=== PATIENT | female | born 1965 | race Caucasian/White ===

== ENCOUNTER 2020-08-25 06:39 | Outpatient (NON) | payer SELFPAY ==
[2020-08-25 23:55] LABS: SARS-CoV-2 RNA PCR Negative
== END 2020-08-25 06:40 ==
DX: Z20.828 Contact with and (suspected) exposure to other viral communicable diseases (principal)
CPT/HCPCS: 87635; C9803; U0003

== ENCOUNTER 2020-08-27 11:04 | Outpatient (CLI) | payer SELFPAY ==
[2020-08-27 12:23] LABS: Basophils Percent Auto 0.4 % (0.2-1.2); Eosinophils Absolute Auto 0.1 K/mm3 (0-0.3); Eosinophils Percent Auto 2.8 % (0-4.4); Hematocrit 43.5 % (37.0-47.0); Hemoglobin 14.7 g/dL (12.0-15.0); Immature Granulocyte Absolute 0.01 K/mm3 (0.00-0.031); Immature Granulocyte Percent A 0.2 % (0-0.5); Lymphocytes Percent Auto 36.7 % (18.3-44.2); Mean Corpuscular HGB Conc 33.8 g/dl (32-36); Mean Corpuscular Hemoglobin 31.5 pg (26-34); Mean Corpuscular Volume 93.1 fl (80-100); Monocytes Absolute Auto 0.4 K/mm3 (0.1-0.6); Monocytes Percent Auto 8.6 % (2.6-8.5); Neutrophils Absolute Auto 2.4 K/mm3 (1.3-6.7); Neutrophils Percent Auto 51.3 % (45.5-73.1); Platelet Count Result 255 k/mm3 (150-375); Red Blood Count 4.67 M/mm3 (4.2-5.4); Red Cell Distribution Width 13.3 % (11.5-14.5); White Blood Count 4.6 K/mm3 (4.5-10.0)
[2020-08-27 12:35] LABS: Hemoglobin A1C 6.3 % (<5.7)
[2020-08-27 12:39] LABS: Alanine Aminotransferase 75 U/L (4-35); Albumin Level 4.3 g/dL (3.5-5.1); Alkaline Phosphatase 81 U/L (38-126); Anion Gap 8 mmol/L (8-16); Aspartate Amino Transferase 57 U/L (14-36); Bilirubin,Total 0.8 mg/dL (0.2-1.3); Blood Urea Nitrogen 11 mg/dL (7-17); Calcium 9.4 mg/dL (8.4-10.2); Carbon Dioxide 28 mmol/L (22-30); Chloride 104 mmol/L (98-107); Cholesterol 294 mg/dL (0-200); Estimated Glomerular Filt Rate > 60; Glucose 133 mg/dL (65-105); HDL Direct 36 mg/dL; Potassium 4.4 mmol/L (3.4-5.0); Sodium 140 mmol/L (137-145); Triglycerides 223 mg/dL (<150)
[2020-08-27 12:50] LABS: LDL Cholesterol Direct 214 mg/dL
== END 2020-08-27 11:05 | disposition home or self-care (01) ==
DX: E11.9 Type 2 diabetes mellitus without complications (principal); R53.81 Other malaise; E78.5 Hyperlipidemia, unspecified
CPT/HCPCS: 36415; 80053; 80061; 83036; 84443; 85025

== ENCOUNTER 2024-02-13 12:52 | Outpatient (CLI) | payer BC, SELFPAY ==
[2024-02-13 14:14] LABS: Iron 109 ug/dL (37-170)
[2024-02-13 14:23] LABS: Percent Iron Saturation 31 % (20-50)
[2024-02-13 14:34] LABS: Folic Acid 8.2 ng/mL (2.76->20)
[2024-02-17 11:53] LABS: Vitamin D 1,25 (OH)2 Total 39 pg/mL (18-72); Vitamin D2 1,25 (OH)2 <8 pg/mL; Vitamin D3 1,25 (OH)2 39 pg/mL
== END 2024-02-13 12:53 | disposition home or self-care (01) ==
LOC: ANHLAB 12:55
PROVIDERS: PCP Internal Medicine; Visit Provider Physician Assistant
DX: R53.83 Other fatigue (principal); G47.33 Obstructive sleep apnea (adult) (pediatric); D64.9 Anemia, unspecified
CPT/HCPCS: 36415; 82607; 82652; 82746; 83540; 83550

== ENCOUNTER 2024-02-25 13:21 | Outpatient (CLI) | payer BC, SELFPAY ==
--- NOTE | ~2024-02-25 | CT_ITS ---
CT Scan of the Chest without Contrast: Clinical Indication: Lung cancer screening, nicotine dependence Technique: Contiguous sections were acquired throughout the chest without intravenous contrast. Dose reduction technique was used on this scan by utilizing automated exposure control and iterative recon struction technique. The dose-length product (DLP) was 375.84 mGy-cm. Findings: There is no evidence of any significant mediastinal, hilar or axillary lymphadenopathy. The mediastin al soft tissues appear normal. There is no evidence of pleural or pericardial effusion. The lungs are clear. No pulmonary nodules or infiltrates are noted. Images through the upper abdomen reveal no abnormalities. Impression: Lung RADS 1: Negative. 12 month follow-up screening CT advised. Reviewed, dictated and finalized at location . Impression: Lung RADS 1: Negative. 12 month follow-up screening CT advised.
== END 2024-02-25 13:22 | disposition home or self-care (01) ==
PROVIDERS: PCP Internal Medicine; Visit Provider Physician Assistant
DX: Z12.2 Encounter for screening for malignant neoplasm of respiratory organs (principal); Z87.891 Personal history of nicotine dependence
CPT/HCPCS: 71271

== ENCOUNTER 2024-04-29 07:38 | Outpatient (CLI) | payer BC, SELFPAY ==
[2024-04-29 08:14] LABS: Basophils Percent Auto 0.5 % (0.2-1.2); Eosinophils Absolute Auto 0.1 K/mm3 (0-0.3); Eosinophils Percent Auto 1.7 % (0-4.4); Hematocrit 41.6 % (37.0-47.0); Hemoglobin 14.4 g/dL (12.0-15.0); Immature Granulocyte Absolute 0.01 K/mm3 (0.00-0.031); Immature Granulocyte Percent A 0.2 % (0-0.5); Lymphocytes Absolute Auto 2.02 K/mm3 (0.9-3.2); Lymphocytes Percent Auto 33.6 % (18.3-44.2); Mean Corpuscular HGB Conc 34.6 g/dl (32-36); Mean Corpuscular Hemoglobin 32.6 pg (26-34); Mean Corpuscular Volume 94.1 fl (80-100); Mean Platelet Volume 9.6 fl (7.4-10.4); Monocytes Absolute Auto 0.4 K/mm3 (0.1-0.6); Monocytes Percent Auto 7.3 % (2.6-8.5); Neutrophils Absolute Auto 3.4 K/mm3 (1.3-6.7); Neutrophils Percent Auto 56.7 % (45.5-73.1); Platelet Count Result 251 k/mm3 (150-375); Red Blood Count 4.42 M/mm3 (4.2-5.4); Red Cell Distribution Width 12.5 % (11.5-14.5)
[2024-04-29 08:30] LABS: Alanine Aminotransferase 35 U/L (6-35); Albumin Level 4.4 g/dL (3.5-5.1); Alkaline Phosphatase 86 U/L (38-126); Anion Gap 10 mmol/L (4-12); Aspartate Amino Transferase 26 U/L (14-36); Bilirubin,Total 0.6 mg/dL (0.2-1.3); Blood Urea Nitrogen 15 mg/dL (7-17); Calcium 8.9 mg/dL (8.4-10.2); Carbon Dioxide 25 mmol/L (22-30); Chloride 103 mmol/L (98-107); Cholesterol 200 mg/dL (0-200); Estimated Glomerular Filt Rate > 60; Glucose 122 mg/dL (65-110); HDL Direct 44 mg/dL; Potassium 4.1 mmol/L (3.4-5.0); Sodium 138 mmol/L (137-145); Triglycerides 186 mg/dL (<150)
[2024-04-29 08:41] LABS: LDL Cholesterol Direct 123 mg/dL
== END 2024-04-29 07:39 | disposition home or self-care (01) ==
LOC: ANHLAB 07:40
PROVIDERS: PCP Internal Medicine; Visit Provider Internal Medicine
DX: I10 Essential (primary) hypertension (principal)
CPT/HCPCS: 36415; 80053; 80061; 85025

== ENCOUNTER 2024-12-10 12:21 | Outpatient (CLI) | payer BC, SELFPAY ==
--- NOTE | ~2024-12-10 | XR_ITS ---
EXAMINATION: XR mandible min 4V DATE: 12/10/2024 13:05 INDICATION: Jaw pain. TECHNIQUE: 4 views of the mandible were obtained. COMPARISON: None. FINDINGS: Alignment is normal. No fracture. The temporomandibular joints are normal. IMPRESSION: 1. Normal mandible. Reviewed, dictated and finalized at location A. OR INTERIOR DESIGNER IMPRESSION: 1. Normal mandible.
--- OUTSIDE RECORDS SUMMARY | 2024-12-10 13:57 | XMS_ITS | CONTINUITY OF CARE DOCUMENT ---
Author Name alivia bunch Address Unknown Organization [facility] Address [id number] [place] [address] Phone [phone] Care Team Providers Care Climate Change Analyst Name Role Phone Alex Ward DO Unavailable CAMMIE LOPES MD Unavailable [phone] CAMMIE LOPES MD Unavailable PROBLEMS Condition Status Date Provider Notes Abnormal EKG active Alexandria Ibarra INSURANCE PROVIDERS Payer name Policy type / Coverage type [place] [employer] party ID [employer] [facility] [employer] [id number] TREATMENT PLAN Date Name Complete Echo
--- OUTSIDE RECORDS SUMMARY | 2024-12-10 13:57 | XMS_ITS | Data Portability ---
Author Organization [facility] Marlon Mitchell Address [address] [place] [address] Care Team Providers Care Egg Breaker Name Role Phone CAMMIE SUN Primary Care Provider Unavailabl e Assessment Encounter Date Assessment Date Assessment LastModified by Organization Details LastModified Time 12/27/2023 12/27/2023 Etiology of fatigue not clear will obtain blood work stress testing echocardiogram total CK we will stop the atorvastatin for 4 weeks just to see if that is playing a role she will let me know in 1 month when I see her back Not available 12/30/2023 15:41:04 04/24/2024 04/24/2024 we will try some cholestyramine healthy lifestyle care instructions given blood work has been ordered A1c was 5.9 follow up in 4 months [email or web address] Not available 05/04/2024 21:36:24 08/28/2024 08/28/2024 blood work has been ordered we will start GLP 1 Jeremiah Rudd she will follow up in 3 months all questions answered [email or web address] Not available 10/10/2024 14:01:39 11/27/2024 11/27/2024 healthy lifestyl e care instructions x-ray mandible refer for her jaw issue titrate her GLP 1 follow up in 4 months [email or web address] Not available 12/07/2024 17:37:28 Plan of Treatment Reminders Order Date Submit Date Provider Last Modified By Organization Details Last Modified Time Details Appointments ANY 15 2024 09:15A Patricia Sun MD Not available Not available Not available Lab CMP, serum or plasma 2023 024 SAGAR [facility], [address], [place], [address], 08/29/2024 07:16:27 lipid panel, serum 2023 024 S[facility], [address], [place], [address], 08/29/2024 07:16:25 CBC w/ auto diff 2023 024 SAGAR [facility], [address], [place], [address], 08/29/2024 07:16:28 HbA1c (hemoglob in A1c), blood 2023 024 [email or web address] In-Office Order, Internal Use Only DO Not Attach Compendium DO Not Attach Compendium, Do Not Delete/merge, [id number] 04/24/2024 14:23:48 lipid panel, serum 2023 024 SAGAR [facility], [address], [place], [address], 04/29/2024 09:44:14 CBC w/ auto diff 2023 024 [facility], [address], [place], [address], 04/29/2024 09:44:14 CMP, serum or plasma 2023 024 S[facility], [address], [place], [address], 04/29/2024 09:44:14 CK (creatine kinase), total, serum 2023 024 S[facility]AR [facility], [address], [place], [address], 12/28/2023 10:14:11 CMP, serum or plasma 2023 024 S[facility]AR [facility], [address], [place], [address], 12/28/2023 10:14:10 CBC w/ auto diff 2023 024 [facility], [address], [place], [address], 12/28/2023 10:14:13 lipid panel, serum 2023 024 [facility], [address], [place], [address], 12/28/2023 10:14:10 TSH, ultra-sen sitive, serum 2023 024 [facility], [address], [place], [address], 12/28/2023 10:14:12 T3, free, serum or plasma 2023 024 [facility], [address], [place], [address], 12/28/2023 10:14:13 T4, free, serum 2023 024 [facility], [address], [place], [address], 12/28/2023 10:14:14 Referral None recorded. Procedures lexiscan cardiolit e stress test (PROC) 2023 024 [facility], [address], [address], [place], [address], 05/27/2024 10:48:14 Surgeries None recorded. Imaging US, echocardi ogram 2023 024 [facility], [address], [address], [place], [address], 01/25/2024 15:02:06 Medication Orders Mounjaro 2.5 mg/0.5 mL subcutane ous pen injector 2023 024 [id number], [address], [place], [place], [id number], 11/27/2024 10:39:06 Cholestyr amine Light 4 gram oral powder 2023 024 [id number], [address], [place], [place], [id number], 04/24/2024 14:23:48 Patient TargetsNo targets recorded. Patient Instructions Encounter Date Encounter Id Patient Instructions Last Modified By Organization Details Last Modified Time 04/24/2024 [id number] A healthy lifestyle: care instructions [email or web address] Not available 04/24/2024 14:23:48 08/28/2024 [id number] A healthy lifestyle: care instructions [email or web address] Not available 08/28/2024 13:45:10 11/27/2024 [id number] A healthy lifestyle: care instructions Not available 11/27/2024 13:40:37 Reason for Referral None Reported. Results Created Date Observation Date Name Description Value Unit Range Abnormal Flag Note LastModifiedBy Organization Detail LastModifiedTime 12/27/1912/28/2023 LIPID PANEL cholesterol, total 163 mg/dL 100-19 9 Not Available [facility] ([facility]) [address] [facility], [place], [address], 12/28/2023 10:14:09 12/27/1912/28/2023 LIPID PANEL triglyceride s 123 mg/dL 0-149 Not Available [facility]) [address] [facility], [place], [address], 12/28/2023 10:14:09 12/27/1912/28/2023 LIPID PANEL HDL cholesterol 51 mg/dL >39 Not Available [facility] [address] [facility], [place], [address], 12/28/2023 10:14:09 12/27/19 24 12/28/2023 LIPID PANEL VLDL cholesterol david 22 mg/dL 5-40 Not Available [facility]) [address] [place], [address], 12/28/2023 10:14:09 12/27/19 24 12/28/2023 LIPID PANEL LDL chol calc ([facility]) 90 mg/dL 0-99 Not Available [facility] [address] [place], [address], 12/28/2023 10:14:09 12/27/19 24 12/28/2023 COMP. METAB OLIC PANEL (14) glucose 139 mg/dL 70-99 above high normal Not Available [facility] ([facility]) [address] [facility], [place], [address], 12/28/2023 10:14:10 12/27/19 24 12/28/2023 COMP. METAB OLIC PANEL (14) BUN 14 mg/dL 6-24 Not Available [facility] ([facility]) [address] [place], [address], 12/28/2023 10:14:10 12/27/19 24 12/28/2023 COMP. METAB OLIC PANEL (14) creatinine 0.78 mg/dL 0.57-1 .00 Not Available [facility] ([facility]) [address] [place], [address], 12/28/2023 10:14:10 12/27/19 24 12/28/2023 COMP. METAB OLIC PANEL (14) eGFR 89 mL/mi n/1.7 3 >59 Not Available [facility] ([facility]) [address] [place], [address], 12/28/2023 10:14:10 12/27/19 24 12/28/2023 COMP. METAB OLIC PANEL (14) BUN/creatini ne ratio 18 9-23 Not Available [facility]) [address], [place], [address], 12/28/2023 10:14:10 12/27/19 24 12/28/2023 COMP. METAB OLIC PANEL (14) sodium 140 mmol/ L 134-14 4 Not Available [facility] ([facility]) [address], [place], [address], 12/28/2023 10:14:10 12/27/19 24 12/28/2023 COMP. METAB OLIC PANEL (14) potassium 4.3 mmol/ L 3.5-5. 2 Not Available [facility] ([facility]) [address], [place], [address], 12/28/2023 10:14:10 12/27/19 24 12/28/2023 COMP. METAB OLIC PANEL (14) chloride 101 mmol/ L 96-106 Not Available [facility] ([facility]) [address], [place], [address], 12/28/2023 10:14:10 12/27/19 24 12/28/2023 COMP. METAB OLIC PANEL (14) carbon dioxide, total 23 mmol/ L 20-29 Not Available [facility] ([facility]) [address] [place], [address], 12/28/2023 10:14:10 12/27/19 24 12/28/2023 COMP. METAB OLIC PANEL (14) calcium 9.4 mg/dL 8.7-10 .2 Not Available [facility] ([facility]) [address] [place], [address], 12/28/2023 10:14:10 12/27/19 24 12/28/2023 COMP. METAB OLIC PANEL (14) protein, total 6.6 g/dL 6.0-8. 5 Not Available [facility] ([facility]) [address] [facility], [place], [address], 12/28/2023 10:14:10 12/27/19 24 12/28/2023 COMP. METAB OLIC PANEL (14) albumin 4.1 g/dL 3.8-4. 9 Not Available [facility] ([facility]) [address], [place], [address], 12/28/2023 10:14:10 12/27/19 24 12/28/2023 COMP. METAB OLIC PANEL (14) globulin, total 2.5 g/dL 1.5-4. 5 Not Available [facility] ([facility]) [address], [place], [address], 12/28/2023 10:14:10 12/27/19 24 12/28/2023 COMP. METAB OLIC PANEL (14) A/G ratio 1.6 1.2-2. 2 Not Available [facility] ([facility]) [address] [facility], [place], [address], 12/28/2023 10:14:10 12/27/19 24 12/28/2023 COMP. METAB OLIC PANEL (14) bilirubin, total 0.3 mg/dL 0.0-1. 2 Not Available [facility] ([facility]) [address] [facility], [place], [address], 12/28/2023 10:14:10 12/27/19 24 12/28/2023 COMP. METAB OLIC PANEL (14) alkaline phosphatase 113 IU/L 44-121 Not Available [facility]) [address] [facility], [place], [address], 12/28/2023 10:14:10 12/27/19 24 12/28/2023 COMP. METAB OLIC PANEL (14) AST (SGOT) 20 IU/L 0-40 Not Available [facility] ([facility]) [address] [facility], [place], [address], 12/28/2023 10:14:10 12/27/19 24 12/28/2023 COMP. METAB OLIC PANEL (14) ALT (SGPT) 23 IU/L 0-32 Not Available [facility] ([facility]) [address] [facility], [place], [address], 12/28/2023 10:14:10 12/27/19 24 12/28/2023 CK creatine kinase,total 79 U/L 32-182 Not Available [facility]) [address] [facility], [place], [address], 12/28/2023 10:14:11 12/27/19 24 12/28/2023 TSH TSH 1.480 uIU/m L 0.450- 4.500 Not Available [facility] ([facility]) [address] [facility], [place], [address], 12/28/2023 10:14:12 12/27/19 24 12/28/2023 CBC WITH DIFFE RENTI AL/PL ATELE T WBC 5.5 x10e3 /uL 3.4-10 .8 Not Available [facility] ([facility]) [address] [place], [address], 12/28/2023 10:14:13 12/27/19 24 12/28/2023 CBC WITH DIFFE RENTI AL/PL ATELE T RBC 4.22 x10e6 /uL 3.77-5 .28 Not Available [facility] ([facility]) [address] [facility], [place], [address], 12/28/2023 10:14:13 12/27/19 24 12/28/2023 CBC WITH DIFFE RENTI AL/PL ATELE T hemoglobin 13.4 g/dL 11.1-1 5.9 Not Available [facility] ([facility]) [address] [place], [address], 12/28/2023 10:14:13 12/27/19 24 12/28/2023 CBC WITH DIFFE RENTI AL/PL ATELE T hematocrit 38.7 % 34.0-4 6.6 Not Available [facility] ([facility]) [address] [facility], [place], [address], 12/28/2023 10:14:13 12/27/19 24 12/28/2023 CBC WITH DIFFE RENTI AL/PL ATELE T MCV 92 fL 79-97 Not Available [facility] ([facility]) [address] [facility], [place], [address], 12/28/2023 10:14:13 12/27/19 24 12/28/2023 CBC WITH DIFFE RENTI AL/PL ATELE T MCH 31.8 pg 26.6-3 3.0 Not Available [facility] ([facility]) [address] [facility], [place], [address], 12/28/2023 10:14:13 12/27/19 24 12/28/2023 CBC WITH DIFFE RENTI AL/PL ATELE T MCHC 34.6 g/dL 31.5-3 5.7 Not Available [facility] ([facility]) [address] [place], [address], 12/28/2023 10:14:13 12/27/19 24 12/28/2023 CBC WITH DIFFE RENTI AL/PL ATELE T RDW 12.9 % 11.7-1 5.4 Not Available [facility] ([facility]) [address] [place], [address], 12/28/2023 10:14:13 12/27/19 24 12/28/2023 CBC WITH DIFFE RENTI AL/PL ATELE T platelets 290 x10e3 /uL 150-45 0 Not Available [facility] ([facility]) [address] [facility], [place], [address], 12/28/2023 10:14:13 12/27/19 24 12/28/2023 CBC WITH DIFFE RENTI AL/PL ATELE T neutrophils 61 % notest ab. Not Available [facility] ([facility]) [address] [facility], [place], [address], 12/28/2023 10:14:13 12/27/19 24 12/28/2023 CBC WITH DIFFE RENTI AL/PL ATELE T lymphs 31 % notest ab. Not Available [facility] ([facility]) [address] [facility], [place], [address], 12/28/2023 10:14:13 12/27/19 24 12/28/2023 CBC WITH DIFFE RENTI AL/PL ATELE T monocytes 6 % notest ab. Not Available [facility] ([facility]) [address] [facility], [place], [address], 12/28/2023 10:14:13 12/27/19 24 12/28/2023 CBC WITH DIFFE RENTI AL/PL ATELE T eos 1 % notest ab. Not Available [facility] ([facility]) [address] [facility], [place], [address], 12/28/2023 10:14:13 12/27/19 24 12/28/2023 CBC WITH DIFFE RENTI AL/PL ATELE T basos 1 % notest ab. Not Available [facility] ([facility]) [address] [facility], [place], [address], 12/28/2023 10:14:13 12/27/19 24 12/28/2023 CBC WITH DIFFE RENTI AL/PL ATELE T neutrophils (absolute) 3.4 x10e3 /uL 1.4-7. 0 Not Available [facility] ([facility]) [address] [facility], [place], [address], 12/28/2023 10:14:13 12/27/19 24 12/28/2023 CBC WITH DIFFE RENTI AL/PL ATELE T lymphs (absolute) 1.7 x10e3 /uL 0.7-3. 1 Not Available [facility] ([facility]) [address] [facility], [place], [address], 12/28/2023 10:14:13 12/27/19 24 12/28/2023 CBC WITH DIFFE RENTI AL/PL ATELE T monocytes(ab solute) 0.3 x10e3 /uL 0.1-0. 9 Not Available [facility] ([facility]) [address] [facility], [place], [address], 12/28/2023 10:14:13 12/27/19 24 12/28/2023 CBC WITH DIFFE RENTI AL/PL ATELE T eos (absolute) 0.1 x10e3 /uL 0.0-0. 4 Not Available [facility] ([facility]) [address] [facility], [place], [address], 12/28/2023 10:14:13 12/27/19 24 12/28/2023 CBC WITH DIFFE RENTI AL/PL ATELE T baso (absolute) 0.0 x10e3 /uL 0.0-0. 2 Not Available [facility] ([facility]) [address] [facility], [place], [address], 12/28/2023 10:14:13 12/27/19 24 12/28/2023 CBC WITH DIFFE RENTI AL/PL ATELE T immature granulocytes 0 % notest ab. Not Available [facility] ([facility]) [address] [facility], [place], [address], 12/28/2023 10:14:13 12/27/19 24 12/28/2023 CBC WITH DIFFE RENTI AL/PL ATELE T immature grans (abs) 0.0 x10e3 /uL 0.0-0. 1 Not Available [facility] ([facility]) [address] [facility], [place], [address], 12/28/2023 10:14:13 12/27/19 24 12/28/2023 TRIIO DOTHY KEREN E (T3), FREE triiodothyro nine (T3), free 2.6 pg/mL 2.0-4. 4 Not Available [facility] ([facility]) [address] [facility], [place], [address], 12/28/2023 10:14:13 12/27/19 24 12/28/2023 T4,FR EE(DI RECT) T4,free(dire ct) 1.00 NG/dL 0.82-1 .77 Not Available [facility] ([facility]) [address] [facility], [place], [address], 12/28/2023 10:14:14 04/24/20 24 04/24/2024 HbA1c (hemo globi n A1c), blood HbA1c 5.9 Not Available In-Office Order Internal Use Only DO Not Attach Compendium DO Not Attach Compendium, Do Not Delete/merge, [id number] 04/23/2024 14:11:04 06/20/20 24 06/20/2024 COLOG UARD cologuard result reportable NEGATI VE negati ve normal NEGAT AISHWARYA TEST RESUL T. A negat aishwarya Colog uard resul t indic ates a low likel ihood that a color ectal cance r (CRC) or advan francoise adeno ma (cathie omato us polyp s with more advan francoise pre-m align ant featu res) is prese nt. The chanc e that a perso n with a negat aishwarya Colog uard test has a color ectal cance r is less than 1 in 1500 (nega tive predi ctive value >99.9 %) or has an advan francoise adeno ma is less than 5.3% (nega tive predi ctive value 94.7% ). These data are based on a prosp ectiv e cross -sect ional study of 10,00 0 indiv idual s at [facility] risk for color ectal cance r who were scree xander with both Colog uard and colon oscop y. (Sonny Martines et al, N Engl J Med 2014; 370(1 4):12 86-12 97) The manolo l value (refe rence range ) for this assay is negat aishwarya. COLOG UARD RE-SC REENI NG RECOM MENDA TION: Perio dic color ectal cance r scree palomo is an impor tant part of preve ntive healt hcare for asymp tomat ic indiv idual s at [facility] for color ectal cance r. Follo wing a negat aishwarya Colog uard resul t, the Ameri can Cance r Socie ty and U.S. Multi -Soci ety Task Force scree palomo guide lines recom mend a Colog uard re-sc reeni ng inter simi of 3 years . Refer ences : Ameri can Cance r Socie ty Guide line for Color ectal Cance r Scree palomo: https ://zoie w.can cer.o rg/ca ncer/ colon -rect al-ca ncer/ detec tion- diagn osis- stagi ng/ac s-rec ommen datio ns.ht ml.; Kevin HEART, Faustino WOODS, Vielka AWAD, Color ectal Cance r Scree palomo: Recom menda tions for Physi cians and Patie nts from the U.S. Multi -Soci ety Task Force on Color ectal Cance r Scree palomo , Saeed alvarez y 2017; 112:1 016-1 030. TEST DESCR IPTIO N: [place] site algor ithmi c isamar sis of stool DNA-b iomar kers with hemog lobin immun oassa y. Quant itati ve value s of indiv idual bioma rkers are not repor table and are not assoc iated with indiv idual bioma rker resul t refer ence range s. Colog uard is inten ded for color ectal cance r scree palomo of adult s of eithe r sex, 45 years or older , who are at [facility] for color ectal cance r (CRC) . Colog uard has been appro lesley for use by the U.S. FDA. The perfo rmanc e of Colog uard was estab lishe d in a cross secti onal study of [facility] adult s aged 50-84 . Colog uard perfo rmanc e in patie nts ages 45 to 49 years was estim ated by sub-g roup isamar sis of near- age group s. Colon oscop ies perfo rmed for a posit aishwarya resul t may find as the most clini merissa signi fican t lesio n: color ectal cance r [4.0% ], advan francoise adeno ma (incl uding sessi le sophia patrice polyp s great er than or equal to 1cm diame ter) [20%] or non- advan francoise adeno ma [31%] ; or no color ectal neopl nabeel [45%] . These estim ates are deriv ed from a prosp ectiv e cross -sect ional scree palomo study of 0 indiv idual s at [facility] risk for color ectal cance r who were scree xander with both Colog uard and colon oscop y. (Sonny Martines et al, N Engl J Med 2014; 370(1 4):12 86-12 97.) Colog uard may produ ce a false negat aishwarya or false posit aishwarya resul t (no color ectal cance r or preca ncero us polyp prese nt at colon oscop y follo w up). A negat aishwarya Colog uard test resul t does not guara ntee the absen ce of CRC or advan francoise adeno ma (pre- cance r). The curre nt Colog uard scree palomo inter simi is every 3 years . (Amer ican Cance r Socie ty and U.S. Multi -Soci ety Task Force ). Colog uard perfo rmanc e data in a 0 patie nt pivot al study using colon oscop y as the refer ence metho d can be acces sed at the follo wing locat ion: www.e xactl abs.c om/re luis eduardo . Addit ional descr iptio n of the Colog uard test proce ss, warni ngs and preca ution s can be found at www.c georgia cruzd.c om. Not Available [facility] (Cologuard Orders Only) [address], [place], [address], 06/25/2024 14:54:41 08/28/20 24 08/29/2024 LIPID PANEL cholesterol, total 163 mg/dL 100-19 9 Not Available [facility] ([facility]) [address] [place], [address], 08/29/2024 07:16:25 08/28/20 24 08/29/2024 LIPID PANEL triglyceride s 156 mg/dL 0-149 above high normal Not Available [facility] ([facility]) [address] [place], [address], 08/29/2024 07:16:25 08/28/20 24 08/29/2024 LIPID PANEL HDL cholesterol 49 mg/dL >39 Not Available [facility]) [address] [place], [address], 08/29/2024 07:16:25 08/28/20 24 08/29/2024 LIPID PANEL VLDL cholesterol david 27 mg/dL 5-40 Not Available [facility] ([facility]) [address] [place], [address], 08/29/2024 07:16:25 08/28/20 24 08/29/2024 LIPID PANEL LDL chol calc ([facility]) 87 mg/dL 0-99 Not Available [facility] ([facility]) [address] [place], [address], 08/29/2024 07:16:25 08/28/20 24 08/29/2024 COMP. METAB OLIC PANEL (14) glucose 121 mg/dL 70-99 above high normal Not Available [facility] ([facility]) [address] [place], [address], 08/29/2024 07:16:26 08/28/20 24 08/29/2024 COMP. METAB OLIC PANEL (14) BUN 12 mg/dL 6-24 Not Available [facility] ([facility]) [address] [place], [address], 08/29/2024 07:16:26 08/28/20 24 08/29/2024 COMP. METAB OLIC PANEL (14) creatinine 0.86 mg/dL 0.57-1 .00 Not Available [facility] ([facility]) [address] [place], [address], 08/29/2024 07:16:26 08/28/20 24 08/29/2024 COMP. METAB OLIC PANEL (14) eGFR 78 mL/mi n/1.7 3 >59 Not Available [facility] ([facility]) [address] [place], [address], 08/29/2024 07:16:26 08/28/20 24 08/29/2024 COMP. METAB OLIC PANEL (14) BUN/creatini ne ratio 14 9-23 Not Available [facility] ([facility]) [address] [place], [address], 08/29/2024 07:16:26 08/28/20 24 08/29/2024 COMP. METAB OLIC PANEL (14) sodium 137 mmol/ L 134-14 4 Not Available [facility] ([facility]) [address] [place], [address], 08/29/2024 07:16:26 08/28/20 24 08/29/2024 COMP. METAB OLIC PANEL (14) potassium 4.7 mmol/ L 3.5-5. 2 Not Available [facility] ([facility]) [address] [place], [address], 08/29/2024 07:16:26 08/28/20 24 08/29/2024 COMP. METAB OLIC PANEL (14) chloride 102 mmol/ L 96-106 Not Available [facility] ([facility]) [address] [place], [address], 08/29/2024 07:16:26 08/28/20 24 08/29/2024 COMP. METAB OLIC PANEL (14) carbon dioxide, total 24 mmol/ L 20-29 Not Available [facility] ([facility]) [address] [facility], [place], [address], 08/29/2024 07:16:26 08/28/20 24 08/29/2024 COMP. METAB OLIC PANEL (14) calcium 9.6 mg/dL 8.7-10 .2 Not Available [facility] ([facility]) [address] [facility], [place], [address], 08/29/2024 07:16:26 08/28/20 24 08/29/2024 COMP. METAB OLIC PANEL (14) protein, total 7.1 g/dL 6.0-8. 5 Not Available [facility] ([facility]) [address] [facility], [place], [address], 08/29/2024 07:16:26 08/28/20 24 08/29/2024 COMP. METAB OLIC PANEL (14) albumin 4.4 g/dL 3.8-4. 9 Not Available [facility] ([facility]) [address] [facility], [place], [address], 08/29/2024 07:16:26 08/28/20 24 08/29/2024 COMP. METAB OLIC PANEL (14) globulin, total 2.7 g/dL 1.5-4. 5 Not Available [facility] ([facility]) [address] [facility], [place], [address], 08/29/2024 07:16:26 08/28/20 24 08/29/2024 COMP. METAB OLIC PANEL (14) bilirubin, total 0.4 mg/dL 0.0-1. 2 Not Available [facility] ([facility]) [address] [facility], [place], [address], 08/29/2024 07:16:26 11/14/08/29/2024 COMP. METAB OLIC PANEL (14) alkaline phosphatase 124 IU/L 44-121 above high normal Not Available [facility] ([facility]) [address] [facility], [place], [address], 08/29/2024 07:16:26 08/28/20 24 08/29/2024 COMP. METAB OLIC PANEL (14) AST (SGOT) 23 IU/L 0-40 Not Available [facility] ([facility]) [address] [facility], [place], [address], 08/29/2024 07:16:26 08/28/2008/29/2024 COMP. METAB OLIC PANEL (14) ALT (SGPT) 31 IU/L 0-32 Not Available [facility] ([facility]) [address] [facility], [place], [address], 08/29/2024 07:16:26 08/28/20 24 08/29/2024 CBC WITH DIFFE RENTI AL/PL ATELE T WBC 6.8 x10e3 /uL 3.4-10 .8 Not Available [facility] ([facility]) [address] [place], [address], 08/29/2024 07:16:28 08/28/20 24 08/29/2024 CBC WITH DIFFE RENTI AL/PL ATELE T RBC 4.65 x10e6 /uL 3.77-5 .28 Not Available [facility] ([facility]) [address] [place], [address], 08/29/2024 07:16:28 08/28/20 24 08/29/2024 CBC WITH DIFFE RENTI AL/PL ATELE T hemoglobin 14.9 g/dL 11.1-1 5.9 Not Available [facility] ([facility]) [address] [place], [address], 08/29/2024 07:16:28 08/28/20 24 08/29/2024 CBC WITH DIFFE RENTI AL/PL ATELE T hematocrit 44.5 % 34.0-4 6.6 Not Available [facility] ([facility]) [address] [facility], [place], [address], 08/29/2024 07:16:28 08/28/20 24 08/29/2024 CBC WITH DIFFE RENTI AL/PL ATELE T MCV 96 fL 79-97 Not Available [facility] ([facility]) [address] [facility], [place], [address], 08/29/2024 07:16:28 08/28/20 24 08/29/2024 CBC WITH DIFFE RENTI AL/PL ATELE T MCH 32.0 pg 26.6-3 3.0 Not Available [facility] ([facility]) [address] [facility], [place], [address], 08/29/2024 07:16:28 08/28/20 24 08/29/2024 CBC WITH DIFFE RENTI AL/PL ATELE T MCHC 33.5 g/dL 31.5-3 5.7 Not Available [facility] ([facility]) [address] [place], [address], 08/29/2024 07:16:28 08/28/20 24 08/29/2024 CBC WITH DIFFE RENTI AL/PL ATELE T RDW 12.5 % 11.7-1 5.4 Not Available [facility] ([facility]) [address] [place], [address], 08/29/2024 07:16:28 08/28/20 24 08/29/2024 CBC WITH DIFFE RENTI AL/PL ATELE T platelets 267 x10e3 /uL 150-45 0 Not Available [facility] ([facility]) [address] [place], [address], 08/29/2024 07:16:28 08/28/20 24 08/29/2024 CBC WITH DIFFE RENTI AL/PL ATELE T neutrophils 60 % notest ab. Not Available [facility] ([facility]) [address] [facility], [place], [address], 08/29/2024 07:16:28 08/28/20 24 08/29/2024 CBC WITH DIFFE RENTI AL/PL ATELE T lymphs 30 % notest ab. Not Available [facility] ([facility]) [address] [facility], [place], [address], 08/29/2024 07:16:28 08/28/20 24 08/29/2024 CBC WITH DIFFE RENTI AL/PL ATELE T monocytes 8 % notest ab. Not Available [facility] ([facility]) [address] [facility], [place], [address], 08/29/2024 07:16:28 08/28/20 24 08/29/2024 CBC WITH DIFFE RENTI AL/PL ATELE T eos 2 % notest ab. Not Available [facility] ([facility]) [address] [facility], [place], [address], 08/29/2024 07:16:28 08/28/20 24 08/29/2024 CBC WITH DIFFE RENTI AL/PL ATELE T basos 0 % notest ab. Not Available [facility] ([facility]) [address] [facility], [place], [address], 08/29/2024 07:16:28 08/28/20 24 08/29/2024 CBC WITH DIFFE RENTI AL/PL ATELE T neutrophils (absolute) 4.1 x10e3 /uL 1.4-7. 0 Not Available [facility] ([facility]) [address] [facility], [place], [address], 08/29/2024 07:16:28 08/28/20 24 08/29/2024 CBC WITH DIFFE RENTI AL/PL ATELE T lymphs (absolute) 2.1 x10e3 /uL 0.7-3. 1 Not Available [facility] ([facility]) [address] [facility], [place], [address], 08/29/2024 07:16:28 08/28/20 24 08/29/2024 CBC WITH DIFFE RENTI AL/PL ATELE T monocytes(ab solute) 0.5 x10e3 /uL 0.1-0. 9 Not Available [facility] ([facility]) [address] [facility], [place], [address], 08/29/2024 07:16:28 08/28/20 24 08/29/2024 CBC WITH DIFFE RENTI AL/PL ATELE T eos (absolute) 0.1 x10e3 /uL 0.0-0. 4 Not Available [facility] ([facility]) [address] [facility], [place], [address], 08/29/2024 07:16:28 08/28/20 24 08/29/2024 CBC WITH DIFFE RENTI AL/PL ATELE T baso (absolute) 0.0 x10e3 /uL 0.0-0. 2 Not Available [facility] ([facility]) [address] [facility], [place], [address], 08/29/2024 07:16:28 08/28/20 24 08/29/2024 CBC WITH DIFFE RENTI AL/PL ATELE T immature granulocytes 0 % notest ab. Not Available [facility] ([facility]) [address] [place], [address], 08/29/2024 07:16:28 08/28/20 24 08/29/2024 CBC WITH DIFFE RENTI AL/PL ATELE T immature grans (abs) 0.0 x10e3 /uL 0.0-0. 1 Not Available [facility] ([facility]) [address] [facility], [place], [address], 08/29/2024 07:16:28 09/16/20 24 09/17/2024 HEMOG LOBIN A1C hemoglobin A1C 6.3 % 4.8-5. 6 above high normal Predi abete s: 5.7 - 6.4 Diabe lucita: >6.4 Glyce phillip contr ol for adult s with diabe lucita: <7.0 Not Available [facility] ([facility]) [address], [place], [address], 09/17/2024 08:29:52 12/27/19 24 12/27/2023 elect rocar diogr am No observ ation record ed. Not Available 2023 21:36:57 01/25/20 24 01/25/2024 , echo ardio gram No observ ation record ed. [facility] [address], [place], [address], 01/25/2024 17:23:34 02/25/20 24 02/25/2024 CT, chest , w/o contr ast No observ ation record ed. [facility] [address], [place], [address], 02/26/2024 15:30:45 Result Notes None recorded. Problems Name Problem SNOMED Code Status Onset Date Resolution Date Notes Provider Name and Address Organization Details Recorded Time Fatigue 19492391 Active 2023 Cammie Sun MD Attn: Austin ontiveros,[address] [facility], [place], [address], [place] - [facility] 4 15:39:10 Essential hypertension 07645015 Active 2023 Cammie Sun MD Attn: Austin ontiveros,[address] [facility], [place], [address], [place] - [facility] 4 15:39:11 Type 2 diabetes mellitus 67236535 Active 2023 Reg Carlson [place] null, [place] [facility] 4 10:41:40 Morbid obesity 327360063 Active 2023 Reg Carl[place], [place] [facility] 4 10:41:41 Diarrhea 28016042 Active 2023 Reg Carlson MA null, [place] - [facility] 10:41:42 Hyperlipidemia 09874047 Active 2023 Cammie Sun MD Attn: Austin ontiveros,[address], [place], [address], [facility] - [facility] 14:01:58 Problem Notes None recorded. Procedures Surgical History Date Name Laterality Status Provider Name and Address Organization Details Recorded Time LEEP completed Stephanie Swanson on, [facility] - [facility] 12/27/2023 11:41:24 Imaging Results Imaging Date Name Status LastModified by Organization Details LastModified Time 12/27/2023 electrocardiogram completed [id number] Informa tion not available 12/30/2023 21:36:57 01/25/2024 US, echocardiogram completed [facility] [address], [place], [address], 01/25/2024 17:23:34 02/25/2024 CT, chest, w/o contrast completed [facility] [address], [place], [address], 02/26/2024 15:30:45 Procedure Notes None recorded. Medical Equipment None Reported. Allergies No known drug allergies Medications Name Sig Start Date Stop Date Status Note LastModified by Organization Details LastModified Time amoxicillin 500 mg capsule TAKE 1 CAPSULE BY MOUTH EVERY 6 HOURS 12/26 completed Not Available Not Available Not Available atorvastati n 20 mg tablet TAKE 1 TABLET BY MOUTH DAILY active Not Available Not Available No t Available atorvastati n 10 mg tablet active Not Available Not Available Not Available citalopram 10 mg tablet Take 1 tablet every day by oral route. 11/27 completed Not Available Not Available Not Available hydrocodone 5 mg-acetamin ophen 325 mg tablet TAKE 1 TABLET BY MOUTH EVERY 4 HOURS NEEDED FOR PAIN 12/26 completed Not Available Not Available Not Available prednisone 20 mg tablet TAKE 2 TABLETS BY MOUTH EVERY DAY FOR 5 DAYS 12/26 completed Not Available Not Available Not Available penicillin V potassium 500 mg tablet TAKE 1 TABLET BY MOUTH EVERY 6 HOURS UNTIL GONE 12/26 completed Not Available Not Available Not Available citalopram 20 mg tablet TAKE 1 TABLET BY MOUTH DAILY active Not Available Not Available No t Available doxycycline monohydrate 100 mg capsule TAKE 1 CAPSULE BY MOUTH TWICE DAILY WITH FOOD FOR 7 DAYS 12/26 completed Not Available Not Available Not Available cephalexin 500 mg capsule TAKE 1 CAPSULE BY MOUTH THREE TIMES DAILY FOR 7 DAYS 08/28 completed Not Available Not Available Not Available nystatin 100,000 unit/gram topical cream APPLY TOPICALLY TO THE AFFECTED AREA TWICE DAILY active Not Available Not Available No t Available albuterol sulfate HFA 90 mcg/actuati on aerosol inhaler INHALE 2 PUFFS BY MOUTH EVERY 4 HOURS NEEDED active Not Available Not Available No t Available metformin ER 500 mg tablet,exte nded release 24 hr TAKE 2 TABLETS BY MOUTH EVERY DAY AT BEDTIME 2024 active Not Available Not Available Not Avai lable doxycycline hyclate 100 mg tablet TAKE 1 TABLET BY MOUTH TWICE DAILY FOR 7 DAYS 12/26 completed Not Available Not Available Not Available metoprolol tartrate 25 mg tablet TAKE 1 TABLET BY MOUTH TWICE DAILY active Not Available Not Available No t Available Cholestyram ine Light 4 gram oral powder MIX 1 SCOOP IN LIQUID AND TAKE BY MOUTH EVERY DAY active Not Available Not Available No t Available Ozempic 0.25 mg or 0.5 mg (2 mg/1.5 mL) subcutaneou s pen injector inject 0.25mg weekly for 4wks the go to 0.5mg weekly for 4wk 11/27 completed Not Available Not Available Not Available Ozempic 1 mg/dose (4 mg/3 mL) subcutaneou s pen injector INJECT 1 MG UNDER THE SKIN ONCE A WEEK 12/26 completed Not Available Not Available Not Available Ozempic 2 mg/dose (8 mg/3 mL) subcutaneou s pen injector Inject 2 mg every week by subcutane ous route. 11/27 completed Not Available Not Available Not Available Mounjaro 7.5 mg/0.5 mL subcutaneou s pen injector ADMINISTE R 7.5 MG UNDER THE SKIN 1 TIME WEEKLY FOR 4 WEEKS active Not Available Not Available No t Available Mounjaro 5 mg/0.5 mL subcutaneou s pen injector ADMINISTE R 5 MG UNDER THE SKIN 1 TIME A WEEK FOR 4 WEEKS active Not Available Not Available No t Available Mounjaro 2.5 mg/0.5 mL subcutaneou s pen injector INJECT 2.5 MG UNDER THE SKIN ONE DAY A WEEK FOR 4 WEEKS 11/27 completed Not Available Not Available Not Available Ozempic 0.25 mg or 0.5 mg (2 mg/3 mL) subcutaneou s pen injector 11/27 completed Not Available Not Available Not Available Vitals Date Recorded Body height Body mass index (BMI) Body weight Oxygen saturation Oxygen saturation in Arterial blood by Pulse oximetry Heart rate Systolic blood pressure Diastolic blood pressure Provider Name and Address Organization Details Last Updated DateTime 4 167.64 cm 42.3 kg/m2 553762. 2 g 95 % 95 % 63 /min 136 mm[Hg] 64 mm[Hg] Stephanie Mills MA [facility] 4 11:46:30 Date Recorded Body height Body mass index (BMI) Body weight Heart rate Oxygen saturation Oxygen saturation in Arterial blood by Pulse oximetry Systolic blood pressure Diastolic blood pressure Provider Name and Address Organization Details Last Updated DateTime 4 167.64 cm 41.9 kg/m2 889794. 5 g 61 /min 98 % 98 % 120 mm[Hg] 70 mm[Hg] July Soni MA [facility] 4 09:53:29 Date Recorded Body height Body mass index (BMI) Body weight Heart rate Oxygen saturation Oxygen saturation in Arterial blood by Pulse oximetry Body temperature Systolic blood pressure Diastolic blood pressure Provider Name and Address Organization Details Last Updated DateTime 4 167.64 cm 41.2 kg/m2 471438. 05 g 70 /min 98 % 98 % 97.6 [degF] 132 mm[Hg] 86 mm[Hg] Patricia Ontiveros MA [facility] 4 10:12:19 Date Recorded Body height Body mass index (BMI) Body weight Heart rate Oxygen saturation Oxygen saturation in Arterial blood by Pulse oximetry Systolic blood pressure Diastolic blood pressure Provider Name and Address Organization Details Last Updated DateTime 5 167.64 cm 41.8 kg/m2 112229. 71 g 68 /min 99 % 99 % 118 mm[Hg] 68 mm[Hg] Tracy Khalil MA [place] - [facility] 10:37:26 Social History Question Answer Notes LastModified by Organizat ion Details LastModified Time Tobacco Smoking Status Former Smoker Stephanie Mills MA [place], [place] - [facility] 12/27/2023 11:39:57 Do You Have An Advance Directive? No Information not available 12/27/2023 What Is Your Level Of Alcohol Consumption? Occasional Information not available 12/27/2023 Are You Blind Or Do You Have Difficulty Seeing? No Information not available 12/27/2023 What Is Your Level Of Caffeine Consumption? Occasional Information not available 12/27/2023 In The 14 Days Before Symptom Onset, Have You Had Close Contact With A Laboratory-confir med COVID-19 While That Case Was Ill? No Information not available 11/27/2024 In The 14 Days Before Symptom Onset, Have You Had Close Contact With A Person Who Is Under Investigation For COVID-19 While That Person Was Ill? No Information not available 11/27/2024 Have You Been To An Area Known To Be High Risk For COVID-19? No Information not available 11/27/2024 Are You Deaf Or Do You Have Serious Difficulty Hearing? No Information not available 12/27/2023 What Type Of Diet Are You Following? REGULAR Information not available 12/27/2023 Are There Any Guns Present In Your Home? No Information not available 12/27/2023 What Was The Date Of Your Most Recent Tobacco Screening? 11/27/2024 Information not available 11/27/2024 What Is Your Current Pack Years? 20-29packyears Information not available 12/27/2023 What Is Your Relationship Status? Information not available 12/27/2023 Do You Use Your Seat Belt Or Car Seat Routinely? Yes Information not available 12/27/2023 Do You Have Smoke And Carbon Monoxide Detectors In Your Home? Yes Information not available 12/27/2023 How Much Tobacco Do You Smoke? 3+ PPD Information not available 12/27/2023 Do You Feel Stressed (tense, Restless, Nervous, Or Anxious, Or Unable To Sleep At Night)? [id number] Information not available 12/27/2023 Do You Use Any Illicit Or Recreational Drugs? No Information not available 12/27/2023 Do You Use Sunscreen Routinely? No Information not available 12/27/2023 Has Tobacco Cessation Counseling Been Provided? No Information not available 12/27/2023 How Many Years Have You Smoked Tobacco? 15 Information not available 12/27/2023 Do You Or Have You Ever Used Any Other Forms Of Tobacco Or Nicotine? No Information not available 12/27/2023 Sex: Female Functional Status Question Answer Note LastModified by Organization D etails LastModified Time Are you able to care for yourself? Yes Information n ot available 12/27/2023 What is your exercise level? None Information not available 12/27/2023 Mental Status None recorded. Family History Relationship Description Onset Age of this Age Resolved Age Notes LastModified by Organization Details LastModified Time Father No current problems or disability bandersonma Not available 11:39:03 Mother No current problems or disability bandersonma Not available 11:39:03 Medical History Condition Response Coronary Artery Disease N Other N High Blood Pressure N Atrial Fibrillation N Kidney or Bladder Problems Y Thyroid Problems N GI Problems N Depression N COPD N Blood Clots N Skin Problems N Anemia N Heart Attack (ND) N Anxiety Disorder N Diabetes Y Muscle, Joint, or Bone Problems N Seizures/Epilepsy N Acid Reflux (GERD) N Cancer N Stroke N Asthma N Allergies N High Cholesterol Y Hepatitis N Liver Disease N Headaches N Heart Failure N Osteoporosis N Gynecological HistoryNo gynecological history recorded. Obstetrics History GPAL:G 0 P 0 0 0 0 Immunizations Vaccine Type Date Status Note Provider Nam e and Address Organization Details Recorded Time COVID-19, mRNA, LNP-S, PF, 100 mcg/0.5mL dose or 50 mcg/0.25mL dose 10/19/2021 completed Stephanie Mills [place] null, [place] [facility] 04/23/2024 14:08:44 COVID-19 vaccine, vector-nr, [id number], PF, 0.5 mL 01/17/2021 completed Stephanie Mills [place] null, [place] - [facility] 04/23/2024 14:08:44 COVID-19, mRNA, LNP-S, bivalent, PF, 30 mcg/0.3 mL dose 11/16/2022 completed Stephanie Mills MA null, [facility] 04/23/2024 14:08:44 Influenza, split virus, quadrivalent, PF 08/17/2022 completed Stephanie Mills MA null, [facility] 04/23/2024 14:08:44 Past Encounters Encounter ID Performer Location Encounter Start Date Encounter Closed Date Diagnosis/Indication Diagnosis SNOMED-CT Code Diagnosis ICD10 Code Diagnosis Note [id number] Cammie Sun MD [facility] [address] [place] [address] 12/27/2023 11:13:08 12/27/2023 12:37:12 Fatigue 68263544 R53.83 Essential hypertension 72113375 I10 Muscle pain 55025789 M79 .10 Dizziness 140951254 R42 Electrocar diogram abnormal 461851165 R94.31 Obstructiv e sleep apnea syndrome 15416835 G47.33 Obesity 980332456 E66.9 Hyperlipidemia 28501130 E78.5 Type 2 sonny betes mellitus 38806235 E11.9 [id number] Cammie Sun MD [facility] [address] [place] [address] 04/24/2024 09:37:14 04/24/2024 10:54:29 Type 2 diabetes mellitus 21928146 E11.9 Morbid obesity 758152236 E66.01 Diarrhea 91111428 R19.7 Essential hypertension 16526972 I10 [id number] Cammie Sun MD [facility] [place] [address] [place] [address] 08/28/2024 09:54:50 08/28/2024 10:48:56 Obesity 218352944 E66.9 Essential hypertension 40867266 I10 Type 2 sonny betes mellitus 90738768 E11.9 Fatigue 39781363 R53.83 Hyperlipidemia 77666110 E78.5 [id number] Cammie Sun MD [facility] [place] [address] [place] [address] 11/27/2024 10:08:03 11/27/2024 11:40:05 Body mass index 40+ - severely obese 716540137 Z68.41 Morbid obesity 650530571 E66.01 Type 2 sonny betes mellitus 94627551 E11.9 Essential hypertension 16604896 I10 Hyperlipidemia 85103074 E78.5 Health Concerns Section Related Observation LastModified by Organization Detai ls LastModified Time None Recorded Concern Status LastModified by Organization Details LastModified Time None Recorded Advance Directives Directive N: Payers Encounter Date Sequence Insurance Name Policy Number Policy Barriga Covered Member ID Barriga Member ID Guarantor Name 12/27/2023 1 [place] [id number] Daniella Messinarath [id number] Daniella Givens 04/24/2024 1 [place] [id number] Daniella Messinarath [id number] Daniella Messinarath 08/28/2024 1 [place] [id number] Daniella Messinarath [id number] Daniella Messinarath 11/27/2024 1 [place] [id number] Daniella Messinarath [id number] Daniella Givens Notes Date Note Type Note Provider Name and Address Organization Details Recorded Time 12/27/2023 text/html Fatigue just bot hers her quite a bit does not seem to get any rest at all and she is using her CPAP at times will have some muscle pain or dizziness better when we went down on the metoprolol obesity trouble losing weight hypertension no headache or dizziness dyslipidemia taking the atorvastatin and try to watch her diet Cammie Sun MD Attn: Accounting,[address] [facility], [place], [address], [facility] 12/30/2023 15:42:02 04/24/2024 text/html Fatigue just bot hers her quite a bit does not seem to get any rest at all and she is using her CPAP at times will have some muscle pain or dizziness better when we went down on the metoprolol obesity trouble losing weight hypertension no headache or dizziness dyslipidemia taking the atorvastatin and try to watch her diet. She did see pulmonary he will need LD CT chest and she has some diarrhea Cammie Sun MD Attn: Accounting,[address] [facility] [facility], [place], [address], [facility] 05/04/2024 21:36:49 08/28/2024 text/html follow up of her medical problems. Hypertension her blood pressure a little bit up on the diastolic side she does take some caffeine and good exercise a little bit more and watch her salt. Rhinitis has been fairly stable diabetes we did talk about possibly GLP 1 agent there is no contraindication and she would like to explore that. Her anxiety has been doing fine. Still has some fatigue despite use of CPAP. Hyperlipidemia taking her medication trying to follow low-fat diet the best that she can. No side effects from any meds Cammie Sun MD Attn: Accounting,[address] [facility], [place], [address], [facility] 10/10/2024 14:02:23 11/27/2024 text/html hypertension blo od pressure looks good still some intermittent fatigue she was seen the sleep doctor they are optimizing her treatment some troubles with the right TMJ joint causes her some pain hard to completely close her jaw at times dyslipidemia could do better with diet Cammie Sun MD Attn: Accounting,[address] [facility], [place], [address], [facility] 12/07/2024 17:37:53 OBGyn Episode No OBEpisode recorded.
--- OUTSIDE RECORDS SUMMARY | 2024-12-10 13:57 | XMS_ITS | Data Portability ---
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 Increase Ozempic to 2 mg blood work has been ordered for biochemical management of disease processes of medications follow-up with me in 4 months [email or web address] Not available 04/19/2023 21:45:31 09/10/2023 09/10/2023 EKG shows a normal sinus rhythm with no acute changes orthostatics are noted Decrease metoprolol to 12.5 b.i.d. blood work she has full range of motion of her lumbar spine and her cervical spine with no spinous process tenderness I will see her back in a week Accu-Chek in the office today 156 Not available 09/10/2023 23:00:49 10/23/2023 10/23/2023 Chest x-ray prednisone doxycycline call if not improved [email or web address] Not available 10/23/2023 22:30:35 Plan of Treatment Reminders Order Date Submit Date Provider Last Modified By Organization Details Last Modified Time Details Appointments None recorded. Lab TSH, serum or plasma 2022 023 SAGAR Not available 11:57:19 T3, free, serum or plasma 2022 023 SAGAR Not available 11:44:33 CBC w/ auto diff 2022 023 SAGAR Not available 11:07:44 CMP, serum or plasma 2022 023 SAGAR Not available 3 11:30:25 T4, free, serum 2022 023 SAGAR Not available 3 11:44:35 magnesium, serum or plasma 2022 023 SAGAR Not available 3 11:30:31 HbA1c (hemoglobin A1c), blood 2022 023 [email or web address] Not available 3 10:31:16 lipid panel, serum 2022 023 SAGAR Not available 3 11:30:33 HbA1c (hemoglobin A1c), blood 2022 023 cyahl Not available 3 17:32:07 T3, free, serum or plasma 2022 023 SAGAR Not available 3 13:14:10 T4, free, serum 2022 023 SAGAR Not available 3 13:14:12 TSH, serum or plasma 2022 023 SAGAR Not available 3 13:44:33 CBC w/ auto diff 2022 023 SAGAR Not available 3 13:00:28 lipid panel, serum 2022 023 SAGAR Not available 3 13:04:18 CMP, serum or plasma 2022 023 SAGAR Not available 3 13:04:[address] referral 2022 023 SAGAR [facility], [address] [place] [address], [address], 3 11:54:33 Procedures None recorded. Surgeries None recorded. Imaging XR, chest 2023 024 cyahl Not available 4 13:35:21 electrocard iogram 2022 023 [email or web address] [id number] , [address], [place], [address], 3 18:28:19 Medication Orders doxycycline hyclate 100 mg tablet [address] [id number], [address], [place], [place], [id number], 4 13:11:46 prednisone 20 mg tablet [address] [id number], [address], [place], [place], [id number], 4 13:11:46 albuterol sulfate HFA 90 mcg/actuati on aerosol inhaler 2023 024 [email or web address] [id number], [address], [place], [place], [id number], 4 13:11:46 Ozempic 2 mg/dose (8 mg/3 mL) subcutaneou s pen injector 2022 023 [email or web address] [id number], [address], [place], [place], [id number], 4 10:18:02 Patient TargetsNo targets recorded. Patient InstructionsNo instructions recorded. 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 Referral for S kin lesion Referring Physician: Cammie Sun, Internal Medicine, Encounter Date: 04/19/2023 Results Created Date Observation Date Name Description Value Unit Range Abnormal Flag Note LastModifiedBy Organization Detail LastModifiedTime 04/19/20 23 04/19/2023 CBC/C OMPLE TE BLD COUNT W/DIF F white blood cells 5.7 x10'3 /uL 4.2-10 .8 Not Available [facility] (Lab) [address] [facility] [place], [address], 04/19/2023 13:00:28 04/19/20 23 04/19/2023 CBC/C OMPLE TE BLD COUNT W/DIF F red blood cells 4.40 x10'6 /uL 3.80-5 .20 Not Available [facility] (Lab) [address] [place], [address], 04/19/2023 13:00:28 04/19/20 23 04/19/2023 CBC/C OMPLE TE BLD COUNT W/DIF F hemoglobin 13.9 g/dL 12.0-1 5.6 Not Available [facility] (Lab) [address] [place], [address], 04/19/2023 13:00:28 04/19/20 23 04/19/2023 CBC/C OMPLE TE BLD COUNT W/DIF F hematocrit 42.9 % 35.7-4 5.7 Not Available [facility] (Lab) [address] [place], [address], 04/19/2023 13:00:28 04/19/20 23 04/19/2023 CBC/C OMPLE TE BLD COUNT W/DIF F mean red cell volume 97.5 fL 82.0-9 9.0 Not Available [facility] (Lab) [address] [place], [address], 04/19/2023 13:00:28 04/19/20 23 04/19/2023 CBC/C OMPLE TE BLD COUNT W/DIF F mean red cell hemoglobin 31.6 pg 27.0-3 3.0 Not Available [facility] (Lab) [address] [place], [address], 04/19/2023 13:00:28 04/19/20 23 04/19/2023 CBC/C OMPLE TE BLD COUNT W/DIF F mean RBC HGB concentratio n 32.4 g/dL 31.0-3 6.0 Not Available [facility] (Lab) [address] [place], [address], 04/19/2023 13:00:28 04/19/2004/19/2023 CBC/C OMPLE TE BLD COUNT W/DIF F red cell distribution width 12.5 % 11.8-1 5.5 Not Available [facility] (Lab) [address] [place], [address], 04/19/2023 13:00:28 04/19/20 23 04/19/2023 CBC/C OMPLE TE BLD COUNT W/DIF F platelets 263 x10'3 /uL 150-40 0 Not Available [facility] (Lab) [address] [place], [address], 04/19/2023 13:00:28 04/19/20 23 04/19/2023 CBC/C OMPLE TE BLD COUNT W/DIF F mean platelet volume 10.2 fL 9.0-12 .4 Not Available [facility] (Lab) [address] [place], [address], 04/19/2023 13:00:28 04/19/20 23 04/19/2023 CBC/C OMPLE TE BLD COUNT W/DIF F neutrophils 55.4 % 39.0-7 2.0 Not Available [facility] (Lab) [address] [place], [address], 04/19/2023 13:00:28 04/19/20 23 04/19/2023 CBC/C OMPLE TE BLD COUNT W/DIF F lymphocytes 35.0 % 16.0-4 7.0 Not Available [facility] (Lab) [address] [place], [address], 04/19/2023 13:00:28 04/19/20 23 04/19/2023 CBC/C OMPLE TE BLD COUNT W/DIF F monocytes 7.2 % 5.0-12 .0 Not Available [facility] (Lab) [address] [place], [address], 04/19/2023 13:00:28 04/19/20 23 04/19/2023 CBC/C OMPLE TE BLD COUNT W/DIF F eosinophils 1.6 % 1.0-7. 0 Not Available [facility] (Lab) [address] [place], [address], 04/19/2023 13:00:28 04/19/20 23 04/19/2023 CBC/C OMPLE TE BLD COUNT W/DIF F basophils 0.4 % 0.0-2. 0 Not Available [facility] (Lab) [address] [place], [address], 04/19/2023 13:00:28 04/19/20 23 04/19/2023 CBC/C OMPLE TE BLD COUNT W/DIF F immature granulocytes 0.4 % 0.00-0 .50 Not Available [facility] (Lab) [address] [place], [address], 04/19/2023 13:00:28 04/19/20 23 04/19/2023 CBC/C OMPLE TE BLD COUNT W/DIF F neutrophils, absolute count 3.15 x10'3 /uL 1.5-8. 0 Not Available [facility] (Lab) [address] [place], [address], 04/19/2023 13:00:28 04/19/20 23 04/19/2023 CBC/C OMPLE TE BLD COUNT W/DIF F lymphocytes, absolute count 1.99 x10'3 /uL 1.07-3 .43 Not Available [facility] (Lab) [address] [place], [address], 04/19/2023 13:00:28 04/19/20 23 04/19/2023 CBC/C OMPLE TE BLD COUNT W/DIF F monocytes, absolute count 0.41 x10'3 /uL 0.29-0 .99 Not Available [facility] (Lab) [address] [place], [address], 04/19/2023 13:00:28 04/19/20 23 04/19/2023 CBC/C OMPLE TE BLD COUNT W/DIF F eosinophils, absolute count 0.09 x10'3 /uL 0.02-0 .53 Not Available [facility] (Lab) [address] [place], [address], 04/19/2023 13:00:28 04/19/20 23 04/19/2023 CBC/C OMPLE TE BLD COUNT W/DIF F basophils, absolute count 0.02 x10'3 /uL 0.01-0 .08 Not Available [facility] (Lab) [address] [place], [address], 04/19/2023 13:00:28 04/19/20 23 04/19/2023 CBC/C OMPLE TE BLD COUNT W/DIF F immature granulocytes ,absolute 0.02 x10'3 /uL 0.00-0 .05 Not Available [facility] (Lab) [address] [place], [address], 04/19/2023 13:00:28 04/19/20 23 04/19/2023 CBC/C OMPLE TE BLD COUNT W/DIF F nucleated red blood cells 0.0 % -0 Not Available [facility] (Lab) [address] [place], [address], 04/19/2023 13:00:28 04/19/2004/19/2023 CBC/C OMPLE TE BLD COUNT W/DIF F NRBC# 0.00 x10'3 /uL Not Available [facility] (Lab) [address] [place], [address], 04/19/2023 13:00:28 04/19/20 23 04/19/2023 LIPID PANEL cholesterol 177 mg/dL 140-19 9 NIH JUANA NSUS RECOM MENDA TION FOR LUZ MARINA STERO L: ADULT CHILD LOW RISK: <200 <170 BORDE RLINE : <200- 239 ----- HIGH RISK: >240 >200 Not Available [facility] (Lab) [address] [place], [address], 04/19/2023 13:04:18 04/19/20 23 04/19/2023 LIPID PANEL triglyceride s 94 mg/dL 0-150 NIH JUANA NSUS REPOR T RECOM MENDA TION FOR TRIGL YCERI PIERO: ADULT CHILD LOW RISK: <150 ----- BODER LINE: 150-1 99 ----- HIGH RISK: >200 ----- Not Available [facility] (Lab) [address] [place], [address], 04/19/2023 13:04:18 04/19/20 23 04/19/2023 LIPID PANEL HDL cholesterol 62 mg/dL 40- Not Available [facility] (Lab) [address] [place], [address], 04/19/2023 13:04:18 04/19/20 23 04/19/2023 LIPID PANEL LDL cholesterol, calculated 96 mg/dL 0-130 NIH JUANA NSUS REPOR T RECOM MENDA TIONS FOR LDL: ADULT CHILD LOW RISK <130 <110 (OPTI MAL LDL) <100 ----- BORDE RLINE : 130-1 59 ----- HIGH RISK: >160 >130 A TRIGL YCERI DE RESUL T >400 INVAL IDATE S THE CALCU LATIO N FOR LDL FRACT IONAT ION - THE LDL RESUL T WILL NOT BE REPOR LIS. Not Available [facility] (Lab) [address] [place], [address], 04/19/2023 13:04:18 04/19/20 23 04/19/2023 COMPR EHENS AISHWARYA METAB OLIC PANEL sodium 139 mmol/ L 137-14 5 Not Available [facility] (Lab) [address] [place], [address], 04/19/2023 13:04:21 04/19/20 23 04/19/2023 COMPR EHENS AISHWARYA METAB OLIC PANEL potassium 4.2 mmol/ L 3.5-5. 1 Not Available [facility] (Lab) [address] [place], [address], 04/19/2023 13:04:21 04/19/20 23 04/19/2023 COMPR EHENS AISHWARYA METAB OLIC PANEL chloride 102 mmol/ L 98-107 Not Available [facility] (Lab) [address] [place], [address], 04/19/2023 13:04:21 04/19/20 23 04/19/2023 COMPR EHENS AISHWARYA METAB OLIC PANEL carbon dioxide 26 mmol/ L 22-30 Not Available [facility] (Lab) [address] [place], [address], 04/19/2023 13:04:21 04/19/20 23 04/19/2023 COMPR EHENS AISHWARYA METAB OLIC PANEL anion gap 15.2 mmol/ L 14-22 Not Available [facility] (Lab) [address] [place], [address], 04/19/2023 13:04:21 04/19/20 23 04/19/2023 COMPR EHENS AISHWARYA METAB OLIC PANEL glucose 104 mg/dL 70-99 high Not Available [facility] (Lab) [address] [place], [address], 04/19/2023 13:04:21 04/19/20 23 04/19/2023 COMPR EHENS AISHWARYA METAB OLIC PANEL BUN 15 mg/dL 8-19 Not Available [facility] (Lab) [address] [place], [address], 04/19/2023 13:04:21 04/19/20 23 04/19/2023 COMPR EHENS AISHWARYA METAB OLIC PANEL creatinine 0.69 mg/dL 0.66-1 .25 Not Available [facility] (Lab) [address] [place], [address], 04/19/2023 13:04:21 04/19/20 23 04/19/2023 COMPR EHENS AISHWARYA METAB OLIC PANEL GFR >60 Refer ence Range : [place] ge GFR Healt hy Adult : >60 mL/mi n/1.7 3 m2 Chron ic Kidne y Disea se: 15-60 mL/mi n/1.7 3 m2 Kidne y Failu re: <15/m L/min /1.73 m2 www.n iddk. nih.g ov The MDRD study equat ion has not been valid ated in child april <18 years of age; pregn ant women ; the elder ly >85 years of age; or in some racia l or ethni c subgr oups, such as [facility] nics. Outsi de the valid ated dinh eters , estim ated GFR is less accur ate, requi ring clini david judgm ent on a case- by-ca se basis . Clini david inter preta tion for other races and ages must be made by the clini murray. The MDRD study equat ion has not been valid ated for the evalu ation of serum creat inine relat ed to nutri ana l statu s or medic ation usage . For perso ns <18 years of age, a pedia tric GFR calcu lator is avail able on the F websi te: https ://zoie w.kid pako.o rg/pr ofess ional s/kdo qi/gf r_cal culat or Not Available [facility] (Lab) [address] [place], [address], 04/19/2023 13:04:21 04/19/20 23 04/19/2023 COMPR EHENS AISHWARYA METAB OLIC PANEL alkaline phosphatase 85 U/L 38-126 Not Available [facility] (Lab) [address] [place], [address], 04/19/2023 13:04:21 04/19/20 23 04/19/2023 COMPR EHENS AISHWARYA METAB OLIC PANEL alanine aminotransfe rase 39 U/L 0-35 high Not Available [facility] (Lab) [address] [place], [address], 04/19/2023 13:04:21 04/19/20 23 04/19/2023 COMPR EHENS AISHWARYA METAB OLIC PANEL aspartate aminotransfe rase 31 U/L 15-37 Not Available [facility] (Lab) [address] [place], [address], 04/19/2023 13:04:21 04/19/20 23 04/19/2023 COMPR EHENS AISHWARYA METAB OLIC PANEL bilirubin, total 0.40 mg/dL 0.20-1 .30 Not Available [facility] (Lab) [address] [place], [address], 04/19/2023 13:04:21 04/19/20 23 04/19/2023 COMPR EHENS AISHWARYA METAB OLIC PANEL calcium 9.0 mg/dL 8.4-10 .2 Not Available [facility] (Lab) [address] [place], [address], 04/19/2023 13:04:21 04/19/20 23 04/19/2023 COMPR EHENS AISHWARYA METAB OLIC PANEL total protein 7.2 g/dL 6.3-8. 2 Not Available [facility] (Lab) [address] [place], [address], 04/19/2023 13:04:21 04/19/20 23 04/19/2023 COMPR EHENS AISHWARYA METAB OLIC PANEL albumin 4.2 g/dL 3.4-5. 0 Not Available [facility] (Lab) [address] [place], [address], 04/19/2023 13:04:21 04/19/20 23 04/19/2023 COMPR EHENS AISHWARYA METAB OLIC PANEL globulin 3.0 g/dL 2.6-4. 2 Not Available [facility] (Lab) [address] [place], [address], 04/19/2023 13:04:21 04/19/20 23 04/19/2023 COMPR EHENS AISHWRAYA METAB OLIC PANEL A/G ratio 1.4 ratio 1.0-2. 0 Not Available [facility] (Lab) [address] [place], [address], 04/19/2023 13:04:21 04/19/20 23 04/19/2023 T3 FREE free T3 2.9 pg/mL 2.77-5 .27 Not Available [facility] (Lab) [address] [place], [address], 04/19/2023 13:14:10 04/19/20 23 04/19/2023 T4 FREE free T4 0.88 NG/dL 0.78-2 .19 Not Available [facility] (Lab) [address] [place], [address], 04/19/2023 13:14:12 04/19/20 23 04/19/2023 TSH thyroid-stim ulating hormone 1.410 uIU/m L 0.465- 4.680 Not Available [facility] (Lab) [address] [place], [address], 04/19/2023 13:44:33 04/19/20 23 04/19/2023 HEMOG LOBIN A1C HA1C 5.6 % 4.0-6. 0 Diabe lucita Scree palomo Crite neela: <5.7% Consi stent with absen ce of diabe lucita 5.7-6 .4% Consi stent with incre ased risk for diabe lucita (pred iabet es) >OR=6 .5% Consi stent with diabe lucita REFER ENCE: Diabe lucita Care 2015, 39( ppl.1 ):s13 -s22 Not Available [facility] (Lab) [address] [place], [address], 04/19/2023 17:51:17 09/11/20 23 09/11/2023 CBC/C OMPLE TE BLD COUNT W/DIF F white blood cells 4.7 x10'3 /uL 4.2-10 .8 Not Available [facility] (Lab) [address] [place], [address], 09/11/2023 11:07:44 09/11/20 23 09/11/2023 CBC/C OMPLE TE BLD COUNT W/DIF F red blood cells 4.15 x10'6 /uL 3.80-5 .20 Not Available [facility] (Lab) [address] [place], [address], 09/11/2023 11:07:44 09/11/20 23 09/11/2023 CBC/C OMPLE TE BLD COUNT W/DIF F hemoglobin 13.6 g/dL 12.0-1 5.6 Not Available [facility] (Lab) [address] [place], [address], 09/11/2023 11:07:44 09/11/20 23 09/11/2023 CBC/C OMPLE TE BLD COUNT W/DIF F hematocrit 41.9 % 35.7-4 5.7 Not Available [facility] (Lab) [address] [place], [address], 09/11/2023 11:07:44 09/11/20 23 09/11/2023 CBC/C OMPLE TE BLD COUNT W/DIF F mean red cell volume 101.0 fL 82.0-9 9.0 high Not Available [facility] (Lab) [address] [place], [address], 09/11/2023 11:07:44 09/11/20 23 09/11/2023 CBC/C OMPLE TE BLD COUNT W/DIF F mean red cell hemoglobin 32.8 pg 27.0-3 3.0 Not Available [facility] (Lab) [address] [place], [address], 09/11/2023 11:07:44 09/11/20 23 09/11/2023 CBC/C OMPLE TE BLD COUNT W/DIF F mean RBC HGB concentratio n 32.5 g/dL 31.0-3 6.0 Not Available [facility] (Lab) [address] [place], [address], 09/11/2023 11:07:44 09/11/20 23 09/11/2023 CBC/C OMPLE TE BLD COUNT W/DIF F red cell distribution width 12.8 % 11.8-1 5.5 Not Available [facility] (Lab) [address] [place], [address], 09/11/2023 11:07:44 09/11/20 23 09/11/2023 CBC/C OMPLE TE BLD COUNT W/DIF F platelets 237 x10'3 /uL 150-40 0 Not Available [facility] (Lab) [address] [place], [address], 09/11/2023 11:07:44 09/11/20 23 09/11/2023 CBC/C OMPLE TE BLD COUNT W/DIF F mean platelet volume 10.4 fL 9.0-12 .4 Not Available [facility] (Lab) [address] [place], [address], 09/11/2023 11:07:44 09/11/20 23 09/11/2023 CBC/C OMPLE TE BLD COUNT W/DIF F neutrophils 58.3 % 39.0-7 2.0 Not Available [facility] (Lab) [address] [place], [address], 09/11/2023 11:07:44 09/11/20 23 09/11/2023 CBC/C OMPLE TE BLD COUNT W/DIF F lymphocytes 32.3 % 16.0-4 7.0 Not Available [facility] (Lab) [address] [place], [address], 09/11/2023 11:07:44 09/11/20 23 09/11/2023 CBC/C OMPLE TE BLD COUNT W/DIF F monocytes 7.1 % 5.0-12 .0 Not Available [facility] (Lab) [address] [place], [address], 09/11/2023 11:07:44 09/11/20 23 09/11/2023 CBC/C OMPLE TE BLD COUNT W/DIF F eosinophils 1.7 % 1.0-7. 0 Not Available [facility] (Lab) [address] [place], [address], 09/11/2023 11:07:44 09/11/20 23 09/11/2023 CBC/C OMPLE TE BLD COUNT W/DIF F basophils 0.4 % 0.0-2. 0 Not Available [facility] (Lab) [address] [place], [address], 09/11/2023 11:07:44 09/11/20 23 09/11/2023 CBC/C OMPLE TE BLD COUNT W/DIF F immature granulocytes 0.2 % 0.00-0 .50 Not Available [facility] (Lab) [address] [place], [address], 09/11/2023 11:07:44 09/11/20 23 09/11/2023 CBC/C OMPLE TE BLD COUNT W/DIF F neutrophils, absolute count 2.72 x10'3 /uL 1.5-8. 0 Not Available [facility] (Lab) [address] [place], [address], 09/11/2023 11:07:44 09/11/20 23 09/11/2023 CBC/C OMPLE TE BLD COUNT W/DIF F lymphocytes, absolute count 1.51 x10'3 /uL 1.07-3 .43 Not Available [facility] (Lab) [address] [place], [address], 09/11/2023 11:07:44 09/11/20 23 09/11/2023 CBC/C OMPLE TE BLD COUNT W/DIF F monocytes, absolute count 0.33 x10'3 /uL 0.29-0 .99 Not Available [facility] (Lab) [address] [place], [address], 09/11/2023 11:07:44 09/11/20 23 09/11/2023 CBC/C OMPLE TE BLD COUNT W/DIF F eosinophils, absolute count 0.08 x10'3 /uL 0.02-0 .53 Not Available [facility] (Lab) [address] [place], [address], 09/11/2023 11:07:44 09/11/20 23 09/11/2023 CBC/C OMPLE TE BLD COUNT W/DIF F basophils, absolute count 0.02 x10'3 /uL 0.01-0 .08 Not Available [facility] (Lab) [address] [place], [address], 09/11/2023 11:07:44 09/11/20 23 09/11/2023 CBC/C OMPLE TE BLD COUNT W/DIF F immature granulocytes ,absolute 0.01 x10'3 /uL 0.00-0 .05 Not Available [facility] (Lab) [address] [place], [address], 09/11/2023 11:07:44 09/11/20 23 09/11/2023 CBC/C OMPLE TE BLD COUNT W/DIF F nucleated red blood cells 0.0 % -0 Not Available [facility] (Lab) [address] [place], [address], 09/11/2023 11:07:44 09/11/20 23 09/11/2023 CBC/C OMPLE TE BLD COUNT W/DIF F NRBC# 0.00 x10'3 /uL Not Available [facility] (Lab) [address] [place], [address], 09/11/2023 11:07:44 09/11/20 23 09/11/2023 COMPR EHENS AISHWARYA METAB OLIC PANEL sodium 139 mmol/ L 137-14 5 Not Available [facility] (Lab) [address] [place], [address], 09/11/2023 11:30:25 09/11/20 23 09/11/2023 COMPR EHENS AISHWARYA METAB OLIC PANEL potassium 4.6 mmol/ L 3.5-5. 1 Not Available [facility] (Lab) [address] [place], [address], 09/11/2023 11:30:25 09/11/20 23 09/11/2023 COMPR EHENS AISHWARYA METAB OLIC PANEL chloride 105 mmol/ L 98-107 Not Available [facility] (Lab) [address] [place], [address], 09/11/2023 11:30:25 09/11/20 23 09/11/2023 COMPR EHENS AISHWARYA METAB OLIC PANEL carbon dioxide 29 mmol/ L 22-30 Not Available [facility] (Lab) [address] [place], [address], 09/11/2023 11:30:25 09/11/20 23 09/11/2023 COMPR EHENS AISHWARYA METAB OLIC PANEL anion gap 9.6 mmol/ L 14-22 low Not Available [facility] (Lab) [address] [place], [address], 09/11/2023 11:30:25 09/11/20 23 09/11/2023 COMPR EHENS AISHWARYA METAB OLIC PANEL glucose 165 mg/dL 70-99 high Not Available [facility] (Lab) [address] [place], [address], 09/11/2023 11:30:25 09/11/20 23 09/11/2023 COMPR EHENS AISHWARYA METAB OLIC PANEL BUN 18 mg/dL 8-19 Not Available [facility] (Lab) [address] [place], [address], 09/11/2023 11:30:25 09/11/20 23 09/11/2023 COMPR EHENS AISHWARYA METAB OLIC PANEL creatinine 0.74 mg/dL 0.66-1 .25 Not Available [facility] (Lab) [address] [place], [address], 09/11/2023 11:30:25 09/11/20 23 09/11/2023 COMPR EHENS AISHWARYA METAB OLIC PANEL GFR >60 Refer ence Range : [place] ge GFR Healt hy Adult : >60 mL/mi n/1.7 3 m2 Chron ic Kidne y Disea se: 15-60 mL/mi n/1.7 3 m2 Kidne y Failu re: <15/m L/min /1.73 m2 [email or web address] The MDRD study equat ion has not been valid ated in child april <18 years of age; pregn ant women ; the elder ly >85 years of age; or in some racia l or ethni c subgr oups, such as Hispa nics. Outsi de the valid ated dinh eters , estim ated GFR is less accur ate, requi ring clini david judgm ent on a case- by-ca se basis . Clini david inter preta tion for other races and ages must be made by the clini murray. The MDRD study equat ion has not been valid ated for the evalu ation of serum creat inine relat ed to nutri ana l statu s or medic ation usage . For perso ns <18 years of age, a pedia tric GFR calcu lator is avail able on the [facility] websi te: [email or web address] [email or web address] or Not Available [facility] (Lab) [address] [place], [address], 09/11/2023 11:30:25 09/11/2009/11/2023 COMPR EHENS AISHWARYA METAB OLIC PANEL alkaline phosphatase 82 U/L 38-126 Not Available [facility] (Lab) [address] [place], [address], 09/11/2023 11:30:25 09/11/20 23 09/11/2023 COMPR EHENS AISHWARYA METAB OLIC PANEL alanine aminotransfe rase 52 U/L 0-35 high Not Available [facility] (Lab) [address] [place], [address], 09/11/2023 11:30:25 09/11/20 23 09/11/2023 COMPR EHENS AISHWARYA METAB OLIC PANEL aspartate aminotransfe rase 34 U/L 15-37 Not Available [facility] (Lab) [address] [place], [address], 09/11/2023 11:30:25 09/11/20 23 09/11/2023 COMPR EHENS AISHWARYA METAB OLIC PANEL bilirubin, total 0.60 mg/dL 0.20-1 .30 Not Available [facility] (Lab) [address] [place], [address], 09/11/2023 11:30:25 09/11/20 23 09/11/2023 COMPR EHENS AISHWARYA METAB OLIC PANEL calcium 9.5 mg/dL 8.4-10 .2 Not Available [facility] (Lab) [address] [place], [address], 09/11/2023 11:30:25 09/11/20 23 09/11/2023 COMPR EHENS AISHWARYA METAB OLIC PANEL total protein 7.0 g/dL 6.3-8. 2 Not Available [facility] (Lab) [address] [facility] [place], [address], 09/11/2023 11:30:25 09/11/20 23 09/11/2023 COMPR EHENS AISHWARYA METAB OLIC PANEL albumin 3.9 g/dL 3.4-5. 0 Not Available [facility] (Lab) [address] [place], [address], 09/11/2023 11:30:25 09/11/20 23 09/11/2023 COMPR EHENS AISHWARYA METAB OLIC PANEL globulin 3.1 g/dL 2.6-4. 2 Not Available [facility] (Lab) [address] [place], [address], 09/11/2023 11:30:25 09/11/20 23 09/11/2023 COMPR EHENS AISHWARYA METAB OLIC PANEL A/G ratio 1.3 ratio 1.0-2. 0 Not Available [facility] (Lab) [address] [place], [address], 09/11/2023 11:30:25 09/11/20 23 09/11/2023 MAGNE SIUM magnesium 2.1 mg/dL 1.6-2. 3 Not Available [facility] (Lab) [address] [place], [address], 09/11/2023 11:30:30 09/11/20 23 09/11/2023 LIPID PANEL cholesterol 201 mg/dL 140-19 9 high NIH JUANA NSUS RECOM MENDA TION FOR LUZ MARINA STERO L: ADULT CHILD LOW RISK: <200 <170 BORDE RLINE : <200- 239 ----- HIGH RISK: >240 >200 Not Available [facility] (Lab) [address] [place], [address], 09/11/2023 11:30:33 09/11/20 23 09/11/2023 LIPID PANEL triglyceride s 127 mg/dL 0-150 NIH JUANA NSUS REPOR T RECOM MENDA TION FOR TRIGL YCERI PIERO: ADULT CHILD LOW RISK: <150 ----- BODER LINE: 150-1 99 ----- HIGH RISK: >200 ----- Not Available [facility] (Lab) [address] [place], [address], 09/11/2023 11:30:33 09/11/20 23 09/11/2023 LIPID PANEL HDL cholesterol 57 mg/dL 40- Not Available [facility] (Lab) [address] [place], [address], 09/11/2023 11:30:33 09/11/20 23 09/11/2023 LIPID PANEL LDL cholesterol, calculated 119 mg/dL 0-130 NIH JUANA NSUS REPOR T RECOM MENDA TIONS FOR LDL: ADULT CHILD LOW RISK <130 <110 (OPTI MAL LDL) <100 ----- BORDE RLINE : 130-1 59 ----- HIGH RISK: >160 >130 A TRIGL YCERI DE RESUL T >400 INVAL IDATE S THE CALCU LATIO N FOR LDL FRACT IONAT ION - THE LDL RESUL T WILL NOT BE REPOR LIS. Not Available [facility] (Lab) [address] [place], [address], 09/11/2023 11:30:33 09/11/20 23 09/11/2023 T3 FREE free T3 3.3 pg/mL 2.77-5 .27 Not Available [facility] (Lab) [address] [place], [address], 09/11/2023 11:44:33 09/11/20 23 09/11/2023 T4 FREE free T4 0.93 NG/dL 0.78-2 .19 Not Available [facility] (Lab) [address] [place], [address], 09/11/2023 11:44:35 09/11/20 23 09/11/2023 TSH thyroid-stim ulating hormone 2.610 uIU/m L 0.465- 4.680 Not Available [facility] (Lab) [address] [place], [address], 09/11/2023 11:57:19 09/11/20 23 09/11/2023 HEMOG LOBIN A1C HA1C 6.2 % 4.0-6. 0 high Diabe lucita Scree palomo Crite neela: <5.7% Consi stent with absen ce of diabe lucita 5.7-6 .4% Consi stent with incre ased risk for diabe lucita (pred iabet es) >OR=6 .5% Consi stent with diabe lucita REFER ENCE: Diabe lucita Care 2016, 39(Hunter ppl.1 ):s13 -s22 Not Available [facility] (Lab) [address] [place], [address], 09/11/2023 16:48:11 09/10/20 23 elect rocar diogr am No observ ation record ed. [facility] [address] [facility], [facility] [address], [place], [address], 09/10/2023 18:13:55 09/10/20 23 09/10/2023 elect rocar diogr am No observ ation record ed. [facility] Internal Med [address] [facility], [facility] [address], [place], [address], 09/10/2023 18:19:15 10/23/19 24 XR, chest [facility] [address] [place] [address] Patien t Name: HERMELINDO SANCHEZ Access ion #: [id number] Sex: F : 1964 5 Dictat ed By: Karen Rayo Attend ing Physic ko: ALIA SUN Orderi Physic ko: ALIA SUN Exam Date: 2023 09:51 AM Exam Name: XR CHEST 2V Admitt ing Diagno sis(es ): CHEST RADIOG RAPH Indica tion:b ronchi tis Techni que: Fronta l and latera l view of the chest was obtain ed Compar gloria: none FINDIN GS: Lines and Tubes: None Lungs: Clear Pleura : No effusi on. No pneumo thorax . Cardio medias tinal contou rs: Unrema rkable Bones: Unrema rkable IMPRES BANDAR: 1. No eviden ce of acute diseas e. Electr onical ly Signed by: Karen Rayo at 2023 10:11: 09 AM Page 1 [facility] [address] [place] [address], [address], 11/08/2023 13:35:21 Result Notes None recorded. Problems Name Problem SNOMED Code Status Onset Date Resolution Date Notes Provider Name and Address Organization Details Recorded Time Intolerant of heat and cold 451893330 Active 2021 Not Available [facility] 4 05:28:48 Headache 81752721 Active 2020 Not Available [facility] 4 05:28:48 Type 2 diabetes mellitus without complicati on 748037600 Active 2021 Not Available [facility] 4 05:28:48 Bronchitis 56096074 Active Not Available [facility] 4 05:28:48 Sleep disorder 43351917 Active 2021 Not Available [facility] 4 05:28:48 Type 2 diabetes mellitus 48943374 Active 2020 Not Available [facility] 4 05:28:48 Uncontroll ed type 2 diabetes mellitus 197108970 Active 2021 Not Available [facility] 4 05:28:48 Hyperlipid emia 15128427 Active 2021 Not Available [facility] 4 05:28:48 Essential hypertensi on 57122883 Active 2020 Not Available [facility] 4 05:28:48 Obstructiv e sleep apnea syndrome 88438234 Active 2021 Not Available [facility] 4 05:28:48 Hyperglyce ayden 21650818 Completed 202004/18/2021 Not Available [facility] 3 10:48:26 Fatigue 02907690 Active 2022 Not Available [facility] 4 05:28:48 Skin lesion 70440839 Active 2022 Not Available [facility] 4 05:28:48 Bradycardi a 02746594 Active 2022 Not Available [facility] 4 05:28:48 Dizziness 307006853 Active 2022 Not Available [facility] 4 05:28:48 Notes:Medical History: Depre ssion Obesity with very severe OSAHS, AHi = 78, 01/06/22 Hypertension Hyperlipidemia T2DM Vit D deficiency Problem Notes None recorded. Procedures Surgical History Date Name Laterality Status Provider Name and Address Organization Details Recorded Time Knee Surgery completed Not Available [facility] 12/13/2022 10:43:12 Cholecystectomy completed Not Available [facility] 12/13/2022 10:43:12 Imaging Results Imaging Date Name Status LastModified by Organization Details LastModified Time 09/10/2023 electrocardiogram completed [facility] Internal Med [facility] [address] [facility] [address], [place], [address], 09/10/2023 18:13:55 09/10/2023 electrocardiogram completed [facility] Internal Med [address], [place], [address], 09/10/2023 18:19:15 10/23/2023 XR, chest completed [facility] (Imaging) [address], [place], [address], 11/08/2023 13:35:21 Procedure Notes None recorded. Medical Equipment None Reported. Allergies Allergen ID Allergen Name Allergen Category Reaction Reaction Severity Criticality Documentation Date Start Date Code Code System Note Provider Name and Address Organization Details Recorded Time 32846 acetamino phen / hydrocodo ne medicatio n vomiting Not available Not available 12/13/2022 24554 2 RxNorm Not Available [facility] 3 10:53:00 Medications Name Sig Start Date Stop Date Status Note LastModified by Organization Details LastModified Time Singulair 10 mg tablet Take 1 tablet every day by oral route. 03/21 completed Not Available Not Available Not Available amoxicillin 500 mg capsule TAKE 1 CAPSULE BY MOUTH EVERY 6 HOURS 09/10 completed Not Available Not Available Not Available metformin 500 mg tablet Take 1 tablet twice a day by oral route. 04/12 completed Not Available Not Available Not Available prednisone 10 mg tablet TAPER FROM 20 MG EVERY 3 DAYS BY 5 MG UNTIL OFF X 12 DAYS 03/22 completed Not Available Not Available Not Available atorvastati n 20 mg tablet TAKE 1 TABLET BY MOUTH EVERY DAY 10/23 completed Not Available Not Available Not Available atorvastati n 10 mg tablet TAKE 1 TABLET BY MOUTH EVERY DAY active Not Available Not Available No t Available azithromyci n 250 mg tablet Take 1 dose pk by oral route as directed. 08/17 completed Not Available Not Available Not Available prednisone 20 mg tablet TAKE 2 TABLETS BY MOUTH EVERY DAY FOR 5 DAYS active Not Available Not Available No t Available penicillin V potassium 500 mg tablet TAKE 1 TABLET BY MOUTH EVERY 6 HOURS UNTIL ALL TAKEN 10/23 completed Not Available Not Available Not Available Flonase 50 mcg/actuati on nasal spray,suspe nsion Inhale 2 sprays every day by intranasa l route in the evening. active Not Available Not Available No t Available amoxicillin 500 mg tablet TAKE 1 TABLET BY MOUTH THREE TIMES A DAY FOR 10 DAYS 03/22 completed Not Available Not Available Not Available Tessalon Perles 100 mg capsule Take 1 capsule 3 times a day by oral route as needed for 10 days. 03/21 completed Not Available Not Available Not Available citalopram 20 mg tablet TAKE 1 TABLET BY MOUTH EVERY DAY active Not Available Not Available No t Available doxycycline monohydrate 100 mg capsule TAKE 1 CAPSULE BY MOUTH TWICE DAILY WITH FOOD FOR 7 DAYS 09/10 completed Not Available Not Available Not Available Levaquin 500 mg tablet Take 1 tablet every day by oral route for 10 days. 03/21 completed Not Available Not Available Not Available albuterol sulfate HFA 90 mcg/actuati on aerosol inhaler INHALE 2 PUFFS BY MOUTH EVERY 4 HOURS NEEDED active Not Available Not Available No t Available metformin ER 500 mg tablet,exte nded release 24 hr TAKE 2 TABLETS BY MOUTH AT BEDTIME active Not Available Not Available No t Available doxycycline hyclate 100 mg tablet TAKE 1 TABLET BY MOUTH TWICE DAILY FOR 7 DAYS active Not Available Not Available No t Available Microlet Lancet active Not Available Not Available Not Available amoxicillin 875 mg-potassiu m clavulanate 125 mg tablet TAKE 1 TABLET BY MOUTH EVERY 12 HOURS FOR 7 DAYS 03/22 completed Not Available Not Available Not Available hydroxyzine pamoate 25 mg capsule Take 1 capsule every day by oral route at bedtime. 04/14 completed Not Available Not Available Not Available cyclobenzap rine 5 mg tablet Take 1 tablet 3 times a day by oral route as needed. 03/15 completed Not Available Not Available Not Available metoprolol tartrate 25 mg tablet TAKE 1/2 TABLET BY MOUTH TWICE DAILY active Not Available Not Available No t Available Vitamin D 04/12 completed Not Available Not Available Not Available One A Day 04/12 completed Not Available Not Available Not Available Contour Next Test Strips Take 1 strip twice a day by miscell. route. active Not Available Not Available No t Available Vitamin B12 04/12 completed Not Available Not Available Not Available Ozempic 0.25 mg or 0.5 mg (2 mg/1.5 mL) subcutaneou s pen injector 10/23 completed Not Available Not Available Not Available Ozempic 1 mg/dose (4 mg/3 mL) subcutaneou s pen injector INJECT 1 MG UNDER THE SKIN ONCE A WEEK active Not Available Not Available No t Available Ozempic 2 mg/dose (8 mg/3 mL) subcutaneou s pen injector INJECT 2 MG UNDER THE SKIN EVERY WEEK 10/23 completed Not Available Not Available Not Available Vitals Date Recorded Body height Body mass index (BMI) Body weight Body temperature Heart rate Oxygen saturation Oxygen saturation in Arterial blood by Pulse oximetry Systolic blood pressure Diastolic blood pressure Provider Name and Address Organization Details Last Updated DateTime 3 167.64 cm 36 kg/m2 682263. 1 g 97.1 [degF] 70 /min 99 % 99 % 108 mm[Hg] 64 mm[Hg] Juliann Saravia [facility] [employer] [facility] 3 09:29:56 Date Recorded Body height Body mass index (BMI) Body weight Body temperature Heart rate Systolic blood pressure Diastolic blood pressure Provider Name and Address Organization Details Last Updated DateTime 3 167.64 cm 37.4 kg/m2 251911. 43 g 97.8 [degF] 63 /min 132 mm[Hg] 82 mm[Hg] DALJIT Marie [facility] [employer] [facility] 3 09:53:56 Date Recorded Body height Body temperature Provider N elvin and Address Organization Details Last Updated DateTime 09/10/2023 167.64 cm 96.6 [degF] Danii Nunez MA [facility] [employer] [facility] 09/10/2023 10:01:23 Date Recorded Body mass index (BMI) Body weight Systolic blood pressure Diastolic blood pressure Provider Name and Address Organization Details Last Updated DateTime 09/10/2023 40.2 kg/m2 631153.5 g 110 mm[Hg] 70 mm[Hg] Martina Serra [facility] [employer] [facility] 09/10/2023 10:26:35 Date Recorded Body height Body mass index (BMI) Body weight Body temperature Heart rate Heart rate Heart rate Systolic blood pressure Diastolic blood pressure Systolic blood pressure Diastolic blood pressure Systolic blood pressure Diastolic blood pressure Provider Name and Address Organization Details Last Updated DateTime 3 167.64 cm 40.2 kg/m2 472255. 22 g 97.8 [degF] 74 /min 58 /min 74 /min 126 mm[Hg] 74 mm[Hg] 122 mm[Hg] 82 mm[Hg] 126 mm[Hg] 78 mm[Hg] Ondina Frarell MA [facility] [employer] [facility] 3 18:12:55 Date Recorded Body height Heart rate Systolic blood pressure Diastolic blood pressure Provider Name and Address Organization Details Last Updated DateTime 10/01/2023 167.64 cm 54 /min 128 mm[Hg] 74 mm[Hg] Sandra Herman CMA [facility] [employer] [facility] 10/01/2023 10:07:21 Date Recorded Body height Body mass index (BMI) Body weight Body temperature Heart rate Systolic blood pressure Diastolic blood pressure Provider Name and Address Organization Details Last Updated DateTime 167.64 cm 40.7 kg/m2 900970. 28 g 98.9 [degF] 86 /min 128 mm[Hg] 84 mm[Hg] Evangelina dhillon RN [facility] [employer] [facility] 4 10:18:53 Social History Question Answer Notes LastModified by Organization Details LastModified Time Tobacco Smoking Status Former Smoker quit 2007 DALJIT Mccullough, [facility] [employer] [facility] 04/19/2023 09:49:25 Do You Have An Advance Directive? No [id number] Information not available 12/13/2022 What Is Your Level Of Alcohol Consumption? Occasional [id number] Information not available 12/13/2022 Do You Wear A Helmet When Biking? No Information not available 04/19/2023 What Is Your Level Of Caffeine Consumption? Heavy [email or web address] Information not available 12/27/2022 How Much Tobacco Do You Chew? None [id number] Information not available 12/13/2022 In The 14 Days Before Symptom Onset, Have You Had Close Contact With A Laboratory-confi rmed COVID-19 While That Case Was Ill? No Information not available 04/19/2023 In The 14 Days Before Symptom Onset, Have You Had Close Contact With A Person Who Is Under Investigation For COVID-19 While That Person Was Ill? No Information not available 04/19/2023 What Type Of Diet Are You Following? SPECIFIC Weight Watchers Diet [id number] Information not available 12/13/2022 Which Illicit Or Recreational Drugs Have You Used? None Information not available 04/19/2023 Do You Or Have You Ever Used E-cigarettes Or Vape? Never Used Electronic Cigarettes Information not available 04/19/2023 What Is The Highest Grade Or Level Of School You Have Completed Or The Highest Degree You Have Received? [id number] Information not available 04/19/2023 What Is Your Occupation? Self Employed Information not available 04/19/2023 Have There Been Any Changes To Your Family Or Social Situation? No Information not available 04/19/2023 What Is The Fluoride Status Of Your Home? Unknown Information not available 04/19/2023 When Did You Quit Smoking? 11-15yearssinmayjulieta roblero Information not available 04/19/2023 Are There Any Guns Present In Your Home? Yes Information not available 04/19/2023 Do You Use Insect Repellent Routinely? No Information not available 04/19/2023 Where [facility] You Live? [facility] Information not available 04/19/2023 Do You Have A Medical Power Of [employer] Work[employer]? No Information not available 04/19/2023 What Was The Date Of Your Most Recent Tobacco Screening? 10/23/2023 [email or web address] Information not available 10/23/2023 What Is Your Current Pack Years? [email or web address] Information not available 04/19/2023 Have You Ever Been Counseled For Unhealthy Alcohol Use? No Information not available 04/19/2023 Do You Have Any Pets? Yes Information not available 04/19/2023 What Is Your Relationship Status? [id number] Information not available 12/13/2022 Do You Use Your Seat Belt Or Car Seat Routinely? Yes Information not available 04/19/2023 Do You Have Smoke And Carbon Monoxide Detectors In Your Home? Yes Information not available 04/19/2023 At What Age Did You Start Smoking Tobacco? 13 Information not available 04/19/2023 Are You Passively Exposed To Smoke? No Information not available 04/19/2023 Do You Or Have You Ever Used Smokeless Tobacco? Never Used Smokeless Tobacco [id number].[id number] [id number] Information not available 12/13/2022 Are There Any Smokers In Your House? No Information not available 04/19/2023 How Much Tobacco Do You Smoke? 2 PPD MIGRATION.0301 [id number] Information not available 12/13/2022 What Types Of Sporting Activities Do You Participate In? None Information not available 04/19/2023 Do You Feel Stressed (tense, Restless, Nervous, Or Anxious, Or Unable To Sleep At Night)? [id number] Information not available 04/19/2023 Do You Use Any Illicit Or Recreational Drugs? No Information not available 04/19/2023 Do You Use Sunscreen Routinely? Yes Information not available 04/19/2023 Has Tobacco Cessation Counseling Been Provided? No Information not available 04/19/2023 How Many Years Have You Smoked Tobacco? 29 Information not available 04/19/2023 Have You Recently Traveled Abroad? No Information not available 04/19/2023 Do You Have Any Dietary Restrictions? No Information not available 04/19/2023 Do You Or Have You Ever Used Any Other Forms Of Tobacco Or Nicotine? No Information not available 04/19/2023 Sex: Female Functional Status Question Answer Note LastModified by [employer] ion Details LastModified Time What is your exercise level? Occasional [id number] Information not available 12/13/2022 Mental Status None recorded. Family History Relationship Description Onset Age of this Age Resolved Age Notes LastModified by Organization Details LastModified Time Mother Myocardial infarction 52 [id number] Not available 12/13/2022 10:43:14 Mother Hyperlipidem ia cyahl Not available 2022 09:49:23 Medical History Condition Response NERVE DISEASE N BLINDNESS N RHEUMATIC FEVER N KIDNEY STONES N BLADDER PROBLEMS N MRSA N OTHER # 1 N POLIO N LUNG DISEASE/DISORDER N HISTORY OF DRUG ABUSE N RADIATION / CHEMOTHERAPY N COPD N Other # 2 N BLOOD DISEASES N EAR OR HEARING PROBLEMS N MUMPS N SHINGLES N BOWEL PROBLEMS N DEPRESSION (INCLUDING POST ) N STROKE/TIA N ULCERS N BENIGN PROSTATIC HYPERPLASIA N MEASLES Y HYPOTENSION N MYOCARDIAL INFARCTION N OBESITY N GERD/NAUSEA N ANEURYSM N URINARY/BLADDER/KIDNEY PROBLEMS N CORONARY ARTERY DISEASE (CAD) N ADDICTION CONCERNS N Impotence N ENDOMETRIOSIS N USE OF BLOOD THINNERS N SKIN PROBLEMS N GASTROINTESTINAL DISORDER N PERIPHERAL VASCULAR DISEASE N MUSCLE,JOINT OR BONE PROBLEMS N GASTROINTESTINAL BLEEDING N BLOOD CLOTS N ASTHMA N CATARACTS N ERECTILE DYSFUNCTION N VARICOSITIES N GI PROBLEMS N Low Testosterone N INFERTILITY N AIDS/HIV N CHEMOTHERAPY / RADIATION N LIVER DISEASE N MALE HYPOGONADISM N HYPERTENSION Y Deficiency N TOURETTE'S N ANXIETY DISORDER N BLOOD TRANSFUSION N ANEMIA/BLOOD DISORDER N CHRONIC EAR INFECTIONS N BRONCHITIS Y TUBERCULOSIS N GLAUCOMA N FOOT PROBLEM N DIVERTICULITIS N SLEEP APNEA N CHICKENPOX Y INFECTIOUS DISEASE N PROSTATE N HEART ARRHYTHMIA N INSOMNIA N HIGH CHOLESTEROL / HYPERLIPIDEMIA N EYE PROBLEMS N HYPERTHYROIDISM N EDEMA N CHRONIC PAIN SYNDROME N HYPOTHYROIDISM N CONSTIPATION N CAROTID BLOCKAGE N BACK / NECK PROBLEMS N HAVE YOU BEEN HOSPITALIZED OR SEEN IN [facility] ER IN THE PAST YEAR ? N ATHEROSCLEROSIS N BREAST PROBLEMS N DIALYSIS N ECZEMA N OSTEOPOROSIS N ARTHRITIS N APPENDICITIS N DIABETES, TYPE N BAD TEETH N ENT N HEARTBURN / REFLUX N AUTISM SPECTRUM DISORDER (ASD) N HEPATITIS / LIVER DISEASE N GOUT N SLEEP DISORDER N ALZHEIMER'S DISEASE N Brain Problems N DEMENTIA N HERPES N SEIZURES/EPILEPSY N HEADACHES/MIGRAINES N VASCULAR DISEASE N PACEMAKER N Blood Disorder N DIZZINESS N HEART DISEASE/HEART PROBLEMS N KIDNEY DISEASE N MULTIPLE SCLEROSIS N CANCER: SPECIFY N CARDIAC ARRHYTHMIA N ATRIAL FIBRILLATION N Gall Stones N PULMONARY EMBOLISM N AUTOIMMUNE DISEASE N Gynecological HistoryNo gynecological history recorded. Obstetrics History GPAL:G 0 P 0 0 0 0 Immunizations Vaccine Type Date Status Note Provider Nam e and Address Organization Details Recorded Time COVID-19, mRNA, LNP-S, PF, 100 mcg/0.5mL dose or 50 mcg/0.25mL dose 10/19/2021 completed Not Available [facility] 4 05:28:48 COVID-19 vaccine, vector-nr, rS-Ad26, PF, 0.5 mL 01/17/2021 completed Not Available [facility] 4 05:28:48 Influenza, split virus, quadrivalent, PF 08/17/2022 completed Not Available [facility] 4 05:28:48 Past Encounters Encounter ID Performer Location Encounter Start Date Encounter Closed Date Diagnosis/Indication Diagnosis SNOMED-CT Code Diagnosis ICD10 Code Diagnosis Note [id number] [facility] Internal Med [address] [place] [address] 03/22/2021 00:00:00 04/10/2021 12:14:30 [id number] [facility] Internal Med Tushar baird [address] [place] [address] 04/12/2021 00:00:00 04/18/2021 21:52:44 [id number] [facility] [place] [address] [place] [address] y , [place] [address] 08/04/2021 00:00:00 08/15/2021 21:08:47 [id number] [facility] [place] [address] [place] [address] y , [place] [address] 12/01/2021 00:00:00 12/06/2021 23:10:03 [id number] [facility] [place] [address] [place] [address] y , [place] [address] 12/29/2021 00:00:00 01/15/2022 22:46:57 [id number] [facility] [place] [address] [place] [address] y , [place] [address] 03/02/2022 00:00:00 03/25/2022 17:43:03 [id number] [facility] [place] [address] [place] [address] y , [place] [address] 2022 00:00:00 2022 17:07:42 [id number] [facility] [place] [address] [place] [address] y , [place] [address] 04/12/2022 00:00:00 04/12/2022 16:25:35 [id number] [facility] [place] [address] [place] [address] 04/14/2022 00:00:00 04/14/2022 14:38:11 [id number] [facility] [place] [address] [place] [address] y , [place] [address] 04/27/2022 00:00:00 04/29/2022 20:40:17 [id number] [facility] [place] [address] [place] [address] [place] [address] 06/01/2022 00:00:00 06/25/2022 22:32:18 [id number] [facility] Internal [facility] [place] [address] [place] [address] y , [place] [address] 08/17/2022 00:00:00 08/19/2022 14:42:47 [id number] [facility] [place] [address] [place] [address] 11/15/2022 00:00:00 11/15/2022 14:20:26 [id number] Cammie Sun MD [facility] Internal [facility] [address] [place] [address] y , [place] [address] 12/14/2022 10:44:35 12/14/2022 12:02:08 Type 2 diabetes mellitus 58487353 E11.9 Essential hypertension 68591674 I10 Hyperlipidemia 16753096 E78.5 [id number] Korin Ring, [facility] [place] [address] [place] [address] 12/27/2022 13:52:44 12/28/2022 08:52:18 Obstructive sleep apnea syndrome 78872265 G47.33 Home study 01/06/22 with AHI 78 and low saturation 67%Titrati on completed 02/03/22 with best pressure achieved at 9 cm H2oNo PLMSMachin e set up 10/04/22He r pressure was not changed per my order at last OVOrder for APAP 8-12 todayOrder for Nasal wisp todayDownl oad on PAP 9 cm H2O with AHI slightly improved at 7.2OSA is well correctedE ncouraged 100% compliance with all sleepFollo w with PCM for labsAdvise d good sleep habits and patterns:- Set a goal for at least 7 to 8 hours of sleep time per day.-Use the bed mainly for sleep and to go to bed only when tired. If unable to fall asleep after 30 minutes, patient should get out of bed but should not engage in any activity that requires sustained mental alertness. -Maintain a regular bedtime and wake-up time even on weekends or days off of work.-Avoi d excessive naps during the daytime. If a nap is necessary, limit it to no more than 30 minutes.-M inimize environmen joanne noise, bright lights, and extremes in bedroom temperatur e.-Avoid alcohol, caffeinate d beverages, and nicotine products for at least 6 hours prior to bedtime.-A void strenuous exercise and large meals for at least 4 hours prior to bedtime.Do wnload in 1 month [id number] Korin Ring, TIMBER SETTER-[facility] [place] [address] [place] [address] 01/24/2023 09:22:27 01/24/2023 10:24:59 Obstructive sleep apnea syndrome 75026222 G47.33 Home study 01/06/22 with AHI 78 and low saturation 67%Titrati on completed 02/03/22 with best pressure achieved at 9 cm H2oNo PLMSMachin e set up 10/04/22Or deniz for APAP 8-12 at last OVDownload with AHI 8.896% use greater than 4 hours in the last 30 days.Encou raged 100% compliance with all sleepFollo w with PCM for labsAdvise d good sleep habits and patterns:- Set a goal for at least 7 to 8 hours of sleep time per day.-Use the bed mainly for sleep and to go to bed only when tired. If unable to fall asleep after 30 minutes, patient should get out of bed but should not engage in any activity that requires sustained mental alertness. -Maintain a regular bedtime and wake-up time even on weekends or days off of work.-Avoi d excessive naps during the daytime. If a nap is necessary, limit it to no more than 30 minutes.-M inimize environmen joanne noise, bright lights, and extremes in bedroom temperatur e.-Avoid alcohol, caffeinate d beverages, and nicotine products for at least 6 hours prior to bedtime.-A void strenuous exercise and large meals for at least 4 hours prior to bedtime.As download reports central apneas, will change to set pressure of [id number] l also decrease humidityCh anges made in REsMedDown load in 4-6 weeks, PRN for concerns Body mass index 30+ - obesity [id number] Z68.36 Discussed weight management .Healthy well balanced meals.Incr ease exercise, ideally 30 minutes most days of the week. Fatigue 31916235 R53.83 GIAN is uncorrecte d, reassess after pressure changes [id number] Korin Ring, TIMBER SETTER-BC [facility] [place] [address] [place] [address] 03/07/2023 09:21:45 03/07/2023 09:53:22 Obstructive sleep apnea syndrome 55531570 G47.33 Home study 01/06/22 with AHI 78 and low saturation 67%Titrati on completed 02/03/22 with best pressure achieved at 9 cm H2oNo PLMSMachin e set up 10/04/22Do wnload today with 93% use greater than 4 hours in the last 30 days.She is on CPAP 10 cm H2OHer AHI is improved at 6.5Encoura ged 100% compliance with all sleepFollo w with PCM for labsAdvise d good sleep habits and patterns:- Set a goal for at least 7 to 8 hours of sleep time per day.-Use the bed mainly for sleep and to go to bed only when tired. If unable to fall asleep after 30 minutes, patient should get out of bed but should not engage in any activity that requires sustained mental alertness. -Maintain a regular bedtime and wake-up time even on weekends or days off of work.-Avoi d excessive naps during the daytime. If a nap is necessary, limit it to no more than 30 minutes.-M inimize environmen joanne noise, bright lights, and extremes in bedroom temperatur e.-Avoid alcohol, caffeinate d beverages, and nicotine products for at least 6 hours prior to bedtime.-A void strenuous exercise and large meals for at least 4 hours prior to bedtime.As download reports central apneas, will change to set pressure to [id number] nload in 4-6 weeks, PRN for concerns Fatigue 24109840 R53.83 ImprovedOS A is uncorrecte d, reassess after pressure changes Body mass index 30+ - obesity 872793041 Z68.36 Discussed weight management .Healthy well balanced meals.Incr ease exercise, ideally 30 minutes most days of the week. [id number] Cammie Sun MD [facility] Internal Med [place] [address] [place] [address] 04/19/2023 09:48:22 04/19/2023 10:39:41 Type 2 diabetes mellitus 03130558 E11.9 Essential hypertension 58496611 I10 Hyperlipidemia 02598693 E78.5 Skin lesion 38168947 L98 .9 [id number] Korin Ring, TIMBER SETTER-[facility] [place]olo gy [place] [address] [place] [address] 09/10/2023 09:58:34 09/10/2023 11:00:21 Obstructive sleep apnea syndrome 34783776 G47.33 Home study 01/06/22 with AHI 78 and low saturation 67%Titrati on completed 02/03/22 with best pressure achieved at 9 cm H2oNo PLMSMachin e set up 10/04/22Do wnload today with 93% use greater than 4 hours in the last 30 days.She is on CPAP 12 cm H2OHer AHI is improved at 5.5She has good use and clinical benefitEnc ouraged 100% compliance with all sleepFollo w with PCM for labsAdvise d good sleep habits and patterns:- Set a goal for at least 7 to 8 hours of sleep time per day.-Use the bed mainly for sleep and to go to bed only when tired. If unable to fall asleep after 30 minutes, patient should get out of bed but should not engage in any activity that requires sustained mental alertness. -Maintain a regular bedtime and wake-up time even on weekends or days off of work.-Avoi d excessive naps during the daytime. If a nap is necessary, limit it to no more than 30 minutes.-M inimize environmen joanne noise, bright lights, and extremes in bedroom temperatur e.-Avoid alcohol, caffeinate d beverages, and nicotine products for at least 6 hours prior to bedtime.-A void strenuous exercise and large meals for at least 4 hours prior to bedtime.Di scussed supply cleaning and reordering She should follow up in 6-12 months Fatigue 93550461 R53.83 Persistent AHI is good, I do not think that GIAN is the primary cause of her fatigue Body mass index 30+ - obesity 810418093 Z68.36 Discussed weight management .Healthy well balanced meals.Incr ease exercise, ideally 30 minutes most days of the week. Bradycardia 51241583 R00 .1 54 regular today in office - she has not taken her metoprolol this morning.Ad vised FU with [facility] [id number] Cammie Sun MD [facility] Internal Med [facility] [address] [facility], [facility] [address] [place] [address] 09/10/2023 16:03:23 09/10/2023 18:23:56 Dizziness 411177855 R42 Fatigue 44428117 R53.83 Hyperlipidemia 24018720 E78.5 [id number] Cammie Sun MD [facility] Internal Med [facility] [address] [facility] [place] [address] 10/23/2023 10:00:40 10/23/2023 10:44:13 [facility] [id number] J40 Health Concerns Section Related Observation LastModified by Organization Detai ls LastModified Time None Recorded Concern Status LastModified by Organization Details LastModified Time None Recorded Advance Directives Directive N: Payers Encounter Date Sequence Insurance Name Policy Number Policy Barriga Covered Member ID Barriga Member ID Guarantor Name 03/07/2023 1 [place] [id number] Daniella Givens [id number] Daniella Givens 04/19/2023 1 [place] [id number] Daniella Givens [id number] Daniella Givens 09/10/2023 1 [place] [id number] Daniella Givens [id number] Daniella Givens 09/10/2023 1 [place] [id number] Daniella Givens [id number] Daniella Givens 10/23/2023 1 [place] [id number] Daniella E Chon [id number] Daniella E Chon Notes Date Note Type Note Provider Name and Address Organization Details Recorded Time 03/07/2023 text/html Ms Chon edwards nts today to follow up on GIAN and PAP pressure changesContinues to have some daily fatigue, but she does think this is improved from previous pressuresMorning headaches and nocturia are improvedXerostomia and restless sleep are unchangedShe does wear it with all sleep, including napsShe did try nasal wisp bur has gone back to full face maskNo other changes in symptomsContinues to work on weight lossShe has had some personal stressors lately (credit card fraud) that have caused more difficulty with fatigue and sleep TAMMY Johnson [address], [address] [employer], [place], [address], [employer] [facility] 03/07/2023 09:55:31 04/19/2023 text/html hypertension no headache dizziness. Diabetes no polyphagia polydipsia no problems with the Ozempic. Hyperlipidemia Try to follow low-fat diet skin lesion that she wants to have looked at underneath her right eye Cammie Sun MD [address], [place], [address], [employer] [facility] 04/19/2023 21:45:55 09/10/2023 text/html Dizzy on standin g for about a week slight headache occiput some increased appetite she did have 1 fall with no injury Cammie Sun MD [address], [place], [address], [employer] [facility] 09/10/2023 23:01:24 09/10/2023 text/html Ms Chon edwards nts today to follow up on GIAN and PAP pressure changesContinues to have some daily fatigueShe naps daily.Morning headaches and nocturia are improvedXerostomia and restless sleep are unchangedHas nt been putting PAP back on when she wakes around 0400 to use the restroom, also has not been using this with all napsNo other changes in symptomsContinues to work on weight loss TAMMY Johnson [address], [facility] [address], [place], [address], [employer] [facility] 09/10/2023 12:34:33 10/23/2023 text/html Cough congestion wheezing week or 2 Cammie Sun MD [address], [facility] [address], [place], [address], [employer] [facility] 10/23/2023 22:30:51 OBGyn Episode No OBEpisode recorded.
== END 2024-12-10 12:22 | disposition home or self-care (01) ==
PROVIDERS: PCP Internal Medicine; Visit Provider Internal Medicine
DX: R68.84 Jaw pain (principal)
CPT/HCPCS: 70110

== ENCOUNTER 2024-12-17 11:55 | Outpatient (CLI) | payer BC, SELFPAY ==
--- NOTE | ~2024-12-17 | MM_ITS ---
EXAMINATION: MM screening [place] [facility] [place] HISTORY: Screening mammogram TECHNIQUE: Craniocaudal and mediolateral oblique 3-D tomosynthesis images were obtained and synthetic 2-D images were generated. CAD analysis was submitted and interpreted. COMPARISON: No prior mammogram is available for comparison at this institution. BREAST PARENCHYMAL COMPOSITION:Not Dense. There are scattered areas of fibroglandular density. FINDINGS: No suspicious mass, calcification, or architectural distortion are identified in either shruthi ast to suggest malignancy. There has been no suspicious interval change. IMPRESSION: No mammographic evidence of malignancy. Recommend routine screening mammography in one year. BI-RADS Category 1: Negative Reviewed, dictated and finalized at location . [facility]
--- OUTSIDE RECORDS SUMMARY | 2024-12-17 13:29 | XMS_ITS | CONTINUITY OF CARE DOCUMENT ---
Author Name alivia bunch Address Unknown Organization [facility] Address [address] [address] [place] [address] Phone [phone] Care Team Providers Care Assistant Professor Of Radiology Name Role Phone Alex Ward DO Unavailable CAMMIE LOPES MD Unavailable CAMMIE LOPES MD Unavailable PROBLEMS Condition Status Date Provider Notes Abnormal EKG active Alexandria Ibarra INSURANCE PROVIDERS Payer name Policy type / Coverage type [employer] party ID [facility] Blue Shield [id number] TREATMENT PLAN Date Name Complete Echo
--- OUTSIDE RECORDS SUMMARY | 2024-12-17 13:29 | XMS_ITS | Data Portability ---
Author Organization [place] - [facility] yoonew, Main Office Address [address] [place] [address] Care Team Providers Care Machine Compositor Name Role Phone CAMMIE SUN Primary Care Provider Assessment Encounter Date Assessment Date Assessment LastModified by Organization Details LastModified Time 04/19/2023 04/19/2023 Dermatology. Increase Ozempic to 2 mg blood work has been ordered for biochemical management of disease processes of medications follow-up with me in 4 months [email or web address] Not available 04/19/2023 21:45:31 09/10/2023 09/10/2023 EKG shows a normal sinus rhythm with no acute changes orthostatics are noted Decrease metoprolol to 12.5 b.i.d. blood work she has full range of motion of her lumbar spine and her cervical spine with no spinous process tenderness I will see her back in a week Accu-Chek in the office today 156 [email or web address] Not available 09/10/2023 23:00:49 10/23/2023 10/23/2023 Chest x-ray prednisone doxycycline call if not improved [email or web address] Not available 10/23/2023 22:30:35 Plan of Treatment [...] 2022 023 [facility], [address] [place] [address], [address], 3 11:54:33 Procedures None recorded. Surgeries None recorded. Imaging XR, chest 2023 024 [email or web address] Not available 4 13:35:21 electrocard iogram 2022 023 [email or web address] [id number] , [address], [place], [address], 3 18:28:19 Medication Orders doxycycline hyclate 100 mg tablet [address] [id number], [address], [place], [place], [id number], 4 13:11:46 prednisone 20 mg tablet [address] [id number], [address], [place], [place], [id number], 4 13:11:46 albuterol sulfate HFA 90 mcg/actuati on aerosol inhaler 2023 024 [id number] [id number], [address], [place], [place], [id number], 4 13:11:46 Ozempic 2 mg/dose (8 mg/3 mL) subcutaneou s pen injector 2022 023 [email or web address] [facility] #[id number], [address], [place], [place], [id number], 4 10:18:02 Patient TargetsNo targets recorded. Patient InstructionsNo instructions recorded. Reason for Referral Manager General Referral for S kin lesion Referring Physician: Cammie Sun, Internal Medicine, Encounter Date: 04/19/2023 Results Created Date Observation Date Name Description Value Unit Range Abnormal Flag Note LastModifiedBy Organization Detail LastModifiedTime 04/19/20 23 04/19/2023 CBC/C OMPLE TE BLD COUNT W/DIF F white blood cells 5.7 x10'3 /uL 4.2-10 .8 Not Available [facility] (Lab) [address] [place], [address], 04/19/2023 13:00:28 04/19/20 23 04/19/2023 CBC/C OMPLE TE BLD COUNT W/DIF F red blood cells 4.40 x10'6 /uL 3.80-5 .20 Not Available [facility] (Lab) [address] [place], [address], 04/19/2023 13:00:28 04/19/20 23 04/19/2023 CBC/C OMPLE TE BLD COUNT W/DIF F hemoglobin 13.9 g/dL 12.0-1 5.6 Not Available [facility] (Lab) [address] [place], [address], 04/19/2023 13:00:28 04/19/20 23 04/19/2023 CBC/C OMPLE TE BLD COUNT W/DIF F hematocrit 42.9 % 35.7-4 5.7 Not Available [facility] (Lab) [address] [place], [address], 04/19/2023 13:00:28 04/19/20 23 04/19/2023 CBC/C OMPLE TE BLD COUNT W/DIF F mean red cell volume 97.5 fL 82.0-9 9.0 Not Available [facility] (Lab) [address] [place], [address], 04/19/2023 13:00:28 04/19/20 23 04/19/2023 CBC/C OMPLE TE BLD COUNT W/DIF F mean red cell hemoglobin 31.6 pg 27.0-3 3.0 Not Available [facility] (Lab) [address] [place], [address], 04/19/2023 13:00:28 04/19/20 23 04/19/2023 CBC/C OMPLE TE BLD COUNT W/DIF F mean RBC HGB concentratio n 32.4 g/dL 31.0-3 6.0 Not Available [facility] (Lab) [address] [place], [address], 04/19/2023 13:00:28 04/19/2004/19/2023 CBC/C OMPLE TE BLD COUNT W/DIF F red cell distribution width 12.5 % 11.8-1 5.5 Not Available [facility] (Lab) [address] [place], [address], 04/19/2023 13:00:28 04/19/20 23 04/19/2023 CBC/C OMPLE TE BLD COUNT W/DIF F platelets 263 x10'3 /uL 150-40 0 Not Available [facility] (Lab) [address] [place], [address], 04/19/2023 13:00:28 04/19/20 23 04/19/2023 CBC/C OMPLE TE BLD COUNT W/DIF F mean platelet volume 10.2 fL 9.0-12 .4 Not Available [facility] (Lab) [address] [place], [address], 04/19/2023 13:00:28 04/19/20 23 04/19/2023 CBC/C OMPLE TE BLD COUNT W/DIF F neutrophils 55.4 % 39.0-7 2.0 Not Available [facility] (Lab) [address] [place], [address], 04/19/2023 13:00:28 04/19/20 23 04/19/2023 CBC/C OMPLE TE BLD COUNT W/DIF F lymphocytes 35.0 % 16.0-4 7.0 Not Available [facility] (Lab) [address] [place], [address], 04/19/2023 13:00:28 04/19/20 23 04/19/2023 CBC/C OMPLE TE BLD COUNT W/DIF F monocytes 7.2 % 5.0-12 .0 Not Available [facility] (Lab) [address] [place], [address], 04/19/2023 13:00:28 04/19/20 23 04/19/2023 CBC/C OMPLE TE BLD COUNT W/DIF F eosinophils 1.6 % 1.0-7. 0 Not Available [facility] (Lab) [address] [place], [address], 04/19/2023 13:00:28 04/19/20 23 04/19/2023 CBC/C OMPLE TE BLD COUNT W/DIF F basophils 0.4 % 0.0-2. 0 Not Available [facility] (Lab) [address] [place], [address], 04/19/2023 13:00:28 04/19/20 23 04/19/2023 CBC/C OMPLE TE BLD COUNT W/DIF F immature granulocytes 0.4 % 0.00-0 .50 Not Available [facility] (Lab) [address] [place], [address], 04/19/2023 13:00:28 04/19/20 23 04/19/2023 CBC/C OMPLE TE BLD COUNT W/DIF F neutrophils, absolute count 3.15 x10'3 /uL 1.5-8. 0 Not Available [facility] (Lab) [address] [place], [address], 04/19/2023 13:00:28 04/19/20 23 04/19/2023 CBC/C OMPLE TE BLD COUNT W/DIF F lymphocytes, absolute count 1.99 x10'3 /uL 1.07-3 .43 Not Available [facility] (Lab) [address] [place], [address], 04/19/2023 13:00:28 04/19/20 23 04/19/2023 CBC/C OMPLE TE BLD COUNT W/DIF F monocytes, absolute count 0.41 x10'3 /uL 0.29-0 .99 Not Available [facility] (Lab) [address] [place], [address], 04/19/2023 13:00:28 04/19/20 23 04/19/2023 CBC/C OMPLE TE BLD COUNT W/DIF F eosinophils, absolute count 0.09 x10'3 /uL 0.02-0 .53 Not Available [facility] (Lab) [address] [place], [address], 04/19/2023 13:00:28 04/19/20 23 04/19/2023 CBC/C OMPLE TE BLD COUNT W/DIF F basophils, absolute count 0.02 x10'3 /uL 0.01-0 .08 Not Available [facility] (Lab) [address] [place], [address], 04/19/2023 13:00:28 04/19/20 23 04/19/2023 CBC/C OMPLE TE BLD COUNT W/DIF F immature granulocytes ,absolute 0.02 x10'3 /uL 0.00-0 .05 Not Available [facility] (Lab) [address] [place], [address], 04/19/2023 13:00:28 04/19/20 23 04/19/2023 CBC/C OMPLE TE BLD COUNT W/DIF F nucleated red blood cells 0.0 % -0 Not Available [facility] (Lab) [address] [place], [address], 04/19/2023 13:00:28 04/19/2004/19/2023 CBC/C OMPLE TE BLD COUNT W/DIF F NRBC# 0.00 x10'3 /uL Not Available [facility] (Lab) [address] [place], [address], 04/19/2023 13:00:28 04/19/20 23 04/19/2023 LIPID PANEL cholesterol 177 mg/dL 140-19 9 NIH JUANA NSUS RECOM MENDA TION FOR LUZ MARINA STERO L: ADULT CHILD LOW RISK: <200 <170 BORDE RLINE : <200- 239 ----- HIGH RISK: >240 >200 Not Available [facility] (Lab) [address] [place], [address], 04/19/2023 13:04:18 04/19/20 23 04/19/2023 LIPID PANEL triglyceride s 94 mg/dL 0-150 NIH JUANA NSUS REPOR T RECOM MENDA TION FOR TRIGL YCERI PIERO: ADULT CHILD LOW RISK: <150 ----- BODER LINE: 150-1 99 ----- HIGH RISK: >200 ----- Not Available [facility] (Lab) [address] [place], [address], 04/19/2023 13:04:18 04/19/20 23 04/19/2023 LIPID PANEL HDL cholesterol 62 mg/dL 40- Not Available [facility] (Lab) [address] [place], [address], 04/19/2023 13:04:18 04/19/20 23 04/19/2023 LIPID PANEL [...] WILL NOT BE REPOR LIS. Not Available [facility] (Lab) [address] [place], [address], 04/19/2023 13:04:18 04/19/20 23 04/19/2023 COMPR EHENS AISHWARYA METAB OLIC PANEL sodium 139 mmol/ L 137-14 5 Not Available [facility] (Lab) [address] [place], [address], 04/19/2023 13:04:21 04/19/20 23 04/19/2023 COMPR EHENS AISHWARYA METAB OLIC PANEL potassium 4.2 mmol/ L 3.5-5. 1 Not Available [facility] (Lab) [address] [place], [address], 04/19/2023 13:04:21 04/19/20 23 04/19/2023 COMPR EHENS AISHWARYA METAB OLIC PANEL chloride 102 mmol/ L 98-107 Not Available [facility] (Lab) [address] [place], [address], 04/19/2023 13:04:21 04/19/20 23 04/19/2023 COMPR EHENS AISHWARYA METAB OLIC PANEL carbon dioxide 26 mmol/ L 22-30 Not Available [facility] (Lab) [address] [place], [address], 04/19/2023 13:04:21 04/19/20 23 04/19/2023 COMPR EHENS AISHWARYA METAB OLIC PANEL anion gap 15.2 mmol/ L 14-22 Not Available [facility] (Lab) [address] [place], [address], 04/19/2023 13:04:21 04/19/20 23 04/19/2023 COMPR EHENS AISHWARYA METAB OLIC PANEL glucose 104 mg/dL 70-99 high Not Available [facility] (Lab) [address] [place], [address], 04/19/2023 13:04:21 04/19/20 23 04/19/2023 COMPR EHENS AISHWARYA METAB OLIC PANEL BUN 15 mg/dL 8-19 Not Available [facility] (Lab) [address] [place], [address], 04/19/2023 13:04:21 04/19/20 23 04/19/2023 COMPR EHENS AISHWARYA METAB OLIC PANEL creatinine 0.69 mg/dL 0.66-1 .25 Not Available [facility] (Lab) [address] [place], [address], 04/19/2023 13:04:21 04/19/20 23 04/19/2023 COMPR EHENS AISHWARYA METAB OLIC PANEL GFR >60 Refer ence Range : [place] ge GFR Healt hy Adult : >60 [...] or ethni c subgr oups, such as [facility] nics. Outsi de the valid ated dinh [...] s/kdo qi/gf r_cal culat or Not Available [facility] (Lab) [address] [place], [address], 04/19/2023 13:04:21 04/19/20 23 04/19/2023 COMPR EHENS AISHWARYA METAB OLIC PANEL alkaline phosphatase 85 U/L 38-126 Not Available [facility] (Lab) [address] [place], [address], 04/19/2023 13:04:21 04/19/20 23 04/19/2023 COMPR EHENS AISHWARYA METAB OLIC PANEL alanine aminotransfe rase 39 U/L 0-35 high Not Available [facility] (Lab) [address] [place], [address], 04/19/2023 13:04:21 04/19/20 23 04/19/2023 COMPR EHENS AISHWARYA METAB OLIC PANEL aspartate aminotransfe rase 31 U/L 15-37 Not Available [facility] (Lab) [address] [place], [address], 04/19/2023 13:04:21 04/19/20 23 04/19/2023 COMPR EHENS AISHWARYA METAB OLIC PANEL bilirubin, total 0.40 mg/dL 0.20-1 .30 Not Available [facility] (Lab) [address] [place], [address], 04/19/2023 13:04:21 04/19/20 23 04/19/2023 COMPR EHENS AISHWARYA METAB OLIC PANEL calcium 9.0 mg/dL 8.4-10 .2 Not Available [facility] (Lab) [address] [place], [address], 04/19/2023 13:04:21 04/19/20 23 04/19/2023 COMPR EHENS AISHWARYA METAB OLIC PANEL total protein 7.2 g/dL 6.3-8. 2 Not Available [facility] (Lab) [address] [place], [address], 04/19/2023 13:04:21 04/19/20 23 04/19/2023 COMPR EHENS AISHWARYA METAB OLIC PANEL albumin 4.2 g/dL 3.4-5. 0 Not Available [facility] (Lab) [address] [place], [address], 04/19/2023 13:04:21 04/19/20 23 04/19/2023 COMPR EHENS AISHWARYA METAB OLIC PANEL globulin 3.0 g/dL 2.6-4. 2 Not Available [facility] (Lab) [address] [place], [address], 04/19/2023 13:04:21 04/19/20 23 04/19/2023 COMPR EHENS AISHWARYA METAB OLIC PANEL A/G ratio 1.4 ratio 1.0-2. 0 Not Available [facility] (Lab) [address] [place], [address], 04/19/2023 13:04:21 04/19/20 23 04/19/2023 T3 FREE free T3 2.9 pg/mL 2.77-5 .27 Not Available [facility] (Lab) [address] [place], [address], 04/19/2023 13:14:10 04/19/20 23 04/19/2023 T4 FREE free T4 0.88 NG/dL 0.78-2 .19 Not Available [facility] (Lab) [address] [place], [address], 04/19/2023 13:14:12 04/19/20 23 04/19/2023 TSH thyroid-stim ulating hormone 1.410 uIU/m L 0.465- 4.680 Not Available [facility] (Lab) [address] [place], [address], 04/19/2023 13:44:33 04/19/20 23 04/19/2023 HEMOG LOBIN A1C HA1C 5.6 % 4.0-6. 0 Diabe lucita Scree palomo Crite neela: <5.7% Consi stent with absen ce of diabe lucita 5.7-6 .4% Consi stent with incre ased risk for diabe lucita (pred iabet es) >OR=6 .5% Consi stent with diabe lucita REFER ENCE: Diabe lucita Care 2015, 39( ppl.1 ):s13 -s22 Not Available [facility] (Lab) [address] [place], [address], 04/19/2023 17:51:17 09/11/20 23 09/11/2023 CBC/C OMPLE TE BLD COUNT W/DIF F white blood cells 4.7 x10'3 /uL 4.2-10 .8 Not Available [facility] (Lab) [address] [place], [address], 09/11/2023 11:07:44 09/11/20 23 09/11/2023 CBC/C OMPLE TE BLD COUNT W/DIF F red blood cells 4.15 x10'6 /uL 3.80-5 .20 Not Available [facility] (Lab) [address] [place], [address], 09/11/2023 11:07:44 09/11/20 23 09/11/2023 CBC/C OMPLE TE BLD COUNT W/DIF F hemoglobin 13.6 g/dL 12.0-1 5.6 Not Available [facility] (Lab) [address] [place], [address], 09/11/2023 11:07:44 09/11/20 23 09/11/2023 CBC/C OMPLE TE BLD COUNT W/DIF F hematocrit 41.9 % 35.7-4 5.7 Not Available [facility] (Lab) [address] [place], [address], 09/11/2023 11:07:44 09/11/20 23 09/11/2023 CBC/C OMPLE TE BLD COUNT W/DIF F mean red cell volume 101.0 fL 82.0-9 9.0 high Not Available [facility] (Lab) [address] [place], [address], 09/11/2023 11:07:44 09/11/20 23 09/11/2023 CBC/C OMPLE TE BLD COUNT W/DIF F mean red cell hemoglobin 32.8 pg 27.0-3 3.0 Not Available [facility] (Lab) [address] [place], [address], 09/11/2023 11:07:44 09/11/20 23 09/11/2023 CBC/C OMPLE TE BLD COUNT W/DIF F mean RBC HGB concentratio n 32.5 g/dL 31.0-3 6.0 Not Available [facility] (Lab) [address] [place], [address], 09/11/2023 11:07:44 09/11/20 23 09/11/2023 CBC/C OMPLE TE BLD COUNT W/DIF F red cell distribution width 12.8 % 11.8-1 5.5 Not Available [facility] (Lab) [address] [place], [address], 09/11/2023 11:07:44 09/11/20 23 09/11/2023 CBC/C OMPLE TE BLD COUNT W/DIF F platelets 237 x10'3 /uL 150-40 0 Not Available [facility] (Lab) [address] [place], [address], 09/11/2023 11:07:44 09/11/20 23 09/11/2023 CBC/C OMPLE TE BLD COUNT W/DIF F mean platelet volume 10.4 fL 9.0-12 .4 Not Available [facility] (Lab) [address] [place], [address], 09/11/2023 11:07:44 09/11/20 23 09/11/2023 CBC/C OMPLE TE BLD COUNT W/DIF F neutrophils 58.3 % 39.0-7 2.0 Not Available [facility] (Lab) [address] [place], [address], 09/11/2023 11:07:44 09/11/20 23 09/11/2023 CBC/C OMPLE TE BLD COUNT W/DIF F lymphocytes 32.3 % 16.0-4 7.0 Not Available [facility] (Lab) [address] [place], [address], 09/11/2023 11:07:44 09/11/20 23 09/11/2023 CBC/C OMPLE TE BLD COUNT W/DIF F monocytes 7.1 % 5.0-12 .0 Not Available [facility] (Lab) [address] [place], [address], 09/11/2023 11:07:44 09/11/20 23 09/11/2023 CBC/C OMPLE TE BLD COUNT W/DIF F eosinophils 1.7 % 1.0-7. 0 Not Available [facility] (Lab) [address] [place], [address], 09/11/2023 11:07:44 09/11/20 23 09/11/2023 CBC/C OMPLE TE BLD COUNT W/DIF F basophils 0.4 % 0.0-2. 0 Not Available [facility] (Lab) [address] [place], [address], 09/11/2023 11:07:44 09/11/20 23 09/11/2023 CBC/C OMPLE TE BLD COUNT W/DIF F immature granulocytes 0.2 % 0.00-0 .50 Not Available [facility] (Lab) [address] [place], [address], 09/11/2023 11:07:44 09/11/20 23 09/11/2023 CBC/C OMPLE TE BLD COUNT W/DIF F neutrophils, absolute count 2.72 x10'3 /uL 1.5-8. 0 Not Available [facility] (Lab) [address] [place], [address], 09/11/2023 11:07:44 09/11/20 23 09/11/2023 CBC/C OMPLE TE BLD COUNT W/DIF F lymphocytes, absolute count 1.51 x10'3 /uL 1.07-3 .43 Not Available [facility] (Lab) [address] [place], [address], 09/11/2023 11:07:44 09/11/20 23 09/11/2023 CBC/C OMPLE TE BLD COUNT W/DIF F monocytes, absolute count 0.33 x10'3 /uL 0.29-0 .99 Not Available [facility] (Lab) [address] [place], [address], 09/11/2023 11:07:44 09/11/20 23 09/11/2023 CBC/C OMPLE TE BLD COUNT W/DIF F eosinophils, absolute count 0.08 x10'3 /uL 0.02-0 .53 Not Available [facility] (Lab) [address] [place], [address], 09/11/2023 11:07:44 09/11/20 23 09/11/2023 CBC/C OMPLE TE BLD COUNT W/DIF F basophils, absolute count 0.02 x10'3 /uL 0.01-0 .08 Not Available [facility] (Lab) [address] [place], [address], 09/11/2023 11:07:44 09/11/20 23 09/11/2023 CBC/C OMPLE TE BLD COUNT W/DIF F immature granulocytes ,absolute 0.01 x10'3 /uL 0.00-0 .05 Not Available [facility] (Lab) [address] [place], [address], 09/11/2023 11:07:44 09/11/20 23 09/11/2023 CBC/C OMPLE TE BLD COUNT W/DIF F nucleated red blood cells 0.0 % -0 Not Available [facility] (Lab) [address] [place], [address], 09/11/2023 11:07:44 09/11/20 23 09/11/2023 CBC/C OMPLE TE BLD COUNT W/DIF F NRBC# 0.00 x10'3 /uL Not Available [facility] (Lab) [address] [place], [address], 09/11/2023 11:07:44 09/11/20 23 09/11/2023 COMPR EHENS AISHWARYA METAB OLIC PANEL sodium 139 mmol/ L 137-14 5 Not Available [facility] (Lab) [address] [place], [address], 09/11/2023 11:30:25 09/11/20 23 09/11/2023 COMPR EHENS AISHWARYA METAB OLIC PANEL potassium 4.6 mmol/ L 3.5-5. 1 Not Available [facility] (Lab) [address] [place], [address], 09/11/2023 11:30:25 09/11/20 23 09/11/2023 COMPR EHENS AISHWARYA METAB OLIC PANEL chloride 105 mmol/ L 98-107 Not Available [facility] (Lab) [address] [place], [address], 09/11/2023 11:30:25 09/11/20 23 09/11/2023 COMPR EHENS AISHWARYA METAB OLIC PANEL carbon dioxide 29 mmol/ L 22-30 Not Available [facility] (Lab) [address] [place], [address], 09/11/2023 11:30:25 09/11/20 23 09/11/2023 COMPR EHENS AISHWARYA METAB OLIC PANEL anion gap 9.6 mmol/ L 14-22 low Not Available [facility] (Lab) [address] [place], [address], 09/11/2023 11:30:25 09/11/20 23 09/11/2023 COMPR EHENS AISHWARYA METAB OLIC PANEL glucose 165 mg/dL 70-99 high Not Available [facility] (Lab) [address] [place], [address], 09/11/2023 11:30:25 09/11/20 23 09/11/2023 COMPR EHENS AISHWARYA METAB OLIC PANEL BUN 18 mg/dL 8-19 Not Available [facility] (Lab) [address] [place], [address], 09/11/2023 11:30:25 09/11/20 23 09/11/2023 COMPR EHENS AISHWARYA METAB OLIC PANEL creatinine 0.74 mg/dL 0.66-1 .25 Not Available [facility] (Lab) [address] [place], [address], 09/11/2023 11:30:25 09/11/20 23 09/11/2023 COMPR EHENS AISHWARYA METAB OLIC PANEL GFR >60 Refer ence Range : [place] ge GFR Healt hy Adult : >60 [...] calcu lator is avail able on the [facility] websi te: [email or web address] :[email or web address] [email or web address] catesal s/kdo qi/gf r_cal culat or Not Available [facility] (Lab) [address] [place], [address], 09/11/2023 11:30:25 09/11/2009/11/2023 COMPR EHENS AISHWARYA METAB OLIC PANEL alkaline phosphatase 82 U/L 38-126 Not Available [facility] (Lab) [address] [place], [address], 09/11/2023 11:30:25 09/11/20 23 09/11/2023 COMPR EHENS AISHWARYA METAB OLIC PANEL alanine aminotransfe rase 52 U/L 0-35 high Not Available [facility] (Lab) [address] [place], [address], 09/11/2023 11:30:25 09/11/20 23 09/11/2023 COMPR EHENS AISHWARYA METAB OLIC PANEL aspartate aminotransfe rase 34 U/L 15-37 Not Available [facility] (Lab) [address] [place], [address], 09/11/2023 11:30:25 09/11/20 23 09/11/2023 COMPR EHENS AISHWARYA METAB OLIC PANEL bilirubin, total 0.60 mg/dL 0.20-1 .30 Not Available [facility] (Lab) [address] [place], [address], 09/11/2023 11:30:25 09/11/20 23 09/11/2023 COMPR EHENS AISHWARYA METAB OLIC PANEL calcium 9.5 mg/dL 8.4-10 .2 Not Available [facility] (Lab) [address] [place], [address], 09/11/2023 11:30:25 09/11/20 23 09/11/2023 COMPR EHENS AISHWARYA METAB OLIC PANEL total protein 7.0 g/dL 6.3-8. 2 Not Available [facility] (Lab) [address] [place], [address], 09/11/2023 11:30:25 09/11/20 23 09/11/2023 COMPR EHENS AISHWARYA METAB OLIC PANEL albumin 3.9 g/dL 3.4-5. 0 Not Available [facility] (Lab) [address] [place], [address], 09/11/2023 11:30:25 09/11/20 23 09/11/2023 COMPR EHENS AISHWARYA METAB OLIC PANEL globulin 3.1 g/dL 2.6-4. 2 Not Available [facility] (Lab) [address] [place], [address], 09/11/2023 11:30:25 09/11/20 23 09/11/2023 COMPR EHENS AISHWARYA METAB OLIC PANEL A/G ratio 1.3 ratio 1.0-2. 0 Not Available [facility] (Lab) [address] [place], [address], 09/11/2023 11:30:25 09/11/20 23 09/11/2023 MAGNE SIUM magnesium 2.1 mg/dL 1.6-2. 3 Not Available [facility] (Lab) [address] [place], [address], 09/11/2023 11:30:30 09/11/20 23 09/11/2023 LIPID PANEL cholesterol 201 mg/dL 140-19 9 high NIH JUANA NSUS RECOM MENDA TION FOR LUZ MARINA STERO L: ADULT CHILD LOW RISK: <200 <170 BORDE RLINE : <200- 239 ----- HIGH RISK: >240 >200 Not Available [facility] (Lab) [address] [place], [address], 09/11/2023 11:30:33 09/11/20 23 09/11/2023 LIPID PANEL triglyceride s 127 mg/dL 0-150 NIH JUANA NSUS REPOR T RECOM MENDA TION FOR TRIGL YCERI PIERO: ADULT CHILD LOW RISK: <150 ----- BODER LINE: 150-1 99 ----- HIGH RISK: >200 ----- Not Available [facility] (Lab) [address] [place], [address], 09/11/2023 11:30:33 09/11/20 23 09/11/2023 LIPID PANEL HDL cholesterol 57 mg/dL 40- Not Available [facility] (Lab) [address] [place], [address], 09/11/2023 11:30:33 09/11/20 23 09/11/2023 LIPID PANEL [...] WILL NOT BE REPOR LIS. Not Available [facility] (Lab) [address] [place], [address], 09/11/2023 11:30:33 09/11/20 23 09/11/2023 T3 FREE free T3 3.3 pg/mL 2.77-5 .27 Not Available [facility] (Lab) [address] [place], [address], 09/11/2023 11:44:33 09/11/20 23 09/11/2023 T4 FREE free T4 0.93 NG/dL 0.78-2 .19 Not Available [facility] (Lab) [address] [place], [address], 09/11/2023 11:44:35 09/11/20 23 09/11/2023 TSH thyroid-stim ulating hormone 2.610 uIU/m L 0.465- 4.680 Not Available [facility] (Lab) [address] [place], [address], 09/11/2023 11:57:19 09/11/20 23 09/11/2023 HEMOG LOBIN A1C HA1C 6.2 % 4.0-6. 0 high Diabe lucita Scree palomo Crite neela: <5.7% Consi stent with absen ce of diabe lucita 5.7-6 .4% Consi stent with incre ased risk for diabe lucita (pred iabet es) >OR=6 .5% Consi stent with diabe lucita REFER ENCE: Diabe lucita Care 2016, 39(Hunter ppl.1 ):s13 -s22 Not Available [facility] (Lab) [address] [place], [address], 09/11/2023 16:48:11 09/10/20 23 elect rocar diogr am No observ ation record ed. [facility] [address] [facility], [facility] [address], [place], [address], 09/10/2023 18:13:55 09/10/20 23 09/10/2023 elect rocar diogr am No observ ation record ed. [facility] Luis [address] [facility], [facility] [address], [place], [address], 09/10/2023 18:19:15 10/23/19 24 XR, chest [facility] [address] [place] [address] [phone] Patien t Name: HERMELINDO SANCHEZ Access ion #: [id number] Sex: F : 1964 5 Dictat [...] at 2023 10:11: 09 AM Page 1 [facility] ([facility]) [address] [place] [address], [address], 11/08/2023 13:35:21 Result Notes None recorded. Problems Name Problem SNOMED Code Status Onset Date Resolution Date Notes Provider Name and Address Organization Details Recorded Time Intolerant of heat and cold 651120896 Active 2021 Not Available [facility] 4 05:28:48 Headache 44748738 Active 2020 Not Available [facility] 4 05:28:48 Type 2 diabetes mellitus without complicati on 636055596 Active 2021 Not Available [facility] 4 05:28:48 Bronchitis 05041269 Active Not Available [facility] 4 05:28:48 Sleep disorder 77460277 Active 2021 Not Available [facility] 4 05:28:48 Type 2 diabetes mellitus 40768443 Active 2020 Not Available [facility] 4 05:28:48 Uncontroll ed type 2 diabetes mellitus 862244470 Active 2021 Not Available [facility] 4 05:28:48 Hyperlipid emia 76344499 Active 2021 Not Available [facility] 4 05:28:48 Essential hypertensi on 92875683 Active 2020 Not Available [facility] 4 05:28:48 Obstructiv e sleep apnea syndrome 21637341 Active 2021 Not Available [facility] 4 05:28:48 Hyperglyce ayden 96934163 Completed 202004/18/2021 Not Available [facility] 3 10:48:26 Fatigue 59215200 Active 2022 Not Available [facility] 4 05:28:48 Skin lesion 07051130 Active 2022 Not Available [facility] 4 05:28:48 Bradycardi a 05024160 Active 2022 Not Available [facility] 4 05:28:48 Dizziness 924756117 Active 2022 Not Available [facility] 4 05:28:48 Notes:Medical History: Depre ssion Obesity [...] Organization Details LastModified Time 09/10/2023 electrocardiogram completed [facility] Internal Med [facility] [address] [facility] [address], [place], [address], 09/10/2023 18:13:55 09/10/2023 electrocardiogram completed [facility] Internal Med [address], [place], [address], 09/10/2023 18:19:15 10/23/2023 XR, chest completed [facility] (Imaging) [address], [place], [address], 11/08/2023 13:35:21 Procedure Notes None recorded. Medical Equipment None Reported. Allergies Allergen ID Allergen Name Allergen Category Reaction Reaction Severity Criticality Documentation Date Start Date Code Code System Note Provider Name and Address Organization Details Recorded Time 84436 acetamino phen / hydrocodo ne medicatio n vomiting Not available Not available 12/13/2022 63304 2 RxNorm Not Available [facility] 3 10:53:00 Medications Name Sig Start Date [...] Updated DateTime 3 167.64 cm 36 kg/m2 155491. 1 g 97.1 [degF] 70 /min 99 % 99 % 108 mm[Hg] 64 mm[Hg] Juliann Saravia [facility] 3 09:29:56 Date Recorded Body height Body mass index (BMI) Body weight Body temperature Heart rate Systolic blood pressure Diastolic blood pressure Provider Name and Address Organization Details Last Updated DateTime 3 167.64 cm 37.4 kg/m2 241696. 43 g 97.8 [degF] 63 /min 132 mm[Hg] 82 mm[Hg] DALJIT Marie [facility] 3 09:53:56 Date Recorded Body height Body temperature Provider N elvin and Address Organization Details Last Updated DateTime 09/10/2023 167.64 cm 96.6 [degF] Danii Nunez MA [facility] [employer] 09/10/2023 10:01:23 Date Recorded Body mass index (BMI) Body weight Systolic blood pressure Diastolic blood pressure Provider Name and Address Organization Details Last Updated DateTime 09/10/2023 40.2 kg/m2 555701.5 g 110 mm[Hg] 70 mm[Hg] Martina Serra [facility] [employer] 09/10/2023 10:26:35 Date Recorded Body height Body mass index (BMI) Body weight Body temperature Heart rate Heart rate Heart rate Systolic blood pressure Diastolic blood pressure Systolic blood pressure Diastolic blood pressure Systolic blood pressure Diastolic blood pressure Provider Name and Address Organization Details Last Updated DateTime 3 167.64 cm 40.2 kg/m2 905407. 22 g 97.8 [degF] 74 /min 58 /min 74 /min 126 mm[Hg] 74 mm[Hg] 122 mm[Hg] 82 mm[Hg] 126 mm[Hg] 78 mm[Hg] Ondina Farrell MA [facility] tri[employer]iece [facility] 3 18:12:55 Date Recorded Body height Heart rate Systolic blood pressure Diastolic blood pressure Provider Name and Address Organization Details Last Updated DateTime 10/01/2023 167.64 cm 54 /min 128 mm[Hg] 74 mm[Hg] Sandra Herman CMA [facility] 10/01/2023 10:07:21 Date Recorded Body height Body mass index (BMI) Body weight Body temperature Heart rate Systolic blood pressure Diastolic blood pressure Provider Name and Address Organization Details Last Updated DateTime 167.64 cm 40.7 kg/m2 389535. 28 g 98.9 [degF] 86 /min 128 mm[Hg] 84 mm[Hg] Evangelina dhillon RN [facility] [employer] [facility] 4 10:18:53 Social History Question Answer Notes LastModified by Organization Details LastModified Time Tobacco Smoking Status Former Smoker quit 2007 DALJIT Mccullough, [facility] 04/19/2023 09:49:25 Do You Have An Advance Directive? No [id number] Information not available 12/13/2022 What Is Your Level Of Alcohol Consumption? Occasional MIGRATION.[id number] [id number] Information not available 12/13/2022 Do You Wear A Helmet When Biking? No Information not available 04/19/2023 What Is Your Level Of Caffeine Consumption? Heavy [email or web address] Information not available 12/27/2022 How Much Tobacco Do You Chew? None MIGRATION.[id number] [id number] Information not available 12/13/2022 In The 14 [...] You Following? SPECIFIC Weight Watchers Diet MIGRATION.0301 [id number] Information not available 12/13/2022 Which Illicit Or Recreational Drugs Have You Used? None Information not available 04/19/2023 Do You Or Have You Ever Used E-cigarettes Or Vape? Never Used Electronic Cigarettes Information not available 04/19/2023 What Is The Highest Grade Or Level Of School You Have Completed Or The Highest Degree You Have Received? [id number] Information not available 04/19/2023 What Is Your [...] not available 04/19/2023 Where Do You Live? [facility] Information not available 04/19/2023 Do You Have A Medical Power Of Menagerie Caretaker? No Information not available 04/19/2023 What Was The Date Of Your Most Recent Tobacco Screening? 10/23/2023 [email or web address] Information not available 10/23/2023 What Is Your Current Pack Years? [email or web address] Information not available 04/19/2023 Have You Ever Been Counseled For Unhealthy Alcohol Use? No Information not available 04/19/2023 Do You Have Any Pets? Yes Information not available 04/19/2023 What Is Your Relationship Status? MIGRATION.0301 [id number] Information not available 12/13/2022 Do You Use [...] Smokeless Tobacco? Never Used Smokeless Tobacco MIGRATION.0301 [id number] Information not available 12/13/2022 Are There Any Smokers In Your House? No Information not available 04/19/2023 How Much Tobacco Do You Smoke? 2 PPD MIGRATION.0301 [id number] Information not available 12/13/2022 What Types Of Sporting Activities Do You Participate In? None Information not available 04/19/2023 Do You Feel Stressed (tense, Restless, Nervous, Or Anxious, Or Unable To Sleep At Night)? [id number] Information not available 04/19/2023 Do You Use [...] Functional Status Question Answer Note LastModified by [employer] ion Details LastModified Time What is your exercise level? Occasional [id number] Information not available 12/13/2022 Mental Status None recorded. Family History Relationship Description Onset Age of this Age Resolved Age Notes LastModified by Organization Details LastModified Time Mother Myocardial infarction 52 [id number] Not available 12/13/2022 10:43:14 Mother Hyperlipidem ia [...] HEARING PROBLEMS N MUMPS N SHINGLES N DEPRESSION (INCLUDING POST ) N BOWEL PROBLEMS N STROKE/TIA N ULCERS N BENIGN PROSTATIC [...] INSOMNIA N HIGH CHOLESTEROL / HYPERLIPIDEMIA N HYPERTHYROIDISM N EYE PROBLEMS N EDEMA N CHRONIC PAIN SYNDROME N HYPOTHYROIDISM N CONSTIPATION N CAROTID BLOCKAGE N BACK / NECK PROBLEMS N HAVE YOU BEEN HOSPITALIZED OR SEEN IN [facility] IN THE PAST YEAR ? N ATHEROSCLEROSIS N BREAST PROBLEMS N DIALYSIS N ECZEMA N OSTEOPOROSIS N ARTHRITIS N APPENDICITIS N DIABETES, TYPE N BAD TEETH N ENT N HEARTBURN / REFLUX N AUTISM SPECTRUM DISORDER (ASD) N HEPATITIS / LIVER DISEASE N GOUT N SLEEP DISORDER N ALZHEIMER'S DISEASE N Brain Problems N HERPES N DEMENTIA N SEIZURES/EPILEPSY N HEADACHES/MIGRAINES N VASCULAR DISEASE N PACEMAKER N Blood Disorder N DIZZINESS N KIDNEY DISEASE N HEART DISEASE/HEART PROBLEMS N MULTIPLE SCLEROSIS N CARDIAC ARRHYTHMIA N CANCER: SPECIFY N Gall Stones N ATRIAL FIBRILLATION N PULMONARY EMBOLISM N AUTOIMMUNE DISEASE N Gynecological HistoryNo gynecological history recorded. Obstetrics History GPAL:G 0 P 0 0 0 0 Immunizations Vaccine Type Date Status Note Provider Nam e and Address Organization Details Recorded Time COVID-19, mRNA, LNP-S, PF, 100 mcg/0.5mL dose or 50 mcg/0.25mL dose 10/19/2021 completed Not Available [facility] 4 05:28:48 COVID-19 vaccine, vector-nr, rS-Ad26, PF, 0.5 mL 01/17/2021 completed Not Available [facility] 4 05:28:48 Influenza, split virus, quadrivalent, PF 08/17/2022 completed Not Available [facility] 4 05:28:48 Past Encounters Encounter ID Performer Location Encounter Start Date Encounter Closed Date Diagnosis/Indication Diagnosis SNOMED-CT Code Diagnosis ICD10 Code Diagnosis Note [id number] [facility] Internal Med Tushar baird [address] [place] [address] 03/22/2021 00:00:00 04/10/2021 12:14:30 [id number] [facility] Internal Med Tushar baird [address] [place] [address] 04/12/2021 00:00:00 04/18/2021 21:52:44 [id number] [facility] [place] [address] [place] [address] y , [place] [address] 08/04/2021 00:00:00 08/15/2021 21:08:47 [id number] [facility] [place] [address] [place] [address] y , [place] [address] 12/01/2021 00:00:00 12/06/2021 23:10:03 [id number] [facility] [place] [address] [place] [address] y , [place] [address] 12/29/2021 00:00:00 01/15/2022 22:46:57 [id number] [facility] [place] [address] [place] [address] y , [place] [address] 03/02/2022 00:00:00 03/25/2022 17:43:03 [id number] [facility] [place] [address] [place] [address] y , [place] [address] 2022 00:00:00 2022 17:07:42 [id number] [facility] [place] [address] [place] [address] y , [place] [address] 04/12/2022 00:00:00 04/12/2022 16:25:35 [id number] [facility] [place] [address] [place] [address] 04/14/2022 00:00:00 04/14/2022 14:38:11 [id number] [facility] [place] [address] [place] [address] y , [place] [address] 04/27/2022 00:00:00 04/29/2022 20:40:17 [id number] [facility] [place] [address] [place] [address] [place] [address] 06/01/2022 00:00:00 06/25/2022 22:32:18 [id number] [facility] Internal [facility] [place] [address] [place] [address] y , [place] [address] 08/17/2022 00:00:00 08/19/2022 14:42:47 [id number] [facility] [place] [address] [place] [address] 11/15/2022 00:00:00 11/15/2022 14:20:26 [id number] Cammie Sun MD [facility] Internal [facility] [address] [place] [address] y , [place] [address] 12/14/2022 10:44:35 12/14/2022 12:02:08 Type 2 diabetes mellitus 94867648 E11.9 Essential hypertension 70065530 I10 Hyperlipidemia 82490640 E78.5 [id number] Korin Ring, [facility] Pul[facility] [place] [address] [place] [address] 12/27/2022 13:52:44 12/28/2022 08:52:18 Obstructive sleep apnea syndrome 32319540 G47.33 Home study 01/06/22 with AHI 79 [...] prior to bedtime.Do wnload in 1 month [id number] Korin Ring, [employer] [place] [address] [place] [address] 01/24/2023 09:22:27 01/24/2023 10:24:59 Obstructive sleep apnea syndrome 98326291 G47.33 Home study 01/06/22 with AHI 79 [...] apneas, will change to set pressure of [id number] l also decrease humidityCh anges made in REsMedDown load in 4-6 weeks, PRN for concerns Body mass index 30+ - obesity 531291648 Z68.36 Discussed weight management .Healthy well balanced meals.Incr ease exercise, ideally 30 minutes most days of the week. Fatigue 85062491 R53.83 GIAN is uncorrecte d, reassess after pressure changes [id number] Korin Ring, [employer] [facility] [place] [address] [place] [address] 03/07/2023 09:21:45 03/07/2023 09:53:22 Obstructive sleep apnea syndrome 84222271 G47.33 Home study 01/06/22 with AHI 79 [...] apneas, will change to set pressure to [id number] nload in 4-6 weeks, PRN for concerns Fatigue 33265035 R53.83 ImprovedOS A is uncorrecte d, reassess after pressure changes Body mass index 30+ - obesity 084778489 Z68.36 Discussed weight management .Healthy well balanced meals.Incr ease exercise, ideally 30 minutes most days of the week. [id number] Cammie Sun MD [facility] Internal Med Tushar baird [address] [place] [address] 04/19/2023 09:48:22 04/19/2023 10:39:41 Type 2 diabetes mellitus 56196580 E11.9 Essential hypertension 67957563 I10 Hyperlipidemia 73537429 E78.5 Skin lesion 62232038 L98 .9 [id number] Korin Ring, [employer] [facility] Pulmonolo gy [address] [place] [address] [place] [address] 09/10/2023 09:58:34 09/10/2023 11:00:21 Obstructive sleep apnea syndrome 28771240 G47.33 Home study 01/06/22 with AHI 79 [...] should follow up in 6-12 months Fatigue 73223806 R53.83 Persistent AHI is good, I do not think that GIAN is the primary cause of her fatigue Body mass index 30+ - obesity 744450714 Z68.36 Discussed weight management .Healthy well balanced meals.Incr ease exercise, ideally 30 minutes most days of the week. Bradycardia 43167717 R00 .1 54 regular today in office - she has not taken her metoprolol this morning.Ad vised FU with [facility] [id number] Cammie Sun MD [facility] Internal Med [facility] 15 [address] [facility], [facility] 15 [place] [address] 09/10/2023 16:03:23 09/10/2023 18:23:56 Dizziness 097634372 R42 Fatigue 35110204 R53.83 Hyperlipidemia 16520963 E78.5 [id number] Cammie Sun MD [facility] Internal Med [facility] [address] [facility] [place] [address] 10/23/2023 10:00:40 10/23/2023 10:44:13 [facility] 83932545 J40 Health Concerns Section Related Observation LastModified by Organization Detai ls LastModified Time None Recorded Concern Status LastModified by Organization Details LastModified Time None Recorded Advance Directives Directive N: Payers Encounter Date Sequence Insurance Name Policy Number Policy Barriga Covered Member ID Barriga Member ID Guarantor Name 03/07/2023 1 [place] [id number] Daniella Givens [id number] Daniella Givens 04/19/2023 1 [place] [id number] Daniella Givens [id number] Daniella Givens 09/10/2023 1 [place] [id number] Daniella Givens [id number] Daniella Givens 09/10/2023 1 [place] [id number] Daniella Givens [id number] Daniella Givens 10/23/2023 1 [place] [id number] Daniella E Chon [id number] Daniella E Chon Notes Date Note [...] sleep TAMMY Johnson [address], [place], [address], [facility] yoonew 03/07/2023 09:55:31 04/19/2023 text/html hypertension no headache dizziness. Diabetes no polyphagia polydipsia no problems with the Ozempic. Hyperlipidemia Try to follow low-fat diet skin lesion that she wants to have looked at underneath her right eye Cammie Sun MD [address], [place], [address], [facility] 04/19/2023 21:45:55 09/10/2023 text/html Dizzy on standin g for about a week slight headache occiput some increased appetite she did have 1 fall with no injury Cammie Sun MD [address], [place], [address], [employer] [facility] [employer] 09/10/2023 23:01:24 09/10/2023 text/html Ms Chon edwards [...] work on weight loss TAMMY Johnson [address], [facility] [address], [place], [address], [employer] [facility] 09/10/2023 12:34:33 10/23/2023 text/html Cough congestion wheezing week or 2 Cammie Sun MD [address], [facility] [address], [place], [address], [employer] [facility] 10/23/2023 22:30:51 OBGyn Episode No OBEpisode recorded.
--- OUTSIDE RECORDS SUMMARY | 2024-12-17 13:29 | XMS_ITS | Data Portability ---
Author Organization [facility] Marlon Mitchell Address [address] [facility] [place] [place] [address] Care Team Providers Care It Project Manager Name Role Phone CAMMIE SUN Primary Care [...] was 5.9 follow up in 4 months [email or web address] Not available 05/04/2024 21:36:24 08/28/2024 08/28/2024 blood work has been ordered we will start GLP 1 Jeremiah Rudd she will follow up in 3 months all questions answered [email or web address] Not available 10/10/2024 14:01:39 11/27/2024 11/27/2024 healthy lifestyl e care instructions x-ray mandible refer for her jaw issue titrate her GLP 1 follow up in 4 months [email or web address] Not available 12/07/2024 17:37:28 Plan of Treatment Reminders Order Date Submit Date Provider Last Modified By Organization Details Last Modified Time Details Appointments ANY 15 2024 09:15A Patricia Sun MD Not available Not available Not available Lab CMP, serum or plasma 2023 024 S[facility], [address], [place], [address], 08/29/2024 07:16:27 lipid panel, serum 2023 024 SAGAR [facility], [address], [place], [address], 08/29/2024 07:16:25 CBC w/ auto diff 2023 024 SAGAR Chaudhary, [address], [place], [address], 08/29/2024 07:16:28 HbA1c (hemoglob in A1c), blood 2023 024 In-Office Order, Internal Use Only DO Not Attach Compendium DO Not Attach Compendium, Do Not Delete/merge, [id number] 04/24/2024 14:23:48 lipid panel, serum 2023 024 SAGAR Chaudh[facility], [address], [place], [address], 04/29/2024 09:44:14 CBC w/ auto diff 2023 024 SAGAR Chaudh[facility], [address], [place], [address], 04/29/2024 09:44:14 CMP, serum or plasma 2023 024 SAGAR [facility]aud[facility], [address], [place], [address], 04/29/2024 09:44:14 CK (creatine kinase), total, serum 2023 024 SAGAR Chaudhary, [address], [place], [address], 12/28/2023 10:14:11 CMP, serum or plasma 2023 024 SAGAR Chaudhary, [address], [place], [address], 12/28/2023 10:14:10 CBC w/ auto diff 2023 024 [facility], [address], [place], [address], 12/28/2023 10:14:13 lipid panel, serum 2023 024 [facility], [address], [place], [address], 12/28/2023 10:14:10 TSH, ultra-sen sitive, serum 2023 024 [facility], [address], [place], [address], 12/28/2023 10:14:12 T3, free, serum or plasma 2023 024 [facility], [address], [place], [address], 12/28/2023 10:14:13 T4, free, serum 2023 024 [facility], [address], [place], [address], 12/28/2023 10:14:14 Referral None recorded. Procedures lexiscan cardiolit e stress test (PROC) 2023 024 [facility], [address], [address], [place], [address], 05/27/2024 10:48:14 Surgeries None recorded. Imaging US, echocardi ogram 2023 024 [facility], [address], [address], [place], [address], 01/25/2024 15:02:06 Medication Orders Mounjaro 2.5 mg/0.5 mL subcutane ous pen injector 2023 [facility]24 [id number], [address], [place], [place], [id number], 11/27/2024 10:39:06 Cholestyr amine Light 4 gram oral powder 2023 024 [email or web address] [id number], [address], [place], [place], [id number], 04/24/2024 14:23:48 Patient TargetsNo targets recorded. Patient Instructions Encounter Date Encounter Id Patient Instructions Last Modified By Organization Details Last Modified Time 04/24/2024 [id number] A healthy lifestyle: care instructions [email or web address] Not available 04/24/2024 14:23:48 08/28/2024 [id number] A healthy lifestyle: care instructions [email or web address] Not available 08/28/2024 13:45:10 11/27/2024 [id number] A healthy lifestyle: care instructions [email or web address] Not available 11/27/2024 13:40:37 Reason for Referral None Reported. Results Created Date Observation Date Name Description Value Unit Range Abnormal Flag Note LastModifiedBy Organization Detail LastModifiedTime 12/27/1912/28/2023 LIPID PANEL cholesterol, total 163 mg/dL 100-19 9 Not Available [facility] ([facility]) [address] [facility], [place], [address], 12/28/2023 10:14:09 12/27/1912/28/2023 LIPID PANEL triglyceride s 123 mg/dL 0-149 Not Available [facility] ([facility]) [address] [facility], [place], [address], 12/28/2023 10:14:09 12/27/1912/28/2023 LIPID PANEL HDL cholesterol 51 mg/dL >39 Not Available [facility] ([facility]) [address] [facility], [place], [address], 12/28/2023 10:14:09 12/27/19 24 12/28/2023 LIPID PANEL VLDL cholesterol david 22 mg/dL 5-40 Not Available [facility] ([facility]) [address] [place], [address], 12/28/2023 10:14:09 12/27/19 24 12/28/2023 LIPID PANEL LDL chol calc ([facility]) 90 mg/dL 0-99 Not Available [facility] ([facility]) [address] [place], [address], 12/28/2023 10:14:09 12/27/19 24 12/28/2023 COMP. METAB OLIC PANEL (14) glucose 139 mg/dL 70-99 above high normal Not Available [facility] ([facility]) [address] [facility], [place], [address], 12/28/2023 10:14:10 12/27/19 24 12/28/2023 COMP. METAB OLIC PANEL (14) BUN 14 mg/dL 6-24 Not Available [facility] ([facility]) [address] [place], [address], 12/28/2023 10:14:10 12/27/19 24 12/28/2023 COMP. METAB OLIC PANEL (14) creatinine 0.78 mg/dL 0.57-1 .00 Not Available [facility] ([facility]) [address] [place], [address], 12/28/2023 10:14:10 12/27/19 24 12/28/2023 COMP. METAB OLIC PANEL (14) eGFR 89 mL/mi n/1.7 3 >59 Not Available [facility] ([facility]) [address] [place], [address], 12/28/2023 10:14:10 12/27/19 24 12/28/2023 COMP. METAB OLIC PANEL (14) BUN/creatini ne ratio 18 9-23 Not Available [facility] ([facility]) [address], [place], [id number], 12/28/2023 10:14:10 12/27/19 24 12/28/2023 COMP. METAB OLIC PANEL (14) sodium 140 mmol/ L 134-14 4 Not Available [facility] ([facility]) [address], [place], [address], 12/28/2023 10:14:10 12/27/19 24 12/28/2023 COMP. METAB OLIC PANEL (14) potassium 4.3 mmol/ L 3.5-5. 2 Not Available [facility] ([facility]) [address], [place], [id number], 12/28/2023 10:14:10 12/27/19 24 12/28/2023 COMP. METAB OLIC PANEL (14) chloride 101 mmol/ L 96-106 Not Available [facility] ([facility]) [address], [place], [address], 12/28/2023 10:14:10 12/27/19 24 12/28/2023 COMP. METAB OLIC PANEL (14) carbon dioxide, total 23 mmol/ L 20-29 Not Available [facility] ([facility]) [address] [facility], [address], 12/28/2023 10:14:10 12/27/19 24 12/28/2023 COMP. METAB OLIC PANEL (14) calcium 9.4 mg/dL 8.7-10 .2 Not Available [facility] ([facility]) [address] [facility], [address], 12/28/2023 10:14:10 12/27/19 24 12/28/2023 COMP. METAB OLIC PANEL (14) protein, total 6.6 g/dL 6.0-8. 5 Not Available [facility] ([facility]) [address] [facility], [place], [address], 12/28/2023 10:14:10 12/27/19 24 12/28/2023 COMP. METAB OLIC PANEL (14) albumin 4.1 g/dL 3.8-4. 9 Not Available [facility] ([facility]) [address], [place], [address], 12/28/2023 10:14:10 12/27/19 24 12/28/2023 COMP. METAB OLIC PANEL (14) globulin, total 2.5 g/dL 1.5-4. 5 Not Available [facility] ([facility]) [address], [place], [address], 12/28/2023 10:14:10 12/27/19 24 12/28/2023 COMP. METAB OLIC PANEL (14) A/G ratio 1.6 1.2-2. 2 Not Available [facility] ([facility]) [address] [facility], [place], [address], 12/28/2023 10:14:10 12/27/19 24 12/28/2023 COMP. METAB OLIC PANEL (14) bilirubin, total 0.3 mg/dL 0.0-1. 2 Not Available [facility] ([facility]) [address] [facility], [place], [address], 12/28/2023 10:14:10 12/27/19 24 12/28/2023 COMP. METAB OLIC PANEL (14) alkaline phosphatase 113 IU/L 44-121 Not Available [facility] ([facility]) [address] [facility], [place], [address], 12/28/2023 10:14:10 12/27/19 24 12/28/2023 COMP. METAB OLIC PANEL (14) AST (SGOT) 20 IU/L 0-40 Not Available [facility] ([facility]) [address] [facility], [place], [address], 12/28/2023 10:14:10 12/27/19 24 12/28/2023 COMP. METAB OLIC PANEL (14) ALT (SGPT) 23 IU/L 0-32 Not Available [facility] ([facility]) [address] [facility], [place], [address], 12/28/2023 10:14:10 12/27/19 24 12/28/2023 CK creatine kinase,total 79 U/L 32-182 Not Available [facility] ([facility]) [address] [facility], [place], [address], 12/28/2023 10:14:11 12/27/19 24 12/28/2023 TSH TSH 1.480 uIU/m L 0.450- 4.500 Not Available [facility] ([facility]) [address] [facility], [place], [address], 12/28/2023 10:14:12 12/27/19 24 12/28/2023 CBC WITH DIFFE RENTI AL/PL ATELE T WBC 5.5 x10e3 /uL 3.4-10 .8 Not Available [facility] ([facility]) [address] [place], [address], 12/28/2023 10:14:13 12/27/19 24 12/28/2023 CBC WITH DIFFE RENTI AL/PL ATELE T RBC 4.22 x10e6 /uL 3.77-5 .28 Not Available [facility] ([facility]) [address] [facility], [place], [address], 12/28/2023 10:14:13 12/27/19 24 12/28/2023 CBC WITH DIFFE RENTI AL/PL ATELE T hemoglobin 13.4 g/dL 11.1-1 5.9 Not Available [facility] ([facility]) [address] [place], [address], 12/28/2023 10:14:13 12/27/19 24 12/28/2023 CBC WITH DIFFE RENTI AL/PL ATELE T hematocrit 38.7 % 34.0-4 6.6 Not Available [facility] ([facility]) [address] [facility], [place], [address], 12/28/2023 10:14:13 12/27/19 24 12/28/2023 CBC WITH DIFFE RENTI AL/PL ATELE T MCV 92 fL 79-97 Not Available [facility] ([facility]) [address] [facility], [place], [address], 12/28/2023 10:14:13 12/27/19 24 12/28/2023 CBC WITH DIFFE RENTI AL/PL ATELE T MCH 31.8 pg 26.6-3 3.0 Not Available [facility] ([facility]) [address] [facility], [place], [address], 12/28/2023 10:14:13 12/27/19 24 12/28/2023 CBC WITH DIFFE RENTI AL/PL ATELE T MCHC 34.6 g/dL 31.5-3 5.7 Not Available [facility] ([facility]) [address] [place], [address], 12/28/2023 10:14:13 12/27/19 24 12/28/2023 CBC WITH DIFFE RENTI AL/PL ATELE T RDW 12.9 % 11.7-1 5.4 Not Available [facility] ([facility]) [address] [place], [address], 12/28/2023 10:14:13 12/27/19 24 12/28/2023 CBC WITH DIFFE RENTI AL/PL ATELE T platelets 290 x10e3 /uL 150-45 0 Not Available [facility] ([facility]) [address] [facility], [place], [address], 12/28/2023 10:14:13 12/27/19 24 12/28/2023 CBC WITH DIFFE RENTI AL/PL ATELE T neutrophils 61 % notest ab. Not Available [facility] ([facility]) [address] [facility], [place], [address], 12/28/2023 10:14:13 12/27/19 24 12/28/2023 CBC WITH DIFFE RENTI AL/PL ATELE T lymphs 31 % notest ab. Not Available [facility] ([facility]) [address] [facility], [place], [address], 12/28/2023 10:14:13 12/27/19 24 12/28/2023 CBC WITH DIFFE RENTI AL/PL ATELE T monocytes 6 % notest ab. Not Available [facility] ([facility]) [address] [facility], [place], [address], 12/28/2023 10:14:13 12/27/19 24 12/28/2023 CBC WITH DIFFE RENTI AL/PL ATELE T eos 1 % notest ab. Not Available [facility] ([facility]) [address] [facility], [place], [address], 12/28/2023 10:14:13 12/27/19 24 12/28/2023 CBC WITH DIFFE RENTI AL/PL ATELE T basos 1 % notest ab. Not Available [facility] ([facility]) [address] [facility], [place], [address], 12/28/2023 10:14:13 12/27/19 24 12/28/2023 CBC WITH DIFFE RENTI AL/PL ATELE T neutrophils (absolute) 3.4 x10e3 /uL 1.4-7. 0 Not Available [facility] ([facility]) [address] [facility], [place], [address], 12/28/2023 10:14:13 12/27/19 24 12/28/2023 CBC WITH DIFFE RENTI AL/PL ATELE T lymphs (absolute) 1.7 x10e3 /uL 0.7-3. 1 Not Available [facility] ([facility]) [address] [facility], [place], [address], 12/28/2023 10:14:13 12/27/19 24 12/28/2023 CBC WITH DIFFE RENTI AL/PL ATELE T monocytes(ab solute) 0.3 x10e3 /uL 0.1-0. 9 Not Available [facility] ([facility]) [address] [facility], [place], [address], 12/28/2023 10:14:13 12/27/19 24 12/28/2023 CBC WITH DIFFE RENTI AL/PL ATELE T eos (absolute) 0.1 x10e3 /uL 0.0-0. 4 Not Available [facility] ([facility]) [address] [facility], [place], [address], 12/28/2023 10:14:13 12/27/19 24 12/28/2023 CBC WITH DIFFE RENTI AL/PL ATELE T baso (absolute) 0.0 x10e3 /uL 0.0-0. 2 Not Available [facility] ([facility]) [address] [facility], [place], [address], 12/28/2023 10:14:13 12/27/19 24 12/28/2023 CBC WITH DIFFE RENTI AL/PL ATELE T immature granulocytes 0 % notest ab. Not Available [facility] ([facility]) [address] [facility], [place], [address], 12/28/2023 10:14:13 12/27/19 24 12/28/2023 CBC WITH DIFFE RENTI AL/PL ATELE T immature grans (abs) 0.0 x10e3 /uL 0.0-0. 1 Not Available [facility] ([facility]) [address] [facility], [place], [address], 12/28/2023 10:14:13 12/27/19 24 12/28/2023 TRIIO DOTHY KEREN E (T3), FREE triiodothyro nine (T3), free 2.6 pg/mL 2.0-4. 4 Not Available [facility] ([facility]) [address] [facility], [place], [address], 12/28/2023 10:14:13 12/27/19 24 12/28/2023 T4,FR EE(DI RECT) T4,free(dire ct) 1.00 NG/dL 0.82-1 .77 Not Available [facility] ([facility]) [address] [facility], [place], [address], 12/28/2023 10:14:14 04/24/20 24 04/24/2024 HbA1c (hemo globi n A1c), blood HbA1c 5.9 Not Available In-Office Order Internal Use Only DO Not Attach Compendium DO Not Attach Compendium, Do Not Delete/merge, [id number] 04/23/2024 14:11:04 06/20/20 24 06/20/2024 COLOG UARD [...] of 10,00 0 indiv idual s at [place] [facility] risk for color ectal cance r [...] asymp tomat ic indiv idual s at [facility] for color ectal cance r. Follo wing [...] 112:1 016-1 030. TEST DESCR IPTIO N: [place] site algor ithmi c isamar sis of [...] years or older , who are at [facility] for color ectal cance r (CRC) . Colog uard has been appro lesley for use by the [place] FDA. The perfo rmanc e of Colog uard was estab lishe d in a cross secti onal study of [facility] adult s aged 50-84 . Colog uard [...] study of 0 indiv idual s at [facility] risk for color ectal cance r who [...] at www.c [place] cruzd.c om. Not Available [facility] (Cologuard Orders Only) [address], [place], [address], 06/25/2024 14:54:41 08/28/20 24 08/29/2024 LIPID PANEL cholesterol, total 163 mg/dL 100-19 9 Not Available [facility] ([facility]) [address] [place], [address], 08/29/2024 07:16:25 08/28/20 24 08/29/2024 LIPID PANEL triglyceride s 156 mg/dL 0-149 above high normal Not Available [facility] ([facility]) [address] [place], [address], 08/29/2024 07:16:25 08/28/20 24 08/29/2024 LIPID PANEL HDL cholesterol 49 mg/dL >39 Not Available [facility] ([facility]) [address] [place], [address], 08/29/2024 07:16:25 08/28/20 24 08/29/2024 LIPID PANEL VLDL cholesterol david 27 mg/dL 5-40 Not Available [facility] ([facility]) [address] [place], [address], 08/29/2024 07:16:25 08/28/20 24 08/29/2024 LIPID PANEL LDL chol calc ([facility]) 87 mg/dL 0-99 Not Available [facility] ([facility]) [address] [place], [address], 08/29/2024 07:16:25 08/28/20 24 08/29/2024 COMP. METAB OLIC PANEL (14) glucose 121 mg/dL 70-99 above high normal Not Available [facility] ([facility]) [address] [place], [address], 08/29/2024 07:16:26 08/28/20 24 08/29/2024 COMP. METAB OLIC PANEL (14) BUN 12 mg/dL 6-24 Not Available [facility] ([facility]) [address] [facility] [place], [address], 08/29/2024 07:16:26 08/28/20 24 08/29/2024 COMP. METAB OLIC PANEL (14) creatinine 0.86 mg/dL 0.57-1 .00 Not Available [facility] ([facility]) [address] [facility], [address], 08/29/2024 07:16:26 08/28/20 24 08/29/2024 COMP. METAB OLIC PANEL (14) eGFR 78 mL/mi n/1.7 3 >59 Not Available [facility] ([facility]) [address] [place], [address], 08/29/2024 07:16:26 08/28/20 24 08/29/2024 COMP. METAB OLIC PANEL (14) BUN/creatini ne ratio 14 9-23 Not Available [facility] ([facility]) [address] [place], [address], 08/29/2024 07:16:26 08/28/20 24 08/29/2024 COMP. METAB OLIC PANEL (14) sodium 137 mmol/ L 134-14 4 Not Available [facility] ([facility]) [address] [place], [address], 08/29/2024 07:16:26 08/28/20 24 08/29/2024 COMP. METAB OLIC PANEL (14) potassium 4.7 mmol/ L 3.5-5. 2 Not Available [facility] ([facility]) [address] [place], [address], 08/29/2024 07:16:26 08/28/20 24 08/29/2024 COMP. METAB OLIC PANEL (14) chloride 102 mmol/ L 96-106 Not Available [facility] ([facility]) [address] [place], [address], 08/29/2024 07:16:26 08/28/20 24 08/29/2024 COMP. METAB OLIC PANEL (14) carbon dioxide, total 24 mmol/ L 20-29 Not Available [facility] ([facility]) [address] [facility], [place], [address], 08/29/2024 07:16:26 08/28/20 24 08/29/2024 COMP. METAB OLIC PANEL (14) calcium 9.6 mg/dL 8.7-10 .2 Not Available [facility] ([facility]) [address] [facility], [place], [address], 08/29/2024 07:16:26 08/28/20 24 08/29/2024 COMP. METAB OLIC PANEL (14) protein, total 7.1 g/dL 6.0-8. 5 Not Available [facility] ([facility]) [address] [facility], [place], [address], 08/29/2024 07:16:26 08/28/20 24 08/29/2024 COMP. METAB OLIC PANEL (14) albumin 4.4 g/dL 3.8-4. 9 Not Available [facility] ([facility]) [address] [facility], [place], [address], 08/29/2024 07:16:26 08/28/20 24 08/29/2024 COMP. METAB OLIC PANEL (14) globulin, total 2.7 g/dL 1.5-4. 5 Not Available [facility] ([facility]) [address] [facility], [place], [address], 08/29/2024 07:16:26 08/28/20 24 08/29/2024 COMP. METAB OLIC PANEL (14) bilirubin, total 0.4 mg/dL 0.0-1. 2 Not Available [facility] ([facility]) [address] [facility], [place], [address], 08/29/2024 07:16:26 11/14/08/29/2024 COMP. METAB OLIC PANEL (14) alkaline phosphatase 124 IU/L 44-121 above high normal Not Available [facility] ([facility]) [address] [facility], [place], [address], 08/29/2024 07:16:26 08/28/20 24 08/29/2024 COMP. METAB OLIC PANEL (14) AST (SGOT) 23 IU/L 0-40 Not Available [facility] ([facility]) [address] [facility], [place], [address], 08/29/2024 07:16:26 08/28/2008/29/2024 COMP. METAB OLIC PANEL (14) ALT (SGPT) 31 IU/L 0-32 Not Available [facility] ([facility]) [address] [facility], [place], [address], 08/29/2024 07:16:26 08/28/20 24 08/29/2024 CBC WITH DIFFE RENTI AL/PL ATELE T WBC 6.8 x10e3 /uL 3.4-10 .8 Not Available [facility] ([facility]) [address] [place], [address], 08/29/2024 07:16:28 08/28/20 24 08/29/2024 CBC WITH DIFFE RENTI AL/PL ATELE T RBC 4.65 x10e6 /uL 3.77-5 .28 Not Available [facility] ([facility]) [address] [place], [address], 08/29/2024 07:16:28 08/28/20 24 08/29/2024 CBC WITH DIFFE RENTI AL/PL ATELE T hemoglobin 14.9 g/dL 11.1-1 5.9 Not Available [facility] ([facility]) [address] [place], [address], 08/29/2024 07:16:28 08/28/20 24 08/29/2024 CBC WITH DIFFE RENTI AL/PL ATELE T hematocrit 44.5 % 34.0-4 6.6 Not Available [facility] ([facility]) [address] [facility], [place], [address], 08/29/2024 07:16:28 08/28/20 24 08/29/2024 CBC WITH DIFFE RENTI AL/PL ATELE T MCV 96 fL 79-97 Not Available [facility] ([facility]) [address] [facility], [place], [address], 08/29/2024 07:16:28 08/28/20 24 08/29/2024 CBC WITH DIFFE RENTI AL/PL ATELE T MCH 32.0 pg 26.6-3 3.0 Not Available [facility] ([facility]) [address] [facility], [place], [address], 08/29/2024 07:16:28 08/28/20 24 08/29/2024 CBC WITH DIFFE RENTI AL/PL ATELE T MCHC 33.5 g/dL 31.5-3 5.7 Not Available [facility] ([facility]) [address] [place], [address], 08/29/2024 07:16:28 08/28/20 24 08/29/2024 CBC WITH DIFFE RENTI AL/PL ATELE T RDW 12.5 % 11.7-1 5.4 Not Available [facility] ([facility]) [address] [place], [address], 08/29/2024 07:16:28 08/28/20 24 08/29/2024 CBC WITH DIFFE RENTI AL/PL ATELE T platelets 267 x10e3 /uL 150-45 0 Not Available [facility] ([facility]) [address] [place], [address], 08/29/2024 07:16:28 08/28/20 24 08/29/2024 CBC WITH DIFFE RENTI AL/PL ATELE T neutrophils 60 % notest ab. Not Available [facility] ([facility]) [address] [facility], [place], [address], 08/29/2024 07:16:28 08/28/20 24 08/29/2024 CBC WITH DIFFE RENTI AL/PL ATELE T lymphs 30 % notest ab. Not Available [facility] ([facility]) [address] [facility], [place], [address], 08/29/2024 07:16:28 08/28/20 24 08/29/2024 CBC WITH DIFFE RENTI AL/PL ATELE T monocytes 8 % notest ab. Not Available [facility] ([facility]) [address] [facility], [place], [address], 08/29/2024 07:16:28 08/28/20 24 08/29/2024 CBC WITH DIFFE RENTI AL/PL ATELE T eos 2 % notest ab. Not Available [facility] ([facility]) [address] [facility], [place], [address], 08/29/2024 07:16:28 08/28/20 24 08/29/2024 CBC WITH DIFFE RENTI AL/PL ATELE T basos 0 % notest ab. Not Available [facility] ([facility]) [address] [facility], [place], [address], 08/29/2024 07:16:28 08/28/20 24 08/29/2024 CBC WITH DIFFE RENTI AL/PL ATELE T neutrophils (absolute) 4.1 x10e3 /uL 1.4-7. 0 Not Available [facility] ([facility]) [address] [facility], [place], [address], 08/29/2024 07:16:28 08/28/20 24 08/29/2024 CBC WITH DIFFE RENTI AL/PL ATELE T lymphs (absolute) 2.1 x10e3 /uL 0.7-3. 1 Not Available [facility] ([facility]) [address] [facility], [place], [address], 08/29/2024 07:16:28 08/28/20 24 08/29/2024 CBC WITH DIFFE RENTI AL/PL ATELE T monocytes(ab solute) 0.5 x10e3 /uL 0.1-0. 9 Not Available [facility] ([facility]) [address] [facility], [place], [address], 08/29/2024 07:16:28 08/28/20 24 08/29/2024 CBC WITH DIFFE RENTI AL/PL ATELE T eos (absolute) 0.1 x10e3 /uL 0.0-0. 4 Not Available [facility] ([facility]) [address] [facility], [place], [address], 08/29/2024 07:16:28 08/28/20 24 08/29/2024 CBC WITH DIFFE RENTI AL/PL ATELE T baso (absolute) 0.0 x10e3 /uL 0.0-0. 2 Not Available [facility] ([facility]) [address], [place], [address], 08/29/2024 07:16:28 08/28/20 24 08/29/2024 CBC WITH DIFFE RENTI AL/PL ATELE T immature granulocytes 0 % notest ab. Not Available [facility] ([facility]) [address] [place], [address], 08/29/2024 07:16:28 08/28/20 24 08/29/2024 CBC WITH DIFFE RENTI AL/PL ATELE T immature grans (abs) 0.0 x10e3 /uL 0.0-0. 1 Not Available [facility] ([facility]) [address] [facility], [place], [address], 08/29/2024 07:16:28 09/16/20 24 09/17/2024 HEMOG LOBIN A1C hemoglobin A1C 6.3 % 4.8-5. 6 above high normal Predi abete s: 5.7 - 6.4 Diabe lucita: >6.4 Glyce phillip contr ol for adult s with diabe lucita: <7.0 Not Available [facility] ([facility]) [address], [place], [address], 09/17/2024 08:29:52 12/27/19 24 12/27/2023 elect deborah diogr am No observ ation record ed. [email or web address] Not Available 2023 21:36:57 01/25/20 24 01/25/2024 , echo ardio gram No observ ation record ed. [facility] [address], [place], [address], 01/25/2024 17:23:34 02/25/20 24 02/25/2024 CT, chest , w/o contr ast No observ ation record ed. [address], [address], 02/26/2024 15:30:45 12/10/19 25 12/10/2024 XR, panfilo ble No observ ation record ed. [address], [address], 12/12/2024 12:20:11 12/10/19 25 12/10/2024 XR, panfilo ble No observ ation record ed. [address], [address], 12/12/2024 12:20:12 12/18/19 25 12/17/2024 MAMMO , scree palomo, digit al, bilat eral No observ ation record ed. [facility] [address] [place], [address], 12/17/2024 13:43:05 Result Notes None recorded. Problems Name Problem SNOMED Code Status Onset Date Resolution Date Notes Provider Name and Address Organization Details Recorded Time Fatigue 03737065 Active 2023 Cammie Sun MD Attn: Austin ontiveros,[address], [place], [address], [place] - [facility] 4 15:39:10 Essential hypertension 82093843 Active 2023 Cammie Sun MD Attn: Austin ontiveros,[address], [place], [address], [place] [facility] 4 15:39:11 Type 2 diabetes mellitus 20068634 Active 2023 Reg Carlson [place] null, [place] [facility] 4 10:41:40 Morbid obesity 191521618 Active 2023 Reg Carl[place], [place] [facility] 4 10:41:41 Diarrhea 47559159 Active 2023 Reg Carlson [place], [place] [facility] 4 10:41:42 Hyperlipidemia 21630390 Active 2023 Cammie Sun MD Attn: Austin ontiveros,[address] [facility], [place], [address], [place] [facility] 4 14:01:58 Problem Notes None recorded. Procedures Surgical History Date Name Laterality Status Provider Name and Address Organization Details Recorded Time LEEP completed Stephanie Swanson on, [place] - [facility] 12/27/2023 11:41:24 Imaging Results Imaging Date Name Status LastModified by Organization Details LastModified Time 12/27/2023 electrocardiogram completed [email or web address] Informa tion not available 12/30/2023 21:36:57 01/25/2024 US, echocardiogram completed [facility] [address], [place], [address], 01/25/2024 17:23:34 02/25/2024 CT, chest, w/o contrast completed [facility] [address], [place], [address], 02/26/2024 15:30:45 12/10/2024 XR, mandible completed [place] [id number], [place], [address], 12/12/2024 12:20:11 12/10/2024 XR, mandible completed [facility] [address], [place], [address], 12/12/2024 12:20:12 12/17/2024 MAMMO, screening, digital, bilateral active [facility] [address] [place], [address], 12/17/2024 13:43:05 Procedure Notes None recorded. Medical Equipment None [...] Updated DateTime 4 167.64 cm 42.3 kg/m2 144646. 2 g 95 % 95 % 63 /min 136 mm[Hg] 64 mm[Hg] Stephanie Mills MA [facility] 4 11:46:30 Date Recorded Body height Body mass index (BMI) Body weight Heart rate Oxygen saturation Oxygen saturation in Arterial blood by Pulse oximetry Systolic blood pressure Diastolic blood pressure Provider Name and Address Organization Details Last Updated DateTime 4 167.64 cm 41.9 kg/m2 421915. 5 g 61 /min 98 % 98 % 120 mm[Hg] 70 mm[Hg] July Soni MA [facility] 4 09:53:29 Date Recorded Body height Body mass index (BMI) Body weight Heart rate Oxygen saturation Oxygen saturation in Arterial blood by Pulse oximetry Body temperature Systolic blood pressure Diastolic blood pressure Provider Name and Address Organization Details Last Updated DateTime 4 167.64 cm 41.2 kg/m2 815008. 05 g 70 /min 98 % 98 % 97.6 [degF] 132 mm[Hg] 86 mm[Hg] Patricia Ontiveros MA [facility] 4 10:12:19 Date Recorded Body height Body mass index (BMI) Body weight Heart rate Oxygen saturation Oxygen saturation in Arterial blood by Pulse oximetry Systolic blood pressure Diastolic blood pressure Provider Name and Address Organization Details Last Updated DateTime 5 167.64 cm 41.8 kg/m2 563963. 71 g 68 /min 99 % 99 % 118 mm[Hg] 68 mm[Hg] Tracy Khalil MA [facility] 5 10:37:26 Social History Question Answer Notes LastModified by Organizat ion Details LastModified Time Tobacco Smoking Status Former Smoker Stephanie Mills MA null, [facility] 12/27/2023 11:39:57 Do You Have An Advance [...] Anxious, Or Unable To Sleep At Night)? [id number] Information not available 12/27/2023 Do You Use [...] Skin Problems N Anemia N Heart Attack ([place]) N Anxiety Disorder N Diabetes Y Muscle, [...] dose or 50 mcg/0.25mL dose 10/19/2021 completed MANDY Morse, [place] - [facility] 04/23/2024 14:08:44 COVID-19 vaccine, vector-nr, rS-Ad26, PF, 0.5 mL 01/17/2021 [place] MANDY [place] [facility] 04/23/2024 14:08:44 COVID-19, mRNA, LNP-S, bivalent, PF, 30 mcg/0.3 mL dose 11/16/2022 completed MANDY [place], [place] [facility] 04/23/2024 14:08:44 Influenza, split virus, quadrivalent, PF 08/17/2022 M[place]Y [place], [place] [facility] 04/23/2024 14:08:44 Past Encounters Encounter ID Performer Location Encounter Start Date Encounter Closed Date Diagnosis/Indication Diagnosis SNOMED-CT Code Diagnosis ICD10 Code Diagnosis Note [id number] Cammie Sun MD [facility] [address] [place] [address] 12/27/2023 11:13:08 12/27/2023 12:37:12 Fatigue 05858394 R53.83 Essential hypertension 13750438 I10 Muscle pain 65328171 M79 .10 Dizziness 398983057 R42 Electrocar diogram abnormal 134632020 R94.31 Obstructiv e sleep apnea syndrome 87850110 G47.33 Obesity 561783386 E66.9 Hyperlipidemia 17925965 E78.5 Type 2 sonny betes mellitus 83731623 E11.9 [id number] Cammie Sun MD [facility] [place] [address] [place] [address] 04/24/2024 09:37:14 04/24/2024 10:54:29 Type 2 diabetes mellitus 39827309 E11.9 Morbid obesity 160466730 E66.01 Diarrhea 79719940 R19.7 Essential hypertension 56405544 I10 [id number] Cammie Sun MD [facility] [place] [address] [place] [address] 08/28/2024 09:54:50 08/28/2024 10:48:56 Obesity 653327650 E66.9 Essential hypertension 15081197 I10 Type 2 sonny betes mellitus 19851523 E11.9 Fatigue 07315493 R53.83 Hyperlipidemia 51435852 E78.5 [id number] Cammie Sun MD [facility] [place] [address] [place] [address] 11/27/2024 10:08:03 11/27/2024 11:40:05 Body mass index 40+ - severely obese 007062929 Z68.41 Morbid obesity 838181839 E66.01 Type 2 sonny betes mellitus 05733416 E11.9 Essential hypertension 61551391 I10 Hyperlipidemia 29517147 E78.5 Health Concerns Section Related Observation LastModified by Organization Detai ls LastModified Time None Recorded Concern Status LastModified by Organization Details LastModified Time None Recorded Advance Directives Directive N: Payers Encounter Date Sequence Insurance Name Policy Number Policy Barriga Covered Member ID Barriga Member ID Guarantor Name 12/27/2023 1 [place] [id number] Daniella Givens [id number] Daniella Messinarath 04/24/2024 1 [place] [id number] Daniella Messinarath [id number] Daniella Messinarath 08/28/2024 1 [place] [id number] Daniella Messinarath [id number] Daniella Messinarath 11/27/2024 1 [place] [id number] Daniella Messinarath [id number] Daniella Messinarath Notes Date Note Type Note Provider Name [...] diet Cammie Sun MD Attn: [employer],[address] [place], [address], [facility] 12/30/2023 15:42:02 04/24/2024 text/html Fatigue just bot [...] some diarrhea Cammie Sun MD Attn: [address] [place], [address], [facility] 05/04/2024 21:36:49 08/28/2024 text/html follow up [...] meds Cammie Sun MD Attn: [employer],[address] [facility], [place], [address], [facility] 10/10/2024 14:02:23 11/27/2024 text/html hypertension blo od pressure looks good still some intermittent fatigue she was seen the sleep doctor they are optimizing her treatment some troubles with the right TMJ joint causes her some pain hard to completely close her jaw at times dyslipidemia could do better with diet Cammie Sun MD Attn: [employer],[address] [facility], [place], [address], [facility] 12/07/2024 17:37:53 OBGyn Episode No OBEpisode recorded.
== END 2024-12-17 11:56 | disposition home or self-care (01) ==
PROVIDERS: PCP Internal Medicine; Visit Provider Internal Medicine
DX: Z12.31 Encounter for screening mammogram for malignant neoplasm of breast (principal)
CPT/HCPCS: 77063; 77067

== ENCOUNTER 2025-02-04 09:56 | Outpatient (CLI) | payer BC, SELFPAY ==
--- NOTE | ~2025-02-04 | XR_ITS ---
Cervical Spine: AP, lateral, oblique, open-mouth views Clinical History: Pain Findings: There is straightening of the normal cervical lordosis. The vertebral bodies and posterior elements appear intact. The intervertebral disc spaces are well maintained. Pre-vertebral soft tiss ues are unremarkable. Impression: Straightening of the normal cervical lordosis, otherwise unremarkable exam. Reviewed, dictated and finalized at location . Impression: Straightening of the normal cervical lordosis, otherwise unremarkable exam.
--- OUTSIDE RECORDS SUMMARY | 2025-02-04 11:16 | XMS_ITS | Data Portability ---
Author Organization [facility] SIOMARAMarlon Cedillo Address [address] [place] [address] Care Team Providers Care Datawarehouse Developer Name Role Phone CAMMIE SUN Primary Care [...] 1 month when I see her back [email or web address] Not available 12/30/2023 15:41:04 04/24/2024 04/24/2024 we will try some cholestyramine healthy lifestyle care instructions given blood work has been ordered A1c was 5.9 follow up in 4 months [email or web address] Not available 05/04/2024 21:36:24 08/28/2024 08/28/2024 blood work has been ordered we will start GLP 1 Jeremiah Rudd she will follow up in 3 months all questions answered [email or web address] Not available 10/10/2024 14:01:39 11/27/2024 11/27/2024 healthy lifestyl e care instructions x-ray mandible refer for her jaw issue titrate her GLP 1 follow up in 4 months [email or web address] Not available 12/07/2024 17:37:28 01/29/2025 01/29/2025 History consiste nt with cervical radiculopathy a Medrol Dosepak cyclobenzaprine 10 mg b.i.d. p.r.n. for neck spasm she was told to take the 1st 1 at night at home just to see if it makes her really drowsy and if it does then do not take it during the day she will let me know in about a week how she is doing we will consider if she is not any better to get an x-ray of her neck and some physical therapy started [email or web address] Not available 01/31/2025 20:34:56 Plan of Treatment Reminders Order Date Submit Date Provider Last Modified By Organization Details Last Modified Time Details Appointments ANY 15 2024 09:15A Patricia Sun MD Not available Not available Not available Lab CMP, serum or plasma 2023 024 [facility], [address], [place], [address], 08/29/2024 07:16:27 lipid panel, serum 2023 024 [facility], [address], [place], [address], 08/29/2024 07:16:25 CBC w/ auto diff 2023 024 [facility], [address], [place], [address], 08/29/2024 07:16:28 HbA1c (hemoglob in A1c), blood 2023 024 [email or web address] In-Office Order, Internal Use Only DO Not Attach Compendium DO Not Attach Compendium, Do Not Delete/merge, [id number] 04/24/2024 14:23:48 lipid panel, serum 2023 024 [facility], [address], [place], [address], 04/29/2024 09:44:14 CBC w/ auto diff 2023 024 [facility], [address], [place], [address], 04/29/2024 09:44:14 [facility], serum or plasma [facility] [address], [place], [address], 04/29/2024 09:44:14 CK (creatine kinase), total, serum 2023 024 [facility], [address], [place], [address], 12/28/2023 10:14:11 CMP, serum or plasma 2023 024 [facility], [address], [place], [address], 12/28/2023 10:14:10 CBC w/ auto diff 2023 024 [facility], [address], [place], [address], 12/28/2023 10:14:13 lipid panel, serum 2023 024 [facility], [address], [place], [address], 12/28/2023 10:14:10 TSH, ultra-sen sitive, serum 2023 024 [facility], [address], [place], [address], 12/28/2023 10:14:12 T3, free, serum or plasma 2023 024 [facility], [address], [place], [address], 12/28/2023 10:14:13 T4, free, serum 2023 024 [facility], [address], [place], [address], 12/28/2023 10:14:14 Referral None recorded. Procedures lexiscan cardiolit e stress test (PROC) 2023 024 [email or web address] [facility], [address], [address], [place], [address], 05/27/2024 10:48:14 Surgeries None recorded. Imaging US, echocardi ogram 2023 024 SAGAR [facility], [address], [address], [place], [address], 01/25/2024 15:02:06 Medication Orders cyclobenz aprine 10 mg tablet 2024 025 [place] [address] [facility] #[id number], [address], [place], [place], [id number], 01/30/2025 11:30:33 Medrol ([place]) 4 mg tablets in a dose pack 2024 025 [place] [address] [facility] #[id number], [address], [place], [place], [id number], 01/30/2025 11:30:33 Mounjaro 2.5 mg/0.5 mL subcutane ous pen injector 2023 024 [email or web address] [facility] #[id number], [address], [place], [place], [id number], 11/27/2024 10:39:06 Cholestyr amine Light 4 gram oral powder 2023 024 [place] [address] [facility] #[id number], [address], [place], [place], [id number], 04/24/2024 14:23:48 Patient TargetsNo targets recorded. Patient Instructions Encounter Date Encounter Id Patient Instructions Last Modified By Organization Details Last Modified Time 04/24/2024 [id number] A healthy lifestyle: care instructions Not available 04/24/2024 14:23:48 08/28/2024 [id number] A healthy lifestyle: care instructions [email or web address] Not available 08/28/2024 13:45:10 11/27/2024 [id number] A healthy lifestyle: care instructions [email or web address] Not available 11/27/2024 13:40:37 01/29/2025 [id number] A healthy lifestyle: care instructions [email or web address] Not available 01/29/2025 17:42:03 Reason for Referral None Reported. Results Created Date Observation Date Name Description Value Unit Range Abnormal Flag Note LastModifiedBy Organization Detail LastModifiedTime 12/27/19 24 12/28/2023 LIPID PANEL cholesterol, total 163 mg/dL 100-19 9 Not Available [facility] ([facility]) [address] [place], [address], 12/28/2023 10:14:09 12/27/19 24 12/28/2023 LIPID PANEL triglyceride s 123 mg/dL 0-149 Not Available [facility] ([facility]) [address] [place], [address], 12/28/2023 10:14:09 12/27/19 24 12/28/2023 LIPID PANEL HDL cholesterol 51 mg/dL >39 Not Available [facility] ([facility]) [address] [place], [address], 12/28/2023 10:14:09 12/27/19 24 12/28/2023 LIPID PANEL VLDL cholesterol david 22 mg/dL 5-40 Not Available [facility] ([facility]) [address] [place], [address], 12/28/2023 10:14:09 12/27/19 24 12/28/2023 LIPID PANEL LDL chol calc ([facility]) 90 mg/dL 0-99 Not Available [facility] ([facility]) [address] [place], [address], 12/28/2023 10:14:09 12/27/19 24 12/28/2023 COMP. METAB OLIC PANEL (14) glucose 139 mg/dL 70-99 above high normal Not Available [facility] ([facility]) [address], [place], [address], 12/28/2023 10:14:10 12/27/19 24 12/28/2023 COMP. METAB OLIC PANEL (14) BUN 14 mg/dL 6-24 Not Available [facility] ([facility]) [address], [place], [address], 12/28/2023 10:14:10 12/27/19 24 12/28/2023 COMP. METAB OLIC PANEL (14) creatinine 0.78 mg/dL 0.57-1 .00 Not Available [facility] ([facility]) [address] [place], [address], 12/28/2023 10:14:10 12/27/19 24 12/28/2023 COMP. METAB OLIC PANEL (14) eGFR 89 mL/mi n/1.7 3 >59 Not Available [facility] ([facility]) [address] [place], [address], 12/28/2023 10:14:10 12/27/19 24 12/28/2023 COMP. METAB OLIC PANEL (14) BUN/creatini ne ratio 18 9-23 Not Available [facility] ([facility]) [address] [facility] [place], [address], 12/28/2023 10:14:10 12/27/19 24 12/28/2023 COMP. METAB OLIC PANEL (14) sodium 140 mmol/ L 134-14 4 Not Available [facility] ([facility]) [address] [facility] [place], [address], 12/28/2023 10:14:10 12/27/19 24 12/28/2023 COMP. METAB OLIC PANEL (14) potassium 4.3 mmol/ L 3.5-5. 2 Not Available [facility] ([facility]) [address] [place], [address], 12/28/2023 10:14:10 12/27/19 24 12/28/2023 COMP. METAB OLIC PANEL (14) chloride 101 mmol/ L 96-106 Not Available [facility] ([facility]) [address] [facility], [place], [address], 12/28/2023 10:14:10 12/27/19 24 12/28/2023 COMP. METAB OLIC PANEL (14) carbon dioxide, total 23 mmol/ L 20-29 Not Available [facility] ([facility]) [address] [facility], [place], [address], 12/28/2023 10:14:10 12/27/19 24 12/28/2023 COMP. METAB OLIC PANEL (14) calcium 9.4 mg/dL 8.7-10 .2 Not Available [facility] ([facility]) [address] [facility], [place], [address], 12/28/2023 10:14:10 12/27/19 24 12/28/2023 COMP. METAB OLIC PANEL (14) protein, total 6.6 g/dL 6.0-8. 5 Not Available [facility] ([facility]) [address] [facility], [place], [address], 12/28/2023 10:14:10 12/27/19 24 12/28/2023 COMP. METAB OLIC PANEL (14) albumin 4.1 g/dL 3.8-4. 9 Not Available [facility] ([facility]) [address] [facility], [place], [address], 12/28/2023 10:14:10 12/27/19 24 12/28/2023 COMP. METAB OLIC PANEL (14) globulin, total 2.5 g/dL 1.5-4. 5 Not Available [facility] ([facility]) [address] [facility], [place], [address], 12/28/2023 10:14:10 12/27/19 24 12/28/2023 COMP. METAB OLIC PANEL (14) A/G ratio 1.6 1.2-2. 2 Not Available [facility] ([facility]) [address] [place], [address], 12/28/2023 10:14:10 12/27/19 24 12/28/2023 COMP. METAB OLIC PANEL (14) bilirubin, total 0.3 mg/dL 0.0-1. 2 Not Available [facility] ([facility]) [address] [place], [address], 12/28/2023 10:14:10 12/27/19 24 12/28/2023 COMP. METAB OLIC PANEL (14) alkaline phosphatase 113 IU/L 44-121 Not Available [facility] ([facility]) [address] [place], [address], 12/28/2023 10:14:10 12/27/19 24 12/28/2023 COMP. METAB OLIC PANEL (14) AST (SGOT) 20 IU/L 0-40 Not Available [facility] ([facility]) [address] [place], [address], 12/28/2023 10:14:10 12/27/19 24 12/28/2023 COMP. METAB OLIC PANEL (14) ALT (SGPT) 23 IU/L 0-32 Not Available [facility] ([facility]) [address] [place], [address], 12/28/2023 10:14:10 12/27/19 24 12/28/2023 CK creatine kinase,total 79 U/L 32-182 Not Available [facility] ([facility]) [address] [place], [address], 12/28/2023 10:14:11 12/27/19 24 12/28/2023 TSH TSH 1.480 uIU/m L 0.450- 4.500 Not Available [facility] ([facility]) [address] [facility], [place], [address], 12/28/2023 10:14:12 12/27/19 24 12/28/2023 CBC WITH DIFFE RENTI AL/PL ATELE T WBC 5.5 x10e3 /uL 3.4-10 .8 Not Available [facility] ([facility]) [address] [facility], [place], [address], 12/28/2023 10:14:13 12/27/19 24 12/28/2023 CBC WITH DIFFE RENTI AL/PL ATELE T RBC 4.22 x10e6 /uL 3.77-5 .28 Not Available [facility] ([facility]) [address] [facility], [place], [address], 12/28/2023 10:14:13 12/27/19 24 12/28/2023 CBC WITH DIFFE RENTI AL/PL ATELE T hemoglobin 13.4 g/dL 11.1-1 5.9 Not Available [facility] ([facility]) [address] [facility], [place], [address], 12/28/2023 10:14:13 12/27/19 24 12/28/2023 CBC WITH DIFFE RENTI AL/PL ATELE T hematocrit 38.7 % 34.0-4 6.6 Not Available [facility] ([facility]) [address] [facility], [place], [address], 12/28/2023 10:14:13 12/27/19 24 12/28/2023 CBC WITH DIFFE RENTI AL/PL ATELE T MCV 92 fL 79-97 Not Available [facility] ([facility]) [address] [facility], [place], [address], 12/28/2023 10:14:13 12/27/19 24 12/28/2023 CBC WITH DIFFE RENTI AL/PL ATELE T MCH 31.8 pg 26.6-3 3.0 Not Available [facility] ([facility]) [address] [facility], [place], [address], 12/28/2023 10:14:13 12/27/19 24 12/28/2023 CBC WITH DIFFE RENTI AL/PL ATELE T MCHC 34.6 g/dL 31.5-3 5.7 Not Available [facility] ([facility]) [address] [facility], [place], [address], 12/28/2023 10:14:13 12/27/19 24 12/28/2023 CBC WITH DIFFE RENTI AL/PL ATELE T RDW 12.9 % 11.7-1 5.4 Not Available [facility] ([facility]) [address] [facility], [place], [address], 12/28/2023 10:14:13 12/27/19 24 12/28/2023 CBC WITH DIFFE RENTI AL/PL ATELE T platelets 290 x10e3 /uL 150-45 0 Not Available [facility] ([facility]) [address] [facility], [place], [address], 12/28/2023 10:14:13 12/27/19 24 12/28/2023 CBC WITH DIFFE RENTI AL/PL ATELE T neutrophils 61 % notest ab. Not Available [facility] ([facility]) [address] [place], [address], 12/28/2023 10:14:13 12/27/19 24 12/28/2023 CBC WITH DIFFE RENTI AL/PL ATELE T lymphs 31 % notest ab. Not Available [facility] ([facility]) [address] [place], [address], 12/28/2023 10:14:13 12/27/19 24 12/28/2023 CBC WITH DIFFE RENTI AL/PL ATELE T monocytes 6 % notest ab. Not Available [facility] ([facility]) [address] [place], [address], 12/28/2023 10:14:13 12/27/19 24 12/28/2023 CBC WITH DIFFE RENTI AL/PL ATELE T eos 1 % notest ab. Not Available [facility] ([facility]) [address] [facility], [place], [address], 12/28/2023 10:14:13 12/27/19 24 12/28/2023 CBC WITH DIFFE RENTI AL/PL ATELE T basos 1 % notest ab. Not Available [facility] ([facility]) [address] [facility], [place], [address], 12/28/2023 10:14:13 12/27/19 24 12/28/2023 CBC WITH DIFFE RENTI AL/PL ATELE T neutrophils (absolute) 3.4 x10e3 /uL 1.4-7. 0 Not Available [facility] ([facility]) [address] [facility], [place], [address], 12/28/2023 10:14:13 12/27/19 24 12/28/2023 CBC WITH DIFFE RENTI AL/PL ATELE T lymphs (absolute) 1.7 x10e3 /uL 0.7-3. 1 Not Available [facility] ([facility]) [address] [facility], [place], [address], 12/28/2023 10:14:13 12/27/19 24 12/28/2023 CBC WITH DIFFE RENTI AL/PL ATELE T monocytes(ab solute) 0.3 x10e3 /uL 0.1-0. 9 Not Available [facility] ([facility]) [address] [facility], [place], [address], 12/28/2023 10:14:13 12/27/19 24 12/28/2023 CBC WITH DIFFE RENTI AL/PL ATELE T eos (absolute) 0.1 x10e3 /uL 0.0-0. 4 Not Available [facility] ([facility]) [address] [facility], [place], [address], 12/28/2023 10:14:13 12/27/19 24 12/28/2023 CBC WITH DIFFE RENTI AL/PL ATELE T baso (absolute) 0.0 x10e3 /uL 0.0-0. 2 Not Available [facility] ([facility]) [address] [place], [address], 12/28/2023 10:14:13 12/27/19 24 12/28/2023 CBC WITH DIFFE RENTI AL/PL ATELE T immature granulocytes 0 % notest ab. Not Available [facility] ([facility]) [address] [facility], [place], [address], 12/28/2023 10:14:13 12/27/19 24 12/28/2023 CBC WITH DIFFE RENTI AL/PL ATELE T immature grans (abs) 0.0 x10e3 /uL 0.0-0. 1 Not Available [facility] ([facility]) [address] [place], [address], 12/28/2023 10:14:13 12/27/19 24 12/28/2023 TRIIO DOTHY KEREN E (T3), FREE triiodothyro nine (T3), free 2.6 pg/mL 2.0-4. 4 Not Available [facility] ([facility]) [address] [place], [address], 12/28/2023 10:14:13 12/27/19 24 12/28/2023 T4,FR EE(DI RECT) T4,free(dire ct) 1.00 NG/dL 0.82-1 .77 Not Available [facility] ([facility]) [address] [place], [address], 12/28/2023 10:14:14 04/24/20 24 04/24/2024 HbA1c (hemo globi n A1c), blood HbA1c 5.9 Not Available In-Office Order Internal Use Only DO Not Attach Compendium DO Not Attach Compendium, Do Not Delete/merge, [id number] 04/23/2024 14:11:04 06/20/20 24 06/20/2024 COLOG UARD cologuard result reportable NEGATI VE negati ve normal NEGAT AISHWARYA TEST RESUL T. A negat aishwarya Colog uard resul t indic ates a low likel ihood that a color ectal cance r (CRC) or advan francoise adeno ma (cathie omato us polyp s with more advan francoise pre-m align ant featu res) is prese nt. The [facility] e that a perso n with a negat aishwarya Colog uard test has a color ectal cance r is less than 1 in 1500 (nega tive predi ctive value >99.9 %) or has an advan francoise adeno ma is less than 5.3% (nega tive predi ctive value 94.7% ). These data are based on a prosp ectiv e cross -sect ional study of 0 indiv idual s at [facility] [facility] risk for color ectal cance r who were scree xander with both Colog uard and colon oscop y. (Sonny Craig. et al, N Engl J Med 2014; 370(1 4):12 86-12 97) The manolo l value (refe rence range ) for this assay is negat aishwarya. COLOG UARD RE-SC REEJR NG RECOM MENDA TION: Perio dic color ectal cance r scree palomo is an impor tant part of preve ntive healt hcare for asymp tomat ic indiv idual s at [place] [facility] risk for color ectal cance r. [facility] [...] ommen datio ns.ht ml.; Kevin HEART, Faustino douglas CR, Vielka CordovaK, Color ectal Cance r Scree palomo: Recom menda tions for Physi cians and Patie nts from the [place]. Multi -Soci ety Task Force on Color ectal Cance r Scree palomo , Saeed luna rolog y 2017; 112:1 016-1 030. TEST DESCR IPTIO N: [place] site algor ithmi c isamar sis of [...] years or older , who are at [facility] for color ectal cance r (CRC) . Colog uard has been appro lesley for use by the [place] FDA. The perfo rmanc e of Colog uard was estab lishe d in a cross secti onal study of [facility] adult s aged 50-84 . Colog uard perfo rmanc e in patie nts ages 45 to 49 years was estim ated by sub-g roup isamar sis of near- age group s. Colon oscop ies perfo rmed for a posit aishwarya resul t may find as the most clini merissa signi kendy reynoso n: color ectal cance r [4.0% ], advan francoise adeno ma (incl uding sessi le sophia patrice polyp s great er than or equal to 1cm diame ter) [20%] or non- advan francoise adeno ma [31%] ; or no color ectal neopl nabeel [45%] . These estim ates are deriv ed from a prosp ectiv e cross -sect ional scree palomo study of 10,00 0 indiv idual s at avera ge risk for color ectal cance r [...] uard perfo rmanc e data in a 10,00 0 patie nt pivot al study using colon oscop y as the refer ence metho d can be acces sed at the [facility] locat ion: www.e xactl abs.c om/re sulmanuel . Addit ional descr iptio n of the Colog uard test proce ss, warni ngs and preca ution s can be found at www.c ologu moe.c om. Not Available [facility] (Cologuard Orders Only) [address], [place], [address], 06/25/2024 14:54:41 08/28/20 24 08/29/2024 LIPID PANEL cholesterol, total 163 mg/dL 100-19 9 Not Available [facility] ([facility]) [address] [facility], [place], [address], 08/29/2024 07:16:25 08/28/20 24 08/29/2024 LIPID PANEL triglyceride s 156 mg/dL 0-149 above high normal Not Available [facility] ([facility]) [address] [facility], [place], [address], 08/29/2024 07:16:25 08/28/20 24 08/29/2024 LIPID PANEL HDL cholesterol 49 mg/dL >39 Not Available [facility] ([facility]) [address] [facility] [place], [address], 08/29/2024 07:16:25 08/28/20 24 08/29/2024 LIPID PANEL VLDL cholesterol david 27 mg/dL 5-40 Not Available [facility] ([facility]) [address] [place], [address], 08/29/2024 07:16:25 08/28/20 24 08/29/2024 LIPID PANEL LDL chol calc ([facility]) 87 mg/dL 0-99 Not Available [facility] ([facility]) [address] [place], [address], 08/29/2024 07:16:25 08/28/20 24 08/29/2024 COMP. METAB OLIC PANEL (14) glucose 121 mg/dL 70-99 above high normal Not Available [facility] ([facility]) [address] [place], [address], 08/29/2024 07:16:26 08/28/20 24 08/29/2024 COMP. METAB OLIC PANEL (14) BUN 12 mg/dL 6-24 Not Available [facility] ([facility]) [address] [place], [address], 08/29/2024 07:16:26 08/28/20 24 08/29/2024 COMP. METAB OLIC PANEL (14) creatinine 0.86 mg/dL 0.57-1 .00 Not Available [facility] ([facility]) [address] [place], [address], 08/29/2024 07:16:26 08/28/20 24 08/29/2024 COMP. METAB OLIC PANEL (14) eGFR 78 mL/mi n/1.7 3 >59 Not Available [facility] ([facility]) [address] [place], [address], 08/29/2024 07:16:26 08/28/20 24 08/29/2024 COMP. METAB OLIC PANEL (14) BUN/creatini ne ratio 14 9-23 Not Available [facility] ([facility]) [address] [place], [address], 08/29/2024 07:16:26 08/28/20 24 08/29/2024 COMP. METAB OLIC PANEL (14) sodium 137 mmol/ L 134-14 4 Not Available [facility] ([facility]) [address] [facility] [place], [address], 08/29/2024 07:16:26 08/28/20 24 08/29/2024 COMP. METAB OLIC PANEL (14) potassium 4.7 mmol/ L 3.5-5. 2 Not Available [facility] ([facility]) [address] [place], [address], 08/29/2024 07:16:26 08/28/20 24 08/29/2024 COMP. METAB OLIC PANEL (14) chloride 102 mmol/ L 96-106 Not Available [facility] ([facility]) [address] [place], [address], 08/29/2024 07:16:26 08/28/20 24 08/29/2024 COMP. METAB OLIC PANEL (14) carbon dioxide, total 24 mmol/ L 20-29 Not Available [facility] ([facility]) [address] [place], [address], 08/29/2024 07:16:26 08/28/20 24 08/29/2024 COMP. METAB OLIC PANEL (14) calcium 9.6 mg/dL 8.7-10 .2 Not Available [facility] ([facility]) [address] [place], [address], 08/29/2024 07:16:26 08/28/20 24 08/29/2024 COMP. METAB OLIC PANEL (14) protein, total 7.1 g/dL 6.0-8. 5 Not Available [facility] ([facility]) [address] [facility] [place], [address], 08/29/2024 07:16:26 08/28/20 24 08/29/2024 COMP. METAB OLIC PANEL (14) albumin 4.4 g/dL 3.8-4. 9 Not Available [facility] ([facility]) [address] [facility] [place], [address], 08/29/2024 07:16:26 08/28/20 24 08/29/2024 COMP. METAB OLIC PANEL (14) globulin, total 2.7 g/dL 1.5-4. 5 Not Available [facility] ([facility]) [address] [facility] [place], [address], 08/29/2024 07:16:26 08/28/20 24 08/29/2024 COMP. METAB OLIC PANEL (14) bilirubin, total 0.4 mg/dL 0.0-1. 2 Not Available [facility] ([facility]) [address] [facility] [place], [address], 08/29/2024 07:16:26 08/28/20 24 08/29/2024 COMP. METAB OLIC PANEL (14) alkaline phosphatase 124 IU/L 44-121 above high normal Not Available [facility] ([facility]) [address] [facility] [place], [address], 08/29/2024 07:16:26 08/28/20 24 08/29/2024 COMP. METAB OLIC PANEL (14) AST (SGOT) 23 IU/L 0-40 Not Available [facility] ([facility]) [address] [facility] [place], [address], 08/29/2024 07:16:26 08/28/20 24 08/29/2024 COMP. METAB OLIC PANEL (14) ALT (SGPT) 31 IU/L 0-32 Not Available [facility] ([facility]) [address] [facility], [place], [address], 08/29/2024 07:16:26 08/28/20 24 08/29/2024 CBC WITH DIFFE RENTI AL/PL ATELE T WBC 6.8 x10e3 /uL 3.4-10 .8 Not Available [facility] ([facility]) [address] [facility], [place], [address], 08/29/2024 07:16:28 08/28/20 24 08/29/2024 CBC WITH DIFFE RENTI AL/PL ATELE T RBC 4.65 x10e6 /uL 3.77-5 .28 Not Available [facility] ([facility]) [address] [facility], [place], [address], 08/29/2024 07:16:28 08/28/20 24 08/29/2024 CBC WITH DIFFE RENTI AL/PL ATELE T hemoglobin 14.9 g/dL 11.1-1 5.9 Not Available [facility] ([facility]) [address] [facility], [place], [address], 08/29/2024 07:16:28 08/28/20 24 08/29/2024 CBC WITH DIFFE RENTI AL/PL ATELE T hematocrit 44.5 % 34.0-4 6.6 Not Available [facility] ([facility]) [address] [facility], [place], [address], 08/29/2024 07:16:28 08/28/20 24 08/29/2024 CBC WITH DIFFE RENTI AL/PL ATELE T MCV 96 fL 79-97 Not Available [facility] ([facility]) [address] [place], [address], 08/29/2024 07:16:28 08/28/20 24 08/29/2024 CBC WITH DIFFE RENTI AL/PL ATELE T MCH 32.0 pg 26.6-3 3.0 Not Available [facility] ([facility]) [address] [facility], [place], [address], 08/29/2024 07:16:28 08/28/20 24 08/29/2024 CBC WITH DIFFE RENTI AL/PL ATELE T MCHC 33.5 g/dL 31.5-3 5.7 Not Available [facility] ([facility]) [address] [facility], [place], [address], 08/29/2024 07:16:28 08/28/20 24 08/29/2024 CBC WITH DIFFE RENTI AL/PL ATELE T RDW 12.5 % 11.7-1 5.4 Not Available [facility] ([facility]) [address] [facility], [place], [address], 08/29/2024 07:16:28 08/28/20 24 08/29/2024 CBC WITH DIFFE RENTI AL/PL ATELE T platelets 267 x10e3 /uL 150-45 0 Not Available [facility] ([facility]) [address] [facility], [place], [address], 08/29/2024 07:16:28 08/28/20 24 08/29/2024 CBC WITH DIFFE RENTI AL/PL ATELE T neutrophils 60 % notest ab. Not Available [facility] ([facility]) [address] [place], [address], 08/29/2024 07:16:28 08/28/20 24 08/29/2024 CBC WITH DIFFE RENTI AL/PL ATELE T lymphs 30 % notest ab. Not Available [facility] ([facility]) [address] [place], [address], 08/29/2024 07:16:28 08/28/20 24 08/29/2024 CBC WITH DIFFE RENTI AL/PL ATELE T monocytes 8 % notest ab. Not Available [facility] ([facility]) [address] [facility] [place], [address], 08/29/2024 07:16:28 08/28/20 24 08/29/2024 CBC WITH DIFFE RENTI AL/PL ATELE T eos 2 % notest ab. Not Available [facility] ([facility]) [address] [facility], [place], [address], 08/29/2024 07:16:28 08/28/20 24 08/29/2024 CBC WITH DIFFE RENTI AL/PL ATELE T basos 0 % notest ab. Not Available [facility] ([facility]) [address] [facility], [place], [address], 08/29/2024 07:16:28 08/28/20 24 08/29/2024 CBC WITH DIFFE RENTI AL/PL ATELE T neutrophils (absolute) 4.1 x10e3 /uL 1.4-7. 0 Not Available [facility] ([facility]) [address] [facility], [place], [address], 08/29/2024 07:16:28 08/28/20 24 08/29/2024 CBC WITH DIFFE RENTI AL/PL ATELE T lymphs (absolute) 2.1 x10e3 /uL 0.7-3. 1 Not Available [facility] ([facility]) [address] [facility], [place], [address], 08/29/2024 07:16:28 08/28/20 24 08/29/2024 CBC WITH DIFFE RENTI AL/PL ATELE T monocytes(ab solute) 0.5 x10e3 /uL 0.1-0. 9 Not Available [facility] ([facility]) [address] [facility], [place], [address], 08/29/2024 07:16:28 08/28/20 24 08/29/2024 CBC WITH DIFFE RENTI AL/PL ATELE T eos (absolute) 0.1 x10e3 /uL 0.0-0. 4 Not Available [facility] ([facility]) [address] [facility], [place], [address], 08/29/2024 07:16:28 08/28/20 24 08/29/2024 CBC WITH DIFFE RENTI AL/PL ATELE T baso (absolute) 0.0 x10e3 /uL 0.0-0. 2 Not Available [facility] ([facility]) [address] [facility], [place], [address], 08/29/2024 07:16:28 08/28/20 24 08/29/2024 CBC WITH DIFFE RENTI AL/PL ATELE T immature granulocytes 0 % notest ab. Not Available [facility] ([facility]) [address] [facility], [place], [address], 08/29/2024 07:16:28 08/28/20 24 08/29/2024 CBC WITH DIFFE RENTI AL/PL ATELE T immature grans (abs) 0.0 x10e3 /uL 0.0-0. 1 Not Available [facility] ([facility]) [address] [facility], [place], [address], 08/29/2024 07:16:28 09/16/20 24 09/17/2024 HEMOG LOBIN A1C hemoglobin A1C 6.3 % 4.8-5. 6 above high normal Predi abete s: 5.7 - 6.4 Diabe lucita: >6.4 Glyce phillip contr ol for adult s with diabe lucita: <7.0 Not Available [facility] ([facility]) [address] [facility], [place], [address], 09/17/2024 08:29:52 12/27/19 24 12/27/2023 elect deborah ferrogr am No observ ation record ed. [email or web address] Not Available 2023 21:36:57 01/25/20 24 01/25/2024 , echo ardio gram No observ ation record ed. [facility] [address], [place], [address], 01/25/2024 17:23:34 02/25/20 24 02/25/2024 CT, chest , w/o contr ast No observ ation record ed. [address] [facility], [place], [address], 02/26/2024 15:30:45 12/10/19 25 12/10/2024 XR, panfilo ble No observ ation record ed. [address], [place], [address], 12/12/2024 12:20:11 12/10/19 25 12/10/2024 XR, panfilo ble No observ ation record ed. [address] [address], [place], [address], 12/12/2024 12:20:12 12/18/19 25 12/17/2024 MAMMO , scree palomo, digit al, bilat eral No observ ation record ed. [facility] [address] [facility], [place], [address], 12/22/2024 17:48:06 01/06/20 25 01/03/2025 CT, coron sheron calci um score No observ ation record ed. [facility] [address], [place], [address], 01/07/2025 10:22:03 02/05/20 25 02/04/2025 XR, neck No observ ation record ed. [address] [place] [address], [address], 02/04/2025 11:43:04 Result Notes None recorded. Problems Name Problem SNOMED Code Status Onset Date Resolution Date Notes Provider Name and Address Organization Details Recorded Time Fatigue 46128372 Active 2023 Cammie Sun MD Attn: Austin ontiveros,[address] [facility], [place], [address], [place] - [facility] 4 15:39:10 Essential hypertension 03463311 Active 2023 Cammie Sun MD Attn: Austin ontiveros,[address] [facility], [place], [address], [place] [facility] 4 15:39:11 Type 2 diabetes mellitus 84166429 Active 2023 Reg Carlson [place] null, [place] [facility] 4 10:41:40 Morbid obesity 772057716 Active 2023 Reg Carl[place], [place] [facility] 4 10:41:41 Diarrhea 49491428 Active 2023 Reg Carl[place] [facility] 4 10:41:42 Hyperlipidemia 86259452 Active 2023 Cammie Sun MD Attn: [place] ontiveros,[address] [facility], [place], [address], [place] - [facility] 4 14:01:58 Problem Notes None recorded. Procedures Surgical History Date Name Laterality Status Provider Name and Address Organization Details Recorded Time LEEP completed Stephanie man [place] - [facility] 12/27/2023 11:41:24 Imaging Results Imaging Date Name Status LastModified by Organization Details LastModified Time 12/27/2023 electrocardiogram completed [email or web address] Informa tion not available 12/30/2023 21:36:57 01/25/2024 US, echocardiogram completed [facility] [address], [place], [address], 01/25/2024 17:23:34 02/25/2024 CT, chest, w/o contrast completed [address], [address], 02/26/2024 15:30:45 12/10/2024 XR, mandible completed [address], [address], 12/12/2024 12:20:11 12/10/2024 XR, mandible completed [facility] [address], [place], [address], 12/12/2024 12:20:12 12/17/2024 MAMMO, screening, digital, bilateral completed [facility] [address] [facility], [place], [address], 12/22/2024 17:48:06 01/03/2025 CT, coronary calcium score completed [facility] [address], [place], [address], 01/07/2025 10:22:03 02/04/2025 XR, neck active [facility] [address] [facility] [address], [place], [address], 02/04/2025 11:43:04 Procedure Notes None recorded. Medical Equipment None Reported. Allergies No known drug allergies Medications Name Sig Start Date Stop Date Status Note LastModified by Organization Details LastModified Time cyclobenzap rine 10 mg tablet TAKE 1 TABLET BY MOUTH TWICE DAILY FOR 10 DAYS active Not Available Not Available No t Available amoxicillin 500 mg capsule TAKE 1 CAPSULE BY MOUTH EVERY 6 HOURS 12/26 completed Not Available Not Available Not Available atorvastati n 20 mg tablet TAKE 1 TABLET BY MOUTH DAILY 2024 active Not Available Not Available Not Avai lable atorvastati n 10 mg tablet active Not [...] Not Available Not Available No t Available methylpredn isolone 4 mg tablets in a dose pack FOLLOW PACKAGE DIRECTION S active Not Available Not Available No t [...] TAKE 1 TABLET BY MOUTH TWICE DAILY 2024 active Not Available Not Available Not Avai lable Cholestyram ine Light 4 gram oral powder [...] Updated DateTime 4 167.64 cm 42.3 kg/m2 252222. 2 g 95 % 95 % 63 /min 136 mm[Hg] 64 mm[Hg] Stephanie Mills MA [facility] 4 11:46:30 Date Recorded Body height Body mass index (BMI) Body weight Heart rate Oxygen saturation Oxygen saturation in Arterial blood by Pulse oximetry Systolic blood pressure Diastolic blood pressure Provider Name and Address Organization Details Last Updated DateTime 4 167.64 cm 41.9 kg/m2 778395. 5 g 61 /min 98 % 98 % 120 mm[Hg] 70 mm[Hg] July Soni MA [facility] 4 09:53:29 Date Recorded Body height Body mass index (BMI) Body weight Heart rate Oxygen saturation Oxygen saturation in Arterial blood by Pulse oximetry Body temperature Systolic blood pressure Diastolic blood pressure Provider Name and Address Organization Details Last Updated DateTime 4 167.64 cm 41.2 kg/m2 961015. 05 g 70 /min 98 % 98 % 97.6 [degF] 132 mm[Hg] 86 mm[Hg] Patricia Ontiveros MA [facility] 4 10:12:19 Date Recorded Body height Body mass index (BMI) Body weight Heart rate Oxygen saturation Oxygen saturation in Arterial blood by Pulse oximetry Systolic blood pressure Diastolic blood pressure Provider Name and Address Organization Details Last Updated DateTime 5 167.64 cm 41.8 kg/m2 656570. 71 g 68 /min 99 % 99 % 118 mm[Hg] 68 mm[Hg] Tracy MANDY Khalil [facility] 5 10:37:26 Date Recorded Body height Body mass index (BMI) Body weight Heart rate Oxygen saturation Oxygen saturation in Arterial blood by Pulse oximetry Systolic blood pressure Diastolic blood pressure Provider Name and Address Organization Details Last Updated DateTime 167.64 cm 41.6 kg/m2 262994. 11 g 85 /min 96 % 96 % 120 mm[Hg] 68 mm[Hg] July Soni MA [place] - [facility] 5 16:23:53 Social History Question Answer Notes LastModified by Organizat ion Details LastModified Time Tobacco Smoking Status Former Smoker Stephanie Mills MA [facility] 12/27/2023 11:39:57 Do You Have An Advance [...] Date Of Your Most Recent Tobacco Screening? 01/29/2025 [email or web address] Information not available 01/29/2025 What Is Your Current Pack Years? 20-29packyears [...] Anxious, Or Unable To Sleep At Night)? [id number] Information not available 12/27/2023 Do You Use [...] Skin Problems N Anemia N Heart Attack ([place]) N Anxiety Disorder N Diabetes Y Muscle, [...] 50 mcg/0.25mL dose 10/19/2021 completed MANDY Morse, [place] - [facility] 04/23/2024 14:08:44 COVID-19 vaccine, vector-nr, rS-Ad26, PF, 0.5 mL 01/17/2021 completed MANDY Morse, [place] - [place] 04/23/2024 14:08:44 COVID-19, mRNA, LNP-S, bivalent, PF, 30 mcg/0.3 mL dose 11/16/2022 completed MANDY Morse, [place] - [place] 04/23/2024 14:08:44 Influenza, split virus, quadrivalent, PF 08/17/2022 MANDY Sam, [place] - [facility] 04/23/2024 14:08:44 Past Encounters Encounter ID Performer Location Encounter Start Date Encounter Closed Date Diagnosis/Indication Diagnosis SNOMED-CT Code Diagnosis ICD10 Code Diagnosis Note [id number] Cammie Sun MD [facility] (Adult Med) [address] [place] [address] 12/27/2023 11:13:08 12/27/2023 12:37:12 Fatigue 06180475 R53.83 Essential hypertension 62626553 I10 Muscle pain 03523698 M79 .10 Dizziness 586610732 R42 Electrocar diogram abnormal 897421539 R94.31 Obstructiv e sleep apnea syndrome 06641067 G47.33 Obesity 120310570 E66.9 Hyperlipidemia 64914488 E78.5 Type 2 sonny betes mellitus 83012548 E11.9 [id number] Cammie Sun MD [facility] [address] [place] [address] 04/24/2024 09:37:14 04/24/2024 10:54:29 Type 2 diabetes mellitus 87264469 E11.9 Morbid obesity 235423033 E66.01 Diarrhea 74520150 R19.7 Essential hypertension 53074332 I10 [id number] Cammie Sun MD [facility] [employer] [facility] [place] [address] [place] [address] 08/28/2024 09:54:50 08/28/2024 10:48:56 Obesity 182576371 E66.9 Essential hypertension 50122710 I10 Type 2 sonny betes mellitus 63050586 E11.9 Fatigue 93129674 R53.83 Hyperlipidemia 26209882 E78.5 [id number] Cammie Sun MD [facility] [employer] [facility] [place] [address] [place] [address] 11/27/2024 10:08:03 11/27/2024 11:40:05 Body mass index 40+ - severely obese 079102578 Z68.41 Morbid obesity 082409603 E66.01 Type 2 sonny betes mellitus 05524760 E11.9 Essential hypertension 26916462 I10 Hyperlipidemia 67077638 E78.5 [id number] Cammie Sun MD [facility] [employer] [facility] [place] [address] [place] [address] 01/29/2025 16:12:18 01/29/2025 16:47:06 Body mass index 40+ - severely obese 635348122 Z68.41 Obesity 229992164 E66.9 Cervical radiculopathy 73418285 M54.12 Health Concerns Section Related Observation LastModified by Organization Detai ls LastModified Time None Recorded Concern Status LastModified by Organization Details LastModified Time None Recorded Advance Directives Directive N: Payers Encounter Date Sequence Insurance Name Policy Number Policy Barriga Covered Member ID Barriga Member ID Guarantor Name 12/27/2023 1 [place] [id number] Daniella Givens [id number] Daniella Givens 04/24/2024 1 [place] [id number] Daniella Givens [id number] Daniella Givens 08/28/2024 1 [place] [id number] Daniella Givens [id number] Daniella Givens 11/27/2024 1 [place] [id number] Daniella Givens [id number] Daniella Givens 01/29/2025 1 [facility] [id number] Daniella Givens [id number] Daniella Givens Notes Date Note Type [...] diet Cammie Sun MD Attn: Accounting,[address] [facility], [place], [address], [facility] 12/30/2023 15:42:02 04/24/2024 text/html Fatigue just bot [...] has some diarrhea Cammie Sun MD Attn: Accounting, [address] [facility], [place], [address], [facility] 05/04/2024 21:36:49 08/28/2024 text/html follow [...] meds Cammie Sun MD Attn: Accounting,[address] [facility], [place], [address], [facility] - [facility] 10/10/2024 14:02:23 11/27/2024 text/html hypertension blo od pressure looks good still some intermittent fatigue she was seen the sleep doctor they are optimizing her treatment some troubles with the right TMJ joint causes her some pain hard to completely close her jaw at times dyslipidemia could do better with diet Cammie Sun MD Attn: Accounting,[address] [facility], [place], [address], [facility] 12/07/2024 17:37:53 01/29/2025 text/html Few weeks now pa in in her neck going down her left arm and inside of her forearm the base of her thumb is numb from time to time there has not been any bowel or bladder incontinence she is not unstable on her feet no no trauma Cammie Sun MD Attn: Accounting,[address] [facility], [place], [address], [facility] 01/31/2025 20:35:51 OBGyn Episode No OBEpisode recorded.
== END 2025-02-04 09:57 | disposition home or self-care (01) ==
PROVIDERS: PCP Internal Medicine; Visit Provider Internal Medicine
DX: M43.8X2 Other specified deforming dorsopathies, cervical region (principal)
CPT/HCPCS: 72050

== ENCOUNTER 2025-02-20 19:54 | Emergency (ER) | payer BC, SELFPAY ==
--- NOTE | ~2025-02-20 | XR_ITS ---
XR ankle LT min 3V Ordering provider: Jose Velasquez MD History: . ankle injury . Comparison: None. FINDINGS: BONES: No definite acute fracture or dislocation. Possible lucency in the lateral malleolus is not ex cluded although less likely. JOINT SPACES: The ankle mortise is normal. SOFT TISSUES: Soft tissue swelling over the lateral malleolus. Calcaneal spur. IMPRESSION: No definite acute osseous abnormality left ankle. Possible lucency in the lateral malleolus cannot be excluded. Follow-up in 10 days is advised. Reviewed, dictated and finalized at location A. IMPRESSION: No definite acute osseous abnormality left ankle. Possible lucency in the later al malleolus cannot be excluded. Follow-up in 10 days is advised.
--- OUTSIDE RECORDS SUMMARY | 2025-02-20 19:56 | XMS_ITS | Data Portability ---
Author Organization [place] - [facility] [employer], Main Office Address [address] [place] [address] Care Team Providers Care Employee Relations Advisor Name Role Phone CAMMIE SUN Primary Care Provider [phone] Assessment Encounter Date Assessment Date Assessment LastModified by Organization Details LastModified Time 04/19/2023 04/19/2023 Dermatology. Increase Ozempic to 2 mg blood work has been ordered for biochemical management of disease processes of medications follow-up with me in 4 months [email or web address] Not available 04/19/2023 21:45:31 09/10/2023 09/10/2023 EKG [...] x-ray prednisone doxycycline call if not improved [email or web address] Not available 10/23/2023 22:30:35 Plan of Treatment [...] 2022 023 [facility], [address] [place] [address], [address], 3 11:54:33 Procedures None recorded. Surgeries None recorded. Imaging XR, chest 2023 024 [email or web address] Not available 4 13:35:21 electrocard iogram 2022 023 [email or web address] [id number] , [address], [place], [address], 3 18:28:19 Medication Orders doxycycline hyclate 100 mg tablet [address] [id number], [address], [place], [place], [id number], 4 13:11:46 prednisone 20 mg tablet [address] [facility][id number], [address], [place], [place], [id number], 4 13:11:46 albuterol sulfate HFA 90 mcg/actuati on aerosol inhaler 2023 024 [facility][id number], [address], [place], [place], [id number], 4 13:11:46 Ozempic 2 mg/dose (8 mg/3 mL) subcutaneou s pen injector 2022 023 [email or web address] [facility][id number], [address], [place], [place], [id number], 4 10:18:02 Patient TargetsNo targets recorded. Patient InstructionsNo instructions recorded. Reason for Referral Psychiatric Technician Assistant Referral for S kin lesion Referring Physician: Cammie Sun, Internal Medicine, Encounter Date: 04/19/2023 Results Created Date Observation Date Name Description Value Unit Range Abnormal Flag Note LastModifiedBy Organization Detail LastModifiedTime 04/19/20 23 04/19/2023 CBC/C OMPLE TE BLD COUNT W/DIF F white blood cells 5.7 x10'3 /uL 4.2-10 .8 Not Available [facility] (Lab) [address] [facility] [place], [address], 04/19/2023 13:00:28 04/19/20 23 04/19/2023 CBC/C OMPLE TE BLD COUNT W/DIF F red blood cells 4.40 x10'6 /uL 3.80-5 .20 Not Available [facility] (Lab) [address] [place], [address], 04/19/2023 13:00:28 04/19/20 23 04/19/2023 CBC/C OMPLE TE BLD COUNT W/DIF F hemoglobin 13.9 g/dL 12.0-1 5.6 Not Available [facility] (Lab) [address] [place], [address], 04/19/2023 13:00:28 04/19/20 23 04/19/2023 CBC/C OMPLE TE BLD COUNT W/DIF F hematocrit 42.9 % 35.7-4 5.7 Not Available [facility] (Lab) [address] [place], [address], 04/19/2023 13:00:28 04/19/20 23 04/19/2023 CBC/C OMPLE TE BLD COUNT W/DIF F mean red cell volume 97.5 fL 82.0-9 9.0 Not Available [facility] (Lab) [address] [place], [address], 04/19/2023 13:00:28 04/19/20 23 04/19/2023 CBC/C OMPLE TE BLD COUNT W/DIF F mean red cell hemoglobin 31.6 pg 27.0-3 3.0 Not Available [facility] (Lab) [address] [place], [address], 04/19/2023 13:00:28 04/19/20 23 04/19/2023 CBC/C OMPLE TE BLD COUNT W/DIF F mean RBC HGB concentratio n 32.4 g/dL 31.0-3 6.0 Not Available [facility] (Lab) [address] [place], [address], 04/19/2023 13:00:28 04/19/2004/19/2023 CBC/C OMPLE TE BLD COUNT W/DIF F red cell distribution width 12.5 % 11.8-1 5.5 Not Available [facility] (Lab) [address] [place], [address], 04/19/2023 13:00:28 04/19/20 23 04/19/2023 CBC/C OMPLE TE BLD COUNT W/DIF F platelets 263 x10'3 /uL 150-40 0 Not Available [facility] (Lab) [address] [place], [address], 04/19/2023 13:00:28 04/19/20 23 04/19/2023 CBC/C OMPLE TE BLD COUNT W/DIF F mean platelet volume 10.2 fL 9.0-12 .4 Not Available [facility] (Lab) [address] [place], [address], 04/19/2023 13:00:28 04/19/20 23 04/19/2023 CBC/C OMPLE TE BLD COUNT W/DIF F neutrophils 55.4 % 39.0-7 2.0 Not Available [facility] (Lab) [address] [place], [address], 04/19/2023 13:00:28 04/19/20 23 04/19/2023 CBC/C OMPLE TE BLD COUNT W/DIF F lymphocytes 35.0 % 16.0-4 7.0 Not Available [facility] (Lab) [address] [place], [address], 04/19/2023 13:00:28 04/19/20 23 04/19/2023 CBC/C OMPLE TE BLD COUNT W/DIF F monocytes 7.2 % 5.0-12 .0 Not Available [facility] (Lab) [address] [place], [address], 04/19/2023 13:00:28 04/19/20 23 04/19/2023 CBC/C OMPLE TE BLD COUNT W/DIF F eosinophils 1.6 % 1.0-7. 0 Not Available [facility] (Lab) [address] [place], [address], 04/19/2023 13:00:28 04/19/20 23 04/19/2023 CBC/C OMPLE TE BLD COUNT W/DIF F basophils 0.4 % 0.0-2. 0 Not Available [facility] (Lab) [address] [place], [address], 04/19/2023 13:00:28 04/19/20 23 04/19/2023 CBC/C OMPLE TE BLD COUNT W/DIF F immature granulocytes 0.4 % 0.00-0 .50 Not Available [facility] (Lab) [address] [place], [address], 04/19/2023 13:00:28 04/19/20 23 04/19/2023 CBC/C OMPLE TE BLD COUNT W/DIF F neutrophils, absolute count 3.15 x10'3 /uL 1.5-8. 0 Not Available [facility] (Lab) [address] [place], [address], 04/19/2023 13:00:28 04/19/20 23 04/19/2023 CBC/C OMPLE TE BLD COUNT W/DIF F lymphocytes, absolute count 1.99 x10'3 /uL 1.07-3 .43 Not Available [facility] (Lab) [address] [place], [address], 04/19/2023 13:00:28 04/19/20 23 04/19/2023 CBC/C OMPLE TE BLD COUNT W/DIF F monocytes, absolute count 0.41 x10'3 /uL 0.29-0 .99 Not Available [facility] (Lab) [address] [place], [address], 04/19/2023 13:00:28 04/19/20 23 04/19/2023 CBC/C OMPLE TE BLD COUNT W/DIF F eosinophils, absolute count 0.09 x10'3 /uL 0.02-0 .53 Not Available [facility] (Lab) [address] [place], [address], 04/19/2023 13:00:28 04/19/20 23 04/19/2023 CBC/C OMPLE TE BLD COUNT W/DIF F basophils, absolute count 0.02 x10'3 /uL 0.01-0 .08 Not Available [facility] (Lab) [address] [place], [address], 04/19/2023 13:00:28 04/19/20 23 04/19/2023 CBC/C OMPLE TE BLD COUNT W/DIF F immature granulocytes ,absolute 0.02 x10'3 /uL 0.00-0 .05 Not Available [facility] (Lab) [address] [place], [address], 04/19/2023 13:00:28 04/19/20 23 04/19/2023 CBC/C OMPLE TE BLD COUNT W/DIF F nucleated red blood cells 0.0 % -0 Not Available [facility] (Lab) [address] [place], [address], 04/19/2023 13:00:28 04/19/2004/19/2023 CBC/C OMPLE TE BLD COUNT W/DIF F NRBC# 0.00 x10'3 /uL Not Available [facility] (Lab) [address] [place], [address], 04/19/2023 13:00:28 04/19/20 23 04/19/2023 LIPID PANEL cholesterol 177 mg/dL 140-19 9 NIH JUANA NSUS RECOM MENDA TION FOR LUZ MARINA STERO L: ADULT CHILD LOW RISK: <200 <170 BORDE RLINE : <200- 239 ----- HIGH RISK: >240 >200 Not Available [facility] (Lab) [address] [place], [address], 04/19/2023 13:04:18 04/19/20 23 04/19/2023 LIPID PANEL triglyceride s 94 mg/dL 0-150 NIH JUANA NSUS REPOR T RECOM MENDA TION FOR TRIGL YCERI PIERO: ADULT CHILD LOW RISK: <150 ----- BODER LINE: 150-1 99 ----- HIGH RISK: >200 ----- Not Available [facility] (Lab) [address] [place], [address], 04/19/2023 13:04:18 04/19/20 23 04/19/2023 LIPID PANEL HDL cholesterol 62 mg/dL 40- Not Available [facility] (Lab) [address] [place], [address], 04/19/2023 13:04:18 04/19/20 23 04/19/2023 LIPID PANEL [...] BE REPOR LIS. Not Available [facility] (Lab) [address] [place], [address], 04/19/2023 13:04:18 04/19/20 23 04/19/2023 COMPR EHENS AISHWARYA METAB OLIC PANEL sodium 139 mmol/ L 137-14 5 Not Available [facility] (Lab) [address] [place], [address], 04/19/2023 13:04:21 04/19/20 23 04/19/2023 COMPR EHENS AISHWARYA METAB OLIC PANEL potassium 4.2 mmol/ L 3.5-5. 1 Not Available [facility] (Lab) [address] [place], [address], 04/19/2023 13:04:21 04/19/20 23 04/19/2023 COMPR EHENS AISHWARYA METAB OLIC PANEL chloride 102 mmol/ L 98-107 Not Available [facility] (Lab) [address] [place], [address], 04/19/2023 13:04:21 04/19/20 23 04/19/2023 COMPR EHENS AISHWARYA METAB OLIC PANEL carbon dioxide 26 mmol/ L 22-[address] [facility] (Lab) [address] [place], [address], 04/19/2023 13:04:21 04/19/20 23 04/19/2023 COMPR EHENS AISHWARYA METAB OLIC PANEL anion gap 15.2 mmol/ L 14-22 Not Available [facility] (Lab) [address] [place], [address], 04/19/2023 13:04:21 04/19/20 23 04/19/2023 COMPR EHENS AISHWARYA METAB OLIC PANEL glucose 104 mg/dL 70-99 high Not Available [facility] (Lab) [address] [place], [address], 04/19/2023 13:04:21 04/19/20 23 04/19/2023 COMPR EHENS AISHWARYA METAB OLIC PANEL BUN 15 mg/dL 8-19 Not Available [facility] (Lab) [address] [place], [address], 04/19/2023 13:04:21 04/19/20 23 04/19/2023 COMPR EHENS AISHWARYA METAB OLIC PANEL creatinine 0.69 mg/dL 0.66-1 .25 Not Available [facility] (Lab) [address] [place], [address], 04/19/2023 13:04:21 04/19/20 23 04/19/2023 COMPR EHENS AISHWARYA METAB OLIC PANEL GFR >60 Refer ence Range : [place] ge GFR Healt hy Adult : >60 [...] or ethni c subgr oups, such as [facility] nics. Outsi de the valid ated [...] r_cal culat or Not Available [facility] (Lab) [address] [place], [address], 04/19/2023 13:04:21 04/19/20 23 04/19/2023 COMPR EHENS AISHWARYA METAB OLIC PANEL alkaline phosphatase 85 U/L 38-126 Not Available [facility] (Lab) [address] [place], [address], 04/19/2023 13:04:21 04/19/20 23 04/19/2023 COMPR EHENS AISHWARYA METAB OLIC PANEL alanine aminotransfe rase 39 U/L 0-35 high Not Available [facility] (Lab) [address] [place], [address], 04/19/2023 13:04:21 04/19/20 23 04/19/2023 COMPR EHENS AISHWARYA METAB OLIC PANEL aspartate aminotransfe rase 31 U/L 15-37 Not Available [facility] (Lab) [address] [place], [address], 04/19/2023 13:04:21 04/19/20 23 04/19/2023 COMPR EHENS AISHWARYA METAB OLIC PANEL bilirubin, total 0.40 mg/dL 0.20-1 .30 Not Available [facility] (Lab) [address] [place], [address], 04/19/2023 13:04:21 04/19/20 23 04/19/2023 COMPR EHENS AISHWARYA METAB OLIC PANEL calcium 9.0 mg/dL 8.4-10 .2 Not Available [facility] (Lab) [address] [place], [address], 04/19/2023 13:04:21 04/19/20 23 04/19/2023 COMPR EHENS AISHWARYA METAB OLIC PANEL total protein 7.2 g/dL 6.3-8. 2 Not Available [facility] (Lab) [address] [place], [address], 04/19/2023 13:04:21 04/19/20 23 04/19/2023 COMPR EHENS AISHWARYA METAB OLIC PANEL albumin 4.2 g/dL 3.4-5. 0 Not Available [facility] (Lab) [address] [place], [address], 04/19/2023 13:04:21 04/19/20 23 04/19/2023 COMPR EHENS AISHWARYA METAB OLIC PANEL globulin 3.0 g/dL 2.6-4. 2 Not Available [facility] (Lab) [address] [place], [address], 04/19/2023 13:04:21 04/19/20 23 04/19/2023 COMPR EHENS AISHWARYA METAB OLIC PANEL A/G ratio 1.4 ratio 1.0-2. 0 Not Available [facility] (Lab) [address] [place], [address], 04/19/2023 13:04:21 04/19/20 23 04/19/2023 T3 FREE free T3 2.9 pg/mL 2.77-5 .27 Not Available [facility] (Lab) [address] [place], [address], 04/19/2023 13:14:10 04/19/20 23 04/19/2023 T4 FREE free T4 0.88 NG/dL 0.78-2 .19 Not Available [facility] (Lab) [address] [place], [address], 04/19/2023 13:14:12 04/19/20 23 04/19/2023 TSH thyroid-stim ulating hormone 1.410 uIU/m L 0.465- 4.680 Not Available [facility] (Lab) [address] [place], [address], 04/19/2023 13:44:33 04/19/20 23 04/19/2023 HEMOG LOBIN A1C HA1C 5.6 % 4.0-6. 0 Diabe lucita Scree palomo Crite neela: <5.7% Consi stent with absen ce of diabe lucita 5.7-6 .4% Consi stent with incre ased risk for diabe lucita (pred iabet es) >OR=6 .5% Consi stent with diabe lucita REFER ENCE: Diabe lucita Care 2015, 39( ppl.1 ):s13 -s22 Not Available [facility] (Lab) [address] [place], [address], 04/19/2023 17:51:17 09/11/20 23 09/11/2023 CBC/C OMPLE TE BLD COUNT W/DIF F white blood cells 4.7 x10'3 /uL 4.2-[address] [facility] (Lab) [address] [place], [address], 09/11/2023 11:07:44 09/11/20 23 09/11/2023 CBC/C OMPLE TE BLD COUNT W/DIF F red blood cells 4.15 x10'6 /uL 3.80-5 .20 Not Available [facility] (Lab) [address] [place], [address], 09/11/2023 11:07:44 09/11/20 23 09/11/2023 CBC/C OMPLE TE BLD COUNT W/DIF F hemoglobin 13.6 g/dL 12.0-[address] [facility] (Lab) [address] [place], [address], 09/11/2023 11:07:44 09/11/20 23 09/11/2023 CBC/C OMPLE TE BLD COUNT W/DIF F hematocrit 41.9 % 35.7-[address] [facility] (Lab) [address] [place], [address], 09/11/2023 11:07:44 09/11/20 23 09/11/2023 CBC/C OMPLE TE BLD COUNT W/DIF F mean red cell volume 101.0 fL 82.0-9 9.0 high Not Available [facility] (Lab) [address] [place], [address], 09/11/2023 11:07:44 09/11/20 23 09/11/2023 CBC/C OMPLE TE BLD COUNT W/DIF F mean red cell hemoglobin 32.8 pg 27.0-3 3.0 Not Available [facility] (Lab) [address] [place], [address], 09/11/2023 11:07:44 09/11/20 23 09/11/2023 CBC/C OMPLE TE BLD COUNT W/DIF F mean RBC HGB concentratio n 32.5 g/dL 31.0-3 6.0 Not Available [facility] (Lab) [address] [place], [address], 09/11/2023 11:07:44 09/11/20 23 09/11/2023 CBC/C OMPLE TE BLD COUNT W/DIF F red cell distribution width 12.8 % 11.8-1 5.5 Not Available [facility] (Lab) [address] [place], [address], 09/11/2023 11:07:44 09/11/20 23 09/11/2023 CBC/C OMPLE TE BLD COUNT W/DIF F platelets 237 x10'3 /uL 150-[address] [facility] (Lab) [address] [place], [address], 09/11/2023 11:07:44 09/11/20 23 09/11/2023 CBC/C OMPLE TE BLD COUNT W/DIF F mean platelet volume 10.4 fL 9.0-12 .4 Not Available [facility] (Lab) [address] [place], [address], 09/11/2023 11:07:44 09/11/20 23 09/11/2023 CBC/C OMPLE TE BLD COUNT W/DIF F neutrophils 58.3 % 39.0-7 2.0 Not Available [facility] (Lab) [address] [place], [address], 09/11/2023 11:07:44 09/11/20 23 09/11/2023 CBC/C OMPLE TE BLD COUNT W/DIF F lymphocytes 32.3 % 16.0-4 7.0 Not Available [facility] (Lab) [address] [place], [address], 09/11/2023 11:07:44 09/11/20 23 09/11/2023 CBC/C OMPLE TE BLD COUNT W/DIF F monocytes 7.1 % 5.0-12 .0 Not Available [facility] (Lab) [address] [place], [address], 09/11/2023 11:07:44 09/11/20 23 09/11/2023 CBC/C OMPLE TE BLD COUNT W/DIF F eosinophils 1.7 % 1.0-7. 0 Not Available [facility] (Lab) [address] [place], [address], 09/11/2023 11:07:44 09/11/20 23 09/11/2023 CBC/C OMPLE TE BLD COUNT W/DIF F basophils 0.4 % 0.0-2. 0 Not Available [facility] (Lab) [address] [place], [address], 09/11/2023 11:07:44 09/11/20 23 09/11/2023 CBC/C OMPLE TE BLD COUNT W/DIF F immature granulocytes 0.2 % 0.00-0 .50 Not Available [facility] (Lab) [address] [place], [address], 09/11/2023 11:07:44 09/11/20 23 09/11/2023 CBC/C OMPLE TE BLD COUNT W/DIF F neutrophils, absolute count 2.72 x10'3 /uL 1.5-8. 0 Not Available [facility] (Lab) [address] [place], [address], 09/11/2023 11:07:44 09/11/20 23 09/11/2023 CBC/C OMPLE TE BLD COUNT W/DIF F lymphocytes, absolute count 1.51 x10'3 /uL 1.07-3 .43 Not Available [facility] (Lab) [address] [place], [address], 09/11/2023 11:07:44 09/11/20 23 09/11/2023 CBC/C OMPLE TE BLD COUNT W/DIF F monocytes, absolute count 0.33 x10'3 /uL 0.29-0 .99 Not Available [facility] (Lab) [address] [place], [address], 09/11/2023 11:07:44 09/11/20 23 09/11/2023 CBC/C OMPLE TE BLD COUNT W/DIF F eosinophils, absolute count 0.08 x10'3 /uL 0.02-0 .53 Not Available [facility] (Lab) [address] [place], [address], 09/11/2023 11:07:44 09/11/20 23 09/11/2023 CBC/C OMPLE TE BLD COUNT W/DIF F basophils, absolute count 0.02 x10'3 /uL 0.01-0 .08 Not Available [facility] (Lab) [address] [place], [address], 09/11/2023 11:07:44 09/11/20 23 09/11/2023 CBC/C OMPLE TE BLD COUNT W/DIF F immature granulocytes ,absolute 0.01 x10'3 /uL 0.00-0 .05 Not Available [facility] (Lab) [address] [place], [address], 09/11/2023 11:07:44 09/11/20 23 09/11/2023 CBC/C OMPLE TE BLD COUNT W/DIF F nucleated red blood cells 0.0 % -0 Not Available [facility] (Lab) [address] [place], [address], 09/11/2023 11:07:44 09/11/20 23 09/11/2023 CBC/C OMPLE TE BLD COUNT W/DIF F NRBC# 0.00 x10'3 /uL Not Available [facility] (Lab) [address] [place], [address], 09/11/2023 11:07:44 09/11/20 23 09/11/2023 COMPR EHENS AISHWARYA METAB OLIC PANEL sodium 139 mmol/ L 137-14 5 Not Available [facility] (Lab) [address] [place], [address], 09/11/2023 11:30:25 09/11/20 23 09/11/2023 COMPR EHENS AISHWARYA METAB OLIC PANEL potassium 4.6 mmol/ L 3.5-5. 1 Not Available [facility] (Lab) [address] [place], [address], 09/11/2023 11:30:25 09/11/20 23 09/11/2023 COMPR EHENS AISHWARYA METAB OLIC PANEL chloride 105 mmol/ L 98-107 Not Available [facility] (Lab) [address] [place], [address], 09/11/2023 11:30:25 09/11/20 23 09/11/2023 COMPR EHENS AISHWARYA METAB OLIC PANEL carbon dioxide 29 mmol/ L 22-30 Not Available [facility] (Lab) [address] [place], [address], 09/11/2023 11:30:25 09/11/20 23 09/11/2023 COMPR EHENS AISHWARYA METAB OLIC PANEL anion gap 9.6 mmol/ L 14-22 low Not Available [facility] (Lab) [address] [place], [address], 09/11/2023 11:30:25 09/11/20 23 09/11/2023 COMPR EHENS AISHWARYA METAB OLIC PANEL glucose 165 mg/dL 70-99 high Not Available [facility] (Lab) [address] [place], [address], 09/11/2023 11:30:25 09/11/20 23 09/11/2023 COMPR EHENS AISHWARYA METAB OLIC PANEL BUN 18 mg/dL 8-19 Not Available [facility] (Lab) [address] [place], [address], 09/11/2023 11:30:25 09/11/20 23 09/11/2023 COMPR EHENS AISHWARYA METAB OLIC PANEL creatinine 0.74 mg/dL 0.66-1 .25 Not Available [facility] (Lab) [address] [place], [address], 09/11/2023 11:30:25 09/11/20 23 09/11/2023 COMPR EHENS AISHWARYA METAB OLIC PANEL GFR >60 Refer ence Range : [place] ge GFR Healt hy Adult : >60 [...] calcu lator is avail able on the [facility] websi te: https :[email or web address] [email or web address] [email or web address] catesal s/kdo qi/gf r_cal culat or Not Available [facility] (Lab) [address] [place], [address], 09/11/2023 11:30:25 09/11/2009/11/2023 COMPR EHENS AISHWARYA METAB OLIC PANEL alkaline phosphatase 82 U/L 38-126 Not Available [facility] (Lab) [address] [place], [address], 09/11/2023 11:30:25 09/11/20 23 09/11/2023 COMPR EHENS AISHWARYA METAB OLIC PANEL alanine aminotransfe rase 52 U/L 0-35 high Not Available [facility] (Lab) [address] [place], [address], 09/11/2023 11:30:25 09/11/20 23 09/11/2023 COMPR EHENS AISHWARYA METAB OLIC PANEL aspartate aminotransfe rase 34 U/L 15-37 Not Available [facility] (Lab) [address] [place], [address], 09/11/2023 11:30:25 09/11/20 23 09/11/2023 COMPR EHENS AISHWARYA METAB OLIC PANEL bilirubin, total 0.60 mg/dL 0.20-1 .30 Not Available [facility] (Lab) [address] [place], [address], 09/11/2023 11:30:25 09/11/20 23 09/11/2023 COMPR EHENS AISHWARYA METAB OLIC PANEL calcium 9.5 mg/dL 8.4-10 .2 Not Available [facility] (Lab) [address] [place], [address], 09/11/2023 11:30:25 09/11/20 23 09/11/2023 COMPR EHENS AISHWARYA METAB OLIC PANEL total protein 7.0 g/dL 6.3-8. 2 Not Available [facility] (Lab) [address] [facility] [place], [address], 09/11/2023 11:30:25 09/11/20 23 09/11/2023 COMPR EHENS AISHWARYA METAB OLIC PANEL albumin 3.9 g/dL 3.4-5. [address] [facility] (Lab) [address] [place], [address], 09/11/2023 11:30:25 09/11/20 23 09/11/2023 COMPR EHENS AISHWARYA METAB OLIC PANEL globulin 3.1 g/dL 2.6-4. 2 Not Available [facility] (Lab) [address] [place], [address], 09/11/2023 11:30:25 09/11/20 23 09/11/2023 COMPR EHENS AISHWARYA METAB OLIC PANEL A/G ratio 1.3 ratio 1.0-2. 0 Not Available [facility] (Lab) [address] [place], [address], 09/11/2023 11:30:25 09/11/20 23 09/11/2023 MAGNE SIUM magnesium 2.1 mg/dL 1.6-2. 3 Not Available [facility] (Lab) [address] [place], [address], 09/11/2023 11:30:30 09/11/20 23 09/11/2023 LIPID PANEL cholesterol 201 mg/dL 140-19 9 high NIH JUANA NSUS RECOM MENDA TION FOR LUZ MARINA STERO L: ADULT CHILD LOW RISK: <200 <170 BORDE RLINE : <200- 239 ----- HIGH RISK: >240 >200 Not Available [facility] (Lab) [address] [place], [address], 09/11/2023 11:30:33 09/11/20 23 09/11/2023 LIPID PANEL triglyceride s 127 mg/dL 0-150 NIH JUANA NSUS REPOR T RECOM MENDA TION FOR TRIGL YCERI PIERO: ADULT CHILD LOW RISK: <150 ----- BODER LINE: 150-1 99 ----- HIGH RISK: >200 ----- Not Available [facility] (Lab) [address] [place], [address], 09/11/2023 11:30:33 09/11/20 23 09/11/2023 LIPID PANEL HDL cholesterol 57 mg/dL 40- Not Available [facility] (Lab) [address] [place], [address], 09/11/2023 11:30:33 09/11/20 23 09/11/2023 LIPID PANEL [...] BE REPOR LIS. Not Available [facility] (Lab) [address] [place], [address], 09/11/2023 11:30:33 09/11/20 23 09/11/2023 T3 FREE free T3 3.3 pg/mL 2.77-5 .27 Not Available [facility] (Lab) [address] [place], [address], 09/11/2023 11:44:33 09/11/20 23 09/11/2023 T4 FREE free T4 0.93 NG/dL 0.78-2 .19 Not Available [facility] (Lab) [address] [place], [address], 09/11/2023 11:44:35 09/11/20 23 09/11/2023 TSH thyroid-stim ulating hormone 2.610 uIU/m L 0.465- 4.680 Not Available [facility] (Lab) [address] [place], [address], 09/11/2023 11:57:19 09/11/20 23 09/11/2023 HEMOG LOBIN [...] ppl.1 ):s13 -s22 Not Available [facility] (Lab) [address] [place], [address], 09/11/2023 16:48:11 09/10/20 23 elect rocar diogr am No observ ation record ed. [facility]ahl [facility] Internal Med [address] [facility], [facility] [address], [place], [address], 09/10/2023 18:13:55 09/10/20 23 09/10/2023 elect rocar diogr am No observ ation record ed. [facility] Internal Med [address] [facility], [facility] [address], [place], [address], 09/10/2023 18:19:15 10/23/19 24 XR, chest [facility] [address] [place] [address] Patien t Name: HERMELINDO SANCHEZ Access ion #: [id number] Sex: F : 1964 5 Dictat ed By: Karen Rayo Attend ing Physic ko: ALIA SUN Orderi ng Physic ko: ALIA SUN Exam Date: 2023 [...] at 2023 10:11: 09 AM Page 1 [facility] [address] [place] [address], [address], 11/08/2023 13:35:21 12/18/19 25 12/17/2024 imagi ng/jolynn toledo tic resul t No observ ation record ed. [facility] [address] [place], [address], 12/17/2024 15:07:33 Result Notes None recorded. Problems Name Problem SNOMED Code Status Onset Date Resolution Date Notes Provider Name and Address Organization Details Recorded Time Intolerant of heat and cold 769639530 Active 2021 Not Available [facility] 4 05:28:48 Headache 92443239 Active 2020 Not Available [facility] 4 05:28:48 Type 2 diabetes mellitus without complicati on 314539296 Active 2021 Not Available [facility] 4 05:28:48 Bronchitis 80666998 Active Not Available [facility] 4 05:28:48 Sleep disorder 36146339 Active 2021 Not Available [facility] 4 05:28:48 Type 2 diabetes mellitus 74018714 Active 2020 Not Available [facility] 4 05:28:48 Uncontroll ed type 2 diabetes mellitus 848142691 Active 2021 Not Available [facility] 4 05:28:48 Hyperlipid emia 94335012 Active 2021 Not Available [facility] 4 05:28:48 Essential hypertensi on 20613640 Active 2020 Not Available [facility] 4 05:28:48 Obstructiv e sleep apnea syndrome 27111579 Active 2021 Not Available [facility] 4 05:28:48 Hyperglyce ayden 53949878 Completed 202004/18/2021 Not Available [facility] 3 10:48:26 Fatigue 83141352 Active 2022 Not Available [facility] 4 05:28:48 Skin lesion 80911684 Active 2022 Not Available [facility] 4 05:28:48 Bradycardi a 11921389 Active 2022 Not Available [facility] 4 05:28:48 Dizziness 111061098 Active 2022 Not Available [facility] 4 05:28:48 Notes:Medical History: Depre [...] Organization Details LastModified Time 09/10/2023 electrocardiogram completed [facility]ahl [facility] [place] [address], [place], [address], 09/10/2023 18:13:55 09/10/2023 electrocardiogram completed [facility] Internal [facility] [place] [address], [place], [address], 09/10/2023 18:19:15 10/23/2023 XR, chest completed [facility] (Imaging) [address] [facility], [place], [address], 11/08/2023 13:35:21 12/17/2024 imaging/diagnostic result active [facility] [address] [place], [address], 12/17/2024 15:07:33 Procedure Notes None recorded. Medical Equipment None Reported. Allergies Allergen ID Allergen Name Allergen Category Reaction Reaction Severity Criticality Documentation Date Start Date Code Code System Note Provider Name and Address Organization Details Recorded Time 58006 acetamino phen / hydrocodo ne medicatio n vomiting Not available Not available 12/13/2022 63346 2 RxNorm Not Available [facility] 10:53:00 Medications Name Sig Start Date Stop [...] Updated DateTime 3 167.64 cm 36 kg/m2 304839. 1 g 97.1 [degF] 70 /min 99 % 99 % 108 mm[Hg] 64 mm[Hg] Juliann Saravia [place] [employer] [facility] [employer] 3 09:29:56 Date Recorded Body height Body mass index (BMI) Body weight Body temperature Heart rate Systolic blood pressure Diastolic blood pressure Provider Name and Address Organization Details Last Updated DateTime 3 167.64 cm 37.4 kg/m2 826527. 43 g 97.8 [degF] 63 /min 132 mm[Hg] 82 mm[Hg] DALJIT Marie [place] [employer] [facility] [employer] 3 09:53:56 Date Recorded Body height Body temperature Provider N elvin and Address Organization Details Last Updated DateTime 09/10/2023 167.64 cm 96.6 [degF] Danii Nunez [place] [employer] [facility] [employer] 09/10/2023 10:01:23 Date Recorded Body mass index (BMI) Body weight Systolic blood pressure Diastolic blood pressure Provider Name and Address Organization Details Last Updated DateTime 09/10/2023 40.2 kg/m2 953874.5 g 110 mm[Hg] 70 mm[Hg] Martina Serra [place] [employer] [facility] [employer] 09/10/2023 10:26:35 Date Recorded Body height Body mass index (BMI) Body weight Body temperature Heart rate Heart rate Heart rate Systolic blood pressure Diastolic blood pressure Systolic blood pressure Diastolic blood pressure Systolic blood pressure Diastolic blood pressure Provider Name and Address Organization Details Last Updated DateTime 3 167.64 cm 40.2 kg/m2 256536. 22 g 97.8 [degF] 74 /min 58 /min 74 /min 126 mm[Hg] 74 mm[Hg] 122 mm[Hg] 82 mm[Hg] 126 mm[Hg] 78 mm[Hg] Ondina Farrell MA [facility] [employer] [facility] 3 18:12:55 Date Recorded Body height Heart rate Systolic blood pressure Diastolic blood pressure Provider Name and Address Organization Details Last Updated DateTime 10/01/2023 167.64 cm 54 /min 128 mm[Hg] 74 mm[Hg] Sandra Herman CMA [facility] [employer] [facility] 10/01/2023 10:07:21 Date Recorded Body height Body mass index (BMI) Body weight Body temperature Heart rate Systolic blood pressure Diastolic blood pressure Provider Name and Address Organization Details Last Updated DateTime 4 167.64 cm 40.7 kg/m2 585505. 28 g 98.9 [degF] 86 /min 128 mm[Hg] 84 mm[Hg] Evangelina dhillon RN [facility] [employer] [facility] 4 10:18:53 Social History Question Answer Notes LastModified by Organization Details LastModified Time Tobacco Smoking Status Former Smoker quit 2007 DALJIT Mccullough, [facility] [employer] [facility] 04/19/2023 09:49:25 Do You Have An Advance Directive? No MIGRATION.[id number] [id number] Information not available 12/13/2022 What Is Your Level Of Alcohol Consumption? Occasional MIGRATION.0301 [id number] Information not available 12/13/2022 Do You Wear A Helmet When Biking? No Information not available 04/19/2023 What Is Your Level Of Caffeine Consumption? Heavy [email or web address] Information not available 12/27/2022 How Much Tobacco Do You Chew? None MIGRATION.[id number] [id number] Information not available 12/13/2022 In The 14 [...] You Following? SPECIFIC Weight Watchers Diet MIGRATION.0301 [id number] Information not available 12/13/2022 Which Illicit Or Recreational Drugs Have You Used? None Information not available 04/19/2023 Do You Or Have You Ever Used E-cigarettes Or Vape? Never Used Electronic Cigarettes Information not available 04/19/2023 What Is The Highest Grade Or Level Of School You Have Completed Or The Highest Degree You Have Received? [id number] Information not available 04/19/2023 What Is Your Occupation? Self Employed Information not available 04/19/2023 Have There Been Any Changes To Your Family Or Social Situation? No Information not available 04/19/2023 What Is The Fluoride Status Of Your Home? Unknown Information not available 04/19/2023 When Did You Quit Smoking? 11-15yearssinmaya annika Information not available 04/19/2023 Are There Any Guns Present In Your Home? Yes Information not available 04/19/2023 Do You Use Insect Repellent Routinely? No Information not available 04/19/2023 Where Do You Live? [facility] Information not available 04/19/2023 Do You Have A Medical Power Of Physical Aerodynamicist? No Information not available 04/19/2023 What Was The Date Of Your Most Recent Tobacco Screening? 10/23/2023 [email or web address] Information not available 10/23/2023 What Is Your Current Pack Years? 30ormorepackyears Information not available 04/19/2023 Have You Ever Been Counseled For Unhealthy Alcohol Use? No Information not available 04/19/2023 Do You Have Any Pets? Yes Information not available 04/19/2023 What Is Your Relationship Status? MIGRATION.0301 [id number] Information not available 12/13/2022 Do You Use [...] Smokeless Tobacco? Never Used Smokeless Tobacco MIGRATION.0301 [id number] Information not available 12/13/2022 Are There Any Smokers In Your House? No Information not available 04/19/2023 How Much Tobacco Do You Smoke? 2 PPD MIGRATION.030 [id number] Information not available 12/13/2022 What Types Of Sporting Activities Do You Participate In? None Information not available 04/19/2023 Do You Feel Stressed (tense, Restless, Nervous, Or Anxious, Or Unable To Sleep At Night)? [id number] Information not available 04/19/2023 Do You Use [...] Functional Status Question Answer Note LastModified by Organizat ion Details LastModified Time What is your exercise level? Occasional [id number] Information not available 12/13/2022 Mental Status None recorded. Family History Relationship Description Onset Age of this Age Resolved Age Notes LastModified by Organization Details LastModified Time Mother Myocardial infarction 52 [id number] Not available 12/13/2022 10:43:14 Mother Hyperlipidem ia cyahl Not available 2022 09:49:23 Medical History Condition Response BLINDNESS N NERVE DISEASE N RHEUMATIC FEVER N BLADDER PROBLEMS N KIDNEY STONES N MRSA N OTHER # 1 N [...] N CHRONIC PAIN SYNDROME N HYPOTHYROIDISM N CAROTID BLOCKAGE N CONSTIPATION N BACK / NECK PROBLEMS N HAVE YOU BEEN HOSPITALIZED OR SEEN IN [facility] IN THE PAST YEAR ? N ATHEROSCLEROSIS [...] 50 mcg/0.25mL dose 10/19/2021 completed Not Available [facility] 4 05:28:48 COVID-19 vaccine, vector-nr, rS-Ad26, PF, 0.5 mL 01/17/2021 completed Not Available [facility] 4 05:28:48 Influenza, split virus, quadrivalent, PF 08/17/2022 completed Not Available [facility] 05:28:48 Past Encounters Encounter ID Performer Location Encounter Start Date Encounter Closed Date Diagnosis/Indication Diagnosis SNOMED-CT Code Diagnosis ICD10 Code Diagnosis Note [id number] Cammie Sun MD [facility] [place] [facility] [place] [address] [place] [address] [place] [address] 03/22/2021 00:00:00 04/10/2021 12:14:30 [id number] Cammie Sun MD [facility] Internal [facility] [place] [address] [place] [address] [place] [address] 04/12/2021 00:00:00 04/18/2021 21:52:44 [id number] Cammie Sun MD [facility] Internal [facility] [place] [address] [place] [address] [place] [address] 08/04/2021 00:00:00 08/15/2021 21:08:47 [id number] Cammie Sun MD [facility] Internal [place] [address] [place] [address] [place] [address] 12/01/2021 00:00:00 12/06/2021 23:10:03 [id number] Cammie Sun MD [facility] Internal [facility] [place] [address] [place] [address] [place] [address] 12/29/2021 00:00:00 01/15/2022 22:46:57 [id number] Cammie Sun MD [facility] Internal [place] [address] [place] [address] [place] [address] 03/02/2022 00:00:00 03/25/2022 17:43:03 [id number] Anais rendon MD [facility] Internal Med [place] [address] [place] [address] [place] [address] 2022 00:00:00 2022 17:07:42 [id number] Anais rendon MD [facility] Internal Med [place] [address] [facility] [address] , [place] [address] 04/12/2022 00:00:00 04/12/2022 16:25:35 [id number] Korin Ring [facility] [employer] [address] [place] [address] 04/14/2022 00:00:00 04/14/2022 14:38:11 [id number] Cammie Sun MD [facility] Internal Med [place] [address] [facility] y , [place] [address] 04/27/2022 00:00:00 04/29/2022 20:40:17 [id number] Cammie Sun MD [facility] Internal Med [place] [address] [facility] y , [place] [address] 06/01/2022 00:00:00 06/25/2022 22:32:18 [id number] Cammie Sun MD [facility] Internal Med [place] [address] [facility] y , [place] [address] 08/17/2022 00:00:00 08/19/2022 14:42:47 [id number] Korin Ring [facility] [employer] [address] [place] [address] 11/15/2022 00:00:00 11/15/2022 14:20:26 [id number] Cammie Sun MD [facility] Internal Med [place] [address] [facility] y , [place] [address] 12/14/2022 10:44:35 12/14/2022 12:02:08 Type 2 diabetes mellitus 25102852 E11.9 Essential hypertension 08301595 I10 Hyperlipidemia 33317024 E78.5 [id number] Korin Ring [facility] [employer] [address] [place] [address] 12/27/2022 13:52:44 12/28/2022 08:52:18 Obstructive sleep apnea syndrome 13480336 G47.33 Home study 01/06/22 with AHI 79 [...] prior to bedtime.Do wnload in 1 month [id number] Korin Ring, [facility] [employer] [address] [place] [address] 01/24/2023 09:22:27 01/24/2023 10:24:59 Obstructive sleep apnea syndrome 23574705 G47.33 Home study 01/06/22 with AHI 79 [...] apneas, will change to set pressure of 84miA4PEhu l also decrease humidityCh anges made in REsMedDown load in 4-6 weeks, PRN for concerns Body mass index 30+ - obesity 047204761 Z68.36 Discussed weight management .Healthy well balanced meals.Incr ease exercise, ideally 30 minutes most days of the week. Fatigue 43963503 R53.83 GIAN is uncorrecte d, reassess after pressure changes [id number] Korin Ring, [employer] [employer] [address] [place] [address] 03/07/2023 09:21:45 03/07/2023 09:53:22 Obstructive sleep apnea syndrome 49658611 G47.33 Home study 01/06/22 with AHI 79 [...] apneas, will change to set pressure to 01spQ8OGtv nload in 4-6 weeks, PRN for concerns Fatigue 82082775 R53.83 ImprovedOS A is uncorrecte d, reassess after pressure changes Body mass index 30+ - obesity 786652672 Z68.36 Discussed weight management .Healthy well balanced meals.Incr ease exercise, ideally 30 minutes most days of the week. [id number] Cammie Sun MD [facility] Internal Med Tania schulz [address] [facility] [address] [place] [address] 04/19/2023 09:48:22 04/19/2023 10:39:41 Type 2 diabetes mellitus 34698381 E11.9 Essential hypertension 03571804 I10 Hyperlipidemia 82162853 E78.5 Skin lesion 40382023 L98 .9 [id number] DONTE Johnson-[facility] [employer] [place] [address] [place] [address] 09/10/2023 09:58:34 09/10/2023 11:00:21 Obstructive sleep apnea syndrome 77712615 G47.33 Home study 01/06/22 with AHI 79 [...] should follow up in 6-12 months Fatigue 33988772 R53.83 Persistent AHI is good, I do not think that GIAN is the primary cause of her fatigue Body mass index 30+ - obesity 268268367 Z68.36 Discussed weight management .Healthy well balanced meals.Incr ease exercise, ideally 30 minutes most days of the week. Bradycardia 42309529 R00 .1 54 regular today in office - she has not taken her metoprolol this morning.Ad vised FU with PCM [id number] Cammie Sun MD [facility] Internal Med [facility] [address] [facility] [address] [place] [address] 09/10/2023 16:03:23 09/10/2023 18:23:56 Dizziness 707343425 R42 Fatigue 50421689 R53.83 Hyperlipidemia 63332780 E78.5 [id number] Cammie Sun MD S_G Internal Med Félix jazz [address] [facility] [place] [address] 10/23/2023 10:00:40 10/23/2023 10:44:13 Bronchitis 99201391 J40 Health Concerns Section Related Observation LastModified by Organization Detai ls LastModified Time None Recorded Concern Status LastModified by Organization Details LastModified Time None Recorded Advance Directives Directive N: Payers Encounter Date Sequence Insurance Name Policy Number Policy Barriga Covered Member ID Barriga Member ID Guarantor Name 03/07/2023 1 [place] [id number] Daniella Hensleyth [id number] Daniella Dillard Chon 04/19/2023 1 [place] [id number] Daniella Messinarath [id number] Daniella Messinarath 09/10/2023 1 [place] [id number] Daniella Dillard Givens [id number] Daniella Dillard Givens 09/10/2023 1 [place] [id number] Daniella Dillard Givens [id number] Daniella Dillard Givens 10/23/2023 1 [place] [id number] Daniella Messinarath [id number] Daniella Messinarath Notes Date Note Type [...] caused more difficulty with fatigue and sleep Korin Ring, [facility]- [address], [place], [address], [employer] 03/07/2023 09:55:31 04/19/2023 text/html hypertension no headache dizziness. Diabetes no polyphagia polydipsia no problems with the Ozempic. Hyperlipidemia Try to follow low-fat diet skin lesion that she wants to have looked at underneath her right eye Cammie uSn MD [address], [address], [place], [address], [employer] 04/19/2023 21:45:55 09/10/2023 text/html Dizzy on standin g for about a week slight headache occiput some increased appetite she did have 1 fall with no injury Cammie Sun MD [address], [place], [address], [employer] 09/10/2023 23:01:24 09/10/2023 text/html Ms Chon edwards [...] in symptomsContinues to work on weight loss Korin Ring, [facility]- [address], [place], [address], [employer] 09/10/2023 12:34:33 10/23/2023 text/html Cough congestion wheezing week or 2 Cammie Sun MD [address], [place], [address], [employer] 10/23/2023 22:30:51 OBGyn Episode No OBEpisode recorded.
--- OUTSIDE RECORDS SUMMARY | 2025-02-20 19:56 | XMS_ITS | CONTINUITY OF CARE DOCUMENT ---
Author Name alivia bunch Address Unknown Organization [facility] Address [address] [address] [facility] [address] [place] [address] Phone [phone] Care Team Providers Care Press Department Manager Name Role Phone Alex Ward DO Unavailable [phone] MOSES DELATORRE, CAMMIE Bryan Unavailable [phone] MOSES DELATORRE, CAMMIE Bryan Unavailable PROBLEMS Condition Status Date Provider Notes Cardiovascular screening active Kalpana Kendrick Abnormal EKG [facility] INS[facility]ANCE PROVIDERS Payer name Policy type / Coverage type [place] red libertarian ID [facility] Blue [facility] [id number] TREATMENT PLAN Date Name CT, Coronary Calcium Score Complete Echo HISTORY OF PROCEDURES Procedure Date Procedure Name Provider Procedure Notes S tatus CT- Coronary CA score Alex Ward DO completed
--- OUTSIDE RECORDS SUMMARY | 2025-02-20 19:56 | XMS_ITS | Data Portability ---
Author Organization [facility] SIOMARAMarlon Cedillo Address [address] [facility] [place] [address] Care Team Providers Care Digester Operator Name Role Phone CAMMIE SUN Primary Care [...] 1 month when I see her back [email or web address] Not available 12/30/2023 15:41:04 04/24/2024 04/24/2024 we will try some cholestyramine healthy lifestyle care instructions given blood work has been ordered A1c was 5.9 follow up in 4 months [email or web address] Not available 05/04/2024 21:36:24 08/28/2024 08/28/2024 blood work has been ordered we will start GLP 1 Jeremiah Rudd she will follow up in 3 months all questions answered [email or web address] Not available 10/10/2024 14:01:39 11/27/2024 11/27/2024 healthy lifestyl e care instructions x-ray mandible refer for her jaw issue titrate her GLP 1 follow up in 4 months [email or web address] Not available 12/07/2024 17:37:28 01/29/2025 01/29/2025 History [...] her neck and some physical therapy started [email or web address] Not available 01/31/2025 20:34:56 Plan of Treatment Reminders Order Date Submit Date Provider Last Modified By Organization Details Last Modified Time Details Appointments ANY 15 2024 09:15A Patricia Sun MD Not available Not available Not available Lab CMP, serum or plasma 2023 024 [facility], [address], [place], [address], 08/29/2024 07:16:27 lipid panel, serum 2023 024 [facility], [address], [place], [address], 08/29/2024 07:16:25 CBC w/ auto diff 2023 024 [facility], [address], [place], [address], 08/29/2024 07:16:28 HbA1c (hemoglob in A1c), blood 2023 024 [email or web address] In-Office Order, Internal Use Only DO Not Attach Compendium DO Not Attach Compendium, Do Not Delete/merge, [id number] 04/24/2024 14:23:48 lipid panel, serum 2023 024 [facility], [address], [place], [address], 04/29/2024 09:44:14 CBC w/ auto diff 2023 024 [email or web address], [address], [place], [address], 04/29/2024 09:44:14 [facility], serum or plasma [facility] [address], [place], [address], 04/29/2024 09:44:14 CK (creatine kinase), total, serum 2023 024 [facility], [address], [place], [address], 12/28/2023 10:14:11 CMP, serum or plasma 2023 024 [facility], [address], [place], [address], 12/28/2023 10:14:10 CBC w/ auto diff 2023 024 [facility], [address], [place], [address], 12/28/2023 10:14:13 lipid panel, serum 2023 024 [facility], [address], [place], [address], 12/28/2023 10:14:10 TSH, ultra-sen sitive, serum 2023 024 [facility], [address], [place], [address], 12/28/2023 10:14:12 T3, free, serum or plasma 2023 024 [facility], [address], [place], [address], 12/28/2023 10:14:13 T4, free, serum 2023 024 [facility], [address], [place], [address], 12/28/2023 10:14:14 Referral None recorded. Procedures lexiscan cardiolit e stress test (PROC) 2023 024 [email or web address] [facility], [address], [address], [place], [address], 05/27/2024 10:48:14 Surgeries None recorded. Imaging US, echocardi ogram 2023 024 SAGAR [facility], [address], [address], [place], [address], 01/25/2024 15:02:06 Medication Orders cyclobenz aprine 10 mg tablet 2024 025 [place] [address] [facility] #[id number], [address], [place], [place], [id number], 01/30/2025 11:30:33 Medrol ([place]) 4 mg tablets in a dose pack 2024 025 [place] [address] [facility] #[id number], [address], [place], [place], [id number], 01/30/2025 11:30:33 Mounjaro 2.5 mg/0.5 mL subcutane ous pen injector 2023 024 [email or web address] [facility] #[id number], [address], [place], [place], [id number], 11/27/2024 10:39:06 Cholestyr amine Light 4 gram oral powder 2023 024 [place] [address] [facility] #[id number], [address], [place], [place], [id number], 04/24/2024 14:23:48 Patient TargetsNo targets recorded. Patient Instructions Encounter Date Encounter Id Patient Instructions Last Modified By Organization Details Last Modified Time 04/24/2024 [id number] A healthy lifestyle: care instructions [email or web address] Not available 04/24/2024 14:23:48 08/28/2024 [id number] A healthy lifestyle: care instructions [email or web address] Not available 08/28/2024 13:45:10 11/27/2024 [id number] A healthy lifestyle: care instructions [email or web address] Not available 11/27/2024 13:40:37 01/29/2025 [id number] A healthy lifestyle: care instructions [email or web address] Not available 01/29/2025 17:42:03 Reason for Referral None Reported. Results Created Date Observation Date Name Description Value Unit Range Abnormal Flag Note LastModifiedBy Organization Detail LastModifiedTime 12/27/19 24 12/28/2023 LIPID PANEL cholesterol, total 163 mg/dL 100-19 9 Not Available [facility] ([facility]) [address] [place], [address], 12/28/2023 10:14:09 12/27/19 24 12/28/2023 LIPID PANEL triglyceride s 123 mg/dL 0-149 Not Available [facility]) [address] [place], [address], 12/28/2023 10:14:09 12/27/19 24 12/28/2023 LIPID PANEL HDL cholesterol 51 mg/dL >39 Not Available [facility] [address] [place], [address], 12/28/2023 10:14:09 12/27/19 24 12/28/2023 LIPID PANEL VLDL cholesterol david 22 mg/dL 5-40 Not Available [facility]) [address] [place], [address], 12/28/2023 10:14:09 12/27/19 24 12/28/2023 LIPID PANEL LDL chol calc ([facility]) 90 mg/dL 0-99 Not Available [facility] [address] [place], [address], 12/28/2023 10:14:09 12/27/19 24 12/28/2023 COMP. METAB OLIC PANEL (14) glucose 139 mg/dL 70-99 above high normal Not Available [facility] ([facility]) [address], [place], [address], 12/28/2023 10:14:10 12/27/19 24 12/28/2023 COMP. METAB OLIC PANEL (14) BUN 14 mg/dL 6-24 Not Available [facility] ([facility]) [address], [place], [address], 12/28/2023 10:14:10 12/27/19 24 12/28/2023 COMP. METAB OLIC PANEL (14) creatinine 0.78 mg/dL 0.57-1 .00 Not Available [facility] ([facility]) [address] [place], [address], 12/28/2023 10:14:10 12/27/19 24 12/28/2023 COMP. METAB OLIC PANEL (14) eGFR 89 mL/mi n/1.7 3 >59 Not Available [facility] ([facility]) [address] [place], [address], 12/28/2023 10:14:10 12/27/19 24 12/28/2023 COMP. METAB OLIC PANEL (14) BUN/creatini ne ratio 18 9-23 Not Available [facility]) [address] [facility] [place], [address], 12/28/2023 10:14:10 12/27/19 24 12/28/2023 COMP. METAB OLIC PANEL (14) sodium 140 mmol/ L 134-14 4 Not Available [facility] ([facility]) [address] [facility] [place], [address], 12/28/2023 10:14:10 12/27/19 24 12/28/2023 COMP. METAB OLIC PANEL (14) potassium 4.3 mmol/ L 3.5-5. 2 Not Available [facility] ([facility]) [address] [place], [address], 12/28/2023 10:14:10 12/27/19 24 12/28/2023 COMP. METAB OLIC PANEL (14) chloride 101 mmol/ L 96-106 Not Available [facility] ([facility]) [address] [facility], [place], [address], 12/28/2023 10:14:10 12/27/19 24 12/28/2023 COMP. METAB OLIC PANEL (14) carbon dioxide, total 23 mmol/ L 20-29 Not Available [facility] ([facility]) [address] [facility], [place], [address], 12/28/2023 10:14:10 12/27/19 24 12/28/2023 COMP. METAB OLIC PANEL (14) calcium 9.4 mg/dL 8.7-10 .2 Not Available [facility] ([facility]) [address] [facility], [place], [address], 12/28/2023 10:14:10 12/27/19 24 12/28/2023 COMP. METAB OLIC PANEL (14) protein, total 6.6 g/dL 6.0-8. 5 Not Available [facility] ([facility]) [address] [facility], [place], [address], 12/28/2023 10:14:10 12/27/19 24 12/28/2023 COMP. METAB OLIC PANEL (14) albumin 4.1 g/dL 3.8-4. 9 Not Available [facility] ([facility]) [address] [facility], [place], [address], 12/28/2023 10:14:10 12/27/19 24 12/28/2023 COMP. METAB OLIC PANEL (14) globulin, total 2.5 g/dL 1.5-4. 5 Not Available [facility] ([facility]) [address] [facility], [place], [address], 12/28/2023 10:14:10 12/27/19 24 12/28/2023 COMP. METAB OLIC PANEL (14) A/G ratio 1.6 1.2-2. 2 Not Available [facility] ([facility]) [address] [place], [address], 12/28/2023 10:14:10 12/27/19 24 12/28/2023 COMP. METAB OLIC PANEL (14) bilirubin, total 0.3 mg/dL 0.0-1. 2 Not Available [facility] ([facility]) [address] [place], [address], 12/28/2023 10:14:10 12/27/19 24 12/28/2023 COMP. METAB OLIC PANEL (14) alkaline phosphatase 113 IU/L 44-121 Not Available [facility] [address] [place], [address], 12/28/2023 10:14:10 12/27/19 24 12/28/2023 COMP. METAB OLIC PANEL (14) AST (SGOT) 20 IU/L 0-40 Not Available [facility] ([facility]) [address] [place], [address], 12/28/2023 10:14:10 12/27/19 24 12/28/2023 COMP. METAB OLIC PANEL (14) ALT (SGPT) 23 IU/L 0-32 Not Available [facility] ([facility] [address] [place], [address], 12/28/2023 10:14:10 12/27/19 24 12/28/2023 CK creatine kinase,total 79 U/L 32-182 Not Available [facility]) [address] [place], [address], 12/28/2023 10:14:11 12/27/19 24 12/28/2023 TSH TSH 1.480 uIU/m L 0.450- 4.500 Not Available [facility] ([facility]) [address] [facility], [place], [address], 12/28/2023 10:14:12 12/27/19 24 12/28/2023 CBC WITH DIFFE RENTI AL/PL ATELE T WBC 5.5 x10e3 /uL 3.4-10 .8 Not Available [facility] ([facility]) [address] [facility], [place], [address], 12/28/2023 10:14:13 12/27/19 24 12/28/2023 CBC WITH DIFFE RENTI AL/PL ATELE T RBC 4.22 x10e6 /uL 3.77-5 .28 Not Available [facility] ([facility]) [address] [facility], [place], [address], 12/28/2023 10:14:13 12/27/19 24 12/28/2023 CBC WITH DIFFE RENTI AL/PL ATELE T hemoglobin 13.4 g/dL 11.1-1 5.9 Not Available [facility] ([facility]) [address] [facility], [place], [address], 12/28/2023 10:14:13 12/27/19 24 12/28/2023 CBC WITH DIFFE RENTI AL/PL ATELE T hematocrit 38.7 % 34.0-4 6.6 Not Available [facility] ([facility]) [address] [facility], [place], [address], 12/28/2023 10:14:13 12/27/19 24 12/28/2023 CBC WITH DIFFE RENTI AL/PL ATELE T MCV 92 fL 79-97 Not Available [facility] ([facility]) [address] [facility], [place], [address], 12/28/2023 10:14:13 12/27/19 24 12/28/2023 CBC WITH DIFFE RENTI AL/PL ATELE T MCH 31.8 pg 26.6-3 3.0 Not Available [facility] ([facility]) [address] [facility], [place], [address], 12/28/2023 10:14:13 12/27/19 24 12/28/2023 CBC WITH DIFFE RENTI AL/PL ATELE T MCHC 34.6 g/dL 31.5-3 5.7 Not Available [facility] ([facility]) [address] [facility], [place], [address], 12/28/2023 10:14:13 12/27/19 24 12/28/2023 CBC WITH DIFFE RENTI AL/PL ATELE T RDW 12.9 % 11.7-1 5.4 Not Available [facility] ([facility]) [address] [facility], [place], [address], 12/28/2023 10:14:13 12/27/19 24 12/28/2023 CBC WITH DIFFE RENTI AL/PL ATELE T platelets 290 x10e3 /uL 150-45 0 Not Available [facility] ([facility]) [address] [facility], [place], [address], 12/28/2023 10:14:13 12/27/19 24 12/28/2023 CBC WITH DIFFE RENTI AL/PL ATELE T neutrophils 61 % notest ab. Not Available [facility] ([facility]) [address] [place], [address], 12/28/2023 10:14:13 12/27/19 24 12/28/2023 CBC WITH DIFFE RENTI AL/PL ATELE T lymphs 31 % notest ab. Not Available [facility] ([facility]) [address] [place], [address], 12/28/2023 10:14:13 12/27/19 24 12/28/2023 CBC WITH DIFFE RENTI AL/PL ATELE T monocytes 6 % notest ab. Not Available [facility] ([facility]) [address] [place], [address], 12/28/2023 10:14:13 12/27/19 24 12/28/2023 CBC WITH DIFFE RENTI AL/PL ATELE T eos 1 % notest ab. Not Available [facility] ([facility]) [address] [facility], [place], [address], 12/28/2023 10:14:13 12/27/19 24 12/28/2023 CBC WITH DIFFE RENTI AL/PL ATELE T basos 1 % notest ab. Not Available [facility] ([facility]) [address] [facility], [place], [address], 12/28/2023 10:14:13 12/27/19 24 12/28/2023 CBC WITH DIFFE RENTI AL/PL ATELE T neutrophils (absolute) 3.4 x10e3 /uL 1.4-7. 0 Not Available [facility] ([facility]) [address] [facility], [place], [address], 12/28/2023 10:14:13 12/27/19 24 12/28/2023 CBC WITH DIFFE RENTI AL/PL ATELE T lymphs (absolute) 1.7 x10e3 /uL 0.7-3. 1 Not Available [facility] ([facility]) [address] [facility], [place], [address], 12/28/2023 10:14:13 12/27/19 24 12/28/2023 CBC WITH DIFFE RENTI AL/PL ATELE T monocytes(ab solute) 0.3 x10e3 /uL 0.1-0. 9 Not Available [facility] ([facility]) [address] [facility], [place], [address], 12/28/2023 10:14:13 12/27/19 24 12/28/2023 CBC WITH DIFFE RENTI AL/PL ATELE T eos (absolute) 0.1 x10e3 /uL 0.0-0. 4 Not Available [facility] ([facility]) [address] [facility], [place], [address], 12/28/2023 10:14:13 12/27/19 24 12/28/2023 CBC WITH DIFFE RENTI AL/PL ATELE T baso (absolute) 0.0 x10e3 /uL 0.0-0. 2 Not Available [facility] ([facility]) [address] [place], [address], 12/28/2023 10:14:13 12/27/19 24 12/28/2023 CBC WITH DIFFE RENTI AL/PL ATELE T immature granulocytes 0 % notest ab. Not Available [facility] ([facility]) [address] [facility], [place], [address], 12/28/2023 10:14:13 12/27/19 24 12/28/2023 CBC WITH DIFFE RENTI AL/PL ATELE T immature grans (abs) 0.0 x10e3 /uL 0.0-0. 1 Not Available [facility] ([facility]) [address] [place], [address], 12/28/2023 10:14:13 12/27/19 24 12/28/2023 TRIIO DOTHY KEREN E (T3), FREE triiodothyro nine (T3), free 2.6 pg/mL 2.0-4. 4 Not Available [facility] ([facility]) [address] [place], [address], 12/28/2023 10:14:13 12/27/19 24 12/28/2023 T4,FR EE(DI RECT) T4,free(dire ct) 1.00 NG/dL 0.82-1 .77 Not Available [facility] ([facility]) [address] [place], [address], 12/28/2023 10:14:14 04/24/20 24 04/24/2024 HbA1c (hemo globi n A1c), blood HbA1c 5.9 Not Available In-Office Order Internal Use Only DO Not Attach Compendium DO Not Attach Compendium, Do Not Delete/merge, [id number] 04/23/2024 14:11:04 06/20/20 24 06/20/2024 COLOG UARD [...] res) is prese nt. The [facility] e that a perso n with [...] study of 0 indiv idual s at [place] [facility] risk for color ectal cance r [...] asymp tomat ic indiv idual s at [place] [facility] risk for color ectal cance r. Follo wing a negat aishwarya Colog uard resul t, the Ameri can Cance r Socie ty and U.S. Multi -Soci ety Task Force scree palomo guide lines recom mend a Colog uard re-sc reeni ng inter smii of 3 years . Refer ences : [...] 112:1 016-1 030. TEST DESCR IPTIO N: [place] site algor ithmi c isamar sis of [...] years or older , who are at [facility] for color ectal cance r (CRC) . Colog uard has been appro lesley for use by the [place]. FDA. The perfo rmanc e of Colog uard was estab lishe d in a cross secti onal study of [facility] adult s aged 50-84 . Colog [...] at www.c ologu moe.c om. Not Available [facility] (Cologuard Orders Only) [address], [place], [address], 06/25/2024 14:54:41 08/28/20 24 08/29/2024 LIPID PANEL cholesterol, total 163 mg/dL 100-19 9 Not Available [facility] ([facility]) [address] [facility], [place], [address], 08/29/2024 07:16:25 08/28/20 24 08/29/2024 LIPID PANEL triglyceride s 156 mg/dL 0-149 above high normal Not Available [facility] ([facility]) [address] [facility], [place], [address], 08/29/2024 07:16:25 08/28/20 24 08/29/2024 LIPID PANEL HDL cholesterol 49 mg/dL >39 Not Available [facility]) [address] [facility] [place], [address], 08/29/2024 07:16:25 08/28/20 24 08/29/2024 LIPID PANEL VLDL cholesterol david 27 mg/dL 5-40 Not Available [facility] [address] [place], [address], 08/29/2024 07:16:25 08/28/20 24 08/29/2024 LIPID PANEL LDL chol calc ([facility]) 87 mg/dL 0-99 Not Available [facility] [address] [place], [address], 08/29/2024 07:16:25 08/28/20 24 08/29/2024 COMP. METAB OLIC PANEL (14) glucose 121 mg/dL 70-99 above high normal Not Available [facility] ([facility]) [address] [place], [address], 08/29/2024 07:16:26 08/28/20 24 08/29/2024 COMP. METAB OLIC PANEL (14) BUN 12 mg/dL 6-24 Not Available [facility] ([facility]) [address] [place], [address], 08/29/2024 07:16:26 08/28/20 24 08/29/2024 COMP. METAB OLIC PANEL (14) creatinine 0.86 mg/dL 0.57-1 .00 Not Available [facility] ([facility]) [address] [place], [address], 08/29/2024 07:16:26 08/28/20 24 08/29/2024 COMP. METAB OLIC PANEL (14) eGFR 78 mL/mi n/1.7 3 >59 Not Available [facility] ([facility]) [address] [place], [address], 08/29/2024 07:16:26 08/28/20 24 08/29/2024 COMP. METAB OLIC PANEL (14) BUN/creatini ne ratio 14 9-23 Not Available [facility] ([facility]) [address] [place], [address], 08/29/2024 07:16:26 08/28/20 24 08/29/2024 COMP. METAB OLIC PANEL (14) sodium 137 mmol/ L 134-14 4 Not Available [facility] ([facility]) [address] [facility] [place], [address], 08/29/2024 07:16:26 08/28/20 24 08/29/2024 COMP. METAB OLIC PANEL (14) potassium 4.7 mmol/ L 3.5-5. 2 Not Available [facility] ([facility]) [address] [place], [address], 08/29/2024 07:16:26 08/28/20 24 08/29/2024 COMP. METAB OLIC PANEL (14) chloride 102 mmol/ L 96-106 Not Available [facility] ([facility]) [address] [place], [address], 08/29/2024 07:16:26 08/28/20 24 08/29/2024 COMP. METAB OLIC PANEL (14) carbon dioxide, total 24 mmol/ L 20-29 Not Available [facility] ([facility]) [address] [place], [address], 08/29/2024 07:16:26 08/28/20 24 08/29/2024 COMP. METAB OLIC PANEL (14) calcium 9.6 mg/dL 8.7-10 .2 Not Available [facility] ([facility]) [address] [place], [address], 08/29/2024 07:16:26 08/28/20 24 08/29/2024 COMP. METAB OLIC PANEL (14) protein, total 7.1 g/dL 6.0-8. 5 Not Available [facility] ([facility]) [address] [facility] [place], [address], 08/29/2024 07:16:26 08/28/20 24 08/29/2024 COMP. METAB OLIC PANEL (14) albumin 4.4 g/dL 3.8-4. 9 Not Available [facility] ([facility]) [address] [facility] [place], [address], 08/29/2024 07:16:26 08/28/20 24 08/29/2024 COMP. METAB OLIC PANEL (14) globulin, total 2.7 g/dL 1.5-4. 5 Not Available [facility] ([facility]) [address] [facility] [place], [address], 08/29/2024 07:16:26 08/28/20 24 08/29/2024 COMP. METAB OLIC PANEL (14) bilirubin, total 0.4 mg/dL 0.0-1. 2 Not Available [facility] ([facility]) [address] [facility] [place], [address], 08/29/2024 07:16:26 08/28/20 24 08/29/2024 COMP. METAB OLIC PANEL (14) alkaline phosphatase 124 IU/L 44-121 above high normal Not Available [facility] ([facility]) [address] [facility] [place], [address], 08/29/2024 07:16:26 08/28/20 24 08/29/2024 COMP. METAB OLIC PANEL (14) AST (SGOT) 23 IU/L 0-40 Not Available [facility] ([facility]) [address] [facility] [place], [address], 08/29/2024 07:16:26 08/28/20 24 08/29/2024 COMP. METAB OLIC PANEL (14) ALT (SGPT) 31 IU/L 0-32 Not Available [facility] ([facility]) [address] [facility], [place], [address], 08/29/2024 07:16:26 08/28/20 24 08/29/2024 CBC WITH DIFFE RENTI AL/PL ATELE T WBC 6.8 x10e3 /uL 3.4-10 .8 Not Available [facility] ([facility]) [address] [facility], [place], [address], 08/29/2024 07:16:28 08/28/20 24 08/29/2024 CBC WITH DIFFE RENTI AL/PL ATELE T RBC 4.65 x10e6 /uL 3.77-5 .28 Not Available [facility] ([facility]) [address] [facility], [place], [address], 08/29/2024 07:16:28 08/28/20 24 08/29/2024 CBC WITH DIFFE RENTI AL/PL ATELE T hemoglobin 14.9 g/dL 11.1-1 5.9 Not Available [facility] ([facility]) [address] [facility], [place], [address], 08/29/2024 07:16:28 08/28/20 24 08/29/2024 CBC WITH DIFFE RENTI AL/PL ATELE T hematocrit 44.5 % 34.0-4 6.6 Not Available [facility] ([facility]) [address] [facility], [place], [address], 08/29/2024 07:16:28 08/28/20 24 08/29/2024 CBC WITH DIFFE RENTI AL/PL ATELE T MCV 96 fL 79-97 Not Available [facility] ([facility]) [address] [place], [address], 08/29/2024 07:16:28 08/28/20 24 08/29/2024 CBC WITH DIFFE RENTI AL/PL ATELE T MCH 32.0 pg 26.6-3 3.0 Not Available [facility] ([facility]) [address] [facility], [place], [address], 08/29/2024 07:16:28 08/28/20 24 08/29/2024 CBC WITH DIFFE RENTI AL/PL ATELE T MCHC 33.5 g/dL 31.5-3 5.7 Not Available [facility] ([facility]) [address] [facility], [place], [address], 08/29/2024 07:16:28 08/28/20 24 08/29/2024 CBC WITH DIFFE RENTI AL/PL ATELE T RDW 12.5 % 11.7-1 5.4 Not Available [facility] ([facility]) [address] [facility], [place], [address], 08/29/2024 07:16:28 08/28/20 24 08/29/2024 CBC WITH DIFFE RENTI AL/PL ATELE T platelets 267 x10e3 /uL 150-45 0 Not Available [facility] ([facility]) [address] [facility], [place], [address], 08/29/2024 07:16:28 08/28/20 24 08/29/2024 CBC WITH DIFFE RENTI AL/PL ATELE T neutrophils 60 % notest ab. Not Available [facility] ([facility]) [address] [place], [address], 08/29/2024 07:16:28 08/28/20 24 08/29/2024 CBC WITH DIFFE RENTI AL/PL ATELE T lymphs 30 % notest ab. Not Available [facility] ([facility]) [address] [place], [address], 08/29/2024 07:16:28 08/28/20 24 08/29/2024 CBC WITH DIFFE RENTI AL/PL ATELE T monocytes 8 % notest ab. Not Available [facility] ([facility]) [address] [place], [address], 08/29/2024 07:16:28 08/28/20 24 08/29/2024 CBC WITH DIFFE RENTI AL/PL ATELE T eos 2 % notest ab. Not Available [facility] ([facility]) [address] [facility], [place], [address], 08/29/2024 07:16:28 08/28/20 24 08/29/2024 CBC WITH DIFFE RENTI AL/PL ATELE T basos 0 % notest ab. Not Available [facility] ([facility]) [address] [facility], [place], [address], 08/29/2024 07:16:28 08/28/20 24 08/29/2024 CBC WITH DIFFE RENTI AL/PL ATELE T neutrophils (absolute) 4.1 x10e3 /uL 1.4-7. 0 Not Available [facility] ([facility]) [address] [facility], [place], [address], 08/29/2024 07:16:28 08/28/20 24 08/29/2024 CBC WITH DIFFE RENTI AL/PL ATELE T lymphs (absolute) 2.1 x10e3 /uL 0.7-3. 1 Not Available [facility] ([facility]) [address] [facility], [place], [address], 08/29/2024 07:16:28 08/28/20 24 08/29/2024 CBC WITH DIFFE RENTI AL/PL ATELE T monocytes(ab solute) 0.5 x10e3 /uL 0.1-0. 9 Not Available [facility] ([facility]) [address] [facility], [place], [address], 08/29/2024 07:16:28 08/28/20 24 08/29/2024 CBC WITH DIFFE RENTI AL/PL ATELE T eos (absolute) 0.1 x10e3 /uL 0.0-0. 4 Not Available [facility] ([facility]) [address] [facility], [place], [address], 08/29/2024 07:16:28 08/28/20 24 08/29/2024 CBC WITH DIFFE RENTI AL/PL ATELE T baso (absolute) 0.0 x10e3 /uL 0.0-0. 2 Not Available [facility] ([facility]) [address] [facility], [place], [address], 08/29/2024 07:16:28 08/28/20 24 08/29/2024 CBC WITH DIFFE RENTI AL/PL ATELE T immature granulocytes 0 % notest ab. Not Available [facility] ([facility]) [address] [facility], [place], [address], 08/29/2024 07:16:28 08/28/20 24 08/29/2024 CBC WITH DIFFE RENTI AL/PL ATELE T immature grans (abs) 0.0 x10e3 /uL 0.0-0. 1 Not Available [facility] ([facility]) [address] [facility], [place], [address], 08/29/2024 07:16:28 09/16/20 24 09/17/2024 HEMOG LOBIN A1C hemoglobin A1C 6.3 % 4.8-5. 6 above high normal Predi abete s: 5.7 - 6.4 Diabe lucita: >6.4 Glyce phillip contr ol for adult s with diabe lucita: <7.0 Not Available [facility] ([facility]) [address] [facility], [place], [address], 09/17/2024 08:29:52 12/27/19 24 12/27/2023 elect deborah ferrogr am No observ ation record ed. Not Available 2023 21:36:57 01/25/20 24 01/25/2024 , echo ardio gram No observ ation record ed. [facility] [address], [place], [address], 01/25/2024 17:23:34 02/25/20 24 02/25/2024 CT, chest , w/o contr ast No observ ation record ed. [address] [facility], [place], [address], 02/26/2024 15:30:45 12/10/19 25 12/10/2024 XR, panfilo ble No observ ation record ed. [address], [place], [address], 12/12/2024 12:20:11 12/10/19 25 12/10/2024 XR, panfilo ble No observ ation record ed. [address] [address], [place], [address], 12/12/2024 12:20:12 12/18/19 25 12/17/2024 MAMMO , scree palomo, digit al, bilat eral No observ ation record ed. [facility] [address] [facility], [place], [address], 12/22/2024 17:48:06 01/06/20 25 01/03/2025 CT, coron sheron calci um score No observ ation record ed. [facility] [address], [place], [address], 01/07/2025 10:22:03 02/05/20 25 02/04/2025 XR, neck No observ ation record ed. [address] [place] [address], [address], 02/19/2025 14:50:13 Result Notes None recorded. Problems Name Problem SNOMED Code Status Onset Date Resolution Date Notes Provider Name and Address Organization Details Recorded Time Fatigue 60118026 Active 2023 Cammie Sun MD Attn: Austin ontiveros,[address] [facility], [place], [address], [place] [facility] 4 15:39:10 Essential hypertension 68646937 Active 2023 Cammie Sun MD Attn: Austin ontiveros,[address] [facility], [place], [address], [place] [facility] 4 15:39:11 Type 2 diabetes mellitus 71106115 Active 2023 Reg Carlson [place] null, [place] [facility] 4 10:41:40 Morbid obesity 127097435 Active 2023 Reg Carlson [place] [facility] 4 10:41:41 Diarrhea 70380850 Active 2023 Reg Carl[place] [facility] 4 10:41:42 Hyperlipidemia 74863581 Active 2023 Cammie Sun MD Attn: Austin ontiveros,[address] [facility], [place], [address], [place] [facility] 4 14:01:58 Problem Notes None recorded. Procedures Surgical History Date Name Laterality Status Provider Name and Address Organization Details Recorded Time LEEP completed Stephanie man [place] [facility] 12/27/2023 11:41:24 Imaging Results Imaging Date Name Status LastModified by Organization Details LastModified Time 12/27/2023 electrocardiogram completed [id number] Informa tion not available 12/30/2023 21:36:57 01/25/2024 US, echocardiogram completed [facility] [address], [place], [address], 01/25/2024 17:23:34 02/25/2024 CT, chest, w/o contrast completed [address], [address], 02/26/2024 15:30:45 12/10/2024 XR, mandible completed [address], [address], 12/12/2024 12:20:11 12/10/2024 XR, mandible completed [facility] [address], [place], [address], 12/12/2024 12:20:12 12/17/2024 MAMMO, screening, digital, bilateral completed [facility] [address] [facility], [place], [address], 12/22/2024 17:48:06 01/03/2025 CT, coronary calcium score completed [facility] [address], [place], [address], 01/07/2025 10:22:03 02/04/2025 XR, neck completed [facility] [address], [place], [address], 02/19/2025 14:50:13 Procedure Notes None recorded. Medical Equipment None [...] Updated DateTime 4 167.64 cm 42.3 kg/m2 847198. 2 g 95 % 95 % 63 /min 136 mm[Hg] 64 mm[Hg] Stephanie Mills MA [facility] 4 11:46:30 Date Recorded Body height Body mass index (BMI) Body weight Heart rate Oxygen saturation Oxygen saturation in Arterial blood by Pulse oximetry Systolic blood pressure Diastolic blood pressure Provider Name and Address Organization Details Last Updated DateTime 4 167.64 cm 41.9 kg/m2 652668. 5 g 61 /min 98 % 98 % 120 mm[Hg] 70 mm[Hg] July Soni MA [facility] 4 09:53:29 Date Recorded Body height Body mass index (BMI) Body weight Heart rate Oxygen saturation Oxygen saturation in Arterial blood by Pulse oximetry Body temperature Systolic blood pressure Diastolic blood pressure Provider Name and Address Organization Details Last Updated DateTime 4 167.64 cm 41.2 kg/m2 791754. 05 g 70 /min 98 % 98 % 97.6 [degF] 132 mm[Hg] 86 mm[Hg] Patricia Ontiveros MA [facility] 4 10:12:19 Date Recorded Body height Body mass index (BMI) Body weight Heart rate Oxygen saturation Oxygen saturation in Arterial blood by Pulse oximetry Systolic blood pressure Diastolic blood pressure Provider Name and Address Organization Details Last Updated DateTime 5 167.64 cm 41.8 kg/m2 241459. 71 g 68 /min 99 % 99 % 118 mm[Hg] 68 mm[Hg] Tracy MANDY Khalil [facility] 5 10:37:26 Date Recorded Body height Body mass index (BMI) Body weight Heart rate Oxygen saturation Oxygen saturation in Arterial blood by Pulse oximetry Systolic blood pressure Diastolic blood pressure Provider Name and Address Organization Details Last Updated DateTime 167.64 cm 41.6 kg/m2 961325. 11 g 85 /min 96 % 96 % 120 mm[Hg] 68 mm[Hg] July Soni [place] [facility] 5 16:23:53 Social History Question Answer Notes LastModified by Organizat ion Details LastModified Time Tobacco Smoking Status Former Smoker Stephanie Mills MA [facility] 12/27/2023 11:39:57 Do You Have An [...] Anxious, Or Unable To Sleep At Night)? DS6414-4 Information not available 12/27/2023 Do You Use [...] Response Coronary Artery Disease N Other N Atrial Fibrillation N High Blood Pressure N Thyroid Problems N Kidney or Bladder Problems Y Depression N COPD N Blood Clots N GI Problems N Skin Problems N Anemia N Heart Attack (CA) N Diabetes Y Anxiety Disorder N Muscle, Joint, or Bone Problems N Seizures/Epilepsy N Acid Reflux (GERD) N Cancer N Stroke N Allergies N Asthma N High Cholesterol Y Hepatitis N Liver Disease N Headaches N Osteoporosis N Heart Failure N Gynecological HistoryNo gynecological history recorded. Obstetrics History GPAL:G 0 P 0 0 0 0 Immunizations Vaccine Type Date Status Note Provider Nam e and Address Organization Details Recorded Time COVID-19, mRNA, LNP-S, PF, 100 mcg/0.5mL dose or 50 mcg/0.25mL dose 10/19/2021 completed MANDY Morse, [place] 04/23/2024 14:08:44 COVID-19 vaccine, vector-nr, rS-Ad26, PF, 0.5 mL 01/17/2021 [place]Y [place] 04/23/2024 14:08:44 COVID-19, mRNA, LNP-S, bivalent, PF, 30 mcg/0.3 mL dose 11/16/2022 completed [place]Y [place] 04/23/2024 14:08:44 Influenza, split virus, quadrivalent, PF 08/17/2022 [place]Y Sam[place] 04/23/2024 14:08:44 Past Encounters Encounter ID Performer Location Encounter Start Date Encounter Closed Date Diagnosis/Indication Diagnosis SNOMED-CT Code Diagnosis ICD10 Code Diagnosis Note [id number] Cammie Sun MD [facility] (Adult Med) [address] [place] [address] 12/27/2023 11:13:08 12/27/2023 12:37:12 Fatigue 32117645 R53.83 Essential hypertension 38865354 I10 Muscle pain 27921241 M79 .10 Dizziness 285617546 R42 Electrocar diogram abnormal 507585786 R94.31 Obstructiv e sleep apnea syndrome 47716298 G47.33 Obesity 073285494 E66.9 Hyperlipidemia 35294543 E78.5 Type 2 sonny betes mellitus 54905815 E11.9 [id number] Cammie Sun MD [facility] [address] [place] [address] 04/24/2024 09:37:14 04/24/2024 10:54:29 Type 2 diabetes mellitus 67704230 E11.9 Morbid obesity 474333503 E66.01 Diarrhea 04922105 R19.7 Essential hypertension 35628682 I10 [id number] Cammie Sun MD COUNTS INCLUDE 234 BEDS AT [facility] [address] [place] [address] 08/28/2024 09:54:50 08/28/2024 10:48:56 Obesity 626927725 E66.9 Essential hypertension 14847416 I10 Type 2 sonny betes mellitus 96991314 E11.9 Fatigue 79607255 R53.83 Hyperlipidemia 71690897 E78.5 [id number] Cammie Sun MD COUNTS INCLUDE 234 BEDS AT THE [facility] [address] [place] [address] 11/27/2024 10:08:03 11/27/2024 11:40:05 Body mass index 40+ - severely obese 186080240 Z68.41 Morbid obesity 981765315 E66.01 Type 2 sonny betes mellitus 39033588 E11.9 Essential hypertension 83323636 I10 Hyperlipidemia 42560144 E78.5 [id number] Cammie Sun MD COUNTS INCLUDE 234 BEDS AT [facility] [address] [place] [address] 01/29/2025 16:12:18 01/29/2025 16:47:06 Body mass index 40+ - severely obese 888521192 Z68.41 Obesity 383265528 E66.9 Cervical radiculopathy 31525368 M54.12 Health Concerns Section Related Observation LastModified by Organization Detai ls LastModified Time None Recorded Concern Status LastModified by Organization Details LastModified Time None Recorded Advance Directives Directive N: Payers Encounter Date Sequence Insurance Name Policy Number Policy Barriga Covered Member ID Barriga Member ID Guarantor Name 12/27/2023 1 [place] [id number] Daniella Givens [id number] Daniella Givens 04/24/2024 1 [place] [id number] Daniella Givens [id number] Daniella Givens 08/28/2024 1 [place] [id number] Daniella Givens [id number] Daniella Givens 11/27/2024 1 [place] [id number] Daniella Givens [id number] Daniella Givens 01/29/2025 1 [facility]: ([place] [id number] Daniella Givens [id number] Daniella Givens Notes Date Note Type [...] Sun MD Attn: Accounting,[address] [facility], [place], [address], [facility] 12/30/2023 15:42:02 04/24/2024 text/html Fatigue just bot [...] diarrhea Cammie Sun MD Attn: Accounting, [address] [facility], [place], [address], [facility] - [facility] 05/04/2024 21:36:49 08/28/2024 text/html [...] Sun MD Attn: Accounting,[address] [facility], [place], [address], [facility] - [facility] 10/10/2024 14:02:23 11/27/2024 text/html hypertension blo od pressure looks good still some intermittent fatigue she was seen the sleep doctor they are optimizing her treatment some troubles with the right TMJ joint causes her some pain hard to completely close her jaw at times dyslipidemia could do better with diet Cammie Sun MD Attn: Accounting,[address] [facility], [place], [address], [facility] 12/07/2024 17:37:53 01/29/2025 text/html Few weeks now pa in in her neck going down her left arm and inside of her forearm the base of her thumb is numb from time to time there has not been any bowel or bladder incontinence she is not unstable on her feet no no trauma Cammie Sun MD Attn: Accounting,[address] [facility], [place], [address], [facility] 01/31/2025 20:35:51 OBGyn Episode No OBEpisode recorded.
[2025-02-20 19:58] VITALS: BP 169/81; PULSE 89; RESP 18; TEMP 36.5; O2SAT 98
--- NOTE | 2025-02-20 20:03 | ED_ITS ---
HPI - General Adult General Chief complaint: Extremity Injury, Lower Stated complaint: fell in hole/ left ankle injury Time Seen by Provider: 02/20/25 20:03 History of Present Illness HPI narrative: This is a 59-year-old female presenting with left ankle pain. She was walking when she stepped into a hole in her backyard. She then had immediate pain and swelling to the lateral side of her ankle. She then came to the hospital for evaluation. She has not attempted to bear weight. No other injuries. Related Data Home Medications ?Medication ?Instructions ?Recorded ?Confirmed ?Last Taken ?Type cholestyramine-aspartame 4 gram 1 ea PO DAILY 04/25/24 01/05/25 Unknown History oral powder (Cholestyramine Light) citalopram 20 mg tablet 10 mg PO DAILY 04/25/24 01/05/25 Unknown History metformin 500 mg tablet,extended mg PO 04/25/24 01/05/25 Unknown History release 24 hr metoprolol tartrate 25 mg tablet 12.5 mg PO DAILY 04/25/24 01/05/25 Unknown History atorvastatin 20 mg tablet (Lipitor) 20 mg PO DAILY 11/14/24 01/05/25 Unknown History Allergies Allergy/AdvReac Type Severity Reaction Status Date / Time codeine AdvReac Intermediate Rash Verified 01/05/25 13:20 acetaminophen (From Vicodin) AdvReac Mild Nausea Verified 01/05/25 13:20 hydrocodone (From Vicodin) AdvReac Mild Nausea Verified 01/05/25 13:20 PMFSH Past Medical History Medical History Obstructive sleep apnea Essential hypertension High cholesterol Diabetes Surgical History Surgical History History of cholecystectomy H/O LEEP Family History Family History Mother Heart disease Social History Social History Smoking packs per day: 2 Smoking cigarettes per day: 40.0 Years smoked: 15 Smoking pack-years: 30.00 Smoking status: Former smoker Alcohol intake: current Alcohol use details: Occasional Substance use: never Substance use type: does not use Do You Feel Safe in your Home?: Yes Lack of Transportation: No Lack of Food: Never True Current Housing: I Have Housing Concerned About Future Housing: No Difficulty Paying Gas/Electric Bills: No Difficulty Paying for Meds: No Currently Unemployed: No Education: High School Diploma/GED Difficulty w/ Childcare or Family Care: No Living arrangements: with family Occupation/Education: occupation Exam Narrative: APPEARANCE: No apparent distress. Head: atraumatic. EYES: EOMI, NOSE: Atraumatic NECK: Trachea midline RESPIRATORY: No increased rate of breathing CARDIOVASCULAR: RRR, ABDOMINAL: Non-distended MUSCULOSKELETAl: Focal exam of left ankle showed significant swelling around the lateral malleolus. No tenderness along passed posterior malleolar lateral lung base of the 5th metatarsal. Pulses are intact. Cap refills less than 2 seconds NEURO: Alert. Moving 4/4 extremities SKIN:: Warm, dry. Normal color PSYCHIATRIC: Normal affect Course Vital Signs Vital signs: Vital Signs Temperature 97.7 F 02/20/25 19:58 Pulse Rate 89 02/20/25 19:58 Respiratory Rate 18 02/20/25 19:58 Blood Pressure 169/81 H 02/20/25 19:58 Pulse Oximetry 98 02/20/25 19:58 Temperature 97.7 F 02/20/25 19:58 Pulse Rate 89 02/20/25 19:58 Respiratory Rate 18 02/20/25 19:58 Blood Pressure 169/81 H 02/20/25 19:58 Pulse Oximetry 98 02/20/25 19:58 Medical Decision Making MDM Narrative Medical decision making narrative: -Course: 59-year-old female presenting ankle pain after stepping in a hole. X- ray was negative for acute displaced fracture. Radiologist commented there is possibly a lucency over the lateral malleolus. Patient will be given Jhony bandage wrap/ NSAIDs. She is given crutch training. She will be given follow- up with her primary care physician or an orthopedic surgeon if her ankle pain does not improve over the next week. -DDX includes but is not limited to: Ankle sprain, ankle fracture -Shared decision making / Disposition: Discharge Vital Signs Vital Signs: Vital Signs Temperature 97.7 F 02/20/25 19:58 Pulse Rate 89 02/20/25 19:58 Respiratory Rate 18 02/20/25 19:58 Blood Pressure 169/81 H 02/20/25 19:58 Pulse Oximetry 98 05/09/25 19:58 Temperature 97.7 F 02/20/25 19:58 Pulse Rate 89 02/20/25 19:58 Respiratory Rate 18 02/20/25 19:58 Blood Pressure 169/81 H 02/20/25 19:58 Pulse Oximetry 98 02/20/25 19:58 Discharge Plan Discharge Clinical Impression: Ankle sprain Patient Disposition: Home Condition: Stable Instructions: Antibiotic Form Additional Instructions: Please use over the coutner Motrin and Tylenol for pain. Please use an Jhony bandage to decrease swelling. Use crutches as needed. If your pain does not improve over next week please follow-up with your primary care physician or the orthopedic surgeon listed below. If you develop severe pain or any new worsening symptoms please return to the ED. Patient Language: Kazakh Prescriptions: No Action atorvastatin [Lipitor] 20 mg tablet 20 mg PO DAILY citalopram 20 mg tablet 10 mg PO DAILY metoprolol tartrate 25 mg tablet 12.5 mg PO DAILY Cholestyramine Light 4 gram powder 1 ea PO DAILY metformin 500 mg tablet extended release 24 hr PO Follow-up/Referrals: Bakari,MD Wilber [Primary Care Provider] - 1 Week (Ankle pain ) Aleks Post MD [Physician] - 1 Week (Ankle pain )
--- OUTSIDE RECORDS SUMMARY | 2025-02-20 20:39 | XMS_ITS | CONTINUITY OF CARE DOCUMENT ---
Author Name alivia bunch Address Unknown Organization [facility] Address [address] [place] [address] Phone [phone] Care Team Providers Care Chili Powder Mixer Name Role Phone Alex Ward DO Unavailable [phone] MOSES DELATORRE, CAMMIE Bryan Unavailable MOSES DELATORRE, CAMMIE Bryan Unavailable [phone] PROBLEMS Condition Status Date Provider Notes Cardiovascular screening active Kalpana Kendrick Abnormal E[facility] Payer name Policy type / Coverage type [place] red [employer] ID [facility] Blue [facility] [id number] TREATMENT PLAN Date Name CT, Coronary Calcium Score Complete Echo HISTORY OF PROCEDURES Procedure Date Procedure Name Provider Procedure Notes S tatus CT- Coronary CA score Alex Ward DO completed
[2025-02-20] MEDS: IBUPROFEN 400 MG TABLET 800 MG PO (21:11)
[2025-02-20] MEDS: ACETAMINOPHEN 500 MG TABLET 1000 MG PO (21:11)
[2025-02-20 21:40] VITALS: BP 160/74; PULSE 79; RESP 17; TEMP 36.6; O2SAT 98
[2025-02-20 21:42] VITALS: BP 160/74; PULSE 79; RESP 17; TEMP 36.6; O2SAT 98
== END 2025-02-20 21:45 | disposition home or self-care (01) ==
PROVIDERS: Emergency Provider Emergency Medicine; PCP Internal Medicine
DX: S93.402A Sprain of unspecified ligament of left ankle, initial encounter (principal); W18.42XA Slipping, tripping and stumbling without falling due to stepping into hole or opening, initial encounter; E11.9 Type 2 diabetes mellitus without complications; G47.33 Obstructive sleep apnea (adult) (pediatric); I10 Essential (primary) hypertension; Z87.891 Personal history of nicotine dependence
CPT/HCPCS: 73610; 99283; A9270

== ENCOUNTER 2025-03-02 12:47 | Outpatient (CLI) | payer BC, SELFPAY ==
--- OUTSIDE RECORDS SUMMARY | 2025-03-02 12:55 | XMS_ITS | Data Portability ---
Author Organization [facility] Address [address] [facility] [place] [address] Care Team Providers Care Technical Fellow Name Role Phone CAMMIE SUN Primary Care [...] was 5.9 follow up in 4 months [email or web address] Not available 05/04/2024 21:36:24 08/28/2024 08/28/2024 blood work has been ordered we will start GLP 1 Jeremiah Rudd she will follow up in 3 months all questions answered Not available 10/10/2024 14:01:39 11/27/2024 11/27/2024 healthy lifestyl e care instructions x-ray mandible refer for her jaw issue titrate her GLP 1 follow up in 4 months [email or web address] Not available 12/07/2024 17:37:28 01/29/2025 01/29/2025 History [...] her neck and some physical therapy started [email or web address] Not available 01/31/2025 20:34:56 Plan of Treatment Reminders Order Date Submit Date Provider Last Modified By Organization Details Last Modified Time Details Appointments ANY 15 2024 09:15A Patricia Sun MD Not available Not available Not available Lab CMP, serum or plasma 2023 024 [facility], [address], [place], [address], 08/29/2024 07:16:27 lipid panel, serum 2023 024 [facility], [address], [place], [address], 08/29/2024 07:16:25 CBC w/ auto diff 2023 024 [facility], [address], [place], [address], 08/29/2024 07:16:28 HbA1c (hemoglob in A1c), blood 2023 024 [email or web address] In-Office Order, Internal Use Only DO Not Attach Compendium DO Not Attach Compendium, Do Not Delete/merge, [id number] 04/24/2024 14:23:48 lipid panel, serum 2023 024 [facility], [address], [place], [address], 04/29/2024 09:44:14 CBC w/ auto diff 2023 024 [facility], [address], [place], [address], 04/29/2024 09:44:14 CMP, serum or plasma 2023 024 [facility], [address], [place], [address], 04/29/2024 09:44:14 CK (creatine kinase), total, serum 2023 024 [facility], [address], [place], [address], 12/28/2023 10:14:11 CMP, serum or plasma 2023 024 [facility], [address], [place], [address], 12/28/2023 10:14:10 CBC w/ auto diff 2023 024 [facility], [address], [place], [address], 12/28/2023 10:14:13 lipid panel, serum 2023 024 [facility], [address], [place], [address], 12/28/2023 10:14:10 TSH, ultra-sen sitive, serum 2023 024 [facility], [address], [place], [address], 12/28/2023 10:14:12 T3, free, serum or plasma 2023 024 [facility], [address], [place], [address], 12/28/2023 10:14:13 T4, free, serum 2023 024 [facility], [address], [place], [address], 12/28/2023 10:14:14 Referral None recorded. Procedures lexiscan cardiolit e stress test (PROC) 2023 024 [email or web address], [address], [address], [place], [address], 05/27/2024 10:48:14 Surgeries None recorded. Imaging US, echocardi ogram 2023 024 SAGAR [facility], [address], [address], [place], [address], 01/25/2024 15:02:06 Medication Orders cyclobenz aprine 10 mg tablet 2024 025 [place] [address] [id number], [address], [place], [place], [id number], 01/30/2025 11:30:33 Medrol ([place]) 4 mg tablets in a dose pack 2024 025 [place] [address] [email or web address][id number], [address], [place], [place], [id number], 01/30/2025 11:30:33 Mounjaro 2.5 mg/0.5 mL subcutane ous pen injector 2023 024 [email or web address][id number], [address], [place], [place], [id number], 11/27/2024 10:39:06 Cholestyr amine Light 4 gram oral powder 2023 024 [place] [address] [email or web address][id number], [address], [place], [place], [id number], 04/24/2024 14:23:48 Patient TargetsNo targets recorded. Patient Instructions Encounter Date Encounter Id Patient Instructions Last Modified By Organization Details Last Modified Time 04/24/2024 [id number] A healthy lifestyle: care instructions [email or web address] Not available 04/24/2024 14:23:48 08/28/2024 [id number] A healthy lifestyle: care instructions Not available 08/28/2024 13:45:10 11/27/2024 [id number] A healthy lifestyle: care instructions [email or web address] Not available 11/27/2024 13:40:37 01/29/2025 [id number] A healthy lifestyle: care instructions [email or web address] Not available 01/29/2025 17:42:03 Reason for Referral None Reported. Results Created Date Observation Date Name Description Value Unit Range Abnormal Flag Note LastModifiedBy Organization Detail LastModifiedTime 12/27/19 24 12/28/2023 LIPID PANEL cholesterol, total 163 mg/dL 100-19 9 Not Available [facility] ([facility]) [address] [place], [address], 12/28/2023 10:14:09 12/27/19 24 12/28/2023 LIPID PANEL triglyceride s 123 mg/dL 0-149 Not Available [facility]) [address] [place], [address], 12/28/2023 10:14:09 12/27/19 24 12/28/2023 LIPID PANEL HDL cholesterol 51 mg/dL >39 Not Available [facility] [address] [place], [address], 12/28/2023 10:14:09 12/27/19 24 12/28/2023 LIPID PANEL VLDL cholesterol david 22 mg/dL 5-40 Not Available [facility]) [address] [place], [address], 12/28/2023 10:14:09 12/27/19 24 12/28/2023 LIPID PANEL LDL chol calc ([facility]) 90 mg/dL 0-99 Not Available [facility]) [address] [place], [address], 12/28/2023 10:14:09 12/27/19 24 12/28/2023 COMP. METAB OLIC PANEL (14) glucose 139 mg/dL 70-99 above high normal Not Available [facility] ([facility]) [address] [place], [address], 12/28/2023 10:14:10 12/27/19 24 12/28/2023 COMP. METAB OLIC PANEL (14) BUN 14 mg/dL 6-24 Not Available [facility] ([facility]) [address] [place], [address], 12/28/2023 10:14:10 12/27/19 24 12/28/2023 COMP. METAB OLIC PANEL (14) creatinine 0.78 mg/dL 0.57-1 .00 Not Available [facility] ([facility]) [address] [facility] [place], [address], 12/28/2023 10:14:10 12/27/19 24 12/28/2023 COMP. METAB OLIC PANEL (14) eGFR 89 mL/mi n/1.7 3 >59 Not Available [facility] ([facility]) [address] [place], [address], 12/28/2023 10:14:10 12/27/19 24 12/28/2023 COMP. METAB OLIC PANEL (14) BUN/creatini ne ratio 18 9-23 Not Available [facility]) [address] [facility] [place], [address], 12/28/2023 10:14:10 12/27/19 24 12/28/2023 COMP. METAB OLIC PANEL (14) sodium 140 mmol/ L 134-14 4 Not Available [facility] ([facility]) [address] [facility] [place], [address], 12/28/2023 10:14:10 12/27/19 24 12/28/2023 COMP. METAB OLIC PANEL (14) potassium 4.3 mmol/ L 3.5-5. 2 Not Available [facility] ([facility]) [address] [facility] [place], [address], 12/28/2023 10:14:10 12/27/19 24 12/28/2023 COMP. METAB OLIC PANEL (14) chloride 101 mmol/ L 96-106 Not Available [facility] ([facility]) [address] [facility], [place], [address], 12/28/2023 10:14:10 12/27/19 24 12/28/2023 COMP. METAB OLIC PANEL (14) carbon dioxide, total 23 mmol/ L 20-29 Not Available [facility] ([facility]) [address] [facility], [place], [address], 12/28/2023 10:14:10 12/27/19 24 12/28/2023 COMP. METAB OLIC PANEL (14) calcium 9.4 mg/dL 8.7-10 .2 Not Available [facility] ([facility]) [address] [facility], [place], [address], 12/28/2023 10:14:10 12/27/19 24 12/28/2023 COMP. METAB OLIC PANEL (14) protein, total 6.6 g/dL 6.0-8. 5 Not Available [facility] ([facility]) [address] [facility], [place], [address], 12/28/2023 10:14:10 12/27/19 24 12/28/2023 COMP. METAB OLIC PANEL (14) albumin 4.1 g/dL 3.8-4. 9 Not Available [facility] ([facility]) [address] [facility] [place], [address], 12/28/2023 10:14:10 12/27/19 24 12/28/2023 COMP. METAB OLIC PANEL (14) globulin, total 2.5 g/dL 1.5-4. 5 Not Available [facility] ([facility]) [address] [facility], [place], [address], 12/28/2023 10:14:10 12/27/19 24 12/28/2023 COMP. METAB OLIC PANEL (14) A/G ratio 1.6 1.2-2. 2 Not Available [facility] ([facility]) [address] [facility] [place], [address], 12/28/2023 10:14:10 12/27/19 24 12/28/2023 COMP. METAB OLIC PANEL (14) bilirubin, total 0.3 mg/dL 0.0-1. 2 Not Available [facility] ([facility]) [address] [facility], [place], [address], 12/28/2023 10:14:10 12/27/19 24 12/28/2023 COMP. METAB OLIC PANEL (14) alkaline phosphatase 113 IU/L 44-121 Not Available [facility]) [address] [place], [address], 12/28/2023 10:14:10 12/27/19 24 12/28/2023 COMP. METAB OLIC PANEL (14) AST (SGOT) 20 IU/L 0-40 Not Available [facility] ([facility]) [address] [place], [address], 12/28/2023 10:14:10 12/27/19 24 12/28/2023 COMP. METAB OLIC PANEL (14) ALT (SGPT) 23 IU/L 0-32 Not Available [facility] ([facility]) [address] [place], [address], 12/28/2023 10:14:10 12/27/19 24 12/28/2023 CK creatine kinase,total 79 U/L 32-182 Not Available [facility]) [address] [place], [address], 12/28/2023 10:14:11 12/27/19 24 12/28/2023 TSH TSH 1.480 uIU/m L 0.450- 4.500 Not Available [facility] ([facility]) [address] [facility], [place], [address], 12/28/2023 10:14:12 12/27/19 24 12/28/2023 CBC WITH DIFFE RENTI AL/PL ATELE T WBC 5.5 x10e3 /uL 3.4-10 .8 Not Available [facility] ([facility]) [address] [facility], [place], [address], 12/28/2023 10:14:13 12/27/19 24 12/28/2023 CBC WITH DIFFE RENTI AL/PL ATELE T RBC 4.22 x10e6 /uL 3.77-5 .28 Not Available [facility] ([facility]) [address] [facility], [place], [address], 12/28/2023 10:14:13 12/27/19 24 12/28/2023 CBC WITH DIFFE RENTI AL/PL ATELE T hemoglobin 13.4 g/dL 11.1-1 5.9 Not Available [facility] ([facility]) [address] [facility], [place], [address], 12/28/2023 10:14:13 12/27/19 24 12/28/2023 CBC WITH DIFFE RENTI AL/PL ATELE T hematocrit 38.7 % 34.0-4 6.6 Not Available [facility] ([facility]) [address] [facility], [place], [address], 12/28/2023 10:14:13 12/27/19 24 12/28/2023 CBC WITH DIFFE RENTI AL/PL ATELE T MCV 92 fL 79-97 Not Available [facility] ([facility]) [address] [facility], [place], [address], 12/28/2023 10:14:13 12/27/19 24 12/28/2023 CBC WITH DIFFE RENTI AL/PL ATELE T MCH 31.8 pg 26.6-3 3.0 Not Available [facility] ([facility]) [address] [facility], [place], [address], 12/28/2023 10:14:13 12/27/19 24 12/28/2023 CBC WITH DIFFE RENTI AL/PL ATELE T MCHC 34.6 g/dL 31.5-3 5.7 Not Available [facility] ([facility]) [address] [facility], [place], [address], 12/28/2023 10:14:13 12/27/19 24 12/28/2023 CBC WITH DIFFE RENTI AL/PL ATELE T RDW 12.9 % 11.7-1 5.4 Not Available [facility] ([facility]) [address] [facility], [place], [address], 12/28/2023 10:14:13 12/27/19 24 12/28/2023 CBC WITH DIFFE RENTI AL/PL ATELE T platelets 290 x10e3 /uL 150-45 0 Not Available [facility] ([facility]) [address] [facility], [place], [address], 12/28/2023 10:14:13 12/27/19 24 12/28/2023 CBC WITH DIFFE RENTI AL/PL ATELE T neutrophils 61 % notest ab. Not Available [facility] ([facility]) [address] [place], [address], 12/28/2023 10:14:13 12/27/19 24 12/28/2023 CBC WITH DIFFE RENTI AL/PL ATELE T lymphs 31 % notest ab. Not Available [facility] ([facility]) [address] [place], [address], 12/28/2023 10:14:13 12/27/19 24 12/28/2023 CBC WITH DIFFE RENTI AL/PL ATELE T monocytes 6 % notest ab. Not Available [facility] ([facility]) [address] [place], [address], 12/28/2023 10:14:13 12/27/19 24 12/28/2023 CBC WITH DIFFE RENTI AL/PL ATELE T eos 1 % notest ab. Not Available [facility] ([facility]) [address] [facility], [place], [address], 12/28/2023 10:14:13 12/27/19 24 12/28/2023 CBC WITH DIFFE RENTI AL/PL ATELE T basos 1 % notest ab. Not Available [facility] ([facility]) [address] [facility], [place], [address], 12/28/2023 10:14:13 12/27/19 24 12/28/2023 CBC WITH DIFFE RENTI AL/PL ATELE T neutrophils (absolute) 3.4 x10e3 /uL 1.4-7. 0 Not Available [facility] ([facility]) [address] [facility], [place], [address], 12/28/2023 10:14:13 12/27/19 24 12/28/2023 CBC WITH DIFFE RENTI AL/PL ATELE T lymphs (absolute) 1.7 x10e3 /uL 0.7-3. 1 Not Available [facility] ([facility]) [address] [facility], [place], [address], 12/28/2023 10:14:13 12/27/19 24 12/28/2023 CBC WITH DIFFE RENTI AL/PL ATELE T monocytes(ab solute) 0.3 x10e3 /uL 0.1-0. 9 Not Available [facility] ([facility]) [address] [facility], [place], [address], 12/28/2023 10:14:13 12/27/19 24 12/28/2023 CBC WITH DIFFE RENTI AL/PL ATELE T eos (absolute) 0.1 x10e3 /uL 0.0-0. 4 Not Available [facility] ([facility]) [address] [facility], [place], [address], 12/28/2023 10:14:13 12/27/19 24 12/28/2023 CBC WITH DIFFE RENTI AL/PL ATELE T baso (absolute) 0.0 x10e3 /uL 0.0-0. 2 Not Available [facility] ([facility]) [address] [facility], [place], [address], 12/28/2023 10:14:13 12/27/19 24 12/28/2023 CBC WITH DIFFE RENTI AL/PL ATELE T immature granulocytes 0 % notest ab. Not Available [facility] ([facility]) [address] [facility], [place], [address], 12/28/2023 10:14:13 12/27/19 24 12/28/2023 CBC WITH DIFFE RENTI AL/PL ATELE T immature grans (abs) 0.0 x10e3 /uL 0.0-0. 1 Not Available [facility] ([facility]) [address] [place], [address], 12/28/2023 10:14:13 12/27/19 24 12/28/2023 TRIIO DOTHY KEREN E (T3), FREE triiodothyro nine (T3), free 2.6 pg/mL 2.0-4. 4 Not Available [facility] ([facility]) [address] [place], [address], 12/28/2023 10:14:13 12/27/19 24 12/28/2023 T4,FR EE(DI RECT) T4,free(dire ct) 1.00 NG/dL 0.82-1 .77 Not Available [facility] ([facility]) [address] [place], [address], 12/28/2023 10:14:14 04/24/20 24 04/24/2024 HbA1c (hemo globi n A1c), blood HbA1c 5.9 Not Available In-Office Order Internal Use Only DO Not Attach Compendium DO Not Attach Compendium, Do Not Delete/merge, [id number] 04/23/2024 14:11:04 06/20/20 24 06/20/2024 COLOG UARD cologuard result reportable NEGATI VE negati ve normal NEGAT AISHWARYA TEST RESUL T. A negat aishwarya Colog uard resul t indic ates a low likel ihood that a color ectal cance r (CRC) or advan francoise adeno ma (cathie omato us polyp s with more advan francoise pre-m align ant featu res) is prese nt. [facility] e that a perso n with a [...] study of 0 indiv idual s at [place] risk for color ectal cance r [...] asymp tomat ic indiv idual s at [place] risk for color ectal cance r. [...] ns.ht ml.; Kevin HEART, Faustino WOODS, Vielka CordovaK, Color ectal Cance r Scree palomo: Recom menda tions for Physi cians and Patie nts from the [place]. Multi -Soci ety Task Force on Color ectal Cance r Scree palomo , Saeed luna rolog y 2017; 112:1 016-1 030. TEST DESCR IPTIO N: Donnellson site algor ithmi c isamar sis of [...] years or older , who are at [facility] for color ectal cance r (CRC) . Colog uard has been appro lesley for use by the [place]. FDA. The perfo rmanc e of Colog uard was estab lishe d in a cross secti onal study of [facility] adult s aged 50-84 . Colog uard perfo rmanc e in patie nts ages 45 to 49 years was estim ated by sub-g roup isamar sis of near- age group s. Colon oscop ies perfo rmed for a posit aiswharya resul t may find as the most [...] at www.c ologu moe.c om. Not Available [facility] (Cologuard Orders Only) [address], [place], [address], 06/25/2024 14:54:41 08/28/20 24 08/29/2024 LIPID PANEL cholesterol, total 163 mg/dL 100-19 9 Not Available [facility] ([facility]) [address] [facility], [place], [address], 08/29/2024 07:16:25 08/28/20 24 08/29/2024 LIPID PANEL triglyceride s 156 mg/dL 0-149 above high normal Not Available [facility] ([facility]) [address] [facility], [place], [address], 08/29/2024 07:16:25 08/28/20 24 08/29/2024 LIPID PANEL HDL cholesterol 49 mg/dL >39 Not Available [facility]) [address] [place], [address], 08/29/2024 07:16:25 08/28/20 24 08/29/2024 LIPID PANEL VLDL cholesterol david 27 mg/dL 5-40 Not Available [facility]) [address] [place], [address], 08/29/2024 07:16:25 08/28/20 24 08/29/2024 LIPID PANEL LDL chol calc ([facility]) 87 mg/dL 0-99 Not Available [facility]) [address] [place], [address], 08/29/2024 07:16:25 08/28/20 24 08/29/2024 COMP. METAB OLIC PANEL (14) glucose 121 mg/dL 70-99 above high normal Not Available [facility] ([facility]) [address] [place], [address], 08/29/2024 07:16:26 08/28/20 24 08/29/2024 COMP. METAB OLIC PANEL (14) BUN 12 mg/dL 6-24 Not Available [facility] ([facility]) [address] [place], [address], 08/29/2024 07:16:26 08/28/20 24 08/29/2024 COMP. METAB OLIC PANEL (14) creatinine 0.86 mg/dL 0.57-1 .00 Not Available [facility] ([facility]) [address] [place], [address], 08/29/2024 07:16:26 08/28/20 24 08/29/2024 COMP. METAB OLIC PANEL (14) eGFR 78 mL/mi n/1.7 3 >59 Not Available [facility] ([facility]) [address] [place], [address], 08/29/2024 07:16:26 08/28/20 24 08/29/2024 COMP. METAB OLIC PANEL (14) BUN/creatini ne ratio 14 9-23 Not Available [facility]) [address] [facility], [place], [address], 08/29/2024 07:16:26 08/28/20 24 08/29/2024 COMP. METAB OLIC PANEL (14) sodium 137 mmol/ L 134-14 4 Not Available [facility] ([facility]) [address] [facility], [place], [address], 08/29/2024 07:16:26 08/28/20 24 08/29/2024 COMP. METAB OLIC PANEL (14) potassium 4.7 mmol/ L 3.5-5. 2 Not Available [facility] ([facility]) [address] [facility], [place], [address], 08/29/2024 07:16:26 08/28/20 24 08/29/2024 COMP. METAB OLIC PANEL (14) chloride 102 mmol/ L 96-106 Not Available [facility] ([facility]) [address] [place], [address], 08/29/2024 07:16:26 08/28/20 24 08/29/2024 COMP. METAB OLIC PANEL (14) carbon dioxide, total 24 mmol/ L 20-29 Not Available [facility] ([facility]) [address] [place], [address], 08/29/2024 07:16:26 08/28/20 24 08/29/2024 COMP. METAB OLIC PANEL (14) calcium 9.6 mg/dL 8.7-10 .2 Not Available [facility] ([facility]) [address] [place], [address], 08/29/2024 07:16:26 08/28/20 24 08/29/2024 COMP. METAB OLIC PANEL (14) protein, total 7.1 g/dL 6.0-8. 5 Not Available [facility] ([facility]) [address] [facility] [place], [address], 08/29/2024 07:16:26 08/28/20 24 08/29/2024 COMP. METAB OLIC PANEL (14) albumin 4.4 g/dL 3.8-4. 9 Not Available [facility] ([facility]) [address] [facility] [place], [address], 08/29/2024 07:16:26 08/28/20 24 08/29/2024 COMP. METAB OLIC PANEL (14) globulin, total 2.7 g/dL 1.5-4. 5 Not Available [facility] ([facility]) [address] [facility] [place], [address], 08/29/2024 07:16:26 08/28/20 24 08/29/2024 COMP. METAB OLIC PANEL (14) bilirubin, total 0.4 mg/dL 0.0-1. 2 Not Available [facility] ([facility]) [address] [facility] [place], [address], 08/29/2024 07:16:26 08/28/20 24 08/29/2024 COMP. METAB OLIC PANEL (14) alkaline phosphatase 124 IU/L 44-121 above high normal Not Available [facility] ([facility]) [address] [facility] [place], [address], 08/29/2024 07:16:26 08/28/20 24 08/29/2024 COMP. METAB OLIC PANEL (14) AST (SGOT) 23 IU/L 0-40 Not Available [facility] ([facility]) [address] [facility] [place], [address], 08/29/2024 07:16:26 08/28/20 24 08/29/2024 COMP. METAB OLIC PANEL (14) ALT (SGPT) 31 IU/L 0-32 Not Available [facility] ([facility]) [address] [facility], [place], [address], 08/29/2024 07:16:26 08/28/20 24 08/29/2024 CBC WITH DIFFE RENTI AL/PL ATELE T WBC 6.8 x10e3 /uL 3.4-10 .8 Not Available [facility] ([facility]) [address] [facility], [place], [address], 08/29/2024 07:16:28 08/28/20 24 08/29/2024 CBC WITH DIFFE RENTI AL/PL ATELE T RBC 4.65 x10e6 /uL 3.77-5 .28 Not Available [facility] ([facility]) [address] [facility], [place], [address], 08/29/2024 07:16:28 08/28/20 24 08/29/2024 CBC WITH DIFFE RENTI AL/PL ATELE T hemoglobin 14.9 g/dL 11.1-1 5.9 Not Available [facility] ([facility]) [address] [facility], [place], [address], 08/29/2024 07:16:28 08/28/20 24 08/29/2024 CBC WITH DIFFE RENTI AL/PL ATELE T hematocrit 44.5 % 34.0-4 6.6 Not Available [facility] ([facility]) [address] [facility], [place], [address], 08/29/2024 07:16:28 08/28/20 24 08/29/2024 CBC WITH DIFFE RENTI AL/PL ATELE T MCV 96 fL 79-97 Not Available [facility] ([facility]) [address] [place], [address], 08/29/2024 07:16:28 08/28/20 24 08/29/2024 CBC WITH DIFFE RENTI AL/PL ATELE T MCH 32.0 pg 26.6-3 3.0 Not Available [facility] ([facility]) [address] [facility], [place], [address], 08/29/2024 07:16:28 08/28/20 24 08/29/2024 CBC WITH DIFFE RENTI AL/PL ATELE T MCHC 33.5 g/dL 31.5-3 5.7 Not Available [facility] ([facility]) [address] [facility], [place], [address], 08/29/2024 07:16:28 08/28/20 24 08/29/2024 CBC WITH DIFFE RENTI AL/PL ATELE T RDW 12.5 % 11.7-1 5.4 Not Available [facility] ([facility]) [address] [facility], [place], [address], 08/29/2024 07:16:28 08/28/20 24 08/29/2024 CBC WITH DIFFE RENTI AL/PL ATELE T platelets 267 x10e3 /uL 150-45 0 Not Available [facility] ([facility]) [address] [facility], [place], [address], 08/29/2024 07:16:28 08/28/20 24 08/29/2024 CBC WITH DIFFE RENTI AL/PL ATELE T neutrophils 60 % notest ab. Not Available [facility] ([facility]) [address] [place], [address], 08/29/2024 07:16:28 08/28/20 24 08/29/2024 CBC WITH DIFFE RENTI AL/PL ATELE T lymphs 30 % notest ab. Not Available [facility] ([facility]) [address] [place], [address], 08/29/2024 07:16:28 08/28/20 24 08/29/2024 CBC WITH DIFFE RENTI AL/PL ATELE T monocytes 8 % notest ab. Not Available [facility] ([facility] [address] [place], [address], 08/29/2024 07:16:28 08/28/20 24 08/29/2024 CBC WITH DIFFE RENTI AL/PL ATELE T eos 2 % notest ab. Not Available [facility] ([facility]) [address] [place], [address], 08/29/2024 07:16:28 08/28/20 24 08/29/2024 CBC WITH DIFFE RENTI AL/PL ATELE T basos 0 % notest ab. Not Available [facility] ([facility]) [address] [place], [address], 08/29/2024 07:16:28 08/28/20 24 08/29/2024 CBC WITH DIFFE RENTI AL/PL ATELE T neutrophils (absolute) 4.1 x10e3 /uL 1.4-7. 0 Not Available [facility] ([facility]) [address] [facility] [place], [address], 08/29/2024 07:16:28 08/28/20 24 08/29/2024 CBC WITH DIFFE RENTI AL/PL ATELE T lymphs (absolute) 2.1 x10e3 /uL 0.7-3. 1 Not Available [facility] ([facility]) [address] [place], [address], 08/29/2024 07:16:28 08/28/20 24 08/29/2024 CBC WITH DIFFE RENTI AL/PL ATELE T monocytes(ab solute) 0.5 x10e3 /uL 0.1-0. 9 Not [id number]||2025-03-03 08:19:00|CT_ITS|FROHNERTP|Imaging|[id number]|"EXAMINATION: CT lung screening DATE: 03/02/2025 13:14 INDICATION: Z87.891 - Personal history of nicotine dependence TECHNIQUE: Computed tomography (CT) of the chest was performed without intravenous contrast. Addition al 3D reconstructions utilizing coronal maximum intensity projection (MIP) were performed. Automated exposure control and iterative reconstruction technique were employed. The dose-length product was 25 5.97 mGy-cm. COMPARISON: 02/25/2024 FINDINGS: Unchanged 2 mm almaz fissural nodule along the right major fissure. No other pulmonary nodules, pneumo atilio, pulmonary edema or pleural effusion. Heart size normal. Atherosclerotic coronary artery calcific ation. No pericardial effusion. Thoracic aorta is normal in caliber. No pathologically enlarged thora cic lymphadenopathy. Cholecystectomy clips the gallbladder fossa. Mild thoracic spondylosis. IMPRESSION: 1. Lung-RADS category 2: Benign appearance or behavior. Continue annual screening with noncontrast lo w-dose chest CT in 12 months. Reviewed, dictated and finalized at location [facility]. IMPRESSION: 1. Lung-RADS category 2: Benign appearance or behavior. Continue annual screeni ng with noncontrast low-dose chest CT in 12 months. "
--- OUTSIDE RECORDS SUMMARY | 2025-03-02 12:55 | XMS_ITS | Data Portability ---
Author Organization [place] - [facility] [id number], Main Office Address [address] [place] [address] Care Team Providers Care Agricultural Commodities Inspector Name Role Phone CAMMIE SUN Primary Care Provider [phone] Assessment Encounter Date Assessment Date Assessment LastModified by Organization Details LastModified Time 04/19/2023 04/19/2023 Dermatology. Increase Ozempic to 2 mg blood work has been ordered for biochemical management of disease processes of medications follow-up with me in 4 months Not available 04/19/2023 21:45:31 09/10/2023 09/10/2023 EKG shows a normal sinus rhythm with no acute changes orthostatics are noted Decrease metoprolol to 12.5 b.i.d. blood work she has full range of motion of her lumbar spine and her cervical spine with no spinous process tenderness I will see her back in a week Accu-Chek in the office today 156 [id number] Not available 09/10/2023 23:00:49 10/23/2023 10/23/2023 Chest x-ray prednisone doxycycline call if not improved Not available 10/23/2023 22:30:35 Plan of Treatment Reminders Order Date Submit Date Provider Last Modified By Organization Details Last Modified Time Details Appointments None recorded. Lab TSH, serum or plasma 2022 023 SAGAR Not available 11:57:19 T3, free, serum or plasma 2022 023 SAGAR Not available 11:44:33 CBC w/ auto diff 2022 023 SAGAR Not available 3 11:07:44 CMP, serum or plasma 2022 023 [...] 13:04:[address] referral 2022 023 ASGAR [facility], [address] [place] [address], [address], 3 11:54:33 Procedures None recorded. Surgeries None recorded. Imaging XR, chest 2023 024 cyahl Not available 4 13:35:21 electrocard iogram 2022 023 [id number] [facility] , [address], [place], [address], 3 18:28:19 Medication Orders doxycycline hyclate 100 mg tablet [address] [id number], [address], [place], [place], [id number], 4 13:11:46 prednisone 20 mg tablet [address] [id number], [address], [place], [place], [id number], 4 13:11:46 albuterol sulfate HFA 90 mcg/actuati on aerosol inhaler 2023 024 [id number] [facility] #[id number], [address], [place], [place], [id number], 4 13:11:46 Ozempic 2 mg/dose (8 mg/3 mL) subcutaneou s pen injector 2022 023 [email or web address] [id number] [id number], [address], [place], [place], [id number], 4 10:18:02 Patient TargetsNo targets recorded. Patient InstructionsNo instructions recorded. Reason for Referral Equity Research Associate Referral for S kin lesion Referring Physician: Cammie Sun, Internal Medicine, Encounter Date: 04/19/2023 Results Created Date Observation Date Name Description Value Unit Range Abnormal Flag Note LastModifiedBy Organization Detail LastModifiedTime 04/19/20 23 04/19/2023 CBC/C OMPLE TE BLD COUNT W/DIF F white blood cells 5.7 x10'3 /uL 4.2-10 .8 Not Available [facility] (Lab) [address] [place], [address], 04/19/2023 13:00:28 04/19/20 23 04/19/2023 CBC/C OMPLE TE BLD COUNT W/DIF F red blood cells 4.40 x10'6 /uL 3.80-5 .20 Not Available [facility] (Lab) [address] [place], [address], 04/19/2023 13:00:28 04/19/20 23 04/19/2023 CBC/C OMPLE TE BLD COUNT W/DIF F hemoglobin 13.9 g/dL 12.0-1 5.6 Not Available [facility] (Lab) [address] [place], [address], 04/19/2023 13:00:28 04/19/20 23 04/19/2023 CBC/C OMPLE TE BLD COUNT W/DIF F hematocrit 42.9 % 35.7-4 5.7 Not Available [facility] (Lab) [address] [place], [address], 04/19/2023 13:00:28 04/19/2004/19/2023 CBC/C OMPLE TE BLD COUNT W/DIF F mean red cell volume 97.5 fL 82.0-9 9.0 Not Available [facility] (Lab) [address] [place], [address], 04/19/2023 13:00:28 04/19/2004/19/2023 CBC/C OMPLE TE BLD COUNT W/DIF F mean red cell hemoglobin 31.6 pg 27.0-3 3.0 Not Available [facility] (Lab) [address] [place], [address], 04/19/2023 13:00:28 04/19/20 23 04/19/2023 CBC/C OMPLE TE BLD COUNT W/DIF F mean RBC HGB concentratio n 32.4 g/dL 31.0-3 6.0 Not Available [facility] (Lab) [address] [place], [address], 04/19/2023 13:00:28 04/19/20 23 04/19/2023 CBC/C OMPLE TE BLD COUNT W/DIF F red cell distribution width 12.5 % 11.8-1 5.5 Not Available [facility] (Lab) [address] [place], [address], 04/19/2023 13:00:28 04/19/20 23 04/19/2023 CBC/C OMPLE TE BLD COUNT W/DIF F platelets 263 x10'3 /uL 150-40 0 Not Available [facility] (Lab) [address] [place], [address], 04/19/2023 13:00:28 04/19/20 23 04/19/2023 CBC/C OMPLE TE BLD COUNT W/DIF F mean platelet volume 10.2 fL 9.0-12 .4 Not Available [facility] (Lab) [address] [place], [address], 04/19/2023 13:00:28 04/19/20 23 04/19/2023 CBC/C OMPLE TE BLD COUNT W/DIF F neutrophils 55.4 % 39.0-7 2.0 Not Available [facility] (Lab) [address] [place], [address], 04/19/2023 13:00:28 04/19/20 23 04/19/2023 CBC/C OMPLE TE BLD COUNT W/DIF F lymphocytes 35.0 % 16.0-4 7.0 Not Available [facility] (Lab) [address] [place], [address], 04/19/2023 13:00:28 04/19/20 23 04/19/2023 CBC/C OMPLE TE BLD COUNT W/DIF F monocytes 7.2 % 5.0-12 .0 Not Available [facility] (Lab) [address] [place], [address], 04/19/2023 13:00:28 04/19/20 23 04/19/2023 CBC/C OMPLE TE BLD COUNT W/DIF F eosinophils 1.6 % 1.0-7. 0 Not Available [facility] (Lab) [address] [place], [address], 04/19/2023 13:00:28 04/19/20 23 04/19/2023 CBC/C OMPLE TE BLD COUNT W/DIF F basophils 0.4 % 0.0-2. 0 Not Available [facility] (Lab) [address] [place], [address], 04/19/2023 13:00:28 04/19/20 23 04/19/2023 CBC/C OMPLE TE BLD COUNT W/DIF F immature granulocytes 0.4 % 0.00-0 .50 Not Available [facility] (Lab) [address] [place], [address], 04/19/2023 13:00:28 04/19/20 23 04/19/2023 CBC/C OMPLE TE BLD COUNT W/DIF F neutrophils, absolute count 3.15 x10'3 /uL 1.5-8. 0 Not Available [facility] (Lab) [address] [place], [address], 04/19/2023 13:00:28 04/19/20 23 04/19/2023 CBC/C OMPLE TE BLD COUNT W/DIF F lymphocytes, absolute count 1.99 x10'3 /uL 1.07-3 .43 Not Available [facility] (Lab) [address] [place], [address], 04/19/2023 13:00:28 04/19/20 23 04/19/2023 CBC/C OMPLE TE BLD COUNT W/DIF F monocytes, absolute count 0.41 x10'3 /uL 0.29-0 .99 Not Available [facility] (Lab) [address] [place], [address], 04/19/2023 13:00:28 04/19/20 23 04/19/2023 CBC/C OMPLE TE BLD COUNT W/DIF F eosinophils, absolute count 0.09 x10'3 /uL 0.02-0 .53 Not Available [facility] (Lab) [address] [place], [address], 04/19/2023 13:00:28 04/19/20 23 04/19/2023 CBC/C OMPLE TE BLD COUNT W/DIF F basophils, absolute count 0.02 x10'3 /uL 0.01-0 .08 Not Available [facility] (Lab) [address] [place], [address], 04/19/2023 13:00:28 04/19/20 23 04/19/2023 CBC/C OMPLE TE BLD COUNT W/DIF F immature granulocytes ,absolute 0.02 x10'3 /uL 0.00-0 .05 Not Available [facility] (Lab) [address] [place], [address], 04/19/2023 13:00:28 04/19/20 23 04/19/2023 CBC/C OMPLE TE BLD COUNT W/DIF F nucleated red blood cells 0.0 % -0 Not Available [facility] (Lab) [address] [place], [address], 04/19/2023 13:00:28 04/19/2004/19/2023 CBC/C OMPLE TE BLD COUNT W/DIF F NRBC# 0.00 x10'3 /uL Not Available [facility] (Lab) [address] [place], [address], 04/19/2023 13:00:28 04/19/20 23 04/19/2023 LIPID PANEL cholesterol 177 mg/dL 140-19 9 NIH JUANA NSUS RECOM MENDA TION FOR LUZ MARINA STERO L: ADULT CHILD LOW RISK: <200 <170 BORDE RLINE : <200- 239 ----- HIGH RISK: >240 >200 Not Available [facility] (Lab) [address] [place], [address], 04/19/2023 13:04:18 04/19/20 23 04/19/2023 LIPID PANEL triglyceride s 94 mg/dL 0-150 NIH JUANA NSUS REPOR T RECOM MENDA TION FOR TRIGL YCERI PIERO: ADULT CHILD LOW RISK: <150 ----- BODER LINE: 150-1 99 ----- HIGH RISK: >200 ----- Not Available [facility] (Lab) [address] [place], [address], 04/19/2023 13:04:18 04/19/20 23 04/19/2023 LIPID PANEL HDL cholesterol 62 mg/dL 40- Not Available [facility] (Lab) [address] [place], [address], 04/19/2023 13:04:18 04/19/20 23 04/19/2023 LIPID PANEL [...] WILL NOT BE REPOR LIS. Not Available [facility] (Lab) [address] [place], [address], 04/19/2023 13:04:18 04/19/20 23 04/19/2023 COMPR EHENS AISHWARYA METAB OLIC PANEL sodium 139 mmol/ L 137-14 5 Not Available [facility] (Lab) [address] [place], [address], 04/19/2023 13:04:21 04/19/20 23 04/19/2023 COMPR EHENS AISHWARYA METAB OLIC PANEL potassium 4.2 mmol/ L 3.5-5. 1 Not Available [facility] (Lab) [address] [place], [address], 04/19/2023 13:04:21 04/19/20 23 04/19/2023 COMPR EHENS AISHWARYA METAB OLIC PANEL chloride 102 mmol/ L 98-107 Not Available [facility] (Lab) [address] [facility] [place], [address], 04/19/2023 13:04:21 04/19/20 23 04/19/2023 COMPR EHENS AISHWARYA METAB OLIC PANEL carbon dioxide 26 mmol/ L 22-30 Not Available [facility] (Lab) [address] [place], [address], 04/19/2023 13:04:21 04/19/20 23 04/19/2023 COMPR EHENS AISHWARYA METAB OLIC PANEL anion gap 15.2 mmol/ L 14-22 Not Available [facility] (Lab) [address] [place], [address], 04/19/2023 13:04:21 04/19/20 23 04/19/2023 COMPR EHENS AISHWARYA METAB OLIC PANEL glucose 104 mg/dL 70-99 high Not Available [facility] (Lab) [address] [place], [address], 04/19/2023 13:04:21 04/19/20 23 04/19/2023 COMPR EHENS AISHWARYA METAB OLIC PANEL BUN 15 mg/dL 8-19 Not Available [facility] (Lab) [address] [place], [address], 04/19/2023 13:04:21 04/19/20 23 04/19/2023 COMPR EHENS AISHWARYA METAB OLIC PANEL creatinine 0.69 mg/dL 0.66-1 .25 Not Available [facility] (Lab) [address] [place], [address], 04/19/2023 13:04:21 04/19/20 23 04/19/2023 COMPR EHENS AISHWARYA METAB OLIC PANEL GFR >60 Refer ence Range : [place] ge GFR Healt hy Adult : >60 [...] or ethni c subgr oups, such as Hisct nics. Outsi de the valid ated dinh [...] able on the F websi te: https ://ww w.kid pako.o rg/pr ofess ional s/kdo qi/gf r_cal culat or Not Available [facility] (Lab) [address] [place], [address], 04/19/2023 13:04:21 04/19/20 23 04/19/2023 COMPR EHENS AISHWARYA METAB OLIC PANEL alkaline phosphatase 85 U/L 38-126 Not Available [facility] (Lab) [address] [place], [address], 04/19/2023 13:04:21 04/19/20 23 04/19/2023 COMPR EHENS AISHWARYA METAB OLIC PANEL alanine aminotransfe rase 39 U/L 0-35 high Not Available [facility] (Lab) [address] [place], [address], 04/19/2023 13:04:21 04/19/20 23 04/19/2023 COMPR EHENS AISHWARYA METAB OLIC PANEL aspartate aminotransfe rase 31 U/L 15-37 Not Available [facility] (Lab) [address] [place], [address], 04/19/2023 13:04:21 04/19/20 23 04/19/2023 COMPR EHENS AISHWARYA METAB OLIC PANEL bilirubin, total 0.40 mg/dL 0.20-1 .30 Not Available [facility] (Lab) [address] [place], [address], 04/19/2023 13:04:21 04/19/20 23 04/19/2023 COMPR EHENS AISHWARYA METAB OLIC PANEL calcium 9.0 mg/dL 8.4-10 .2 Not Available [facility] (Lab) [address] [place], [address], 04/19/2023 13:04:21 04/19/20 23 04/19/2023 COMPR EHENS AISHWARYA METAB OLIC PANEL total protein 7.2 g/dL 6.3-8. 2 Not Available [facility] (Lab) [address] [place], [address], 04/19/2023 13:04:21 04/19/20 23 04/19/2023 COMPR EHENS AISHWARYA METAB OLIC PANEL albumin 4.2 g/dL 3.4-5. 0 Not Available [facility] (Lab) [address] [place], [address], 04/19/2023 13:04:21 04/19/20 23 04/19/2023 COMPR EHENS AISHWARYA METAB OLIC PANEL globulin 3.0 g/dL 2.6-4. 2 Not Available [facility] (Lab) [address] [place], [address], 04/19/2023 13:04:21 04/19/20 23 04/19/2023 COMPR EHENS AISHWARYA METAB OLIC PANEL A/G ratio 1.4 ratio 1.0-2. 0 Not Available [facility] (Lab) [address] [place], [address], 04/19/2023 13:04:21 04/19/20 23 04/19/2023 T3 FREE free T3 2.9 pg/mL 2.77-5 .27 Not Available [facility] (Lab) [address] [place], [address], 04/19/2023 13:14:10 04/19/20 23 04/19/2023 T4 FREE free T4 0.88 NG/dL 0.78-2 .19 Not Available [facility] (Lab) [address] [place], [address], 04/19/2023 13:14:12 04/19/20 23 04/19/2023 TSH thyroid-stim ulating hormone 1.410 uIU/m L 0.465- 4.680 Not Available [facility] (Lab) [address] [place], [address], 04/19/2023 13:44:33 04/19/20 23 04/19/2023 HEMOG LOBIN A1C HA1C 5.6 % 4.0-6. 0 Diabe lucita Scree palomo Crite neela: <5.7% Consi stent with absen ce of diabe lucita 5.7-6 .4% Consi stent with incre ased risk for diabe lucita (pred iabet es) >OR=6 .5% Consi stent with diabe lucita REFER ENCE: Diabe lucita Care 2016, 39( ppl.1 ):s13 -s22 Not Available [facility] (Lab) [address] [place], [address], 04/19/2023 17:51:17 09/11/20 23 09/11/2023 CBC/C OMPLE TE BLD COUNT W/DIF F white blood cells 4.7 x10'3 /uL 4.2-10 .8 Not Available [facility] (Lab) [address] [place], [address], 09/11/2023 11:07:44 09/11/20 23 09/11/2023 CBC/C OMPLE TE BLD COUNT W/DIF F red blood cells 4.15 x10'6 /uL 3.80-5 .20 Not Available [facility] (Lab) [address] [place], [address], 09/11/2023 11:07:44 09/11/2009/11/2023 CBC/C OMPLE TE BLD COUNT W/DIF F hemoglobin 13.6 g/dL 12.0-1 5.6 Not Available [facility] (Lab) [address] [place], [address], 09/11/2023 11:07:44 09/11/20 23 09/11/2023 CBC/C OMPLE TE BLD COUNT W/DIF F hematocrit 41.9 % 35.7-4 5.7 Not Available [facility] (Lab) [address] [place], [address], 09/11/2023 11:07:44 09/11/20 23 09/11/2023 CBC/C OMPLE TE BLD COUNT W/DIF F mean red cell volume 101.0 fL 82.0-9 9.0 high Not Available [facility] (Lab) [address] [place], [address], 09/11/2023 11:07:44 09/11/20 09/11/2023 CBC/C OMPLE TE BLD COUNT W/DIF F mean red cell hemoglobin 32.8 pg 27.0-3 3.0 Not Available [facility] (Lab) [address] [place], [address], 09/11/2023 11:07:44 09/11/20 23 09/11/2023 CBC/C OMPLE TE BLD COUNT W/DIF F mean RBC HGB concentratio n 32.5 g/dL 31.0-3 6.0 Not Available [facility] (Lab) [address] [place], [address], 09/11/2023 11:07:44 09/11/20 23 09/11/2023 CBC/C OMPLE TE BLD COUNT W/DIF F red cell distribution width 12.8 % 11.8-1 5.5 Not Available [facility] (Lab) [address] [place], [address], 09/11/2023 11:07:44 09/11/20 23 09/11/2023 CBC/C OMPLE TE BLD COUNT W/DIF F platelets 237 x10'3 /uL 150-40 0 Not Available [facility] (Lab) [address] [place], [address], 09/11/2023 11:07:44 09/11/20 23 09/11/2023 CBC/C OMPLE TE BLD COUNT W/DIF F mean platelet volume 10.4 fL 9.0-12 .4 Not Available [facility] (Lab) [address] [place], [address], 09/11/2023 11:07:44 09/11/20 23 09/11/2023 CBC/C OMPLE TE BLD COUNT W/DIF F neutrophils 58.3 % 39.0-7 2.0 Not Available [facility] (Lab) [address] [place], [address], 09/11/2023 11:07:44 09/11/20 23 09/11/2023 CBC/C OMPLE TE BLD COUNT W/DIF F lymphocytes 32.3 % 16.0-4 7.0 Not Available [facility] (Lab) [address] [place], [address], 09/11/2023 11:07:44 09/11/20 23 09/11/2023 CBC/C OMPLE TE BLD COUNT W/DIF F monocytes 7.1 % 5.0-12 .0 Not Available [facility] (Lab) [address] [place], [address], 09/11/2023 11:07:44 09/11/20 23 09/11/2023 CBC/C OMPLE TE BLD COUNT W/DIF F eosinophils 1.7 % 1.0-7. 0 Not Available [facility] (Lab) [address] [place], [address], 09/11/2023 11:07:44 09/11/20 23 09/11/2023 CBC/C OMPLE TE BLD COUNT W/DIF F basophils 0.4 % 0.0-2. 0 Not Available [facility] (Lab) [address] [place], [address], 09/11/2023 11:07:44 09/11/20 23 09/11/2023 CBC/C OMPLE TE BLD COUNT W/DIF F immature granulocytes 0.2 % 0.00-0 .50 Not Available [facility] (Lab) [address] [place], [address], 09/11/2023 11:07:44 09/11/20 23 09/11/2023 CBC/C OMPLE TE BLD COUNT W/DIF F neutrophils, absolute count 2.72 x10'3 /uL 1.5-8. 0 Not Available [facility] (Lab) [address] [place], [address], 09/11/2023 11:07:44 09/11/20 23 09/11/2023 CBC/C OMPLE TE BLD COUNT W/DIF F lymphocytes, absolute count 1.51 x10'3 /uL 1.07-3 .43 Not Available [facility] (Lab) [address] [place], [address], 09/11/2023 11:07:44 09/11/20 23 09/11/2023 CBC/C OMPLE TE BLD COUNT W/DIF F monocytes, absolute count 0.33 x10'3 /uL 0.29-0 .99 Not Available [facility] (Lab) [address] [place], [address], 09/11/2023 11:07:44 09/11/20 23 09/11/2023 CBC/C OMPLE TE BLD COUNT W/DIF F eosinophils, absolute count 0.08 x10'3 /uL 0.02-0 .53 Not Available [facility] (Lab) [address] [place], [address], 09/11/2023 11:07:44 09/11/20 23 09/11/2023 CBC/C OMPLE TE BLD COUNT W/DIF F basophils, absolute count 0.02 x10'3 /uL 0.01-0 .08 Not Available [facility] (Lab) [address] [place], [address], 09/11/2023 11:07:44 09/11/20 23 09/11/2023 CBC/C OMPLE TE BLD COUNT W/DIF F immature granulocytes ,absolute 0.01 x10'3 /uL 0.00-0 .05 Not Available [facility] (Lab) [address] [place], [address], 09/11/2023 11:07:44 09/11/20 23 09/11/2023 CBC/C OMPLE TE BLD COUNT W/DIF F nucleated red blood cells 0.0 % -0 Not Available [facility] (Lab) [address] [place], [address], 09/11/2023 11:07:44 09/11/20 23 09/11/2023 CBC/C OMPLE TE BLD COUNT W/DIF F NRBC# 0.00 x10'3 /uL Not Available [facility] (Lab) [address] [place], [address], 09/11/2023 11:07:44 09/11/20 23 09/11/2023 COMPR EHENS AISHWARYA METAB OLIC PANEL sodium 139 mmol/ L 137-14 5 Not Available [facility] (Lab) [address] [place], [address], 09/11/2023 11:30:25 09/11/20 23 09/11/2023 COMPR EHENS AISHWARYA METAB OLIC PANEL potassium 4.6 mmol/ L 3.5-5. 1 Not Available [facility] (Lab) [address] [place], [address], 09/11/2023 11:30:25 09/11/20 23 09/11/2023 COMPR EHENS AISHWARYA METAB OLIC PANEL chloride 105 mmol/ L 98-107 Not Available [facility] (Lab) [address] [place], [address], 09/11/2023 11:30:25 09/11/20 23 09/11/2023 COMPR EHENS AISWHARYA METAB OLIC PANEL carbon dioxide 29 mmol/ L 22-30 Not Available [facility] (Lab) [address] [place], [address], 09/11/2023 11:30:25 09/11/20 23 09/11/2023 COMPR EHENS AISHWARYA METAB OLIC PANEL anion gap 9.6 mmol/ L 14-22 low Not Available [facility] (Lab) [address] [place], [address], 09/11/2023 11:30:25 09/11/20 23 09/11/2023 COMPR EHENS AISHWARYA METAB OLIC PANEL glucose 165 mg/dL 70-99 high Not Available [facility] (Lab) [address] [place], [address], 09/11/2023 11:30:25 09/11/20 23 09/11/2023 COMPR EHENS AISHWARYA METAB OLIC PANEL BUN 18 mg/dL 8-19 Not Available [facility] (Lab) [address] [place], [address], 09/11/2023 11:30:25 09/11/20 23 09/11/2023 COMPR EHENS AISHWARYA METAB OLIC PANEL creatinine 0.74 mg/dL 0.66-1 .25 Not Available [facility] (Lab) [address] [place], [address], 09/11/2023 11:30:25 09/11/20 23 09/11/2023 COMPR EHENS AISHWARYA METAB OLIC PANEL GFR >60 Refer ence Range : [place] ge GFR Healt hy Adult : >60 [...] calcu lator is avail able on the [facility] websi te: https ://zoie min.guillermo schwartz/sharona catesal s/kdo qi/gf r_cal culat or Not Available [facility] (Lab) [address] [place], [address], 09/11/2023 11:30:25 09/11/20 23 09/11/2023 COMPR EHENS AISHWARYA METAB OLIC PANEL alkaline phosphatase 82 U/L 38-126 Not Available [facility] (Lab) [address] [place], [address], 09/11/2023 11:30:25 09/11/20 23 09/11/2023 COMPR EHENS AISHWARYA METAB OLIC PANEL alanine aminotransfe rase 52 U/L 0-35 high Not Available [facility] (Lab) [address] [place], [address], 09/11/2023 11:30:25 09/11/20 23 09/11/2023 COMPR EHENS AISHWARYA METAB OLIC PANEL aspartate aminotransfe rase 34 U/L 15-37 Not Available [facility] (Lab) [address] [place], [address], 09/11/2023 11:30:25 09/11/20 23 09/11/2023 COMPR EHENS AISHWARYA METAB OLIC PANEL bilirubin, total 0.60 mg/dL 0.20-1 .30 Not Available [facility] (Lab) [address] [place], [address], 09/11/2023 11:30:25 09/11/20 23 09/11/2023 COMPR EHENS AISHWARYA METAB OLIC PANEL calcium 9.5 mg/dL 8.4-10 .2 Not Available [facility] (Lab) [address] [place], [address], 09/11/2023 11:30:25 09/11/20 23 09/11/2023 COMPR EHENS AISHWARYA METAB OLIC PANEL total protein 7.0 g/dL 6.3-8. 2 Not Available [facility] (Lab) [address] [place], [address], 09/11/2023 11:30:25 09/11/20 23 09/11/2023 COMPR EHENS AISHWARYA METAB OLIC PANEL albumin 3.9 g/dL 3.4-5. 0 Not Available [facility] (Lab) [address] [place], [address], 09/11/2023 11:30:25 09/11/20 23 09/11/2023 COMPR EHENS AISHWARYA METAB OLIC PANEL globulin 3.1 g/dL 2.6-4. 2 Not Available [facility] (Lab) [address] [place], [address], 09/11/2023 11:30:25 09/11/20 23 09/11/2023 COMPR EHENS AISHWARYA METAB OLIC PANEL A/G ratio 1.3 ratio 1.0-2. 0 Not Available [facility] (Lab) [address] [place], [address], 09/11/2023 11:30:25 09/11/20 23 09/11/2023 MAGNE SIUM magnesium 2.1 mg/dL 1.6-2. 3 Not Available [address] [id number]|2025-03-02 12:55:00|2025-03-02 12:55:00|XMS_ITS|BKG DAEMON|External Medical Summaries|[id number]|" CONTINUITY OF CARE DOCUMENT Created on: March 02, 2025 Daniella Mendes : 1965 Sex: Female Author Name alivia bunch Address Unknown Organization [facility] Address [address] [address] [address] [place] [address] Phone [phone] Care Team Providers Care Agricultural Commodities Inspector Name Role Phone Alex Ward DO Unavailable [phone] CAMIME SUN MD Unavailable CAMMIE SUN MD Unavailable [phone] PROBLEMS Condition Status Date Provider Notes Cardiovascular screening active Kalpana Kendrick Abnormal EKG active Alexandria Ibarra INSURANCE PROVIDERS Payer name Policy type / Coverage type Roslyn red libertarian ID [facility] [id number] TREATMENT PLAN Date Name [place], Coronary Calcium Score Complete Echo HISTORY OF PROCEDURES Procedure Date Procedure Name Provider Procedure Notes S tatus CT- Coronary CA score Alex Ward DO completed "
== END 2025-03-02 12:48 | disposition home or self-care (01) ==
PROVIDERS: PCP Internal Medicine; Visit Provider Physician Assistant
DX: Z12.2 Encounter for screening for malignant neoplasm of respiratory organs (principal); Z87.891 Personal history of nicotine dependence
CPT/HCPCS: 71271

== ENCOUNTER 2025-03-10 07:44 | Outpatient (CLI) | payer BC, SELFPAY ==
--- NOTE | ~2025-03-10 | XR_ITS ---
XR ankle LT min 3V 03/10/2025 08:23 Indication: Left ankle pain Procedure: 4 views left ankle Comparison: 02/20/2025 Findings: There is a large degenerative calcaneal enthesophyte at the plantar surface. There is a pos sible nondisplaced fracture anterior superior margin of the talus on the lateral view. There is a sma ll osteochondral defect lateral margin of the talar dome. Mild soft tissue swelling. Impression: 1: Possible nondisplaced fracture anterior-superior margin of the talus best seen on lateral view. 2: Small osteochondral defect lateral margin of the talar dome. Reviewed, dictated and finalized at location A. Impression: 1: Possible nondisplaced fracture anterior-superior margin of the talus best se en on lateral view. 2: Small osteochondral defect lateral margin of the talar dome.
--- OUTSIDE RECORDS SUMMARY | 2025-03-10 07:52 | XMS_ITS | CONTINUITY OF CARE DOCUMENT ---
Author Name alivia bunch Address Unknown Organization [facility] Address [address] [place] [address] Phone [phone] Care Team Providers Care Lace Finisher Name Role Phone Alex Ward DO Unavailable MOSES DELATORRE, CAMMIE Bryan Unavailable MOSES DELATORRE, CAMMIE Bryan Unavailable PROBLEMS Condition Status Date Provider Notes Cardiovascular screening active Kalpana Kendrick Abnormal EKG active [facility] INSURANCE PROVIDERS Payer name Policy type / Coverage type [place] [employer] party ID [facility] Blue [facility] [id number] TREATMENT PLAN Date Name CT, Coronary Calcium Score Complete Echo HISTORY OF PROCEDURES Procedure Date Procedure Name Provider Procedure Notes S tatus CT- Coronary CA score Alex Ward DO completed
--- OUTSIDE RECORDS SUMMARY | 2025-03-10 07:52 | XMS_ITS | Data Portability ---
Author Organization [facility]wiaessence Mitchell Address [address] [place] [address] Care Team Providers Care Employee Service Officer Name Role Phone CAMMIE SUN Primary Care Provider Unavailabl e Assessment Encounter Date Assessment Date Assessment LastModified by Organization Details LastModified Time 04/24/2024 04/24/2024 we will try some cholestyramine healthy lifestyle care instructions given blood work has been ordered A1c was 5.9 follow up in 4 months Not available 05/04/2024 21:36:24 08/28/2024 08/28/2024 blood work has been ordered we will start GLP 1 Jeremiah Rudd she will follow up in 3 months all questions answered [email or web address] Not available 10/10/2024 14:01:39 11/27/2024 11/27/2024 healthy lifestyl e care instructions x-ray mandible refer for her jaw issue titrate her GLP 1 follow up in 4 months [email or web address] Not available 12/07/2024 17:37:28 01/29/2025 01/29/2025 History [...] her neck and some physical therapy started [email or web address] Not available 01/31/2025 20:34:56 03/05/2025 03/05/2025 CBC CMP lipid T3-T4 TSH cortisol MELECIO rheumatoid factor A1c B12 folic acid. X-ray left ankle. Endocrinology referral she tried GLP 1 agents she had no luck losing any weight there she is tired all the time I will get their opinion may have to have rheumatology look at her to consider EBV testing follow up 4 mos. [email or web address] Not available 03/07/2025 22:10:50 Plan of Treatment Reminders Order Date Submit Date Provider Last Modified By Organization Details Last Modified Time Details Appointments ANY 15 2024 09:15A Patricia Sun MD Not available Not available Not available Lab HbA1c (hemoglob in A1c), blood 2024 025 [email or web address] [facility], [address], [place], [address], 03/05/2025 12:36:45 cortisol, serum or plasma 2024 025 nellie Chaudhary, [address], [place], [address], 03/05/2025 12:36:45 cobalamin and folate panel, serum 2024 025 nellie Barp, [address], [place], [address], 03/05/2025 12:36:45 MELECIO (antinucl ear antibodie s) screen, ifa, serum 2024 025 nellie [facility], [address], [place], [address], 03/05/2025 12:36:45 rf (rheumato id factor), serum 2024 025 nellie Chaudhary, [address], [place], [address], 03/05/2025 12:36:45 lipid panel, serum 2024 025 nellie Laz[facility], [address], [place], [address], 03/05/2025 12:36:45 CBC w/ auto diff 2024 025 nellie Chaudhary, [address], [place], [address], 03/05/2025 12:36:45 CMP, serum or plasma 2024 025 nellie Chaudhary, [address], [place], [address], 03/05/2025 12:36:45 T3, free, serum or plasma 2024 025 nellie Chaudhary, [address], [place], [address], 03/05/2025 12:36:45 T4, free, serum 2024 025 nellie Chaudhary, [address], [place], [address], 03/05/2025 12:36:45 TSH, ultra-sen sitive, serum 2024 025 [email or web address] [facility], [address], [place], [address], 03/05/2025 12:36:45 CMP, serum or plasma 2023 024 SAGAR Chaudhary, [address], [place], [address], 08/29/2024 07:16:27 lipid panel, serum 2023 024 SAGAR Chuadhary, [address], [place], [address], 08/29/2024 07:16:25 CBC w/ auto diff 2023 024 SAGAR Chaudhary, [address], [place], [address], 08/29/2024 07:16:28 HbA1c (hemoglob in A1c), blood 2023 024 [email or web address] [id number] In-Office Order, Internal Use Only DO Not Attach Compendium DO Not Attach Compendium, Do Not Delete/merge, [id number] 04/24/2024 14:23:48 lipid panel, serum 2023 024 [facility], [address], [place], [address], 04/29/2024 09:44:14 CBC w/ auto diff 2023 024 [facility], [address], [place], [address], 04/29/2024 09:44:14 CMP, serum or plasma 2023 024 [facility], [address], [place], [address], 04/29/2024 09:44:14 Referral endocrino logy referral 2024 025 [email or web address] Lora Bocanegra MD, [address], [place], [address], 03/05/2025 16:05:20 Procedures None recorded. Surgeries None recorded. Imaging XR, ankle 2024 025 [facility] (Imaging), [address], [place], [address], 03/05/2025 12:36:45 Medication Orders cyclobenz aprine 10 mg tablet 2024 025 [facility]FF[facility]O [id number], [address], [place], [place], [id number], 03/05/2025 10:29:37 Medrol ([place]) 4 mg tablets in a dose pack 2024 025 SAGAR [facility] #93138, [address] , [place], [place], [id number], 03/05/2025 10:29:53 Mounjaro 2.5 mg/0.5 mL subcutane ous pen injector 2023 024 son [facility] #48321, [address] , [place], [place], [id number], 11/27/2024 10:39:06 Cholestyr amine Light 4 gram oral powder 2023 024 [email or web address] [facility] #[id number], [address] , [place], [place], [id number], 04/24/2024 14:23:48 Patient TargetsNo targets recorded. Patient Instructions Encounter Date Encounter Id Patient Instructions Last Modified By Organization Details Last Modified Time 04/24/2024 [id number] A healthy lifestyle: care instructions [email or web address] Not available 04/24/2024 14:23:48 08/28/2024 [id number] A healthy lifestyle: care instructions [email or web address] Not available 08/28/2024 13:45:10 11/27/2024 [id number] A healthy lifestyle: care instructions [email or web address] Not available 11/27/2024 13:40:37 01/29/2025 [id number] A healthy lifestyle: care instructions [email or web address] Not available 01/29/2025 17:42:03 03/05/2025 [id number] A healthy lifestyle: care instructions [email or web address] Not available 03/05/2025 12:36:45 Reason for Referral Endocrinology Referral for T ype 2 diabetes mellitus Referring Physician: Cammie Sun, Internal Medicine, Encounter Date: 03/05/2025 Results Created Date Observation Date Name Description Value Unit Range Abnormal Flag Note LastModifiedBy Organization Detail LastModifiedTime 04/24/20 24 04/24/2024 HbA1c (hemo globi n A1c), blood HbA1c 5.9 Not Available In-Office Order Internal Use Only DO Not Attach Compendium DO Not Attach Compendium, Do Not Delete/merge, [id number] 04/23/2024 14:11:04 06/20/20 24 06/20/2024 COLOG UARD cologuard result reportable NEGATI VE negati ve normal NEGAT AISHWARYA TEST RESUL T. A negat aishwarya Colog uard resul t indic ates a low likel ihood that a color ectal cance r (CRC) or advan francoise adeno ma (cathie omato us polyp s with more advan francoise pre-m align ant featu res) is prese nt. The [facility] e that a perso n with [...] ectiv e cross -sect ional study of , 0 indiv idual s at [place] risk for color ectal cance r [...] asymp tomat ic indiv idual s at [place] ge risk for color ectal cance r. [...] 112:1 016-1 030. TEST DESCR IPTIO N: [place] site algor ithmi c isamar sis [...] years or older , who are at [facility] for color ectal cance r (CRC) . Colog uard has been appro lesley for use by the [place] FDA. The perfo rmanc e of Colog uard was estab lishe d in a cross secti onal study of [facility] adult s aged 50-84 . Colog uard perfo rmanc e in patie nts ages 45 to 49 years was estim ated by sub-g roup isamar sis of near- age group s. Colon oscop ies perfo rmed for a posit aishwarya resul t may find as the most clini merissa signi kendy beanio n: color ectal cance r [4.0% ], [...] of 10,00 0 indiv idual s at [facility] for color ectal cance r who were [...] ution s can be found at www.c staciu moe.c om. Not Available [facility] (Cologuard Orders Only) [address], [place], [address], 06/25/2024 14:54:41 08/28/20 24 08/29/2024 LIPID PANEL cholesterol, total 163 mg/dL 100-19 9 Not Available [facility] ([facility]) [address] [facility], [place], [address], 08/29/2024 07:16:25 08/28/20 24 08/29/2024 LIPID PANEL triglyceride s 156 mg/dL 0-149 above high normal Not Available [facility] ([facility]) [address] [facility], [place], [address], 08/29/2024 07:16:25 08/28/20 24 08/29/2024 LIPID PANEL HDL cholesterol 49 mg/dL >39 Not Available [facility] ([facility]) [address] [place], [address], 08/29/2024 07:16:25 08/28/20 24 08/29/2024 LIPID PANEL VLDL cholesterol david 27 mg/dL 5-40 Not Available [facility] ([facility]) [address] [place], [address], 08/29/2024 07:16:25 08/28/20 24 08/29/2024 LIPID PANEL LDL chol calc ([facility]) 87 mg/dL 0-99 Not Available [facility] ([facility]) [address] [place], [address], 08/29/2024 07:16:25 08/28/20 24 08/29/2024 COMP. METAB OLIC PANEL (14) glucose 121 mg/dL 70-99 above high normal Not Available [facility] ([facility]) [address] [place], [address], 08/29/2024 07:16:26 08/28/20 24 08/29/2024 COMP. METAB OLIC PANEL (14) BUN 12 mg/dL 6-24 Not Available [facility] ([facility]) [address] [place], [address], 08/29/2024 07:16:26 08/28/20 24 08/29/2024 COMP. METAB OLIC PANEL (14) creatinine 0.86 mg/dL 0.57-1 .00 Not Available [facility] ([facility]) [address] [place], [address], 08/29/2024 07:16:26 08/28/20 24 08/29/2024 COMP. METAB OLIC PANEL (14) eGFR 78 mL/mi n/1.7 3 >59 Not Available [facility] ([facility]) [address] [place], [address], 08/29/2024 07:16:26 08/28/20 24 08/29/2024 COMP. METAB OLIC PANEL (14) BUN/creatini ne ratio 14 9-23 Not Available [facility] ([facility]) [address] [facility], [place], [address], 08/29/2024 07:16:26 08/28/20 24 08/29/2024 COMP. METAB OLIC PANEL (14) sodium 137 mmol/ L 134-14 4 Not Available [facility] ([facility]) [address] [facility], [place], [address], 08/29/2024 07:16:26 08/28/20 24 08/29/2024 COMP. METAB OLIC PANEL (14) potassium 4.7 mmol/ L 3.5-5. 2 Not Available [facility] ([facility]) [address] [facility], [place], [address], 08/29/2024 07:16:26 08/28/20 24 08/29/2024 COMP. METAB OLIC PANEL (14) chloride 102 mmol/ L 96-106 Not Available [facility] ([facility]) [address] [place], [address], 08/29/2024 07:16:26 08/28/20 24 08/29/2024 COMP. METAB OLIC PANEL (14) carbon dioxide, total 24 mmol/ L 20-29 Not Available [facility] ([facility]) [address] [place], [address], 08/29/2024 07:16:26 08/28/20 24 08/29/2024 COMP. METAB OLIC PANEL (14) calcium 9.6 mg/dL 8.7-10 .2 Not Available [facility] ([facility]) [address] [place], [address], 08/29/2024 07:16:26 08/28/20 24 08/29/2024 COMP. METAB OLIC PANEL (14) protein, total 7.1 g/dL 6.0-8. 5 Not Available [facility] ([facility]) [address] [place], [address], 08/29/2024 07:16:26 08/28/20 24 08/29/2024 COMP. METAB OLIC PANEL (14) albumin 4.4 g/dL 3.8-4. 9 Not Available [facility] ([facility]) [address] [facility] [place], [address], 08/29/2024 07:16:26 08/28/20 24 08/29/2024 COMP. METAB OLIC PANEL (14) globulin, total 2.7 g/dL 1.5-4. 5 Not Available [facility] ([facility]) [address] [place], [address], 08/29/2024 07:16:26 08/28/20 24 08/29/2024 COMP. METAB OLIC PANEL (14) bilirubin, total 0.4 mg/dL 0.0-1. 2 Not Available [facility] ([facility]) [address] [facility] [place], [address], 08/29/2024 07:16:26 08/28/20 24 08/29/2024 COMP. METAB OLIC PANEL (14) alkaline phosphatase 124 IU/L 44-121 above high normal Not Available [facility] ([facility]) [address] [facility] [place] [place], [address], 08/29/2024 07:16:26 08/28/20 24 08/29/2024 COMP. METAB OLIC PANEL (14) AST (SGOT) 23 IU/L 0-40 Not Available [facility] ([facility]) [address] [facility] [place], [address], 08/29/2024 07:16:26 08/28/20 24 08/29/2024 COMP. METAB OLIC PANEL (14) ALT (SGPT) 31 IU/L 0-32 Not Available [facility] ([facility]) [address] [facility], [place], [address], 08/29/2024 07:16:26 08/28/20 24 08/29/2024 CBC WITH DIFFE RENTI AL/PL ATELE T WBC 6.8 x10e3 /uL 3.4-10 .8 Not Available [facility] ([facility]) [address] [facility], [place], [address], 08/29/2024 07:16:28 08/28/20 24 08/29/2024 CBC WITH DIFFE RENTI AL/PL ATELE T RBC 4.65 x10e6 /uL 3.77-5 .28 Not Available [facility] ([facility]) [address] [facility], [place], [address], 08/29/2024 07:16:28 08/28/20 24 08/29/2024 CBC WITH DIFFE RENTI AL/PL ATELE T hemoglobin 14.9 g/dL 11.1-1 5.9 Not Available [facility] ([facility]) [address] [facility], [place], [address], 08/29/2024 07:16:28 08/28/20 24 08/29/2024 CBC WITH DIFFE RENTI AL/PL ATELE T hematocrit 44.5 % 34.0-4 6.6 Not Available [facility] ([facility]) [address] [facility], [place], [address], 08/29/2024 07:16:28 08/28/20 24 08/29/2024 CBC WITH DIFFE RENTI AL/PL ATELE T MCV 96 fL 79-97 Not Available [facility] ([facility]) [address] [facility], [place], [address], 08/29/2024 07:16:28 08/28/20 24 08/29/2024 CBC WITH DIFFE RENTI AL/PL ATELE T MCH 32.0 pg 26.6-3 3.0 Not Available [facility] ([facility]) [address] [facility], [place], [address], 08/29/2024 07:16:28 08/28/20 24 08/29/2024 CBC WITH DIFFE RENTI AL/PL ATELE T MCHC 33.5 g/dL 31.5-3 5.7 Not Available [facility] ([facility]) [address] [facility], [place], [address], 08/29/2024 07:16:28 08/28/20 24 08/29/2024 CBC WITH DIFFE RENTI AL/PL ATELE T RDW 12.5 % 11.7-1 5.4 Not Available [facility] ([facility]) [address] [facility], [place], [address], 08/29/2024 07:16:28 08/28/20 24 08/29/2024 CBC WITH DIFFE RENTI AL/PL ATELE T platelets 267 x10e3 /uL 150-45 0 Not Available [facility] ([facility]) [address] [facility], [place], [address], 08/29/2024 07:16:28 08/28/20 24 08/29/2024 CBC WITH DIFFE RENTI AL/PL ATELE T neutrophils 60 % notest ab. Not Available [facility] ([facility]) [address] [place], [address], 08/29/2024 07:16:28 08/28/20 24 08/29/2024 CBC WITH DIFFE RENTI AL/PL ATELE T lymphs 30 % notest ab. Not Available [facility] ([facility]) [address] [place], [address], 08/29/2024 07:16:28 08/28/20 24 08/29/2024 CBC WITH DIFFE RENTI AL/PL ATELE T monocytes 8 % notest ab. Not Available [facility] ([facility]) [address] [place], [address], 08/29/2024 07:16:28 08/28/20 24 08/29/2024 CBC WITH DIFFE RENTI AL/PL ATELE T eos 2 % notest ab. Not Available [facility] ([facility]) [address] [facility], [place], [address], 08/29/2024 07:16:28 08/28/20 24 08/29/2024 CBC WITH DIFFE RENTI AL/PL ATELE T basos 0 % notest ab. Not Available [facility] ([facility]) [address] [facility], [place], [address], 08/29/2024 07:16:28 08/28/20 24 08/29/2024 CBC WITH DIFFE RENTI AL/PL ATELE T neutrophils (absolute) 4.1 x10e3 /uL 1.4-7. 0 Not Available [facility] ([facility]) [address] [facility], [place], [address], 08/29/2024 07:16:28 08/28/20 24 08/29/2024 CBC WITH DIFFE RENTI AL/PL ATELE T lymphs (absolute) 2.1 x10e3 /uL 0.7-3. 1 Not Available [facility] ([facility]) [address] [place], [address], 08/29/2024 07:16:28 08/28/20 24 08/29/2024 CBC WITH DIFFE RENTI AL/PL ATELE T monocytes(ab solute) 0.5 x10e3 /uL 0.1-0. 9 Not Available [facility] ([facility]) [address] [place], [address], 08/29/2024 07:16:28 08/28/20 24 08/29/2024 CBC WITH DIFFE RENTI AL/PL ATELE T eos (absolute) 0.1 x10e3 /uL 0.0-0. 4 Not Available [facility] ([facility]) [address] [facility], [place], [address], 08/29/2024 07:16:28 08/28/20 24 08/29/2024 CBC WITH DIFFE RENTI AL/PL ATELE T baso (absolute) 0.0 x10e3 /uL 0.0-0. 2 Not Available [facility] ([facility]) [address] [place], [address], 08/29/2024 07:16:28 08/28/20 24 08/29/2024 CBC WITH DIFFE RENTI AL/PL ATELE T immature granulocytes 0 % notest ab. Not Available [facility] ([facility]) [address] [facility], [place], [address], 08/29/2024 07:16:28 08/28/20 24 08/29/2024 CBC WITH DIFFE RENTI AL/PL ATELE T immature grans (abs) 0.0 x10e3 /uL 0.0-0. 1 Not Available [facility] ([facility]) [address] [place], [address], 08/29/2024 07:16:28 09/16/20 24 09/17/2024 HEMOG LOBIN A1C hemoglobin A1C 6.3 % 4.8-5. 6 above high normal Predi abete s: 5.7 - 6.4 Diabe lucita: >6.4 Glyce phillip contr ol for adult s with diabe lucita: <7.0 Not Available [facility] ([facility]) [address] [facility], [place], [address], 09/17/2024 08:29:52 12/10/19 25 12/10/2024 XR, panfilo ble No observ ation record ed. [place] [address], [place], [address], 12/12/2024 12:20:11 12/10/19 25 12/10/2024 XR, panfilo ble No observ ation record ed. [address], [place], [address], 12/12/2024 12:20:12 12/18/19 25 12/17/2024 MAMMO , scree palomo, digit al, bilat eral No observ ation record ed. [facility] [address] [facility], [place], [address], 12/22/2024 17:48:06 01/06/20 25 01/03/2025 CT, coron sheron calci um score No observ ation record ed. [facility] [address], [place], [address], 01/07/2025 10:22:03 02/05/20 25 02/04/2025 XR, neck No observ ation record ed. [address], [place], [address], 02/19/2025 14:50:13 02/21/20 25 02/20/2025 XR, ankle No observ ation record ed. [address], [place], [address], 02/25/2025 17:50:58 03/03/20 25 03/02/2025 LDCT, chest , for lung cance r joanne culver No observ ation record ed. [address], [place], [address], 03/04/2025 11:26:18 Result Notes None recorded. Problems Name Problem SNOMED Code Status Onset Date Resolution Date Notes Provider Name and Address Organization Details Recorded Time Fatigue 20419734 Active 2023 Reg Carlson MA [facility], [place] - [facility] 11:06:18 Essential hypertension 44154667 Active 2023 aCmmie Sun MD Attn: Austin ontiveros,[address] [facility], [place], [address], [facility] 4 15:39:11 Type 2 diabetes mellitus 66019080 Active 2023 Reg Carlson MA null, [place] - [facility] 4 10:41:40 Morbid obesity 909961578 Active 2023 Reg Carlson [place], [place] [facility] 4 10:41:41 Diarrhea 91447495 Active 2023 Reg Carlson [place] null, [place] - [facility] 4 10:41:42 Hyperlipidemia 74622799 Active 2023 Cammie Sun MD Attn: Austin ontiveros,[address] [facility], [place], [address], [facility] - [facility] 4 14:01:58 Pain of multiple joints 85279978 Active 2024 Reg Carlson MA null, [place] - [facility] 5 11:06:29 Problem Notes None recorded. Procedures Surgical History Date Name Laterality Status Provider Name and Address Organization Details Recorded Time LEEP completed Stephanie man, [place] - [facility] 12/27/2023 11:41:24 Imaging Results None recorded. Procedure Notes None recorded. Medical Equipment None Reported. Allergies No known drug allergies Medications Name Sig Start Date Stop Date Status Note LastModified by Organization Details LastModified Time cyclobenzap rine 10 mg tablet TAKE 1 TABLET BY MOUTH TWICE DAILY FOR 10 DAYS 03/05 completed Not Available Not Available Not Available [...] TOPICALLY TO THE AFFECTED AREA TWICE DAILY 03/05 completed Not Available Not Available Not Available methylpredn isolone 4 mg tablets in a dose pack FOLLOW PACKAGE DIRECTION S 03/05 completed Not Available Not Available Not Available albuterol sulfate HFA 90 mcg/actuati on aerosol inhaler INHALE 2 PUFFS BY MOUTH EVERY 4 HOURS NEEDED 03/05 completed Not Available Not Available Not Available metformin ER 500 mg tablet,exte nded release 24 hr TAKE 2 TABLETS BY MOUTH EVERY DAY AT BEDTIME active Not Available Not Available [...] 1 TIME A WEEK FOR 4 WEEKS 03/05 completed Not Available Not Available Not Available Mounjaro 2.5 mg/0.5 mL subcutaneou s [...] in Arterial blood by Pulse oximetry Systolic And Diastolic Provider Name and Address Organization Details Last Updated DateTime 5 167.64 cm 41.8 kg/m2 454846. 71 g 68 /min 99 % 99 % 118/68 mm[Hg] Tracy Khalil MA [facility] 5 10:37:26 Date Recorded Body height Body mass index (BMI) Body weight Heart rate Oxygen saturation Oxygen saturation in Arterial blood by Pulse oximetry Systolic And Diastolic Provider Name and Address Organization Details Last Updated DateTime 5 167.64 cm 41.6 kg/m2 739269. 11 g 85 /min 96 % 96 % 120/68 mm[Hg] July Soni MA [facility] 5 16:23:53 Date Recorded Body height Body mass index (BMI) Body weight Heart rate Oxygen saturation Oxygen saturation in Arterial blood by Pulse oximetry Systolic And Diastolic Provider Name and Address Organization Details Last Updated DateTime 5 167.64 cm 41.3 kg/m2 437428. 21 g 68 /min 95 % 95 % 138/78 mm[Hg] Shan Goss MA [facility] 5 10:28:45 Date Recorded Body height Body mass index (BMI) Body weight Heart rate Oxygen saturation Oxygen saturation in Arterial blood by Pulse oximetry Systolic And Diastolic Provider Name and Address Organization Details Last Updated DateTime 4 167.64 cm 41.9 kg/m2 960800. 5 g 61 /min 98 % 98 % 120/70 mm[Hg] July Soni MA [facility] 4 09:53:29 Date Recorded Body height Body mass index (BMI) Body weight Heart rate Oxygen saturation Oxygen saturation in Arterial blood by Pulse oximetry Body temperature Systolic And Diastolic Provider Name and Address Organization Details Last Updated DateTime 4 167.64 cm 41.2 kg/m2 374437. 05 g 70 /min 98 % 98 % 97.6 [degF] 132/86 mm[Hg] Patricia Ontiveros MA [facility] 4 10:12:19 Social History Question Answer Notes LastModified by Organizat ion Details LastModified Time Tobacco Smoking Status Former Smoker Stephanie Mills MA [facility], [facility] 12/27/2023 11:39:57 Do You Have An Advance Directive? No Information not available 12/27/2023 Are You Blind [...] Date Of Your Most Recent Tobacco Screening? 03/05/2025 Information not available 03/05/2025 What Is Your Current Pack Years? 20-29packyears [...] PPD Information not available 12/27/2023 Do You Use Sunscreen Routinely? No Information not available 12/27/2023 Has Tobacco Cessation Counseling Been Provided? No Information not available 12/27/2023 How Many Years Have You Smoked Tobacco? 15 Information not available 12/27/2023 Sex: Female Functional Status Question Answer Note LastModified by Organizat ion Details LastModified Time Do you use any illicit or recreational drugs? No Information not available 12/27/2023 Do you or have you ever used any other forms of tobacco or nicotine? Yes Information not available 03/05/2025 What is your level of alcohol consumption? Occasional Information not available 12/27/2023 Are you able to care for yourself? Yes Information n ot available 12/27/2023 What is your exercise level? None Information not available 12/27/2023 Mental Status Question Answer Note LastModified by Organization D etails LastModified Time Do you feel stressed (tense, restless, nervous, or anxious, or unable to sleep at night)? [id number] Information not available 12/27/2023 Family History Relationship Description Onset Age of this Age Resolved Age Notes LastModified by Organization Details LastModified Time Father No current problems or disability bandersonma Not available 11:39:03 Mother No current problems or disability bandersonma Not available 11:39:03 Medical History Condition Response Coronary Artery Disease N Other N Atrial Fibrillation N High Blood Pressure N Depression N COPD N Blood Clots N Anxiety Disorder N Muscle, Joint, or Bone Problems N Acid Reflux (GERD) N Cancer N Stroke N High Cholesterol Y Liver Disease N Headaches N Kidney or Bladder Problems Y Thyroid Problems N GI Problems N Skin Problems N Anemia N Heart Attack ([place]) N Diabetes Y Seizures/Epilepsy N Asthma N Allergies N Hepatitis N Heart Failure N Osteoporosis N Gynecological HistoryNo gynecological history recorded. Obstetrics History GPAL:G 0 P 0 0 0 0 Immunizations Vaccine Type Date Status Note Provider Nam e and Address Organization Details Recorded Time COVID-19, mRNA, LNP-S, PF, 100 mcg/0.5mL dose or 50 mcg/0.25mL dose 10/19/2021 completed MANDY Morse, [place] - [facility] 04/23/2024 14:08:44 COVID-19 vaccine, vector-nr, rS-Ad26, PF, 0.5 mL 01/17/2021 completed MANDY Morse, [place] - [facility] 04/23/2024 14:08:44 COVID-19, mRNA, LNP-S, bivalent, PF, 30 mcg/0.3 mL dose 11/16/2022 completed MANDY [place], [place] [facility] 04/23/2024 14:08:44 Influenza, split virus, quadrivalent, PF 08/17/2022 [place] MANDY [place], [place] [facility] 04/23/2024 14:08:44 Past Encounters Encounter ID Performer Location Encounter Start Date Encounter Closed Date Diagnosis/Indication Diagnosis SNOMED-CT Code Diagnosis ICD10 Code Diagnosis Note [id number] Cammie Sun MD [facility] ([facility]ult [facility]) [address] [place] [address] 12/27/2023 11:13:08 12/27/2023 12:37:12 Fatigue 91736928 R53.83 Essential hypertension 14455269 I10 Muscle pain 92916969 M79 .10 Dizziness 458192897 R42 Electrocar diogram abnormal 414328079 R94.31 Obstructiv e sleep apnea syndrome 53326445 G47.33 Obesity 493385189 E66.9 Hyperlipidemia 09356767 E78.5 Type 2 sonny betes mellitus 54871878 E11.9 [id number] Cammie Sun MD [facility] [place] [address] [place] [address] 04/24/2024 09:37:14 04/24/2024 10:54:29 Type 2 diabetes mellitus 82718315 E11.9 Morbid obesity 742214199 E66.01 Diarrhea 33178137 R19.7 Essential hypertension 33170540 I10 [id number] Cammie Sun MD [facility] [place] [address] [place] [address] 08/28/2024 09:54:50 08/28/2024 10:48:56 Obesity 345187806 E66.9 Essential hypertension 08223275 I10 Type 2 sonny betes mellitus 79595315 E11.9 Fatigue 81469172 R53.83 Hyperlipidemia 24319951 E78.5 [id number] Cammie Sun MD [facility] [place] [address] [place] [address] 11/27/2024 10:08:03 11/27/2024 11:40:05 Body mass index 40+ - severely obese 805512853 Z68.41 Morbid obesity 656862797 E66.01 Type 2 sonny betes mellitus 37914842 E11.9 Essential hypertension 80441804 I10 Hyperlipidemia 04583474 E78.5 [id number] Cammie Sun MD [facility] [place] [address] [place] [address] 01/29/2025 16:12:18 01/29/2025 16:47:06 Body mass index 40+ - severely obese 027324350 Z68.41 Obesity 900296288 E66.9 Cervical radiculopathy 30206996 M54.12 [id number] Cammie Sun MD [facility] [place] [address] [place] [address] 03/05/2025 09:52:58 03/05/2025 11:11:08 Body mass index 40+ - severely obese 147913993 Z68.41 Obese class III 66370350 5 E66.813 Essential hypertension 74193163 I10 Hyperlipidemia 26480977 E78.5 Type 2 sonny betes mellitus 04516565 E11.9 Ankle pain 284212396 M25 .572 Fatigue 42963054 R53.83 Pain of mu ltiple joints 49604061 M25.50 Health Concerns Section Related Observation LastModified by Organization Susan ls LastModified Time None Recorded Concern Status LastModified by Organization Details LastModified Time None Recorded Advance Directives Directive N: Payers Encounter Date Sequence Insurance Name Policy Number Policy Barriga Covered Member ID Barriga Member ID Guarantor Name 04/24/2024 1 [employer] [id number] Daniella Dillard Givens [id number] Daniella Givens 08/28/2024 1 [employer] [id number] Daniella Dillard Givens [id number] Daniella Givens 11/27/2024 1 [employer] [id number] Daniella E Givens [id number] Daniella Givens 01/29/2025 1 [employer] [id number] Daniella Dillard Givens [id number] Daniella Messinarath 03/05/2025 1 [employer] [id number] Daniella E Givens [id number] Daniella Messinarath Notes Date Note Type Note Provider Name and Address Organization Details Recorded Time 04/24/2024 text/html Fatigue just bot hers her [...] diarrhea Cammie Sun MD Attn: Accounting,[address] [place], [address], [facility] 05/04/2024 21:36:49 08/28/2024 text/html follow up of [...] from any meds Cammie Sun MD Attn: Accounting, [address] [facility], [place], [address], [place] [facility] 10/10/2024 14:02:23 11/27/2024 text/html hypertension blo od pressure looks good still some intermittent fatigue she was seen the sleep doctor they are optimizing her treatment some troubles with the right TMJ joint causes her some pain hard to completely close her jaw at times dyslipidemia could do better with diet Cammie Sun MD Attn: Accounting, [address] [facility], [place], [address], [facility] 12/07/2024 17:37:53 01/29/2025 text/html Few weeks now pa in in her neck going down her left arm and inside of her forearm the base of her thumb is numb from time to time there has not been any bowel or bladder incontinence she is not unstable on her feet no no trauma Cammie Sun MD Attn: Accounting, [facility], [place], [address], [facility] 01/31/2025 20:35:51 03/05/2025 text/html 1. Fell hurt ank cyrus on the left still with symptoms. 2. Remains fatigued 3. Wearing CPAP 4. Diabetes needs to be checked 5. Hyperlipidemia trying to watch her diet. 6. She is a little frustrated but her anxiety is doing better on citalopram. Cammie Sun MD Attn: Accounting, [facility], [place], [address], [facility] 03/07/2025 22:11:09 OBGyn Episode No OBEpisode recorded.
--- OUTSIDE RECORDS SUMMARY | 2025-03-10 07:52 | XMS_ITS | Data Portability ---
Author Organization [place] - [facility] [employer], Main Office Address [address] [place] [address] Care Team Providers [employer]ist[employer] Name Role Phone CAMMIE SUN Primary Care Provider Assessment Encounter Date Assessment Date Assessment LastModified by Organization Details LastModified Time 04/19/2023 04/19/2023 Dermatology. Increase Ozempic to 2 mg blood work has been ordered for biochemical management of disease processes of medications follow-up with me in 4 months [email or web address] Not available 04/19/2023 21:45:31 09/10/2023 09/10/2023 EKG shows a normal sinus rhythm with no acute changes orthostatics are noted Decrease metoprolol to 12.5 b.i.d. blood work she has full range of motion of her lumbar spine and her cervical spine with no spinous process tenderness I will see her back in a week Accu-Chek in the office today 156 [email or web address] Not available 09/10/2023 23:00:49 10/23/2023 10/23/2023 Chest [...] 2022 023 [facility], [address] [place] [address], [address], 3 11:54:33 Procedures None recorded. Surgeries None recorded. Imaging XR, chest 2023 024 [email or web address] Not available 4 13:35:21 electrocard iogram 2022 023 [email or web address] [id number] , [address], [place], [address], 3 18:28:19 Medication Orders doxycycline hyclate 100 mg tablet [address] [id number], [address], [place], [place], [id number], 4 13:11:46 prednisone 20 mg tablet [address] [id number], [address], [place], [place], [id number], 4 13:11:46 albuterol sulfate HFA 90 mcg/actuati on aerosol inhaler 2023 024 [email or web address] [facility] #[id number], [address], [place], [place], [id number], 4 13:11:46 Ozempic 2 mg/dose (8 mg/3 mL) subcutaneou s pen injector 2022 023 [email or web address] [facility] #[id number], [address], [place], [place], [id number], 4 10:18:02 Patient TargetsNo targets recorded. Patient InstructionsNo instructions recorded. Reason for Referral [employer]olste[employer] Referral for S kin lesion Referring Physician: Cammie Sun, Internal Medicine, Encounter Date: 04/19/2023 Results Created Date Observation Date Name Description Value Unit Range Abnormal Flag Note LastModifiedBy Organization Detail LastModifiedTime 04/19/20 23 04/19/2023 CBC/C OMPLE TE BLD COUNT W/DIF F white blood cells 5.7 x10'3 /uL 4.2-10 .8 Not Available [facility] (Lab) [address] [facility] [place], [address], 04/19/2023 13:00:28 04/19/20 23 04/19/2023 CBC/C OMPLE TE BLD COUNT W/DIF F red blood cells 4.40 x10'6 /uL 3.80-5 .20 Not Available [facility] (Lab) [address] [place], [address], 04/19/2023 13:00:28 04/19/20 23 04/19/2023 CBC/C OMPLE TE BLD COUNT W/DIF F hemoglobin 13.9 g/dL 12.0-1 5.6 Not Available [facility] (Lab) [address] [place], [address], 04/19/2023 13:00:28 04/19/20 23 04/19/2023 CBC/C OMPLE TE BLD COUNT W/DIF F hematocrit 42.9 % 35.7-4 5.7 Not Available [facility] (Lab) [address] [place], [address], 04/19/2023 13:00:28 04/19/20 23 04/19/2023 CBC/C OMPLE TE BLD COUNT W/DIF F mean red cell volume 97.5 fL 82.0-9 9.0 Not Available [facility] (Lab) [address] [place], [address], 04/19/2023 13:00:28 04/19/20 23 04/19/2023 CBC/C OMPLE TE BLD COUNT W/DIF F mean red cell hemoglobin 31.6 pg 27.0-3 3.0 Not Available [facility] (Lab) [address] [place], [address], 04/19/2023 13:00:28 04/19/20 23 04/19/2023 CBC/C OMPLE TE BLD COUNT W/DIF F mean RBC HGB concentratio n 32.4 g/dL 31.0-3 6.0 Not Available [facility] (Lab) [address] [place], [address], 04/19/2023 13:00:28 04/19/2004/19/2023 CBC/C OMPLE TE BLD COUNT W/DIF F red cell distribution width 12.5 % 11.8-1 5.5 Not Available [facility] (Lab) [address] [place], [address], 04/19/2023 13:00:28 04/19/20 23 04/19/2023 CBC/C OMPLE TE BLD COUNT W/DIF F platelets 263 x10'3 /uL 150-40 0 Not Available [facility] (Lab) [address] [place], [address], 04/19/2023 13:00:28 04/19/20 23 04/19/2023 CBC/C OMPLE TE BLD COUNT W/DIF F mean platelet volume 10.2 fL 9.0-12 .4 Not Available [facility] (Lab) [address] [place], [address], 04/19/2023 13:00:28 04/19/20 23 04/19/2023 CBC/C OMPLE TE BLD COUNT W/DIF F neutrophils 55.4 % 39.0-7 2.0 Not Available [facility] (Lab) [address] [place], [address], 04/19/2023 13:00:28 04/19/20 23 04/19/2023 CBC/C OMPLE TE BLD COUNT W/DIF F lymphocytes 35.0 % 16.0-4 7.0 Not Available [facility] (Lab) [address] [place], [address], 04/19/2023 13:00:28 04/19/20 23 04/19/2023 CBC/C OMPLE TE BLD COUNT W/DIF F monocytes 7.2 % 5.0-12 .0 Not Available [facility] (Lab) [address] [place], [address], 04/19/2023 13:00:28 04/19/20 23 04/19/2023 CBC/C OMPLE TE BLD COUNT W/DIF F eosinophils 1.6 % 1.0-7. 0 Not Available [facility] (Lab) [address] [place], [address], 04/19/2023 13:00:28 04/19/20 23 04/19/2023 CBC/C OMPLE TE BLD COUNT W/DIF F basophils 0.4 % 0.0-2. 0 Not Available [facility] (Lab) [address] [place], [address], 04/19/2023 13:00:28 04/19/20 23 04/19/2023 CBC/C OMPLE TE BLD COUNT W/DIF F immature granulocytes 0.4 % 0.00-0 .50 Not Available [facility] (Lab) [address] [place], [address], 04/19/2023 13:00:28 04/19/20 23 04/19/2023 CBC/C OMPLE TE BLD COUNT W/DIF F neutrophils, absolute count 3.15 x10'3 /uL 1.5-8. 0 Not Available [facility] (Lab) [address] [place], [address], 04/19/2023 13:00:28 04/19/20 23 04/19/2023 CBC/C OMPLE TE BLD COUNT W/DIF F lymphocytes, absolute count 1.99 x10'3 /uL 1.07-3 .43 Not Available [facility] (Lab) [address] [place], [address], 04/19/2023 13:00:28 04/19/20 23 04/19/2023 CBC/C OMPLE TE BLD COUNT W/DIF F monocytes, absolute count 0.41 x10'3 /uL 0.29-0 .99 Not Available [facility] (Lab) [address] [place], [address], 04/19/2023 13:00:28 04/19/20 23 04/19/2023 CBC/C OMPLE TE BLD COUNT W/DIF F eosinophils, absolute count 0.09 x10'3 /uL 0.02-0 .53 Not Available [facility] (Lab) [address] [place], [address], 04/19/2023 13:00:28 04/19/20 23 04/19/2023 CBC/C OMPLE TE BLD COUNT W/DIF F basophils, absolute count 0.02 x10'3 /uL 0.01-0 .08 Not Available [facility] (Lab) [address] [place], [address], 04/19/2023 13:00:28 04/19/20 23 04/19/2023 CBC/C OMPLE TE BLD COUNT W/DIF F immature granulocytes ,absolute 0.02 x10'3 /uL 0.00-0 .05 Not Available [facility] (Lab) [address] [place], [address], 04/19/2023 13:00:28 04/19/20 23 04/19/2023 CBC/C OMPLE TE BLD COUNT W/DIF F nucleated red blood cells 0.0 % -0 Not Available [facility] (Lab) [address] [place], [address], 04/19/2023 13:00:28 04/19/2004/19/2023 CBC/C OMPLE TE BLD COUNT W/DIF F NRBC# 0.00 x10'3 /uL Not Available [facility] (Lab) [address] [place], [address], 04/19/2023 13:00:28 04/19/20 23 04/19/2023 LIPID PANEL cholesterol 177 mg/dL 140-19 9 NIH JUANA NSUS RECOM MENDA TION FOR LUZ MARINA STERO L: ADULT CHILD LOW RISK: <200 <170 BORDE RLINE : <200- 239 ----- HIGH RISK: >240 >200 Not Available [facility] (Lab) [address] [place], [address], 04/19/2023 13:04:18 04/19/20 23 04/19/2023 LIPID PANEL triglyceride s 94 mg/dL 0-150 NIH JUANA NSUS REPOR T RECOM MENDA TION FOR TRIGL YCERI PIERO: ADULT CHILD LOW RISK: <150 ----- BODER LINE: 150-1 99 ----- HIGH RISK: >200 ----- Not Available [facility] (Lab) [address] [place], [address], 04/19/2023 13:04:18 04/19/20 23 04/19/2023 LIPID PANEL HDL cholesterol 62 mg/dL 40- Not Available [facility] (Lab) [address] [place], [address], 04/19/2023 13:04:18 04/19/20 23 04/19/2023 LIPID PANEL [...] WILL NOT BE REPOR LIS. Not Available [facility] (Lab) [address] [place], [address], 04/19/2023 13:04:18 04/19/20 23 04/19/2023 COMPR EHENS AISHWARYA METAB OLIC PANEL sodium 139 mmol/ L 137-14 5 Not Available [facility] (Lab) [address] [place], [address], 04/19/2023 13:04:21 04/19/20 23 04/19/2023 COMPR EHENS AISHWARYA METAB OLIC PANEL potassium 4.2 mmol/ L 3.5-5. 1 Not Available [facility] (Lab) [address] [place], [address], 04/19/2023 13:04:21 04/19/20 23 04/19/2023 COMPR EHENS AISHWARYA METAB OLIC PANEL chloride 102 mmol/ L 98-107 Not Available [facility] (Lab) [address] [place], [address], 04/19/2023 13:04:21 04/19/20 23 04/19/2023 COMPR EHENS AISHWARYA METAB OLIC PANEL carbon dioxide 26 mmol/ L 22-30 Not Available [facility] (Lab) [address] [place], [address], 04/19/2023 13:04:21 04/19/20 23 04/19/2023 COMPR EHENS AISHWARYA METAB OLIC PANEL anion gap 15.2 mmol/ L 14-22 Not Available [facility] (Lab) [address] [place], [address], 04/19/2023 13:04:21 04/19/20 23 04/19/2023 COMPR EHENS AISHWARYA METAB OLIC PANEL glucose 104 mg/dL 70-99 high Not Available [facility] (Lab) [address] [place], [address], 04/19/2023 13:04:21 04/19/20 23 04/19/2023 COMPR EHENS AISHWARYA METAB OLIC PANEL BUN 15 mg/dL 8-19 Not Available [facility] (Lab) [address] [place], [address], 04/19/2023 13:04:21 04/19/20 23 04/19/2023 COMPR EHENS AISHWARYA METAB OLIC PANEL creatinine 0.69 mg/dL 0.66-1 .25 Not Available [facility] (Lab) [address] [place], [address], 04/19/2023 13:04:21 04/19/20 23 04/19/2023 COMPR EHENS AISHWARYA METAB OLIC PANEL GFR >60 Refer ence Range : [place] ge GFR Healt hy Adult : >60 [...] or ethni c subgr oups, such as [facility] nics. Outsi de the valid ated [...] s/kdo qi/gf r_cal culat or Not Available [facility] (Lab) [address] [place], [address], 04/19/2023 13:04:21 04/19/20 23 04/19/2023 COMPR EHENS AISHWARYA METAB OLIC PANEL alkaline phosphatase 85 U/L 38-126 Not Available [facility] (Lab) [address] [place], [address], 04/19/2023 13:04:21 04/19/20 23 04/19/2023 COMPR EHENS AISHWARYA METAB OLIC PANEL alanine aminotransfe rase 39 U/L 0-35 high Not Available [facility] (Lab) [address] [place], [address], 04/19/2023 13:04:21 04/19/20 23 04/19/2023 COMPR EHENS AISHWARYA METAB OLIC PANEL aspartate aminotransfe rase 31 U/L 15-37 Not Available [facility] (Lab) [address] [place], [address], 04/19/2023 13:04:21 04/19/20 23 04/19/2023 COMPR EHENS AISHWARYA METAB OLIC PANEL bilirubin, total 0.40 mg/dL 0.20-1 .30 Not Available [facility] (Lab) [address] [place], [address], 04/19/2023 13:04:21 04/19/20 23 04/19/2023 COMPR EHENS AISHWARYA METAB OLIC PANEL calcium 9.0 mg/dL 8.4-10 .2 Not Available [facility] (Lab) [address] [place], [address], 04/19/2023 13:04:21 04/19/20 23 04/19/2023 COMPR EHENS AISHWARYA METAB OLIC PANEL total protein 7.2 g/dL 6.3-8. 2 Not Available [facility] (Lab) [address] [place], [address], 04/19/2023 13:04:21 04/19/20 23 04/19/2023 COMPR EHENS AISHWARYA METAB OLIC PANEL albumin 4.2 g/dL 3.4-5. 0 Not Available [facility] (Lab) [address] [place], [address], 04/19/2023 13:04:21 04/19/20 23 04/19/2023 COMPR EHENS AISHWARYA METAB OLIC PANEL globulin 3.0 g/dL 2.6-4. 2 Not Available [facility] (Lab) [address] [place], [address], 04/19/2023 13:04:21 04/19/20 23 04/19/2023 COMPR EHENS AISHWARYA METAB OLIC PANEL A/G ratio 1.4 ratio 1.0-2. 0 Not Available [facility] (Lab) [address] [place], [address], 04/19/2023 13:04:21 04/19/20 23 04/19/2023 T3 FREE free T3 2.9 pg/mL 2.77-5 .27 Not Available [facility] (Lab) [address] [place], [address], 04/19/2023 13:14:10 04/19/20 23 04/19/2023 T4 FREE free T4 0.88 NG/dL 0.78-2 .19 Not Available [facility] (Lab) [address] [place], [address], 04/19/2023 13:14:12 04/19/20 23 04/19/2023 TSH thyroid-stim ulating hormone 1.410 uIU/m L 0.465- 4.680 Not Available [facility] (Lab) [address] [place], [address], 04/19/2023 13:44:33 04/19/20 23 04/19/2023 HEMOG LOBIN A1C HA1C 5.6 % 4.0-6. 0 Diabe lucita Scree palomo Crite neela: <5.7% Consi stent with absen ce of diabe lucita 5.7-6 .4% Consi stent with incre ased risk for diabe lucita (pred iabet es) >OR=6 .5% Consi stent with diabe lucita REFER ENCE: Diabe lucita Care 2015, 39( ppl.1 ):s13 -s22 Not Available [facility] (Lab) [address] [place], [address], 04/19/2023 17:51:17 09/11/20 23 09/11/2023 CBC/C OMPLE TE BLD COUNT W/DIF F white blood cells 4.7 x10'3 /uL 4.2-10 .8 Not Available [facility] (Lab) [address] [place], [address], 09/11/2023 11:07:44 09/11/20 23 09/11/2023 CBC/C OMPLE TE BLD COUNT W/DIF F red blood cells 4.15 x10'6 /uL 3.80-5 .20 Not Available [facility] (Lab) [address] [place], [address], 09/11/2023 11:07:44 09/11/20 23 09/11/2023 CBC/C OMPLE TE BLD COUNT W/DIF F hemoglobin 13.6 g/dL 12.0-1 5.6 Not Available [facility] (Lab) [address] [place], [address], 09/11/2023 11:07:44 09/11/20 23 09/11/2023 CBC/C OMPLE TE BLD COUNT W/DIF F hematocrit 41.9 % 35.7-4 5.7 Not Available [facility] (Lab) [address] [place], [address], 09/11/2023 11:07:44 09/11/20 23 09/11/2023 CBC/C OMPLE TE BLD COUNT W/DIF F mean red cell volume 101.0 fL 82.0-9 9.0 high Not Available [facility] (Lab) [address] [place], [address], 09/11/2023 11:07:44 09/11/20 23 09/11/2023 CBC/C OMPLE TE BLD COUNT W/DIF F mean red cell hemoglobin 32.8 pg 27.0-3 3.0 Not Available [facility] (Lab) [address] [place], [address], 09/11/2023 11:07:44 09/11/20 23 09/11/2023 CBC/C OMPLE TE BLD COUNT W/DIF F mean RBC HGB concentratio n 32.5 g/dL 31.0-3 6.0 Not Available [facility] (Lab) [address] [place], [address], 09/11/2023 11:07:44 09/11/20 23 09/11/2023 CBC/C OMPLE TE BLD COUNT W/DIF F red cell distribution width 12.8 % 11.8-1 5.5 Not Available [facility] (Lab) [address] [place], [address], 09/11/2023 11:07:44 09/11/20 23 09/11/2023 CBC/C OMPLE TE BLD COUNT W/DIF F platelets 237 x10'3 /uL 150-40 0 Not Available [facility] (Lab) [address] [place], [address], 09/11/2023 11:07:44 09/11/20 23 09/11/2023 CBC/C OMPLE TE BLD COUNT W/DIF F mean platelet volume 10.4 fL 9.0-12 .4 Not Available [facility] (Lab) [address] [place], [address], 09/11/2023 11:07:44 09/11/20 23 09/11/2023 CBC/C OMPLE TE BLD COUNT W/DIF F neutrophils 58.3 % 39.0-7 2.0 Not Available [facility] (Lab) [address] [place], [address], 09/11/2023 11:07:44 09/11/20 23 09/11/2023 CBC/C OMPLE TE BLD COUNT W/DIF F lymphocytes 32.3 % 16.0-4 7.0 Not Available [facility] (Lab) [address] [place], [address], 09/11/2023 11:07:44 09/11/20 23 09/11/2023 CBC/C OMPLE TE BLD COUNT W/DIF F monocytes 7.1 % 5.0-12 .0 Not Available [facility] (Lab) [address] [place], [address], 09/11/2023 11:07:44 09/11/20 23 09/11/2023 CBC/C OMPLE TE BLD COUNT W/DIF F eosinophils 1.7 % 1.0-7. 0 Not Available [facility] (Lab) [address] [place], [address], 09/11/2023 11:07:44 09/11/20 23 09/11/2023 CBC/C OMPLE TE BLD COUNT W/DIF F basophils 0.4 % 0.0-2. 0 Not Available [facility] (Lab) [address] [place], [address], 09/11/2023 11:07:44 09/11/20 23 09/11/2023 CBC/C OMPLE TE BLD COUNT W/DIF F immature granulocytes 0.2 % 0.00-0 .50 Not Available [facility] (Lab) [address] [place], [address], 09/11/2023 11:07:44 09/11/20 23 09/11/2023 CBC/C OMPLE TE BLD COUNT W/DIF F neutrophils, absolute count 2.72 x10'3 /uL 1.5-8. 0 Not Available [facility] (Lab) [address] [place], [address], 09/11/2023 11:07:44 09/11/20 23 09/11/2023 CBC/C OMPLE TE BLD COUNT W/DIF F lymphocytes, absolute count 1.51 x10'3 /uL 1.07-3 .43 Not Available [facility] (Lab) [address] [place], [address], 09/11/2023 11:07:44 09/11/20 23 09/11/2023 CBC/C OMPLE TE BLD COUNT W/DIF F monocytes, absolute count 0.33 x10'3 /uL 0.29-0 .99 Not Available [facility] (Lab) [address] [place], [address], 09/11/2023 11:07:44 09/11/20 23 09/11/2023 CBC/C OMPLE TE BLD COUNT W/DIF F eosinophils, absolute count 0.08 x10'3 /uL 0.02-0 .53 Not Available [facility] (Lab) [address] [place], [address], 09/11/2023 11:07:44 09/11/20 23 09/11/2023 CBC/C OMPLE TE BLD COUNT W/DIF F basophils, absolute count 0.02 x10'3 /uL 0.01-0 .08 Not Available [facility] (Lab) [address] [place], [address], 09/11/2023 11:07:44 09/11/20 23 09/11/2023 CBC/C OMPLE TE BLD COUNT W/DIF F immature granulocytes ,absolute 0.01 x10'3 /uL 0.00-0 .05 Not Available [facility] (Lab) [address] [place], [address], 09/11/2023 11:07:44 09/11/20 23 09/11/2023 CBC/C OMPLE TE BLD COUNT W/DIF F nucleated red blood cells 0.0 % -0 Not Available [facility] (Lab) [address] [place], [address], 09/11/2023 11:07:44 09/11/20 23 09/11/2023 CBC/C OMPLE TE BLD COUNT W/DIF F NRBC# 0.00 x10'3 /uL Not Available [facility] (Lab) [address] [place], [address], 09/11/2023 11:07:44 09/11/20 23 09/11/2023 COMPR EHENS AISHWARYA METAB OLIC PANEL sodium 139 mmol/ L 137-14 5 Not Available [facility] (Lab) [address] [place], [address], 09/11/2023 11:30:25 09/11/20 23 09/11/2023 COMPR EHENS AISHWARYA METAB OLIC PANEL potassium 4.6 mmol/ L 3.5-5. 1 Not Available [facility] (Lab) [address] [place], [address], 09/11/2023 11:30:25 09/11/20 23 09/11/2023 COMPR EHENS AISHWARYA METAB OLIC PANEL chloride 105 mmol/ L 98-107 Not Available [facility] (Lab) [address] [place], [address], 09/11/2023 11:30:25 09/11/20 23 09/11/2023 COMPR EHENS AISHWARYA METAB OLIC PANEL carbon dioxide 29 mmol/ L 22-30 Not Available [facility] (Lab) [address] [place], [address], 09/11/2023 11:30:25 09/11/20 23 09/11/2023 COMPR EHENS AISHWARYA METAB OLIC PANEL anion gap 9.6 mmol/ L 14-22 low Not Available [facility] (Lab) [address] [place], [address], 09/11/2023 11:30:25 09/11/20 23 09/11/2023 COMPR EHENS AISHWARYA METAB OLIC PANEL glucose 165 mg/dL 70-99 high Not Available [facility] (Lab) [address] [place], [address], 09/11/2023 11:30:25 09/11/20 23 09/11/2023 COMPR EHENS AISHWARYA METAB OLIC PANEL BUN 18 mg/dL 8-19 Not Available [facility] (Lab) [address] [place], [address], 09/11/2023 11:30:25 09/11/20 23 09/11/2023 COMPR EHENS AISHWARYA METAB OLIC PANEL creatinine 0.74 mg/dL 0.66-1 .25 Not Available [facility] (Lab) [address] [place], [address], 09/11/2023 11:30:25 09/11/20 23 09/11/2023 COMPR EHENS AISHWARYA METAB OLIC PANEL GFR >60 Refer ence Range : [place] ge GFR Healt hy Adult : >60 [...] s/kdo qi/gf r_cal culat or Not Available [facility] (Lab) [address] [place], [address], 09/11/2023 11:30:25 09/11/2009/11/2023 COMPR EHENS AISHWARYA METAB OLIC PANEL alkaline phosphatase 82 U/L 38-126 Not Available [facility] (Lab) [address] [place], [address], 09/11/2023 11:30:25 09/11/20 23 09/11/2023 COMPR EHENS AISHWARYA METAB OLIC PANEL alanine aminotransfe rase 52 U/L 0-35 high Not Available [facility] (Lab) [address] [place], [address], 09/11/2023 11:30:25 09/11/20 23 09/11/2023 COMPR EHENS AISHWARYA METAB OLIC PANEL aspartate aminotransfe rase 34 U/L 15-37 Not Available [facility] (Lab) [address] [place], [address], 09/11/2023 11:30:25 09/11/20 23 09/11/2023 COMPR EHENS AISHWARYA METAB OLIC PANEL bilirubin, total 0.60 mg/dL 0.20-1 .30 Not Available [facility] (Lab) [address] [place], [address], 09/11/2023 11:30:25 09/11/20 23 09/11/2023 COMPR EHENS AISHWARYA METAB OLIC PANEL calcium 9.5 mg/dL 8.4-10 .2 Not Available [facility] (Lab) [address] [place], [address], 09/11/2023 11:30:25 09/11/20 23 09/11/2023 COMPR EHENS AISHWARYA METAB OLIC PANEL total protein 7.0 g/dL 6.3-8. 2 Not Available [facility] (Lab) [address] [place], [address], 09/11/2023 11:30:25 09/11/20 23 09/11/2023 COMPR EHENS AISHWARYA METAB OLIC PANEL albumin 3.9 g/dL 3.4-5. 0 Not Available [facility] (Lab) [address] [place], [address], 09/11/2023 11:30:25 09/11/20 23 09/11/2023 COMPR EHENS AISHWARYA METAB OLIC PANEL globulin 3.1 g/dL 2.6-4. 2 Not Available [facility] (Lab) [address] [place], [address], 09/11/2023 11:30:25 09/11/20 23 09/11/2023 COMPR EHENS AISHWARYA METAB OLIC PANEL A/G ratio 1.3 ratio 1.0-2. 0 Not Available [facility] (Lab) [address] [place], [address], 09/11/2023 11:30:25 09/11/20 23 09/11/2023 MAGNE SIUM magnesium 2.1 mg/dL 1.6-2. 3 Not Available [facility] (Lab) [address] [place], [address], 09/11/2023 11:30:30 09/11/20 23 09/11/2023 LIPID PANEL cholesterol 201 mg/dL 140-19 9 high NIH JUANA NSUS RECOM MENDA TION FOR LUZ MARINA STERO L: ADULT CHILD LOW RISK: <200 <170 BORDE RLINE : <200- 239 ----- HIGH RISK: >240 >200 Not Available [facility] (Lab) [address] [place], [address], 09/11/2023 11:30:33 09/11/20 23 09/11/2023 LIPID PANEL triglyceride s 127 mg/dL 0-150 NIH JUANA NSUS REPOR T RECOM MENDA TION FOR TRIGL YCERI PIERO: ADULT CHILD LOW RISK: <150 ----- BODER LINE: 150-1 99 ----- HIGH RISK: >200 ----- Not Available [facility] (Lab) [address] [place], [address], 09/11/2023 11:30:33 09/11/20 23 09/11/2023 LIPID PANEL HDL cholesterol 57 mg/dL 40- Not Available [facility] (Lab) [address] [place], [address], 09/11/2023 11:30:33 09/11/20 23 09/11/2023 LIPID PANEL [...] WILL NOT BE REPOR LIS. Not Available [facility] (Lab) [address] [place], [address], 09/11/2023 11:30:33 09/11/20 23 09/11/2023 T3 FREE free T3 3.3 pg/mL 2.77-5 .27 Not Available [facility] (Lab) [address] [place], [address], 09/11/2023 11:44:33 09/11/20 23 09/11/2023 T4 FREE free T4 0.93 NG/dL 0.78-2 .19 Not Available [facility] (Lab) [address] [place], [address], 09/11/2023 11:44:35 09/11/20 23 09/11/2023 TSH thyroid-stim ulating hormone 2.610 uIU/m L 0.465- 4.680 Not Available [facility] (Lab) [address] [place], [address], 09/11/2023 11:57:19 09/11/20 23 09/11/2023 HEMOG LOBIN A1C HA1C 6.2 % 4.0-6. 0 high Diabe lucita Scree palomo Crite neela: <5.7% Consi stent with absen ce of diabe lucita 5.7-6 .4% Consi stent with incre ased risk for diabe lucita (pred iabet es) >OR=6 .5% Consi stent with diabe lucita REFER ENCE: Diabe lucita Care 2016, 39(Hunter ppl.1 ):s13 -s22 Not Available [facility] (Lab) [address] [place], [address], 09/11/2023 16:48:11 09/10/20 23 elect rocar diogr am No observ ation record ed. [facility] [place] [facility] [address] [facility] [address], [place], [address], 09/10/2023 18:13:55 09/10/20 23 09/10/2023 elect rocar diogr am No observ ation record ed. [facility] [address] [facility], [facility] [address], [place], [address], 09/10/2023 18:19:15 10/23/19 24 XR, chest [facility] [address] [place] [address] Patien t Name: HERMELINDO SANCHEZ Access ion #: [id number] Sex: F : 1964 5 Dictat [...] at 2023 10:11: 09 AM Page 1 [facility] ([facility]) [address] [place] [address], [address], 11/08/2023 13:35:21 12/18/19 25 12/17/2024 imagi ng/jolynn toledo tic resul t No observ ation record ed. [facility] [address] [place], [address], 12/17/2024 15:07:33 Result Notes None recorded. Problems Name Problem SNOMED Code Status Onset Date Resolution Date Notes Provider Name and Address Organization Details Recorded Time Intolerant of heat and cold [id number] Active 2021 Not Available [employer] 4 05:28:48 Headache 14087975 Active 2020 Not Available [facility] 4 05:28:48 Type 2 diabetes mellitus without complicati on 111043062 Active 2021 Not Available [facility] 4 05:28:48 Bronchitis 23090671 Active Not Available [facility] 4 05:28:48 Sleep disorder 65941389 Active 2021 Not Available [facility] 4 05:28:48 Type 2 diabetes mellitus 40045643 Active 2020 Not Available [facility] 4 05:28:48 Uncontroll ed type 2 diabetes mellitus 299970980 Active 2021 Not Available [facility] 4 05:28:48 Hyperlipid emia 26260596 Active 2021 Not Available [facility] 4 05:28:48 Essential hypertensi on 33732990 Active 2020 Not Available [facility] 4 05:28:48 Obstructiv e sleep apnea syndrome 65564885 Active 2021 Not Available [facility] 4 05:28:48 Hyperglyce ayden 98991271 Completed 202004/18/2021 Not Available [facility] 3 10:48:26 Fatigue 34791610 Active 2022 Not Available [facility] 4 05:28:48 Skin lesion 37029614 Active 2022 Not Available [facility] 4 05:28:48 Bradycardi a 21801381 Active 2022 Not Available [facility] 4 05:28:48 Dizziness 640969983 Active 2022 Not Available [facility] 4 05:28:48 Notes:Medical History: Depre ssion Obesity with very severe OSAHS, AHi = 78, 01/06/22 Hypertension Hyperlipidemia T2DM Vit D deficiency Problem Notes None recorded. Procedures Surgical History Date Name Laterality Status Provider Name and Address Organization Details Recorded Time Knee Surgery completed Not Available [facility] 12/13/2022 10:43:12 Cholecystectomy completed Not Available [facility] 12/13/2022 10:43:12 Imaging Results None recorded. Procedure Notes None recorded. Medical Equipment None Reported. Allergies Allergen ID Allergen Name Allergen Category Reaction Reaction Severity Criticality Documentation Date Start Date Code Code System Note Provider Name and Address Organization Details Recorded Time 29558 acetamino phen / hydrocodo ne medicatio n vomiting Not available Not available 12/13/2022 35137 2 RxNorm Not Available [facility] 3 10:53:00 Medications Name Sig Start Date [...] Available Not Available Not Available amoxicillin 875 mg-potzoraiu m clavulanate 125 mg tablet TAKE 1 [...] Body weight Body temperature Heart rate Systolic And Diastolic Provider Name and Address Organization Details Last Updated DateTime 4 167.64 cm 40.7 kg/m2 027719. 28 g 98.9 [degF] 86 /min 128/84 mm[Hg] Evangelina dhillon RN [place] [employer] [facility] 4 10:18:53 Date Recorded Body height Body mass index (BMI) Body weight Body temperature Heart rate Oxygen saturation Oxygen saturation in Arterial blood by Pulse oximetry Systolic And Diastolic Provider Name and Address Organization Details Last Updated DateTime 3 167.64 cm 36 kg/m2 336089. 1 g 97.1 [degF] 70 /min 99 % 99 % 108/64 mm[Hg] Juliann Saravia [facility] [employer] [facility] 3 09:29:56 Date Recorded Body height Body mass index (BMI) Body weight Body temperature Heart rate Systolic And Diastolic Provider Name and Address Organization Details Last Updated DateTime 3 167.64 cm 37.4 kg/m2 675951. 43 g 97.8 [degF] 63 /min 132/82 mm[Hg] DALJIT Marie [facility] [employer] [facility] 3 09:53:56 Date Recorded Body mass index (BMI) Body weight Systolic And Diastolic Provider Name and Address Organization Details Last Updated DateTime 09/10/2023 40.2 kg/m2 538539.5 g 110/70 mm[Hg] Martina Serra [facility] [employer] [facility] 09/10/2023 10:26:35 Date Recorded Body height Body temperature Provider N elvin and Address Organization Details Last Updated DateTime 09/10/2023 167.64 cm 96.6 [degF] Danii Nunez MA [facility] [employer] [facility] 09/10/2023 10:01:23 Date Recorded Body height Body mass index (BMI) Body weight Body temperature Heart rate Heart rate Heart rate Systolic And Diastolic Systolic And Diastolic Systolic And Diastolic Provider Name and Address Organization Details Last Updated DateTime 3 167.64 cm 40.2 kg/m2 707813. 22 g 97.8 [degF] 74 /min 58 /min 74 /min 126/74 mm[Hg] 122/82 mm[Hg] 126/78 mm[Hg] Ondina Farrell MA [facility] [employer] [facility] 3 18:12:55 Date Recorded Body height Heart rate Systolic And Diastolic Provider Name and Address Organization Details Last Updated DateTime 10/01/2023 167.64 cm 54 /min 128/74 mm[Hg] Sandra Herman CMA [facility] [employer] [facility] 10/01/2023 10:07:21 Social History Question Answer Notes LastModified by Organization Details LastModified Time Tobacco Smoking Status Former Smoker quit 2007 DALJIT Mccullough, [place] [employer] [facility] 04/19/2023 09:49:25 Do You Have An Advance Directive? No [id number] Information not available 12/13/2022 Do You Wear A Helmet When Biking? No Information not available 04/19/2023 What Is Your Level Of Caffeine Consumption? Heavy [email or web address] Information not available 12/27/2022 How Much Tobacco Do You Chew? None [id number].[id number] [id number] Information not available 12/13/2022 In The 14 [...] You Following? SPECIFIC Weight Watchers Diet MIGRATION.[id number] [id number] Information not available 12/13/2022 Which Illicit Or Recreational Drugs Have You Used? None Information not available 04/19/2023 What Is The Highest Grade Or Level Of School You Have Completed Or The Highest Degree You Have Received? [id number] Information not available 04/19/2023 Have There Been Any Changes To Your Family Or Social Situation? No Information not available 04/19/2023 What Is The Fluoride Status Of Your Home? Unknown Information not available 04/19/2023 When Did You Quit Smoking? 11-15yearssinerica [email or web address] Information not available 04/19/2023 Are There Any Guns Present In Your Home? Yes Information not available 04/19/2023 Do You Use Insect Repellent Routinely? No Information not available 04/19/2023 Where [facility] You Live? [facility] Information not available 04/19/2023 Do You Have A Medical Power Of Solar Sales Specialist? No Information not available 04/19/2023 What Was The Date Of Your Most Recent Tobacco Screening? 10/23/2023 [email or web address] Information not available 10/23/2023 What Is Your Current Pack Years? 30ormorepackyears Information not available 04/19/2023 Have You Ever Been Counseled For Unhealthy Alcohol Use? No Information not available 04/19/2023 Do You Have Any Pets? Yes Information not available 04/19/2023 What Is Your Relationship Status? [id number].[id number] [id number] Information not available 12/13/2022 Do You Use Your Seat Belt Or Car Seat Routinely? Yes Information not available 04/19/2023 Do You Have Smoke And Carbon Monoxide Detectors In Your Home? Yes Information not available 04/19/2023 At What Age Did You Start Smoking Tobacco? 13 Information not available 04/19/2023 Are You Passively Exposed To Smoke? No Information not available 04/19/2023 Are There Any Smokers In Your House? No Information not available 04/19/2023 How Much Tobacco Do You Smoke? 2 PPD MIGRATION.0301 [id number] Information not available 12/13/2022 What Types Of Sporting Activities Do You Participate In? None Information not available 04/19/2023 Do You Use Sunscreen Routinely? Yes Information not available 04/19/2023 Has Tobacco Cessation Counseling Been Provided? No Information not available 04/19/2023 How Many Years Have You Smoked Tobacco? 29 Information not available 04/19/2023 Have You Recently Traveled Abroad? No Information not available 04/19/2023 Do You Have Any Dietary Restrictions? No Information not available 04/19/2023 Sex: Female Functional Status Question Answer Note LastModified by Organizat ion Details LastModified Time Do you use any illicit or recreational drugs? No Information not available 04/19/2023 Do you or have you ever used any other forms of tobacco or nicotine? No Information not available 04/19/2023 What is your level of alcohol consumption? Occasional [id number] Information not available 12/13/2022 Do you or have you ever used smokeless tobacco? Never used smokeless tobacco [id number] Information not available 12/13/2022 What is your occupation? self employed Information not available 04/19/2023 Do you or have you ever used e-cigarettes or vape? Never used electronic cigarettes Information not available 04/19/2023 What is your exercise level? Occasional [id number] Information not available 12/13/2022 Mental Status Question Answer Note LastModified by Organization D etails LastModified Time Do you feel stressed (tense, restless, nervous, or anxious, or unable to sleep at night)? [id number] Information not available 04/19/2023 Family History Relationship Description Onset Age of this Age Resolved Age Notes LastModified by Organization Details LastModified Time Mother Myocardial infarction 52 [id number] Not available 12/13/2022 10:43:14 Mother Hyperlipidem ia cyahl Not available 2022 09:49:23 Medical History Condition Response NERVE DISEASE N BLINDNESS N RHEUMATIC FEVER N KIDNEY STONES N BLADDER PROBLEMS N MRSA N OTHER # 1 N POLIO N LUNG DISEASE/DISORDER N HISTORY OF DRUG ABUSE N COPD N RADIATION / CHEMOTHERAPY N Other # 2 N BLOOD DISEASES N EAR OR HEARING PROBLEMS N MUMPS N SHINGLES N BOWEL PROBLEMS N DEPRESSION (INCLUDING POST ) N STROKE/TIA N ULCERS N BENIGN PROSTATIC HYPERPLASIA N MEASLES Y HYPOTENSION N MYOCARDIAL INFARCTION N OBESITY N GERD/NAUSEA N ANEURYSM N URINARY/BLADDER/KIDNEY PROBLEMS N CORONARY ARTERY DISEASE (CAD) N ADDICTION CONCERNS N ENDOMETRIOSIS N Impotence N USE OF BLOOD THINNERS N SKIN [...] GLAUCOMA N FOOT PROBLEM N DIVERTICULITIS N CHICKENPOX Y SLEEP APNEA N INFECTIOUS DISEASE N HEART ARRHYTHMIA N PROSTATE N INSOMNIA N HIGH CHOLESTEROL / HYPERLIPIDEMIA N HYPERTHYROIDISM N EYE PROBLEMS N EDEMA N CHRONIC PAIN SYNDROME N HYPOTHYROIDISM N CAROTID BLOCKAGE N CONSTIPATION N BACK / NECK PROBLEMS N HAVE YOU BEEN HOSPITALIZED OR SEEN IN [facility] IN THE PAST YEAR ? N ATHEROSCLEROSIS N BREAST PROBLEMS N DIALYSIS N ECZEMA N OSTEOPOROSIS N ARTHRITIS N APPENDICITIS N DIABETES, TYPE N BAD TEETH N ENT N HEARTBURN / REFLUX N AUTISM SPECTRUM DISORDER (ASD) N HEPATITIS / LIVER DISEASE N GOUT N SLEEP DISORDER N ALZHEIMER'S DISEASE N Brain Problems N HERPES N DEMENTIA N HEADACHES/MIGRAINES N SEIZURES/EPILEPSY N VASCULAR DISEASE N PACEMAKER N Blood Disorder N DIZZINESS N HEART DISEASE/HEART PROBLEMS N KIDNEY DISEASE N MULTIPLE SCLEROSIS N CARDIAC ARRHYTHMIA N CANCER: SPECIFY N ATRIAL FIBRILLATION N Gall Stones N PULMONARY EMBOLISM N AUTOIMMUNE DISEASE N Gynecological HistoryNo gynecological history recorded. Obstetrics History GPAL:G 0 P 0 0 0 0 Immunizations Vaccine Type Date Status Note Provider Nam e and Address Organization Details Recorded Time COVID-19, mRNA, LNP-S, PF, 100 mcg/0.5mL dose or 50 mcg/0.25mL dose 10/19/2021 completed Not Available [facility] 4 05:28:48 COVID-19 vaccine, vector-nr, rS-Ad26, PF, 0.5 mL 01/17/2021 completed Not Available [facility] 4 05:28:48 Influenza, split virus, quadrivalent, PF 08/17/2022 completed Not Available [facility] 4 05:28:48 Past Encounters Encounter ID Performer Location Encounter Start Date Encounter Closed Date Diagnosis/Indication Diagnosis SNOMED-CT Code Diagnosis ICD10 Code Diagnosis Note [id number] Cammie Sun MD [facility] Internal Med [place] [facility] [place] [address] [address] 03/22/2021 00:00:00 04/10/2021 12:14:30 [id number] Cammie Sun MD [facility] Internal Med [place] [facility] [place] [address] [address] 04/12/2021 00:00:00 04/18/2021 21:52:44 [id number] Cammie Sun MD [facility] Internal Med [place] [address] [place] [address] 08/04/2021 00:00:00 08/15/2021 21:08:47 [id number] Cammie Sun MD [facility] Internal Med [place] [address] [place] [address] 12/01/2021 00:00:00 12/06/2021 23:10:03 [id number] Cammie Sun MD [facility] Internal [place] [address] [place] [address] [place] [address] 12/29/2021 00:00:00 01/15/2022 22:46:57 [id number] Cammie Sun MD [facility] Internal Med [place] [address] [place] [address] [place] [address] 03/02/2022 00:00:00 03/25/2022 17:43:03 [id number] Anais rendon MD [facility] Internal Med [place] [address] [place] [address] [place] [address] 2022 00:00:00 2022 17:07:42 [id number] Anais rendon MD [facility] Internal Med [place] [address] [place] [address] [place] [address] 04/12/2022 00:00:00 04/12/2022 16:25:35 [id number] Korin Ring, [facility] [place] [address] [place] [address] 04/14/2022 00:00:00 04/14/2022 14:38:11 [id number] Cammie Sun MD [facility] Internal Med [place] [address] [place] [address] [place] [address] 04/27/2022 00:00:00 04/29/2022 20:40:17 [id number] Cammie Sun MD [facility] Internal Med [place] [address] [place] [address] [place] [address] 06/01/2022 00:00:00 06/25/2022 22:32:18 [id number] Cammie Sun MD [facility] Internal Med [place] [address] [place] [address] [place] [address] 08/17/2022 00:00:00 08/19/2022 14:42:47 [id number] Korin Ring [facility] [place] [address] [place] [address] 11/15/2022 00:00:00 11/15/2022 14:20:26 [id number] Cammie Sun MD [facility] Internal Med [place] b[place] [address] [facility] [address] [facility] [place] [address] 12/14/2022 10:44:35 12/14/2022 12:02:08 Type 2 diabetes mellitus 58288883 E11.9 Essential hypertension 55816097 I10 Hyperlipidemia 69793117 E78.5 [id number] Korin Ring [facility] [place] [address] [place] [address] 12/27/2022 13:52:44 12/28/2022 08:52:18 Obstructive sleep apnea syndrome 69590166 G47.33 Home study 01/06/22 with AHI 79 [...] prior to bedtime.Do wnload in 1 month [id number] Korin Ring, [facility] [place] [address] [place] [address] 01/24/2023 09:22:27 01/24/2023 10:24:59 Obstructive sleep apnea syndrome 13822159 G47.33 Home study 01/06/22 with AHI 79 [...] apneas, will change to set pressure of 27pwU9BAlr l also decrease humidityCh anges made in REsMedDown load in 4-6 weeks, PRN for concerns Body mass index 30+ - obesity 483397580 Z68.36 Discussed weight management .Healthy well balanced meals.Incr ease exercise, ideally 30 minutes most days of the week. Fatigue 70201456 R53.83 GIAN is uncorrecte d, reassess after pressure changes [id number] Korin Ring, [employer] [facility] Pulmonolo [facility] [place] [address] [place] [address] 03/07/2023 09:21:45 03/07/2023 09:53:22 Obstructive sleep apnea syndrome 02445558 G47.33 Home study 01/06/22 with AHI 79 [...] apneas, will change to set pressure to 12utW3IDcz nload in 4-6 weeks, PRN for concerns Fatigue 62440500 R53.83 ImprovedOS A is uncorrecte d, reassess after pressure changes Body mass index 30+ - obesity 676025081 Z68.36 Discussed weight management .Healthy well balanced meals.Incr ease exercise, ideally 30 minutes most days of the week. [id number] Cammie Sun MD [facility] Internal Med [place] [address] [facility] [place] [address] 04/19/2023 09:48:22 04/19/2023 10:39:41 Type 2 diabetes mellitus 45107990 E11.9 Essential hypertension 05056030 I10 Hyperlipidemia 82140596 E78.5 Skin lesion 67210258 L98 .9 [id number] Korin Ring, [employer] [place] [address] [place] [address] 09/10/2023 09:58:34 09/10/2023 11:00:21 Obstructive sleep apnea syndrome 09794175 G47.33 Home study 01/06/22 with AHI 79 [...] should follow up in 6-12 months Fatigue 56402945 R53.83 Persistent AHI is good, I do not think that GIAN is the primary cause of her fatigue Body mass index 30+ - obesity 748892063 Z68.36 Discussed weight management .Healthy well balanced meals.Incr ease exercise, ideally 30 minutes most days of the week. Bradycardia 43748575 R00 .1 54 regular today in office - she has not taken her metoprolol this morning.Ad vised FU with [facility] [id number] Cammie Sun MD [facility] Internal Med [facility] [address] [facility] [facility] [address] [place] [address] 09/10/2023 16:03:23 09/10/2023 18:23:56 Dizziness 808223103 R42 Fatigue 74311823 R53.83 Hyperlipidemia 19809246 E78.5 [id number] Cammie Sun MD [facility] [address] [facility] , [facility] [place] [address] 10/23/2023 10:00:40 10/23/2023 10:44:13 Bronchitis 68097620 J40 Health Concerns Section Related Observation LastModified by Organization Detai ls LastModified Time None Recorded Concern Status LastModified by Organization Details LastModified Time None Recorded Advance Directives Directive N: Payers Encounter Date Sequence Insurance Name Policy Number Policy Barriga Covered Member ID Barriga Member ID Guarantor Name 03/07/2023 1 [employer] [id number] Daniella Givens [id number] Daniella Givens 04/19/2023 1 [place] [id number] Daniella Givens [id number] Daniella Givens 09/10/2023 1 [place] [id number] Daniella Givens [id number] Daniella Givens 09/10/2023 1 [place] [id number] Daniella Givens [id number] Daniella Givens 10/23/2023 1 [employer] [id number] Daniella Givens [id number] Daniella Givens Notes Date Note Type Note Provider Name and Address Organization Details Recorded Time 03/07/2023 text/html Ms Givens ami nts today to follow up on GIAN [...] more difficulty with fatigue and sleep Korin Ring [facility] [address], [place], [address], [employer] 03/07/2023 09:55:31 04/19/2023 text/html hypertension no headache dizziness. Diabetes no polyphagia polydipsia no problems with the Ozempic. Hyperlipidemia Try to follow low-fat diet skin lesion that she wants to have looked at underneath her right eye Cammie Sun MD [address] [employer], [place], [address], [employer] 04/19/2023 21:45:55 09/10/2023 text/html Dizzy on standin g for about a week slight headache occiput some increased appetite she did have 1 fall with no injury Cammie Sun MD [address] [employer], [place], [address], [employer] 09/10/2023 23:01:24 09/10/2023 text/html Ms Chon edwards [...] symptomsContinues to work on weight loss Korin Ring [facility] [address], [place], [address], [employer] 09/10/2023 12:34:33 10/23/2023 text/html Cough congestion wheezing week or 2 Cammie Sun MD [address] [employer], [place], [address], [employer] [facility] 10/23/2023 22:30:51 OBGyn Episode No OBEpisode recorded.
[2025-03-10 08:57] LABS: Basophils Percent Auto 0.3 % (0.2-1.2); Eosinophils Absolute Auto 0.1 K/mm3 (0-0.3); Eosinophils Percent Auto 1.2 % (0-4.4); Hematocrit 41.9 % (37.0-47.0); Hemoglobin 14.2 g/dL (12.0-15.0); Immature Granulocyte Absolute 0.02 K/mm3 (0.00-0.031); Immature Granulocyte Percent A 0.3 % (0-0.5); Lymphocytes Absolute Auto 1.83 K/mm3 (0.9-3.2); Lymphocytes Percent Auto 30.2 % (18.3-44.2); Mean Corpuscular HGB Conc 33.9 g/dl (32-36); Mean Corpuscular Hemoglobin 31.9 pg (26-34); Mean Corpuscular Volume 94.2 fl (80-100); Mean Platelet Volume 10.1 fl (7.4-10.4); Monocytes Absolute Auto 0.4 K/mm3 (0.1-0.6); Monocytes Percent Auto 6.9 % (2.6-8.5); Neutrophils Absolute Auto 3.7 K/mm3 (1.3-6.7); Neutrophils Percent Auto 61.1 % (45.5-73.1); Platelet Count Result 243 k/mm3 (150-375); Red Blood Count 4.45 M/mm3 (4.2-5.4); Red Cell Distribution Width 12.7 % (11.5-14.5); White Blood Count 6.1 K/mm3 (4.5-10.0)
[2025-03-10 09:17] LABS: Alanine Aminotransferase 30 U/L (6-35); Albumin Level 4.3 g/dL (3.5-5.1); Alkaline Phosphatase 113 U/L (38-126); Anion Gap 10 mmol/L (4-12); Aspartate Amino Transferase 31 U/L (14-36); Bilirubin,Total 0.6 mg/dL (0.2-1.3); Blood Urea Nitrogen 13 mg/dL (7-17); Calcium 9.1 mg/dL (8.4-10.2); Carbon Dioxide 23 mmol/L (22-30); Chloride 106 mmol/L (98-107); Cholesterol 161 mg/dL (0-200); Estimated Glomerular Filt Rate > 60; Glucose 128 mg/dL (65-110); HDL Direct 42 mg/dL; Potassium 4.1 mmol/L (3.4-5.0); Sodium 139 mmol/L (137-145); Triglycerides 182 mg/dL (<150)
[2025-03-10 09:24] LABS: Rheumatoid Factor < 12.0 IU/ML (<12)
[2025-03-10 09:29] LABS: LDL Cholesterol Direct 75 mg/dL
[2025-03-10 09:37] LABS: Hemoglobin A1C 6.7 % (<5.7)
[2025-03-10 09:55] LABS: Cortisol Random 9.76 ug/dL
[2025-03-10 10:23] LABS: Folic Acid 6.7 ng/mL (2.76->20)
[2025-03-10 10:50] LABS: Free T3 2.67 pg/mL (2.71-6.16); Free T4 Free Thyroxine 0.89 ng/dL (0.78-2.19)
== END 2025-03-10 07:45 | disposition home or self-care (01) ==
PROVIDERS: PCP Internal Medicine; Visit Provider Internal Medicine
DX: E11.9 Type 2 diabetes mellitus without complications (principal); I10 Essential (primary) hypertension; M25.50 Pain in unspecified joint; M25.572 Pain in left ankle and joints of left foot; R53.83 Other fatigue
CPT/HCPCS: 36415; 73610; 80053; 80061; 82533; 82607; 82746; 83036; 84439; 84443; 84481; 85025; 86038; 86039; 86430